=== PATIENT | female | born 1965 | race Caucasian/White ===

== ENCOUNTER 2021-03-08 10:56 | Outpatient (REF) | payer MEDICAID, SELFPAY ==
--- NOTE | 2021-03-08 11:00 | PFT_ITS ---
INDICATIONS: Dyspnea and cough. SPIROMETRY: The FEV1 to FVC of 66% with an FEV1 of 1.81 L, which is 76% predicted and an FVC of 2.73 L, which is 89% predicted. No significant response to bronchodilators noted. Maximum voluntary ventilation 52% predicted. LUNG VOLUMES: Total lung capacity 113% predicted with residual volume of 153% predicted. DIFFUSION CAPACITY: DLCO 60% predicted. COMPARISONS: None. INTERPRETATION: There is an obstructive ventilatory defect consistent moderate COPD. No significant response to bronchodilators noted. There is also moderate decrease in maximum voluntary ventilation secondary to likely deconditioning, although likely a component of worsening dynamic inspiratory capacity. Lung volumes with a trend of hyperinflation and significant air trapping due to the COPD. There is also a [id number] diffusion impairment secondary to emphysema and other parenchymal lung conditions should be considered. Clinical correlation warranted. Lai Weeks MD MR/MODL / [id number]
== END 2021-03-08 10:57 | disposition home or self-care (01) ==
LOC: HO.RESP 10:56
PROVIDERS: PCP General Practice; Visit Provider General Practice
DX: R05 Cough (principal); Z72.0 Tobacco use
CPT/HCPCS: 94060; 94727; 94729

== ENCOUNTER → 2021-04-11 12:58 | Outpatient (BNVA) | payer MEDICAID, SELFPAY | PROVIDERS: PCP General Practice; Visit Provider Internal Medicine | DX: J44.9 Chronic obstructive pulmonary disease, unspecified (principal); F17.200 Nicotine dependence, unspecified, uncomplicated | CPT/HCPCS: 99202 ==

== ENCOUNTER → 2021-05-30 09:49 | Outpatient (BNVA) | payer MEDICAID, SELFPAY | PROVIDERS: PCP General Practice; Visit Provider Internal Medicine | DX: J44.9 Chronic obstructive pulmonary disease, unspecified (principal); F17.200 Nicotine dependence, unspecified, uncomplicated | CPT/HCPCS: 99212 ==

== ENCOUNTER 2021-06-23 14:11 | Outpatient (REF) | payer MEDICAID, SELFPAY ==
--- NOTE | ~2021-06-23 | CT_ITS ---
EXAMINATION: CT CHEST SCREENING CLINICAL INFORMATION: Current smoker. 37 pack year history. COMPARISON: None. TECHNIQUE: Multidetector volumetric CT imaging of the chest is performed without contrast using low dose technique. Additional 2D coronal and sagittal reformatted images and axial 3D maximum intensity projection (MIP) images are generated on the CT workstation. This CT examination was performed using dose optimization techniques as appropriate, variously including the following: *Automated exposure control *Adjustment of mA and/or kV according to patient size (this includes techniques or standardized protocols for targeted exams where dose is matched to indication/reason for exam; i.e. extremities or head) *Use of iterative reconstruction technique DLP: 53 mGy-cm FINDINGS: LUNGS: There is evidence of mild paraseptal emphysema. There is a 2 mm peripheral or subpleural left lower lobe nodule axial image 132 series 5. There is a 2 mm left upper lobe nodule axial image 145 series 5. There is a 2 mm right upper lobe nodule axial image 190 series 5. There is a 3 mm right lower lobe nodule axial image 278 series 5. The lungs are otherwise clear. No endobronchial or endotracheal lesion is seen. MEDIASTINUM: The mediastinum is normal. PLEURA: There is no pleural effusion. No pleural mass or thickening. AXILLA: No lymphadenopathy. UPPER ABDOMEN: The gallbladder has been removed. There may be diverticulosis of the colon. OSSEOUS STRUCTURES: Unremarkable. CT/CT lung screening IMPRESSION: Mild paraseptal emphysema. Small pulmonary nodules or micronodules. ASSESSMENT: Lung-RADS category 2: Benign RECOMMENDATION: Annual low-dose chest CT follow-up recommended.
== END 2021-06-23 14:12 | disposition home or self-care (01) ==
LOC: HO.CT 14:11
PROVIDERS: Visit Provider Physician Assistant Medical
DX: Z12.2 Encounter for screening for malignant neoplasm of respiratory organs (principal); F17.210 Nicotine dependence, cigarettes, uncomplicated
CPT/HCPCS: 71271; G0296

== ENCOUNTER → 2021-09-26 10:22 | Outpatient (BNVA) | payer MEDICAID, SELFPAY | PROVIDERS: PCP General Practice; Visit Provider Internal Medicine | DX: J44.9 Chronic obstructive pulmonary disease, unspecified (principal); R05.3 Chronic cough; U09.9 Post COVID-19 condition, unspecified; F17.210 Nicotine dependence, cigarettes, uncomplicated | CPT/HCPCS: 99212 ==

== ENCOUNTER → 2022-01-10 10:34 | Outpatient (BNVA) | payer MEDICAID, SELFPAY | PROVIDERS: PCP General Practice; Visit Provider Internal Medicine | DX: J44.9 Chronic obstructive pulmonary disease, unspecified (principal); R05.3 Chronic cough; U09.9 Post COVID-19 condition, unspecified; F17.210 Nicotine dependence, cigarettes, uncomplicated | CPT/HCPCS: 99212 ==

== ENCOUNTER → 2022-08-28 08:53 | Outpatient (BNVA) | payer MEDICAID, SELFPAY | PROVIDERS: PCP General Practice; Visit Provider Internal Medicine | DX: J44.9 Chronic obstructive pulmonary disease, unspecified (principal); F17.210 Nicotine dependence, cigarettes, uncomplicated | CPT/HCPCS: 99212 ==

== ENCOUNTER 2022-09-14 09:30 | Outpatient (REF) | payer MEDICAID, SELFPAY ==
--- NOTE | ~2022-09-14 | MM_ITS ---
EXAMINATION: MM SCREENING DIGITAL BREAST TOMOSYNTHESIS, BILATERAL CLINICAL INFORMATION: Screening. Asymptomatic. The lifetime risk of breast cancer based on the Tyrer-Cuzick Model is 14.6%. COMPARISON: Mammography: December 11, 2014 TECHNIQUE: Digital breast tomosynthesis is performed in both the craniocaudal and mediolateral oblique views along with computer-aided detection (CAD). Synthesized 2D images are generated from the tomosynthesis. FINDINGS: The breasts are heterogeneously dense, which may obscure small masses (ACR BI-RADS breast composition Category c). No suspicious left breast findings are identified. Within the lateral aspect of the right breast approximately 7.5 cm from the nipple there is a density containing calcifications for which spot magnification views are recommended. MM/MM tomosynthesis screening BI IMPRESSION: Right breast density with calcifications for further evaluation. ASSESSMENT: BI-RADS 0: Incomplete - Need Additional Imaging Evaluation RECOMMENDATION: 1. Additional views of the right breast 2. Targeted ultrasound if warranted after review of the additional views. 3. Radiology department staff will contact the patient for additional imaging.
== END 2022-09-14 09:31 | disposition home or self-care (01) ==
LOC: HO.MAMMO 09:30
PROVIDERS: PCP General Practice; Visit Provider General Practice
DX: Z12.31 Encounter for screening mammogram for malignant neoplasm of breast (principal)
CPT/HCPCS: 77063; 77067

== ENCOUNTER 2022-10-25 08:48 | Outpatient (REF) | payer MEDICAID, SELFPAY ==
--- NOTE | ~2022-10-25 | MM_ITS ---
EXAMINATION: MM DIAGNOSTIC DIGITAL BREAST TOMOSYNTHESIS, RIGHT CLINICAL INFORMATION: Recall from screening for question of right breast density with calcifications lateral right breast. Personal history lymphoma. TC score 15%. COMPARISON: Mammography: 09/14/2022, outside mammography 12/11/2014 ([employer]) TECHNIQUE: Digital breast tomosynthesis is performed. 2D images are generated from the tomosynthesis. The following views are obtained: Magnification right CC, magnification right ML. FINDINGS: There are scattered areas of fibroglandular density (ACR BI-RADS breast composition Category b). Breast tissue composition borders on heterogeneously dense. The additional views show no interval nodule or asymmetric density from prior outside exam 2014. There are some loosely grouped round calcifications mid 9:00 position corresponding to the recent screening exam. The calcifications are mildly coarse and round. They are likely new since 2014 but otherwise long-term chronicity is uncertain. Results are discussed with the patient at time of visit. MM/MM tomosynthesis added views R IMPRESSION: Probable benign calcifications mid 9:00 right breast. ASSESSMENT: BI-RADS 3: Probably Benign RECOMMENDATION: Diagnostic right mammography in 6 months. This patient's information was entered into a reminder system with a target due date for their next mammogram.
== END 2022-10-25 08:49 | disposition home or self-care (01) ==
LOC: HO.MAMMO 08:48
PROVIDERS: PCP General Practice; Visit Provider General Practice
DX: R92.2 Inconclusive mammogram (principal); R92.1 Mammographic calcification found on diagnostic imaging of breast
CPT/HCPCS: 77061; 77065

== ENCOUNTER 2023-03-18 09:31 | Outpatient (AMB) | payer MEDICAID, SELFPAY ==
[2023-03-18 09:36] VITALS: BP 120/80; PULSE 80; O2SAT 97; BMI 33.3
--- NOTE | 2023-03-18 09:36 | MHC.OFFVIS ---
Intake Vital Signs 03/18/23 09:36 Height 5 ft 1 in Weight 176 lb BMI 33.3 BP 120/80 Blood Pressure Location Lt brachial Position Sitting Pulse 80 Pulse Source Pulse Oximeter Pulse Oximetry (%) 97 Oxygen Delivery Method Room Air Intake Visit Reasons: COPD Intake Note: pt is here for follow up and states she is coughing with some production, she is fatigued, she just doesn't sleep. 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 Allergies No Known Allergies Allergy (Verified 03/18/23 09:49) Medication List - Last Reconciled 03/18/23 by Feliciano Mayorga MD amitriptyline 50 mg PO BEDTIME atorvastatin 10 mg PO BEDTIME baclofen 20 mg PO bupropion HCl 200 mg PO BID duloxetine 60 mg PO DAILY fluticasone propion-salmeterol 230-21 mcg/actuation (Advair HFA) 2 puffs inhalation BID montelukast 10 mg PO QPM ondansetron HCl 4 mg PO Q8H PRN umeclidinium 62.5 mcg/actuation (Incruse Ellipta) 1 inh PO DAILY Ventolin HFA 90 mcg/actuation (albuterol sulfate) 2 puffs PO Q6H PRN NS zanubrutinib (Brukinsa) 160 mg PO .in am and 1 in pm Do you need a note to return to daycare/school/sports/work: No HPI COPD HPI Details DIOR IS 57 YEARS OLD VERY PLEASANT FEMALE, COMES AFTER 6 MONTHS FOR FOLLOW-UP OF HER COPD. SHE CLAIMS THAT LONG SHE USES HER INHALERS HER BREATHING HAS BEEN WELL AND STABLE. HER MAIN ISSUE IS ONLY INCREASED COUGH AND MUCUS PRODUCTION OFF AND ON. IT DOES NOT LAST TOO LONG. SHE DOES NOT SMOKE FOR ABOUT 5-6 DAYS A WEEK AND THEN 1 DAY A WEEK SHE MAY SMOKE A FEW CIGARETTES, TRYING TO CUT IT OUT SLOWLY. LUCKILY SHE HAS HAD NO RESPIRATORY INFECTION. SHE DOES NOT GET FLU VACCINE., BUT HER COVID VACCINATION HAS BEEN COMPLETED. CHRONIC SLEEP PROBLEM IS MAINLY RELATED TO HER ANXIETY AND FIBROMYALGIA. PFSH Medical History Cancer of fallopian tube COPD (chronic obstructive pulmonary disease) Fibromyalgia Obesity (BMI 30.0-34.9) Personal history of nicotine dependence Post-COVID chronic cough Smoker Surgical History History of cholecystectomy History of tonsillectomy History of total hysterectomy Social History Patient Tobacco Use Status: Current someday Tobacco user Cigarette Packs Per Day: 0.5 Cigarettes Per Day: 3 Years Smoked: 31 Review of Systems Const All systems reviewed & are unremarkable except as noted in HPI and below Eyes Reports no additional complaints ENT Reports nasal congestion (Mild intermittent) Card Denies chest pain, Denies irregular heart rhythm and Denies leg edema Resp Reports as per HPI GI Reports no additional complaints Reports no additional complaints Musc Reports myalgias Skin/Breast Reports system reviewed and no additional complaints, except as documented Neuro Reports no additional complaints Psych Reports anxiety Physical Exam Vital Signs: Last Vital Signs Pulse 80 03/18/23 09:36 BP 120/80 03/18/23 09:36 Pulse Ox 97 03/18/23 09:36 Oxygen Delivery Method Room Air 03/18/23 09:36 BMI result Body Mass Index 33.3 Const General: comfortable, no acute distress, alert and awake Orientation/consciousness: patient oriented x3 HEENT Head: Yes normal to inspection General nose exam: No nasal polyps present and No nasal discharge present Face and sinus: Yes sinuses nontender Mouth: oropharynx normal Throat: Yes posterior oropharynx normal Eyes General: appearance normal, both eyes and all related structures Neck Neck: Yes normal visual inspection, Yes no lymphadenopathy, Yes trachea midline and Yes no JVD Thyroid: Thyroid normal Chest Chest palpation & inspection: normal inspection of the chest, normal palpation of entire chest wall and no tenderness Resp Other: Percussion note resonant, breath sounds are distant as usual with prolonged expiratory phase. No wheezes rhonchi or crepitations are heard. Cardio Palpation: normal PMI Rate: regular rate Rhythm: regular rhythm Heart sounds: no gallops and no murmurs GI Palpation (GI): Soft to palpation, nontender, No hepatosplenomegaly present and no masses Auscultation: normal bowel sounds Back/Spine/Pelvis Thoracic/Lumbar Spine: thoracic and lumbar spine normal to inspection Skin General skin exam: no rashes or lesions noted Neuro General: patient oriented x3 and no focal motor deficits Cranial nerves: Yes CN's II-XII intact bilaterally Extrem General: Yes normal to inspection, Yes no clubbing, cyanosis or edema and Yes no calf tenderness Psych Appearance: grossly normal and well kempt Speech and movement: Normal speech and movement present Assessment & Plan Assessment & Plan (1) COPD (chronic obstructive pulmonary disease): Comment: MODERATELY SEVERE OBSTRUCTIVE AIRWAY DISORDER. 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 REMAINS FAIRLY STABLE . [place] : AGAIN EDUCATED ABOUT COPD AND RELATIONSHIP TO SMOKING INCRUSE ELLIPTA 1 INHALATION DAILY ( LAMA) ADVAIR HFA 230-21 , MAY USE 2 PUFFS ONLY ONCE A DAY OR ONE PUFF BID , GOAL WILL BE TO WEAN OFF . ALBUTEROL HFA 2 PUFFS Q 4-6 HRS ONLY PRN FOR WHEEZING . Code(s): J44.9 - Chronic obstructive pulmonary disease, unspecified (2) Smoker: Comment: DISCUSSED WITH HER AND TOLD THAT HER COPD IS MOSTLY DUE TO CHRONIC SMOKING. IT IS ABSOLUTELY NECESSARY FOR HER TO QUIT SMOKING COMPLETELY. DOWN TO A FEW CIGARETTES PER WEEK. AND IS DETERMINED TO QUIT COMPLETELY. LAST LDCT OF CHEST IN 06/2021, BENIGN, ADVISED TO REALLY REGISTER IN ANNUAL LUNG SCREENING PROGRAM . Code(s): F17.200 - Nicotine dependence, unspecified, uncomplicated Coding Level of Care Code Est Pt Level 3 (06488) Diagnoses COPD (chronic obstructive pulmonary disease) J44.9 Smoker F17.200
== END 2023-03-18 09:55 | disposition home or self-care (01) ==
PROVIDERS: PCP General Practice; Visit Provider Internal Medicine
DX: J44.9 Chronic obstructive pulmonary disease, unspecified (principal); F17.200 Nicotine dependence, unspecified, uncomplicated
CPT/HCPCS: 99213

== ENCOUNTER → 2023-03-18 09:31 | Outpatient (BNVA) | payer MEDICAID, SELFPAY | PROVIDERS: PCP General Practice; Visit Provider Internal Medicine | DX: J44.9 Chronic obstructive pulmonary disease, unspecified (principal); F17.210 Nicotine dependence, cigarettes, uncomplicated | CPT/HCPCS: 99212 ==

== ENCOUNTER 2023-05-10 13:21 | Outpatient (REF) | payer MEDICAID, SELFPAY ==
--- NOTE | ~2023-05-10 | MM_ITS ---
EXAMINATION: MM DIAGNOSTIC DIGITAL BREAST TOMOSYNTHESIS, RIGHT CLINICAL INFORMATION: 6 month follow-up calcifications right breast lateral and slightly lower right breast. COMPARISON: Mammography: 10/25/2022, 09/14/2022, and 12/11/2014 ([facility]). TECHNIQUE: Digital breast tomosynthesis is performed in both the craniocaudal and mediolateral oblique views along with computer-aided detection (CAD). Synthesized 2D images are generated from the tomosynthesis. FINDINGS: There are scattered areas of fibroglandular density (ACR BI-RADS breast composition Category b). There are some loosely grouped round calcifications mid 9:00 position corresponding to the recent screening exam. The calcifications are mildly coarse and round. There has been no significant interval change in the appearance of these calcifications which have a probably benign morphology. No branching, linear, or casting forms. There are scattered calcifications globally throughout the parenchyma, somewhat which clearly layer on the mediolateral projection, further favoring benignity. On the full-field right tomographic views, there are no suspicious masses, or areas of architectural distortion. The parenchymal pattern is stable from prior exams. MM/MM tomosynthesis diagnostic RT IMPRESSION: No findings suspicious for malignancy in the right breast. Grouped calcifications in the 9:00 axis right breast remain stable and probably benign. Six-month interval follow-up recommended to include standard magnification views. ASSESSMENT: BI-RADS BI-RADS 3 - Probably benign finding(s) - 6 month follow-up suggested RECOMMENDATION: 6 Month F/U Results were provided to the patient at time of visit by the technologist. This patient's information was entered into a reminder system with a target due date for their next mammogram.
== END 2023-05-10 13:22 | disposition home or self-care (01) ==
LOC: HO.MAMMO 13:21
PROVIDERS: PCP General Practice; Visit Provider General Practice
DX: R92.1 Mammographic calcification found on diagnostic imaging of breast (principal)
CPT/HCPCS: 77061; 77065

== ENCOUNTER → 2023-05-10 14:00 | Outpatient (BNV) | payer MEDICAID, SELFPAY | PROVIDERS: PCP General Practice; Visit Provider Radiology Diagnostic Radiology | DX: R92.1 Mammographic calcification found on diagnostic imaging of breast (principal) | CPT/HCPCS: 77061; 77065 ==

== ENCOUNTER 2023-07-19 15:06 | Outpatient (REF) | payer MEDICAID, SELFPAY ==
--- NOTE | ~2023-07-19 | US_ITS ---
EXAMINATION: US RETROPERITONEAL LIMITED (RENAL ONLY) CLINICAL INFORMATION: Left flank pain. COMPARISON: None available. TECHNIQUE: Real-time imaging of the kidneys. FINDINGS: RIGHT KIDNEY: 7.2 x 4 x 4.6 cm (SAG x AP x TRV). Atrophic. No calculi or focal parenchymal lesions. No hydronephrosis. LEFT KIDNEY: 9.8 x 5.5 x 4.4 cm (SAG x AP x TRV). Atrophic. No calculi or focal parenchymal lesions. No hydronephrosis. US/US renal BI IMPRESSION: Right greater than left renal atrophy, correlate with renal function tests. No nephrolithiasis or hydronephrosis.
== END 2023-07-19 15:07 | disposition home or self-care (01) ==
LOC: HO.US 15:06
PROVIDERS: PCP General Practice; Visit Provider General Practice
DX: R10.9 Unspecified abdominal pain (principal)
CPT/HCPCS: 76775

== ENCOUNTER 2023-07-26 09:39 | Outpatient (REF) | payer MEDICAID, SELFPAY ==
[2023-07-26 11:50] LABS: Anion Gap 17 (12-20); Blood Urea Nitrogen 19 mg/dL (9-16); Calcium 9.2 mg/dL (8.4-10.2); Carbon Dioxide 24 mmol/L (22-29); Chloride 105 mmol/L (96-108); Estimated Glomerular Filt Rate 57; Glucose Random 118 mg/dL (60-115); Potassium 5.1 mmol/L (3.3-5.1); Sodium 141 mmol/L (135-145)
== END 2023-07-26 09:40 | disposition home or self-care (01) ==
LOC: HO.HHCL 09:39
PROVIDERS: Visit Provider General Practice
DX: N26.1 Atrophy of kidney (terminal) (principal)
CPT/HCPCS: 36415; 80048

== ENCOUNTER 2023-09-23 09:09 | Outpatient (AMB) | payer MEDICARE, MEDICAID, SELFPAY ==
[2023-09-23 09:31] VITALS: BP 122/92; PULSE 94; O2SAT 96; BMI 33.8
--- NOTE | 2023-09-23 09:31 | MHC.OFFVIS ---
Intake Vital Signs 09/23/23 09:31 Height 5 ft 1 in Weight 179 lb BMI 33.8 BP 122/92 H Blood Pressure Location Lt brachial Position Sitting Pulse 94 Pulse Source Pulse Oximeter Pulse Oximetry (%) 96 Oxygen Delivery Method Room Air Intake Visit Reasons: COPD Intake Note: pt is here for follow up and states she is still coughing, all day and night. some very little production but she needs help with this. 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 Allergies No Known Allergies Allergy (Verified 09/23/23 09:41) Medication List - Last Reconciled 09/23/23 by Feliciano Mayorga MD amitriptyline 100 mg PO BEDTIME atorvastatin 10 mg PO BEDTIME baclofen 20 mg PO bupropion HCl 200 mg PO BID duloxetine 60 mg PO DAILY fluticasone propion-salmeterol 230-21 mcg/actuation (Advair HFA) 2 puffs inhalation BID 30 days montelukast 10 mg PO QPM olmesartan 5 mg PO DAILY ondansetron HCl 4 mg PO Q8H PRN tamsulosin 0.4 mg PO DAILY umeclidinium 62.5 mcg/actuation (Incruse Ellipta) 1 inh PO DAILY Ventolin HFA 90 mcg/actuation (albuterol sulfate) 2 puffs PO Q6H PRN NS zanubrutinib (Brukinsa) 160 mg PO .in am and 1 in pm HPI COPD HPI Details 57 years old female is here for follow-up. She has history of smoking for about 32 years, On her last visit stated that she had cut it down to only once or twice per week. But since then she has been smoking 3-5 cigarettes every day. She has reduce the Advair HFA 2 only once a day. She denies any runny nose or sneezing. Complains of more frequent cough especially at night, with feeling of mucus in her throat which she can not bring up. During the daytime she does not have much shortness of breath on exertion. 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 Fibromyalgia Obesity (BMI 30.0-34.9) Personal history of nicotine dependence COPD (chronic obstructive pulmonary disease) Smoker Surgical History History of total hysterectomy History of cholecystectomy History of tonsillectomy Social History Patient Tobacco Use Status: Current someday Tobacco user Cigarette Packs Per Day: 0.5 Cigarettes Per Day: 3 Years Smoked: 31 Review of Systems Const All systems reviewed & are unremarkable except as noted in HPI and below Eyes Reports no additional complaints ENT Reports nasal congestion (Mild intermittent) Card Denies chest pain, Denies irregular heart rhythm and Denies leg edema Resp Reports as per HPI GI Reports no additional complaints Reports no additional complaints Musc Reports myalgias Skin/Breast Reports system reviewed and no additional complaints, except as documented Neuro Reports no additional complaints Psych Reports anxiety Physical Exam Vital Signs: Last Vital Signs Pulse 94 09/23/23 09:31 BP 122/92 H 09/23/23 09:31 Pulse Ox 96 09/23/23 09:31 Oxygen Delivery Method Room Air 09/23/23 09:31 BMI result Body Mass Index 33.8 Const General: comfortable, no acute distress, alert and awake Orientation/consciousness: patient oriented x3 HEENT Head: Yes normal to inspection General nose exam: No nasal polyps present, mucous membranes and turbinates abnormal (She does have moderate hypertrophy of the nasal turbinates.) and No nasal discharge present Face and sinus: Yes sinuses nontender Mouth: oropharynx normal Throat: Yes posterior oropharynx normal Eyes General: appearance normal, both eyes and all related structures Neck Neck: Yes normal visual inspection, Yes no lymphadenopathy, Yes trachea midline and Yes no JVD Thyroid: Thyroid normal Chest Chest palpation & inspection: normal inspection of the chest, normal palpation of entire chest wall and no tenderness Resp Other: Percussion note resonant, breath sounds are distant as usual with prolonged expiratory phase. No wheezes rhonchi or crepitations are heard. Cardio Palpation: normal PMI Rate: regular rate Rhythm: regular rhythm Heart sounds: no gallops and no murmurs GI Palpation (GI): Soft to palpation, nontender, No hepatosplenomegaly present and no masses Auscultation: normal bowel sounds Back/Spine/Pelvis Thoracic/Lumbar Spine: thoracic and lumbar spine normal to inspection Skin General skin exam: no rashes or lesions noted Neuro General: patient oriented x3 and no focal motor deficits Cranial nerves: Yes CN's II-XII intact bilaterally Extrem General: Yes normal to inspection, Yes no clubbing, cyanosis or edema and Yes no calf tenderness Psych Appearance: grossly normal and well kempt Speech and movement: Normal speech and movement present Assessment & Plan Assessment & Plan (1) COPD (chronic obstructive pulmonary disease): Comment: MODERATELY SEVERE OBSTRUCTIVE AIRWAY DISORDER. 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 REMAINS FAIRLY STABLE , EXCEPT THAT SHE HAS INCREASED COUGH. Code(s): J44.9 - Chronic obstructive pulmonary disease, unspecified Plan: [place] : AGAIN EDUCATED ABOUT COPD AND RELATIONSHIP TO SMOKING INCRUSE ELLIPTA 1 INHALATION DAILY ( [facility]) ADVAIR HFA 230-21 , MAY USE 2 PUFFS TWICE A DAY ( MAY REDUCED TO ONLY ONCE A DAY IF COUGH IS RESOLVED AND NO WHEEZING) ALBUTEROL HFA 2 PUFFS Q 4-6 HRS ONLY PRN FOR WHEEZING . (2) Smoker: Comment: DISCUSSED AND TOLD HER THAT COPD IS MOSTLY DUE TO CHRONIC SMOKING. IT IS ABSOLUTELY NECESSARY FOR HER TO QUIT SMOKING COMPLETELY. SMOKES A FEW CIGARETTES ( 3-5 ) PER DAY. Code(s): F17.200 - Nicotine dependence, unspecified, uncomplicated Plan: COUNSELED TO QUIT COMPLETELY. I TOLD HER THAT INCREASED COUGH IS DUE TO INCREASED AMOUNT OF CIGARETTES. SHE IS IN ANNUAL LUNG SCREENING PROGRAM, BUT MISSED LUNG SCAN FOR 2 YEARS. SHE DOES HAVE APPOINTMENT FOR LDCT IN OCTOBER OF THIS YEAR . (3) Cough: Comment: SHE HAS INCREASED COUGH ESPECIALLY AT NIGHT. THERE IS NO EVIDENCE OF ANY INFECTION. COUGH IS POSSIBLY DUE TO LOW-GRADE NASAL ALLERGY, AND ALSO DUE TO SMOKING. Code(s): R05.9 - Cough, unspecified Plan: USE FLONASE 2 SPRAY IN EACH NOSTRIL DAILY IN THE EVENING. GO BACK TO ADVAIR 230-212 PUFFS B.I.D.. QUIT SMOKING Coding Level of Care Code Est Pt Level 3 (48735) Diagnoses COPD (chronic obstructive pulmonary disease) J44.9 Smoker F17.200 Cough R05.9
== END 2023-09-23 09:52 | disposition home or self-care (01) ==
PROVIDERS: PCP General Practice; Visit Provider Internal Medicine
DX: J44.9 Chronic obstructive pulmonary disease, unspecified (principal); F17.200 Nicotine dependence, unspecified, uncomplicated; R05.9 Cough, unspecified
CPT/HCPCS: 99213

== ENCOUNTER → 2023-09-23 09:09 | Outpatient (BNVA) | payer MEDICARE, MEDICAID, SELFPAY | PROVIDERS: PCP General Practice; Visit Provider Internal Medicine | DX: J44.9 Chronic obstructive pulmonary disease, unspecified (principal); R05.9 Cough, unspecified; F17.210 Nicotine dependence, cigarettes, uncomplicated | CPT/HCPCS: 99212 ==

== ENCOUNTER 2023-10-21 12:28 | Outpatient (REF) | payer MEDICARE, MEDICAID, SELFPAY ==
--- NOTE | ~2023-10-21 | CT_ITS ---
EXAMINATION: CT CHEST SCREENING CLINICAL INFORMATION: Current smoker with 41 year smoking history, 2 packs per day. COMPARISON: CT lung screening 06/23/2020. TECHNIQUE: Multidetector volumetric CT imaging of the chest is performed without contrast using low dose technique. Additional 2D coronal and sagittal reformatted images and axial 3D maximum intensity projection (MIP) images are generated on the CT workstation. This CT examination was performed using dose optimization techniques as appropriate, variously including the following: *Automated exposure control *Adjustment of mA and/or kV according to patient size (this includes techniques or standardized protocols for targeted exams where dose is matched to indication/reason for exam; i.e. extremities or head) *Use of iterative reconstruction technique DLP: 47 mGy-cm FINDINGS: LUNGS: Mild emphysematous changes are present. Multiple small lung nodules are seen none larger than 3 mm most of which are unchanged when compared to the prior study. There is a single new 3 mm subpleural nodule in the left lower lobe (5:267). Andrew images of all have been saved. The lungs are otherwise clear with no evidence of inflammation or nodules. MEDIASTINUM: The mediastinum is normal. CORONARY ARTERY CALCIFICATION: None visualized on this study. PLEURA: There is no pleural effusion. No pleural mass or thickening. AXILLA: No lymphadenopathy. UPPER ABDOMEN: Status post cholecystectomy. OSSEOUS STRUCTURES: Unremarkable. CT/CT lung screening IMPRESSION: Unremarkable examination. ASSESSMENT: Lung-RADS category 2: Benign RECOMMENDATION: Routine annual low-dose CT screening in 12 months.
== END 2023-10-21 12:29 | disposition home or self-care (01) ==
LOC: HO.CT 12:28
PROVIDERS: PCP General Practice; Visit Provider Physician Assistant Medical
DX: Z12.2 Encounter for screening for malignant neoplasm of respiratory organs (principal); F17.210 Nicotine dependence, cigarettes, uncomplicated
CPT/HCPCS: 71271

== ENCOUNTER 2023-11-12 12:41 | Outpatient (REF) | payer MEDICARE, MEDICAID, SELFPAY ==
--- NOTE | ~2023-11-12 | MM_ITS ---
EXAMINATION: MM DIAGNOSTIC DIGITAL BREAST TOMOSYNTHESIS, BILATERAL CLINICAL INFORMATION: 6 month follow-up for right breast calcifications mid 9:00 position, probably benign. Patient due for bilateral screening. COMPARISON: Mammography: 05/10/2023, 10/25/2022 (BI-RADS 3), 10/12/2022, 12/11/2014. TECHNIQUE: Digital breast tomosynthesis is performed in both the craniocaudal and mediolateral oblique views along with computer-aided detection (CAD). Synthesized 2D images are generated from the tomosynthesis. In addition to standard views, 2-D spot magnification right CC and ML views were obtained. FINDINGS: The breasts are heterogeneously dense, which may obscure small masses (ACR BI-RADS breast composition Category c). There are some loosely grouped round calcifications mid 9:00 position again noted. The calcifications are mildly coarse and round. There has been no significant interval change in the appearance of these calcifications which have a probably benign morphology. No branching, linear, or casting forms. No aggressive change. There are scattered calcifications globally throughout the parenchyma, some of which clearly layer on the mediolateral projection, further favoring benignity. There are a few scattered benign-appearing calcifications in the left breast. There are no suspicious masses or areas of architectural distortion in either breast. The parenchymal pattern is stable from prior exams. MM/MM tomosynthesis diagnostic BI IMPRESSION: There are no findings suspicious for malignancy in either breast. Right breast calcifications at the 9:00 axis remains stable without aggressive changes, and are suitable for follow-up standard magnification views in one year to complete two-year stability/benignity. No suspicious findings in the left breast. ASSESSMENT: BI-RADS BI-RADS 3 - Probably benign finding(s) - 12 month follow-up suggested RECOMMENDATION: 12 month diagnostic follow up Results were provided to the patient at time of visit by the technologist. This patient's information was entered into a reminder system with a target due date for their next mammogram.
== END 2023-11-12 12:42 | disposition home or self-care (01) ==
LOC: HO.MAMMO 12:41
PROVIDERS: PCP General Practice; Visit Provider General Practice
DX: R92.1 Mammographic calcification found on diagnostic imaging of breast (principal)
CPT/HCPCS: 77062; 77066

== ENCOUNTER → 2023-11-12 13:00 | Outpatient (BNV) | payer MEDICARE, MEDICAID, SELFPAY | PROVIDERS: PCP General Practice; Visit Provider Radiology Diagnostic Radiology | DX: R92.1 Mammographic calcification found on diagnostic imaging of breast (principal) | CPT/HCPCS: 77066; G0279 ==

== ENCOUNTER 2023-12-05 12:12 | Outpatient (AMB) | payer MEDICARE, MEDICAID, SELFPAY ==
--- NOTE | 2023-12-05 12:24 | MHC.OFFVIS ---
Vital Signs 12/05/23 12:29 Height 5 ft 1 in Weight 178 lb BMI 33.6 BP 123/58 L Blood Pressure Location Lt brachial Position Sitting Pulse 78 Intake Visit Reasons: COLO SCREEN Intake Note: Patient new consult for 2nd pre colonoscopy screening. Patient cc: nauseas, abdominal bloating, between constipation and diarrhea, swallowing problems with solid and liquid. Hand Ii Blocker Required: No Accompanied by: Self / Same As Patient Allergies No Known Allergies Allergy (Verified 12/05/23 12:24) HPI Comments Details: 58-year-old female dx lymphoma-18 mos ago- tx @ [facility] currently referred for screening colonoscopy- last 2004 In she says that she is doing very well she has very good family support she is optimistic present with dysphagia -nothing specific can be identified seems to be intermittent however has been taking Tums has not had any benefit-she does have regurg Hx constipation-she does not eat fiber- BM every 1-3 days appetite is good-smokes MJ before - boosts her appt- She does follow with Pulmonary for COPD tried to quit smoking for the past 2 days she is hopeful She does not typically get short of breath on exertion. 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 Fibromyalgia Obesity (BMI 30.0-34.9) Personal history of nicotine dependence COPD (chronic obstructive pulmonary disease) Smoker Surgical History History of total hysterectomy History of cholecystectomy History of tonsillectomy Social History (Updated 12/07/23 @ 19:58 by Cailin Rachel PA-C) Household Members Other:: Many family members Patient Tobacco Use Status: Current someday Tobacco user Cigarette Packs Per Day: 0.5 Cigarettes Per Day: 3 Years Smoked: 31 Review of Systems Const All systems reviewed & are unremarkable except as noted in HPI and below ENT Reports dysphagia Card Denies chest pain, Denies dyspnea and Denies dyspnea on exertion Resp Reports cough, Reports excessive phlegm production (noc), Denies dyspnea and Denies dyspnea on exertion GI Denies abdominal pain, Denies hematochezia, Reports constipation, Reports dysphagia, Reports heartburn, Denies nausea and Denies vomiting Physical Exam Vital Signs: Last Vital Signs Pulse 78 12/05/23 12:29 BP 123/58 L 12/05/23 12:29 BMI result Body Mass Index 33.6 Const General: cooperative, comfortable and no acute distress Orientation/consciousness: patient oriented x3 Limitations: no limitations Eyes Sclerae: sclerae normal Resp Effort & Inspection: normal respiratory effort and able to speak in complete sentences Auscultation: no wheezes and diminished lung sounds (distant) Cardio Rate: regular rate Rhythm: regular rhythm Heart sounds: S1 normal heart sound present and S2 normal heart sound present GI Palpation (GI): Soft to palpation and nontender Auscultation: normal bowel sounds Skin General skin exam: no rashes or lesions noted Neuro General: patient oriented x3 Extrem General: Yes full ROM Psych Appearance: grossly normal Mental Status: mental status grossly normal Speech and movement: Normal speech and movement present and Clear speech present Affect: normal affect Attitude: cooperative Thought process: Normal thought process present Thought content: Normal thought content present Insight: Good insight present (Psych) Assessment & Plan Assessment & Plan (1) Non-Hodgkin's lymphoma: Comment: tx@ Code(s): C85.90 - Non-Hodgkin lymphoma, unspecified, unspecified site Category: Medical (2) Chronic kidney disease, stage 3: Code(s): N18.30 - Chronic kidney disease, stage 3 unspecified Category: Medical Plan: EGD colonoscopy Nulytely (3) COPD (chronic obstructive pulmonary disease): Comment: MODERATELY SEVERE OBSTRUCTIVE AIRWAY DISORDER. 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 REMAINS FAIRLY STABLE , EXCEPT THAT SHE HAS INCREASED COUGH. Code(s): J44.9 - Chronic obstructive pulmonary disease, unspecified Category: Medical (4) Smoker: Comment: DISCUSSED AND TOLD HER THAT COPD IS MOSTLY DUE TO CHRONIC SMOKING. IT IS ABSOLUTELY NECESSARY FOR HER TO QUIT SMOKING COMPLETELY. SMOKES A FEW CIGARETTES ( 3-5 ) PER DAY. Patient states she quit smoking 2 days ago Code(s): F17.200 - Nicotine dependence, unspecified, uncomplicated Category: Social Hx Plan: Continue to abstain from tobacco (5) Acid reflux: Code(s): K21.9 - Gastro-esophageal reflux disease without esophagitis Category: Medical Plan: Reflux precautions Trial PPI EGD (6) Encounter for screening colonoscopy: Code(s): Z12.11 - Encounter for screening for malignant neoplasm of colon Category: Medical Plan: Due for screening colonoscopy Plan EGD colonoscopy anesthesia consult-MODERATELY SEVERE OBSTRUCTIVE AIRWAY DISORDER. Nulytely Orders: Orders EGD/Boyd Combo - GI Use Only 12/05/23 C85.90 - Non-Hodgkin lymphoma, unspecified, unspecified site, K21.9 - Gastro-esophageal reflux disease without esophagitis, N18.30 - Chronic kidney disease, stage 3 unspecified, Z12.11 - Encounter for screening for malignant neoplasm of colon Medications: New peg-electrolyte soln 420 gram (Nulytely Lemon[place]) until fecal effluent is clear 240 mL PO Q10M 4,000 mL 0RF omeprazole 20 mg PO DAILY 30 caps 5RF Patient Instructions: Very pleasant, upbeat 58-year-old female non-Hodgkin's lymphoma, followed by [facility] oncology referred for screening colonoscopy, presents dysphagia and acid reflux EGD colonoscopy, discussed procedures, rare risks need for escorted due to anesthesia as well as prep-literature given Encouraged to call questions concerns, health status change or medications No major barriers to understanding were identified Coding Level of Care Code New Pt Level 3 (03217) Diagnoses Non-Hodgkin's lymphoma C85.90 Chronic kidney disease, stage 3 N18.30 COPD (chronic obstructive pulmonary disease) J44.9 Smoker F17.200 Acid reflux K21.9 Encounter for screening colonoscopy Z12.11 Time Spent (min) 30
[2023-12-05 12:29] VITALS: BP 123/58; PULSE 78; BMI 33.6
== END 2023-12-05 13:36 | disposition home or self-care (01) ==
PROVIDERS: PCP General Practice; Visit Provider Physician Assistant
DX: C85.90 Non-Hodgkin lymphoma, unspecified, unspecified site (principal); N18.30 Chronic kidney disease, stage 3 unspecified; J44.9 Chronic obstructive pulmonary disease, unspecified; F17.200 Nicotine dependence, unspecified, uncomplicated; K21.9 Gastro-esophageal reflux disease without esophagitis; Z12.11 Encounter for screening for malignant neoplasm of colon
CPT/HCPCS: 99203

== ENCOUNTER → 2023-12-05 12:12 | Outpatient (BNVA) | payer MEDICARE, MEDICAID, SELFPAY | PROVIDERS: PCP General Practice; Visit Provider Physician Assistant | DX: Z12.11 Encounter for screening for malignant neoplasm of colon (principal); K21.9 Gastro-esophageal reflux disease without esophagitis; N18.30 Chronic kidney disease, stage 3 unspecified; J44.9 Chronic obstructive pulmonary disease, unspecified; C85.90 Non-Hodgkin lymphoma, unspecified, unspecified site; F17.210 Nicotine dependence, cigarettes, uncomplicated | CPT/HCPCS: 99202 ==

== ENCOUNTER 2024-02-11 09:24 | Outpatient (AMB) | payer MEDICARE, MEDICAID, SELFPAY ==
[2024-02-11 09:30] VITALS: BP 120/72; PULSE 88; O2SAT 97; BMI 33.7
--- NOTE | 2024-02-11 09:30 | MHC.OFFVIS ---
Vital Signs 02/11/24 09:30 Height 5 ft 1 in Weight 178 lb 9.191 oz BMI 33.7 BP 120/72 Blood Pressure Location Lt brachial Position Sitting Pulse 88 Pulse Source Pulse Oximeter Pulse Oximetry (%) 97 Oxygen Delivery Method Room Air Intake Visit Reasons: COPD Intake Note: pt is here for follow up and states her breathing is good as long as she is in air conditioner and not outside. pt would like a nebulizer for at home use, she feels this would benefit her when at home. Quit smoking last night. Wide Area Network Engineer Required: No Allergies No Known Allergies Allergy (Verified 02/11/24 09:51) Medication List - Last Reconciled 02/11/24 by Feliciano Mayorga MD amitriptyline 100 mg PO BEDTIME atorvastatin 10 mg PO BEDTIME baclofen 20 mg PO bupropion HCl SR 200 mg PO BID duloxetine 60 mg PO DAILY fluticasone propion-salmeterol 230-21 mcg/actuation (Advair HFA) 2 puffs PO BID montelukast 10 mg PO QPM olmesartan 5 mg PO DAILY omeprazole 20 mg PO DAILY ondansetron HCl 4 mg PO Q8H PRN peg-electrolyte soln 420 gram (Nulytely Lemon-[place]) 240 mL PO Q10M pregabalin 25 mg PO BEDTIME tamsulosin 0.4 mg PO DAILY umeclidinium 62.5 mcg/actuation (Incruse Ellipta) 1 inh PO DAILY Ventolin HFA 90 mcg/actuation (albuterol sulfate) 2 puffs PO Q6H PRN NS zanubrutinib (Brukinsa) 160 mg PO .in am and 1 in pm Do you need a note to return to daycare/school/sports/work: No HPI HPI COPD: Details: THIS 58 YEARS OLD FEMALE A LONG-TIME SMOKER IS HERE FOR FOLLOW-UP FOR HER MODERATELY ADVANCED OBSTRUCTIVE AIRWAY DISORDER. SHE IS HAVING INCREASED SHORTNESS OF BREATH AND BOUTS OF COUGH IN THE HOUSE DUE TO HOT WEATHER AND HUMIDITY. SHE HAS AIR CONDITION UNIT ONLY IN HER BEDROOM. OVERALL STAYING STABLE. SHE WAS SMOKING 3-4 CIGARETTES A DAY BUT HAS STOPPED SINCE LAST NIGHT. WE HOPE THAT THIS WILL LOST. SHE IS REQUESTING TO HAVE A NEBULIZER FOR P.R.N. USE IN THE HOUSE. 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 Fibromyalgia Obesity (BMI 30.0-34.9) Personal history of nicotine dependence COPD (chronic obstructive pulmonary disease) Smoker Surgical History History of total hysterectomy History of cholecystectomy History of tonsillectomy Social History Household Members Other:: Many family members Patient Tobacco Use Status: Current someday Tobacco user Cigarette Packs Per Day: 0.5 Cigarettes Per Day: 3 Years Smoked: 31 Review of Systems Const All systems reviewed & are unremarkable except as noted in HPI and below Eyes Reports no additional complaints ENT Reports nasal congestion (Mild intermittent) Card Denies chest pain, Denies irregular heart rhythm and Denies leg edema Resp Reports as per HPI GI Reports no additional complaints Reports no additional complaints Musc Reports myalgias Skin/Breast Reports system reviewed and no additional complaints, except as documented Neuro Reports no additional complaints Psych Reports anxiety Physical Exam Vital Signs: Last Vital Signs Pulse 88 02/11/24 09:30 BP 120/72 02/11/24 09:30 Pulse Ox 97 02/11/24 09:30 Oxygen Delivery Method Room Air 02/11/24 09:30 BMI result Body Mass Index 33.7 Const General: comfortable, no acute distress, alert and awake Orientation/consciousness: patient oriented x3 HEENT Head: Yes normal to inspection General nose exam: No nasal polyps present, mucous membranes and turbinates abnormal (She does have moderate hypertrophy of the nasal turbinates.) and No nasal discharge present Face and sinus: Yes sinuses nontender Mouth: oropharynx normal Throat: Yes posterior oropharynx normal Eyes General: appearance normal, both eyes and all related structures Neck Neck: Yes normal visual inspection, Yes no lymphadenopathy, Yes trachea midline and Yes no JVD Thyroid: Thyroid normal Chest Chest palpation & inspection: normal inspection of the chest, normal palpation of entire chest wall and no tenderness Resp Other: Percussion note resonant, breath sounds are distant as usual with prolonged expiratory phase. No wheezes rhonchi or crepitations are heard. Cardio Palpation: normal PMI Rate: regular rate Rhythm: regular rhythm Heart sounds: no gallops and no murmurs GI Palpation (GI): Soft to palpation, nontender, No hepatosplenomegaly present and no masses Auscultation: normal bowel sounds Back/Spine/Pelvis Thoracic/Lumbar Spine: thoracic and lumbar spine normal to inspection Skin General skin exam: no rashes or lesions noted Neuro General: patient oriented x3 and no focal motor deficits Cranial nerves: Yes CN's II-XII intact bilaterally Extrem General: Yes normal to inspection, Yes no clubbing, cyanosis or edema and Yes no calf tenderness Psych Appearance: grossly normal and well kempt Speech and movement: Normal speech and movement present Results Reviewed Results Reviewed: LDCT SCAN ON 10/21/23 IMPRESSION: Unremarkable examination. ASSESSMENT: Lung-RADS category 2: Benign RECOMMENDATION: Routine annual low-dose CT screening in 12 months. Assessment & Plan Assessment & Plan (1) Smoker: Comment: DISCUSSED AND TOLD HER THAT COPD IS MOSTLY DUE TO CHRONIC SMOKING. IT IS ABSOLUTELY NECESSARY FOR HER TO QUIT SMOKING COMPLETELY. SHE WAS SMOKING 3-4 CIGARETTES A DAY UP UNTIL LAST NIGHT. SHE HAS DECIDED TO QUIT COMPLETELY. Code(s): F17.200 - Nicotine dependence, unspecified, uncomplicated Category: Social Hx Plan: I COMMENDED HER FOR QUITTING COMPLETELY. HOPE THAT THIS WILL BE LASTING DECISION . SHE DOES NOT WANT TO USE ANY NICOTINE PRODUCTS. (2) COPD (chronic obstructive pulmonary disease): Comment: MODERATELY SEVERE OBSTRUCTIVE AIRWAY DISORDER. 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 REMAINS FAIRLY STABLE , EXCEPT THAT SHE HAS INCREASED COUGH. Code(s): J44.9 - Chronic obstructive pulmonary disease, unspecified Category: Medical Plan: ADVAIR HFA 230-21 2 PUFFS B.I.D. INCRUSE ELLIPTA 1 INHALATION DAILY. VENTOLIN 2 PUFFS Q 4-6 HOURS P.R.N. WHEN OUTDOORS. SENT A PRESCRIPTION FOR NEBULIZER UNIT. USE ALBUTEROL SOLUTION Q 4-6 HOURS P.R.N. WHEN INDOORS. (3) Cough: Comment: SHE HAS MILD. TO MODERATE INTERMITTENT COUGH SECONDARY TO SMOKING HOPEFULLY WITH COMPLETE QUITTING, THE COUGH WOULD DECREASE. Code(s): R05.9 - Cough, unspecified Category: Medical Plan: ENCOURAGED TO STAY AWAY FROM SMOKING. Coding Level of Care Code Est Pt Level 3 (58531) Diagnoses Smoker F17.200 COPD (chronic obstructive pulmonary disease) J44.9 Cough R05.9
== END 2024-02-11 09:55 | disposition home or self-care (01) ==
PROVIDERS: PCP General Practice; Visit Provider Internal Medicine
DX: F17.200 Nicotine dependence, unspecified, uncomplicated (principal); J44.9 Chronic obstructive pulmonary disease, unspecified; R05.9 Cough, unspecified
CPT/HCPCS: 99213

== ENCOUNTER → 2024-02-11 09:24 | Outpatient (BNVA) | payer MEDICARE, MEDICAID, SELFPAY | PROVIDERS: PCP General Practice; Visit Provider Internal Medicine | DX: J44.9 Chronic obstructive pulmonary disease, unspecified (principal); R05.9 Cough, unspecified; F17.210 Nicotine dependence, cigarettes, uncomplicated | CPT/HCPCS: 99212 ==

== ENCOUNTER 2024-07-02 15:27 | Outpatient (AMB) | payer MEDICARE, MEDICAID, SELFPAY ==
--- NOTE | 2024-07-02 15:32 | MHC.OFFVIS ---
Vital Signs 07/02/24 15:33 Height 5 ft 1 in Weight 178 lb BMI 33.6 BP 120/78 Blood Pressure Location Lt brachial Position Sitting Pulse 81 Pulse Source Pulse Oximeter Pulse Oximetry (%) 97 Oxygen Delivery Method Room Air Intake Visit Reasons: COPD Intake Note: pt is here for follow up and states her breathing is okay, needs refill on incruse, and advair hfa needs alternative. Catalyst Unit Operator Required: No Allergies No Known Allergies Allergy (Verified 07/02/24 15:46) Medication List - Last Reconciled 07/02/24 by Feliciano Mayorga MD albuterol sulfate 2.5 mg (3 mL) inhalation Q4H PRN 30 days amitriptyline 100 mg PO BEDTIME atorvastatin 10 mg PO BEDTIME baclofen 20 mg PO bupropion HCl SR 200 mg PO BID duloxetine 60 mg PO DAILY fluticasone propion-salmeterol 230-21 mcg/actuation (Advair HFA) 2 puffs PO BID montelukast 10 mg PO QPM olmesartan 5 mg PO DAILY omeprazole 20 mg PO DAILY ondansetron HCl 4 mg PO Q8H PRN peg 3350-electrolytes 236-22.74-6.74 -5.86 gram 240 mL PO Q10M peg-electrolyte soln 420 gram (Nulytely Lemon-[place]) 240 mL PO Q10M pregabalin 25 mg PO BEDTIME tamsulosin 0.4 mg PO DAILY tramadol 50 mg PO BID PRN umeclidinium 62.5 mcg/actuation (Incruse Ellipta) 1 inh PO DAILY Ventolin HFA 90 mcg/actuation (albuterol sulfate) 2 puffs PO Q6H PRN NS zanubrutinib (Brukinsa) 160 mg PO .in am and 1 in pm Do you need a note to return to daycare/school/sports/work: No HPI HPI COPD: Details: This 58 years old female comes after 4 months for follow-up. She is being treated for allergic rhinitis and chronic obstructive pulmonary disease. She has history of smoking and about 4 months ago she told me that she had quit. Today she tells me that she is smoking but only about 5 or 6 cigarettes in the whole month. Has usual mild intermittent cough. Gets short of breath when she walks fast or climbs stairs. But she has had no acute exacerbation. Of her COPD Has mild intermittent cough related to postnasal drip. Her non-Hodgkin lymphoma is under control, She continues to have symptoms of fibromyalgia. 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 Fibromyalgia Obesity (BMI 30.0-34.9) Personal history of nicotine dependence COPD (chronic obstructive pulmonary disease) Smoker Surgical History Hx of cystoscopy H/O colonoscopy History of total hysterectomy History of cholecystectomy History of tonsillectomy Social History Household Members Other:: Many family members Are you a primary child care aide to a significant other at home: No Do you presently have visiting nurse or other home services: No Patient Tobacco Use Status: Former Tobacco user Tobacco use type: Cigarette Cigarette Packs Per Day: 0.5 Cigarettes Per Day: 10.0 Years Smoked: 31 Review of Systems Const All systems reviewed & are unremarkable except as noted in HPI and below Eyes Reports no additional complaints ENT Reports nasal congestion (Mild intermittent) Card Denies chest pain, Denies irregular heart rhythm and Denies leg edema Resp Reports as per HPI GI Reports no additional complaints Reports no additional complaints Musc Reports myalgias Skin/Breast Reports system reviewed and no additional complaints, except as documented Neuro Reports no additional complaints Psych Reports anxiety Physical Exam Vital Signs: Last Vital Signs Pulse 81 07/02/24 15:33 BP 120/78 07/02/24 15:33 Pulse Ox 97 07/02/24 15:33 Oxygen Delivery Method Room Air 07/02/24 15:33 BMI result Body Mass Index 33.6 Const General: comfortable, no acute distress, alert and awake Orientation/consciousness: patient oriented x3 HEENT Head: Yes normal to inspection General nose exam: No nasal polyps present, mucous membranes and turbinates abnormal (She does have moderate hypertrophy of the nasal turbinates.) and No nasal discharge present Face and sinus: Yes sinuses nontender Mouth: oropharynx normal Throat: Yes posterior oropharynx normal Eyes General: appearance normal, both eyes and all related structures Neck Neck: Yes normal visual inspection, Yes no lymphadenopathy, Yes trachea midline and Yes no JVD Thyroid: Thyroid normal Chest Chest palpation & inspection: normal inspection of the chest, normal palpation of entire chest wall and no tenderness Resp Other: Percussion note resonant, breath sounds are distant as usual with prolonged expiratory phase. No wheezes rhonchi or crepitations are heard. Cardio Palpation: normal PMI Rate: regular rate Rhythm: regular rhythm Heart sounds: no gallops and no murmurs GI Palpation (GI): Soft to palpation, nontender, No hepatosplenomegaly present and no masses Auscultation: normal bowel sounds Back/Spine/Pelvis Thoracic/Lumbar Spine: thoracic and lumbar spine normal to inspection Skin General skin exam: no rashes or lesions noted Neuro General: patient oriented x3 and no focal motor deficits Cranial nerves: Yes CN's II-XII intact bilaterally Extrem General: Yes normal to inspection, Yes no clubbing, cyanosis or edema and Yes no calf tenderness Psych Appearance: grossly normal and well kempt Speech and movement: Normal speech and movement present Assessment & Plan Assessment & Plan (1) COPD (chronic obstructive pulmonary disease): Comment: MODERATELY SEVERE OBSTRUCTIVE AIRWAY DISORDER. 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 REMAINS FAIRLY STABLE , EXCEPT THAT SHE HAS INCREASED COUGH OFF AND ON . ADVAIR HFA NOT COVERED BY HER INSURANCE. Montelukast 10 mg daily Code(s): J44.9 - Chronic obstructive pulmonary disease, unspecified Category: Medical Plan: ADVAIR HFA CHANGED TO WIXELA 500-50 1 INHALATION B.I.D. CONTINUE INCRUSE ELLIPTA. 1 INHALATION DAILY USE ALBUTEROL HFA 2 PUFFS Q 6 HOURS P.R.N. OR MAY USE ALBUTEROL SOLUTION IN THE NEBULIZER Q 6 HOURS P.R.N. (2) Personal history of nicotine dependence: Comment: (current smoker, onset 18, x 36yrs, max 1.5ppd, now now smokes 1 cigarette every few days Code(s): Z87.891 - Personal history of nicotine dependence Category: Medical Plan: Commended for not smoking, and advise that she should try to quit that 1 cigarette every few days also. (3) Post-COVID chronic cough: Comment: SHE HAD COVID INFECTION IN SEP 2021 , SEEN IN THE EMERGENCY ROOM BUT DID NOT NEED ADMISSION. SEEMED TO HAVE RECOVERED COMPLETELY. Since then she continues to have mild intermittent cough, which however may be related to her smoking. Code(s): R05.3 - Chronic cough; U09.9 - Post COVID-19 condition, unspecified Category: Medical Plan: Continue the treatment for COPD and also may use Robitussin DM 2 tsp at night p.r.n. Medications: New fluticasone propion-salmeterol 500-50 mcg/dose (Wixela Inhub) 1 inh inhalation BID 30 days 60 ea 0RF copd Changed From umeclidinium 62.5 mcg/actuation (Incruse Ellipta) 1 inh PO DAILY 30 ea 3RF To umeclidinium 62.5 mcg/actuation (Incruse Ellipta) 1 inh PO DAILY 30 days 30 ea 5RF copd Coding Level of Care Code Est Pt Level 3 (69761) Diagnoses COPD (chronic obstructive pulmonary disease) J44.9 Personal history of nicotine dependence Z87.891 Post-COVID chronic cough R05.3; U09.9
[2024-07-02 15:33] VITALS: BP 120/78; PULSE 81; O2SAT 97; BMI 33.6
== END 2024-07-02 15:46 | disposition home or self-care (01) ==
PROVIDERS: PCP General Practice; Visit Provider Internal Medicine
DX: J44.9 Chronic obstructive pulmonary disease, unspecified (principal); Z87.891 Personal history of nicotine dependence; R05.3 Chronic cough; U09.9 Post COVID-19 condition, unspecified
CPT/HCPCS: 99213

== ENCOUNTER → 2024-07-02 15:27 | Outpatient (BNVA) | payer MEDICARE, MEDICAID, SELFPAY | PROVIDERS: PCP General Practice; Visit Provider Internal Medicine | DX: J44.9 Chronic obstructive pulmonary disease, unspecified (principal); R05.3 Chronic cough; U09.9 Post COVID-19 condition, unspecified; Z87.891 Personal history of nicotine dependence | CPT/HCPCS: 99212 ==

== ENCOUNTER 2024-10-13 10:55 | Outpatient (REF) | payer MEDICARE, SELFPAY ==
[2024-10-13 13:14] LABS: MANUAL DIFF FLAG NO
[2024-10-13 13:15] LABS: Basophils Absolute Auto 0.1 X10*3/uL (0.0-0.2); Basophils Percent Auto 1.4 % (0-2); Eosinophils Absolute Auto 0.2 X10*3/uL (0.0-0.4); Hematocrit 39.7 % (37.0-47.0); Hemoglobin 13.2 g/dl (12.0-16.0); Imm Gran Abs Auto 0.09 X10*3/uL (0.00-0.03); Lymphocytes Absolute Auto 2.6 X10*3/uL (1.2-4.9); Lymphocytes Percent Auto 27.6 % (20-40); Mean Corpuscular HGB Conc 33.2 g/dl (31.0-35.0); Mean Corpuscular Hemoglobin 29.8 pg (27.0-33.0); Mean Corpuscular Volume 89.6 fL (80.0-98.0); Mean Platelet Volume 10.3 fL (9.4-12.3); Monocytes Absolute Auto 0.8 X10*3/uL (0.1-1.2); Monocytes Percent Auto 8.7 % (2-11); Neutrophils Absolute Auto 5.6 x10*3/uL (2.0-8.3); Neutrophils Percent Auto 59.3 % (45-73); Platelet Count 278 X10*3/uL (160-400); Red Blood Count 4.43 X10*6/uL (4.20-5.50); Red Cell Distribution Width 14.5 % (11.0-16.0); White Blood Count 9.4 X10*3/uL (4.8-10.8)
--- OUTSIDE RECORDS SUMMARY | 2024-10-13 13:31 | XMS_ITS | Encounter Summary ---
Author Organization [employer] Address [address] [place] [address] Care Team Providers Care Oracle Application Architect Name Role Phone Milagros Walls MD Primary Care Provider [phone] Encounter Details Date Type Department Care Team (Late st Contact Info) Description 09/02/2024 Telephone [facility] MEDICINE [address] [place], [place] [phone] Milagros Walls MD [address] [place], [place] [phone] Social History Tobacco Use Types Packs/Day Years Used Date Smoking Tobacco: Former Cigarettes Smokeless Tobacco: Never Comments:1 cigarette daily Alcohol Use Standard Drinks/Week Comments Never 0 (1 standard drink = 0.6 oz pur e alcohol) Depression Answer Date Recorded Patient Health Questionnaire-9 Score 0 03/04/2024 Patient Health Questionnaire-9 Score 0 03/04/2024 Last PHQ-9: Questionnaire Data Not on file 0 03/04/2024 Housing Stability Answer Date Recorded What is your housing situation today? I have werner hernandez 03/04/[address] you li ve. Do you have problems with any of the following? None of the above 03/04/2024 Food Insecurity Answer Date Recorded Within the past 12 months, y ou worried that your food would run out before you got money to buy more: Never True 03/04/2024 Within the past 12 months,th e food you bought just didn't last and you didn't have enough money to get more: Never True Transportation Answer Date Recorded In the past 12 months, has l ack of transportation kept you from medical appts, meetings, work or from getting things needed for daily living? No 03/04/2024 Utilities Answer Date Recorded In the past 12 months, has t he electric, gas, oil or water company threatened to shut off services in your home? No 03/04/2024 Depression Answer Date Recorded Patient Health Questionnaire-2 Score 0 03/04/2024 Internet Access Answer Date Recorded Internet Access Q1 Yes 04/13/2024 Internet Access Q2 Not on file 04/13/2024 Comments Unknown Sex and Gender Information Value Date Recorded Sex Assigned at Female 06/11/2022 10:16 AM EDT Legal Sex Female 10:16 AM EDT Gender Identity Female 11/13/2022 5:57 AM EDT Sexual Orientation Don't know 06/11/2022 10 :16 AM EDT documented as of this encounter Plan of Treatment Upcoming Encounters Date Type Department Care Team (Late st Contact Info) Description 10/22/2024 9:30 AM EDT Office Visit [facility] ADULT DENTAL [address] [place] [address] Mike Bruce, DMD [address] [place] [address] documented as of this encounter Visit Diagnoses Not on filedocumented in this encounter Additional Health Concerns Assessment Noted Time PHQ-9 Depression Total Score: 0 03/04/20 24 10:17 AM EDT documented as of this encounter Care Teams Oracle Application Architect Relationship Specialty Start Date End Date Milagros Walls MD [address] [place] [address] PCP - General Family Medicine 02/10/21 documented as of this encounter
--- OUTSIDE RECORDS SUMMARY | 2024-10-13 13:31 | XMS_ITS | Encounter Summary ---
Author Organization [employer] Address [address] [place] [address] Care Team Providers Care Paper Testing Supervisor Name Role Phone Milagros Walls MD Primary Care Provider [phone] Reason for Visit * Reason Onset Date Comments PT-1 05/20/2024 Encounter Details Date Type Department Care Team ([facility] st Contact Info) Description 05/20/2024 Telephone [facility] MEDICINE [address] [place], [place] [phone] Milagros Walls MD [address] [place], [place] [phone] PT-1 Social History Tobacco Use Types Packs/Day Years [...] AM EDT documented as of this encounter Miscellaneous Notes * Telephone Encounter - Hugo Weeks - 05/20/2024 8:44 AM EDT Patient calling requesting PT1 Home Address verified: Y/N: Yes Provider name or facility name: [facility] Facility Address: [address] [place] [id number] Escort needed: Y/N: No Do you have a wheelchair: Y/N: No If yes- Manual or electric: N/A Visits: 2 every 6 months - Patient calling requesting PT1 Home Address verified: Y/N: Yes Provider name or facility name: [facility] Facility Address: [address] [place] [id number] Escort needed: Y/N: No Do you have a wheelchair: Y/N: No If yes- Manual or electric: N/A Visits: Once a month documented in this encounter Plan of Treatment Upcoming Encounters Date Type Department Care Team (Late st Contact Info) Description 10/22/2024 9:30 AM EDT Office Visit [facility] ADULT DENTAL [address] [place] [address] Mike Bruce, DMD [address] [place] [phone] documented as of this encounter Visit Diagnoses Not on filedocumented in this encounter Additional Health Concerns Assessment Noted Time PHQ-9 Depression Total Score: 0 03/04/20 24 10:17 AM EDT documented as of this encounter Care Teams Paper Testing Supervisor Relationship Specialty Start Date End Date Milagros Walls MD [address] [place] [address] PCP - General Family Medicine 02/10/21 documented as of this encounter
--- OUTSIDE RECORDS SUMMARY | 2024-10-13 13:31 | XMS_ITS | Clinical Summary ---
Author Organization [employer] Address [address] [facility] [address] [place] [address] Care Team Providers Care Police Service Technician Name Role Phone Milagros Walls MD Primary Care Provider [phone] Allergies No known active allergies Medications Blood Pressure Monitoring (Blood Pressure Cuff) miscIndications:E levated blood pressure reading in office without diagnosis of hypertension 1 kit in the morning. 1 each 023 Active Incruse Ellipta 62.5 MCG/ACT aerosol powder INHALE 1 PUFF BY MOUTH DAILY 022 Active Brukinsa 80 MG chemo capsule 022 Active acetaminophen (Tylenol) 325 MG tablet Take 650 mg by mouth. 023 Active melatonin 3 MG tablet Take 3 mg by mouth. 023 Active Misc. Devices (Pulse Oximeter For Finger) misc 1 each if needed each day (shortness of breath, infection, wheezing). 1 each 024 Active Misc. Devices (Fingertip Pulse Oximeter) misc 1 each if needed (SOB). 1 each 024 Active fluticasone-salme terol (Advair) 230-21 MCG/ACT inhaler INHALE 2 PUFFS BY MOUTH TWICE DAILY FOR COPD 024 Active buPROPion SR (Wellbutrin SR) 200 MG 12 hr tablet Take 1 tablet (200 mg) by mouth 2 times daily. 180 tablet 3 024 Active atorvastatin (Lipitor) 10 MG tablet TAKE 1 TABLET(10 MG) BY MOUTH IN THE MORNING 90 tablet 3 024 Active COVID-19 Antigen Test kit 1 each by In Vitro route if needed (covid symptoms). 10 kit 1 024 Active Colace 100 MG capsule Take 1 capsule (100 mg) by mouth 2 times daily. 180 capsule 3 024 Active tamsulosin (Flomax) 0.4 MG 24 hr capsuleIndication s:Left flank pain TAKE 1 CAPSULE(0.4 MG) BY MOUTH IN THE MORNING 90 capsule 1 Active omeprazole (PriLOSEC) [address] capsule Take 1 capsule (20 mg) by mouth Once per day. 90 capsule 3 024 Active butalbital-acetam inophen-caffeine- codeine (Fioricet W/Codeine) 53-065-03-30 MG capsule Take 1 capsule by mouth every 4 (four) hours if needed. Active polyethylene glycol-electrolyt es (Nulytely) 420 g solution DRINK 240ML ORALLY EVERY 10 MINUTES.REFER TO PREP INSTRUCTIONS Active baclofen (Lioresal) 10 MG tablet TAKE 2 TABLETS(20 MG) BY MOUTH FOUR TIMES DAILY 360 tablet 9 Active montelukast (Singulair) 10 MG tabletIndications :Chronic obstructive pulmonary disease, unspecified COPD type (CMS/HCC) TAKE 1 TABLET(10 MG) BY MOUTH WITH THE EVENING MEAL 90 tablet 3 024 Active amitriptyline (Elavil) 50 MG tabletIndications :Fibromyalgia TAKE 2 TABLETS(100 MG) BY MOUTH AT BEDTIME 180 tablet 3 024 Active naltrexone (Depade) 50 MG tablet Take 0.5 tablets (25 mg) by mouth Once per day. 15 tablet 11 024 2024 Active Magnesium 400 MG capsule Take 400 mg by mouth at bedtime. 90 capsule 3 024 Active olmesartan (BENIcar) 5 MG tablet TAKE 2 TABLETS BY MOUTH DAILY EVERY MORNING 180 tablet 3 024 Active Magnesium Oxide -Mg Supplement 400 MG capsule Take 1 capsule by mouth at bedtime. Active ondansetron ODT (Zofran-ODT) 4 MG disintegrating tabletIndications :Nausea DISSOLVE 1 TABLET ON THE TONGUE THREE TIMES DAILY NEEDED FOR NAUSEA 30 tablet 3 025 Active albuterol 108 (90 Base) MCG/ACT inhaler INHALE 2 PUFFS BY MOUTH EVERY 6 HOURS NEEDED FOR WHEEZING 18 g 3 025 Active DULoxetine (Cymbalta) [address] capsuleIndication s:Fibromyalgia TAKE 2 CAPSULES BY MOUTH EVERY MORNING 180 capsule 3 Active prochlorperazine (Compazine) 5 MG tablet Active Fluticasone-Salme terol 500-50 MCG/ACT aerosol powder Inhale 1 puff 2 times daily. Active acetic acid (Vosol) 2 % otic solution Administer 5 drops into the right ear 3 times daily for 7 days. 15 mL 025 2024 Active DULoxetine (Cymbalta) [address] capsuleIndication s:Fibromyalgia Take 2 capsules (60 mg) by mouth in the morning. 180 capsule 3 024 2024 Discontinued albuterol 108 (90 Base) MCG/ACT inhaler INHALE 2 PUFFS BY MOUTH EVERY 6 HOURS NEEDED FOR WHEEZING 18 g 3 024 2024 Discontinued traMADol (Ultram) 50 MG tabletIndications :Fibromyalgia Take 1 tablet (50 mg) by mouth every 12 (twelve) hours if needed for severe pain for up to 28 days. 56 tablet 025 2024 Active Problems Problem Noted Date Diagnosed Date senior care (current) use of opiate analgesic 08/13 Muscle spasm 10/23/2023 Assessment & Plan (10/23/2023 10:45 AM EDT): Trialed trigger point injections in office, 3 on each size of trapezius muscles, not helpful in immediate pain relief Screen for colon cancer 10/23/2023 Assessment & Plan (10/23/2023 10:45 AM EDT): Refer to [facility] Left flank pain 07/21/2023 Assessment & Plan (07/21/2023 5:23 PM EST): With renal atrophy bilaterally noted on US, no stones Oxycodone very sparingly for pain Will obtain BMP to assess renal function and triage with nephro as needed Kidney atrophy 07/21/2023 Primary hypertension 04/22/2023 Assessment & Plan (01/27/2024 12:13 PM EDT): At goal <140/90 at home Cr stable at 1.1, eGFR hovering around 60 Continue Olmesartan 20mg daily Assessment & Plan (10/23/2023 10:44 AM EDT): Diagnosed on the basis of greater than 3 measurements > 140/90 in multiple office setting Cr stable at 1.1, eGFR hovering around 60 Continue Olmesartan 10mg daily Assessment & Plan (04/22/2023 8:14 AM EDT): Diagnosed on the basis of greater than 3 measurements > 140/90 in multiple office setting Cr stable at 1.1, eGFR hovering around 60 Will start Olmesartan 5mg daily Nausea 04/22/2023 Stage 3a chronic kidney disease 12/04/2022 Assessment & Plan (04/22/2023 8:15 AM EDT): Will see nephro 11/2023 Continue avoidance of NSAIDs BP control Bilateral hip pain 11/12/2022 Class 1 obesity 11/12/2022 Colon polyps 11/12/2022 Diverticular disease 11/12/2022 Kidney mass 11/12/2022 Mantle cell lymphoma 11/12/2022 Overweight 11/12/2022 Poor dentition 11/12/2022 Smoker 11/12/2022 Assessment & Plan (11/13/2022 6:10 AM EDT): Cut back to 1 cig daily Swallowing problem 11/12/2022 Syncope 11/12/2022 Uterine pain 11/12/2022 Non-Hodgkin lymphoma of lymph nodes of multiple sites 08/21/2022 Assessment & Plan (01/27/2024 12:13 PM EDT): On Zanubrutnib for active disease, 3 tabs daily Monitored every 3 months by [facility] oncology No swelling currently or enlarged lymph nodes currently Assessment & Plan (04/22/2023 8:17 AM EDT): On Zanubrutnib for active disease, 3 tabs daily Monitored every 3 months by [facility] oncology No swelling currently or enlarged lymph nodes currently Assessment & Plan (11/13/2022 6:07 AM EDT): On Zanubrutnib for active disease, 3 tabs daily Monitored every 3 months by [facility] oncology No swelling currently Assessment & Plan (08/21/2022 12:05 PM EST): Recently initiated on Zanubrutnib for active disease Feels ongoing swelling and pain Will check PT/INR, CBC, ESR, CRP, CMP Encouraged her to advise her oncologist office of her symptoms Inguinal lymphadenopathy 07/10/2022 Disease due to severe acute respiratory syndrome coronavirus 2 (SARS-CoV-2) 09/15/2021 Overview (11/12/2022): Problem added by Discern Expert Chronic pelvic pain in female 04/29/2021 Assessment & Plan (08/21/2022 12:07 PM EST): Dx with fibromyalgia by rheumatology - cont Cymbalta 60mg daily - cont Amitriptyline 50mg at night - cont Wellbutrin 200mg SR BID - cont Baclofen 20 mg TID - stop smoking, she is still working on this on her own - they recommended that she follow with me, rheum does not follow fibromyalgia - trial of Jim Chi - CONSIDER adding pregabalin at next visit - exercise lightly as much as tolerated, if she feels tired, or has long recovery period, to decrease amt of exercise - attend to mental health as best she can, encourage therapy - COVID vaccination series complete, needs booster - f/u in 2-3 months or sooner prn Fibromyalgia 04/29/2021 Assessment & Plan (07/13/2024 10:23 AM EST): Dx with fibromyalgia by rheumatology in 2021 after extended stay in hospital for urosepsis. Recent flare of pain in Aug 2023 - Tramadol 50mg BID prn severe pain trial x 30 days (started 01/2024, with one refill since then, on 05/2024) - Do NOT prescribe Lyrica-- feels groggy and zombie like on it Trial low-dose Naltrexone Trial low dose Magnesium at night time - cont Cymbalta 60mg daily - cont Amitriptyline to 100mg at night - cont Wellbutrin 200mg SR BID (consider stopping this) - cont Baclofen 20 mg TID - stop smoking, she is still working on this on her own - they recommended that she follow with me, rheum does not follow fibromyalgia - trial of Jim Chi - consider acupuncture in the office - exercise lightly as much as tolerated, if she feels tired, or has long recovery period, to decrease amt of exercise - attend to mental health as best she can, encourage therapy Assessment & Plan (03/11/2024 12:11 PM EDT): Dx with fibromyalgia by rheumatology in 2021 after extended stay in hospital for urosepsis. Recent flare of pain in Aug 2023 - Tramadol 50mg BID prn severe pain trial x 30 days, will re-evaluate via tele. Today, this seems like a success in that it helps her to move when movement is painful. Discussed risks and benefits of continuous opioid therapy. Will re- evaluate again in three months, for now continue prn Tramadol dosing 0-2 times per day. - Do NOT prescribe Lyrica-- feels groggy and zombie like on it ? Consider low-dose Naltrexone - cont Cymbalta 60mg daily - cont Amitriptyline to 100mg at night - cont Wellbutrin 200mg SR BID - cont Baclofen 20 mg TID - stop smoking, she is still working on this on her own - they recommended that she follow with me, rheum does not follow fibromyalgia - trial of Jim Chi - consider acupuncture in the office - exercise lightly as much as tolerated, if she feels tired, or has long recovery period, to decrease amt of exercise - attend to mental health as best she can, encourage therapy Assessment & Plan (01/27/2024 12:15 PM EDT): Dx with fibromyalgia by rheumatology in 2021 after extended stay in hospital for urosepsis. Recent flare of pain in Aug 2023 - Stop Lyrica 25mg, feels groggy and zombie like on it ? Consider low-dose Naltrexone - Tramadol 50mg BID prn severe pain trial x 30 days, will re-evaluate via tele. Discussed risks and benefits of continuous opioid therapy - cont Cymbalta 60mg daily - cont Amitriptyline to 100mg at night - cont Wellbutrin 200mg SR BID - cont Baclofen 20 mg TID - stop smoking, she is still working on this on her own - they recommended that she follow with me, rheum does not follow fibromyalgia - trial of Jim Chi - consider acupuncture in the office - exercise lightly as much as tolerated, if she feels tired, or has long recovery period, to decrease amt of exercise - attend to mental health as best she can, encourage therapy Assessment & Plan (10/23/2023 10:43 AM EDT): Dx with fibromyalgia by rheumatology in 2021 after extended stay in hospital for urosepsis. Recent flare of pain in Aug 2023 - START Lyrica 25mg nightly as well ? Consider low-dose Naltrexone - cont Cymbalta 60mg daily - cont Amitriptyline to 100mg at night - cont Wellbutrin 200mg SR BID - cont Baclofen 20 mg TID - stop smoking, she is still working on this on her own - they recommended that she follow with me, rheum does not follow fibromyalgia - trial of Jim Chi - consider acupuncture in the office - exercise lightly as much as tolerated, if she feels tired, or has long recovery period, to decrease amt of exercise - attend to mental health as best she can, encourage therapy Assessment & Plan (04/22/2023 8:16 AM EDT): Dx with fibromyalgia by rheumatology in 2021 after extended stay in hospital for urosepsis - cont Cymbalta 60mg daily - INC Amitriptyline to 100mg at night - cont Wellbutrin 200mg SR BID - cont Baclofen 20 mg TID - stop smoking, she is still working on this on her own - they recommended that she follow with me, rheum does not follow fibromyalgia - trial of Jim Chi - consider acupuncture in the office - exercise lightly as much as tolerated, if she feels tired, or has long recovery period, to decrease amt of exercise - attend to mental health as best she can, encourage therapy - COVID vaccination series complete, needs booster Assessment & Plan (11/13/2022 6:08 AM EDT): Increase Baclofen to 20mg QID Cymbalta 60mg daily Amitrytiline 50mg nightly Chronic obstructive pulmonary disease 03/09/2021 Assessment & Plan (10/23/2023 10:44 AM EDT): Sees Pulm at [facility], now q6 months due to improvements Cont Advair Cont CATHRYN prn Smoking cessation encouraged Assessment & Plan (11/13/2022 6:09 AM EDT): [facility] Pulm at [facility], now q6 months due to improvements Cont Advair Cont CATHRYN prn Smoking cessation encouraged Assessment & Plan (08/21/2022 12:07 PM EST): Cont Advair Cont CATHRYN prn Smoking cessation Nephrolithiasis 02/15/2021 Assessment & Plan (11/13/2022 6:08 AM EDT): [place]s [place] [facility] Resolved, all passed on last 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 Asthma 05/10/2010 GERD (gastroesophageal reflux disease) 0 Migraine 05/10/2010 Resolved Problems Problem Noted Date Diagnosed Date Resolved Date CLL (chronic lymphocytic leukemia) 08/21/2022 08/21/2022 Encounters Date Type Department Care Team Description 10/13/2024 10:15 AM EST Office Visit [facility] [address] [place] [address] Milagros Walls MD Acute intractable headache, unspecified headache type (Primary Dx); Dietary counseling; Exercise counseling; Class 1 obesity with serious comorbidity and body mass index (BMI) of 33.0 to 33.9 in adult, unspecified obesity type; Encounter for immunization 10/13/2024 Travel 10/12/2024 Refill [facility] [address] [place] [address] Milagros Walls MD Fibromyalgia 10/06/2024 Refill [facility] [address] [place] [address] Milagros Walls MD 10/02/2024 8:00 AM EST Office Visit [facility] ADULT DENT[facility] [address] [place] [address] Mike Bruce, REN 10/02/[address] [address] Milagros Walls MD PT1 10/01/2024 Patient Outreach [address] [address] Milagros Walls MD Pre-visit Planning ((Unable to reach for PVP screening, LVM)) 09/02/2024 Telephone [facility] [address] [place] [phone] Milagros Walls MD 09/02/[address] [address] Milagros Walls MD Fibromyalgia (Primary Dx); senior care (current) use of opiate analgesic 08/26/[address] [address] Shruti Gonzalez [place] recall 08/18/2024 Refill [facility] [address] [place] [phone] Milagros Walls MD Nausea 08/17/2024 8:00 AM EST Office Visit [facility] [address] [place] [address] Mike Bruce, REN 07/29/2024 Refill [facility] [address] [place] [phone] Milagros Walls MD 07/24/2024 Patient Outreach [facility] [address] [place] [phone] Milagros Walls MD Care Coordination (CHW outreach for SDOH PT-1 - LVM ) 07/24/[address] [phone] Milagros Walls MD PT-1 07/24/2024 Telephone [facility] [address] [place] [address] Mike Bruce, REN rs comp exam from Last 3 Months Immunizations Name Administration Dates Next Due Influenza Injectable Quadriv alant Preservative Free IIV4 MDCK 04/29/2020 Influenza injectable quadrivalent preservative f ree 07/19/2023 Influenza, seasonal, injectable, preservative fr ee 06/09/2024 Pfizer Covid-19 Vaccine 12+ 10/13/2024, Pneumococcal Conjugate PCV 20 10/21/2023 Tdap 10/21/2023 Zoster, Recombinant 12/26/2023,10/14/2023 Social History Tobacco Use Types Packs/Day Years Used Date Smoking Tobacco: Former Cigarettes Smokeless Tobacco: Never Tobacco Cessation:Counseling Given: Not Answered Comments:1 cigarette daily Alcohol Use Standard Drinks/Week [...] Don't know 06/11/2022 10 :16 AM EDT Last Filed Vital Signs Vital Sign Reading Time Taken Comments Blood Pressure 148/94 10/13/2024 10:15 AM EST Pulse 84 10/13/2024 10:15 AM EST Temperature 36.4 ??C (97.6 ??F) 10/13/2024 10:[address] Respiratory Rate 17 10/13/2024 10:15 AM EST Oxygen Saturation 95% 10/13/2024 10:15 AM EST Inhaled Oxygen Concentration - - Weight 79.8 kg (176 lb) 10/13/2024 10:15 AM EST Height 154.9 cm (5' 1 ) 10/13/2024 10:15 AM EST Body Mass Index 33.25 10/13/2024 10:15 AM EST Plan of Treatment Upcoming Encounters Date Type Department Care Team (Late st Contact Info) Description 10/22/2024 9:30 AM EDT Office Visit [facility] [address] [place] [address] Mike Bruce, DMD [address] [place] [address] Health Maintenance Due Date Last Done Comments CT Colonography 1965 Colonoscopy 1965 Colorectal Cancer Screening 1965 Dental Prophylaxis 1965 Dental X-Ray: Bitewings 1964 FIT DNA/Cologuard 1965 FIT 1965 FOBT 1965 HIV Screening 1965 Sigmoidoscopy 1965 Alcohol/Substance Use Screening 1976 Pap Smear 1985 Cervical Cancer Screening 1994 HPV/Cotest 1994 RSV Patients and Patients Aged 60 years or older (1 - Risk 60-74 years 1-dose series) 2024 Diagnostic Breast Imaging 11/11/20242023, 05/10/2023, 10/25/2022 Mammogram 11/11/2024 11/12/2023, 04/13, 10/25/2022, Additional history exists COVID-19 Vaccine ( season) 2024 10/13/2024, 06/09/2024, 07/19/2023, Additional history exists Dental Oral Exam 02/15/2025 08/17/2024 Depression Screening 03/04/2025 03/04/2024, 03/04/20 SDOH Screening 03/04/2025 03/04/2024 Tobacco Screening 10/13/2025 10/13/2024 Lipid Panel 02/10/2026 02/10/2021 Dental X-Ray: Full Mouth 08/18/2027 08/17/2024 DTaP/Tdap/Td Vaccines (2 - Td or Tdap) 10/20/2033 10/21/2023 Hepatitis C Screening Completed 02/10/2021 Pneumococcal Vaccine: 50+ Years Completed 10/21/2023 Zoster Vaccines Completed 12/26/2023, 10/14/2023 Influenza Vaccine Completed 06/09/2024, , 04/29/2020 HIB Vaccines Aged Out No longer eligi ble based on patient's age to complete this topic HPV Vaccines Aged Out No longer eligi ble based on patient's age to complete this topic Hepatitis A Vaccines Aged Out No long er eligible based on patient's age to complete this topic Hepatitis B Vaccines Aged Out No long er eligible based on patient's age to complete this topic IPV Vaccines Aged Out No longer eligi ble based on patient's age to complete this topic Meningococcal Vaccine Aged Out No trent jamar eligible based on patient's age to complete this topic RSV under 20 months Aged Out No longe r eligible based on patient's age to complete this topic Rotavirus Vaccines Aged Out No longer eligible based on patient's age to complete this topic Procedures Procedure Name Priority Date/Time Associated Diagnosis Comments CBC WITH AUTO DIFFERENTIAL Routine 10/13/2024 10:58 AM EST Acute intractable headache, unspecified headache type DENTURE IMPRESSION Routine 10/02/2024 8: 00 AM EST CASE PRESENTATION, DETAILED AND EXTENSIVE TREATMENT PLANNING Routine 08/17/2024 8:00 AM EST PANORAMIC RADIOGRAPHIC IMAGE Routine 08/17/2024 8:00 AM EST COMPREHENSIVE ORAL EVALUATION - NEW OR ESTABLISHED PATIENT Routine 08/17/2024 8:00 AM EST 30,29,19,20,28,21,22,2 7 PARTIAL DENTURE - RESIN Routine 08/17/2024 12:00 AM EST Max COMPLETE DENTURE Routine 08/17/2024 12:00 AM EST BI MAMMOGRAM DIAGNOSTIC TOMOSYNTHESIS BILATERAL Routine 11/12/2023 1:05 PM EDT ZZZ HISTORICAL HEPATITIS C AB W/REFL TO HCV RNA, QN, PCR Routine 02/10/2021 9:36 AM EDT LIPID PANEL, STANDARD Routine 02/10/2021 9:36 AM EDT from Last 3 Months or Most Recently Relevant to Health Maintenance Results * (ABNORMAL) CBC auto differential (10/13/2024 10:58 AM EST) White Blood Count 9.4 4.8 - 10.8 X10*3/uL [facility] Red Blood Count 4.43 4.20 - 5.50 X10*6/uL [facility] Hemoglobin 13.2 12.0 - 16.0 g/dl [facility] Hematocrit 39.7 37.0 - 47.0 % [facility] Mean Corpuscular Volume 89.6 80.0 - 98.0 fL [facility] Mean Corpuscular Hemoglobin 29.8 27.0 - 33.0 pg [facility] Mean Corpuscular HGB Conc 33.2 31.0 - 35.0 g/dl [facility] Red Cell Distribution Width 14.5 11.0 - 16.0 % [facility] Platelet Count 278 160 - 400 X10*3/uL [facility] Mean Platelet Volume 10.3 9.4 - 12.3 fL [facility] Neutrophils Percent Auto 59.3 45 - 73 % [facility] Imm Gran Pct Auto 1.0(H) 0.0 - 0.4 % [facility] Lymphocytes Percent Auto 27.6 20 - 40 % [facility] Monocytes Percent Auto 8.7 2 - 11 % [facility] Eosinophils Percent Auto 2.0 0 - 4 % [facility] Basophils Percent Auto 1.4 0 - 2 % [facility] NRBC Pct Auto 0.0 0.0 - 0.2 /100WBC [facility] Neutrophils Absolute Auto 5.6 2.0 - 8.3 x10*3/uL [facility] Imm Gran Abs Auto 0.09(H) 0.00 - 0.03 X10*3/uL [facility] Lymphocytes Absolute Auto 2.6 1.2 - 4.9 X10*3/uL [facility] Monocytes Absolute Auto 0.8 0.1 - 1.2 X10*3/uL [facility] Eosinophils Absolute Auto 0.2 0.0 - 0.4 X10*3/uL [facility] Basophils Absolute Auto 0.1 0.0 - 0.2 X10*3/uL [facility] NRBC Abs Auto 0.000 0.0 - 0.012 X10*3/uL [facility] Blood Venous blood specimen / Unknown 10/13/2024 10:58 AM EST 10/13/2024 1:11 PM EST us Milagros Walls MD LAB BLOOD ORDERABLES Final Res ult Performing Organization Address City/State/[facility] Co de Phone Number [facility] [address] [place] [phone] * BI Mammogram Diagnostic Tomosynthesis Bilateral (11/12/2023 1:05 PM EDT) Anatomical Region Laterality Modality Breast Bilateral Mammography 11/12/2023 1:05 PM EDT Narrative 11/12/2023 2:02 PM EDT ? [facility] [place] ? [address] ?[place] [address] ? Mammography Report ? Signed ? Patient: Raucci,Marjorie L ?MR#: [id number] ?? 54 ? : 1965 ?Acct:[id number] ? Age/Sex: 58 / F ?ADM Date: /02/24 ? Loc: HO.MAMMO ? Attending Dr: Milagros Walls MD ? Ordering Physician: Milagros Walls ?Results: 3.12MProb ?? ably Benign Finding - 12 month F/U Suggested ? Date of Service: 11/12/23 ?Follow Up: 12 month diagnos ?? tic follow up ? Procedure(s): MM tomosynthesis diagnostic BI ?? Accession Number(s): [id number] ? cc: Milagros Walls ? EXAMINATION: ?? MM DIAGNOSTIC DIGITAL BREAST TOMOSYNTHESIS, BILATERAL ? CLINICAL INFORMATION: ? 6 month follow-up for right breast calcifications mid 9:00 position, ?? probably benign. Patient due for bilateral screening. ? COMPARISON: ?? Mammography: 05/10/2023, 10/25/2022 (BI-RADS 3), 10/12/2022, ?? 12/11/2014. ? TECHNIQUE: ?? Digital breast tomosynthesis is performed in both the craniocaudal and ?? mediolateral oblique views along with computer-aided detection (CAD). ?? Synthesized 2D images are generated from the tomosynthesis. In addition ?? to standard views, 2-D spot magnification right CC and ML views were ?? obtained. ? FINDINGS: ?? The breasts are heterogeneously dense, which may obscure small masses ?? (ACR BI-RADS breast composition Category c). ? There are some loosely grouped round calcifications mid 9:00 position ?? again noted. The calcifications are mildly coarse and round. There has ?? been no significant interval change in the appearance of these ?? calcifications which have a probably benign morphology. No branching, ?? linear, or casting forms. No aggressive change. There are scattered ?? calcifications globally throughout the parenchyma, some of which ?? clearly layer on the mediolateral projection, further favoring ?? benignity. ? There are a few scattered benign-appearing calcifications in the left ?? breast. There are no suspicious masses or areas of architectural ?? distortion in either breast. The parenchymal pattern is stable from ?? prior exams. ? MM/MM tomosynthesis diagnostic BI ?? IMPRESSION: ?? There are no findings suspicious for malignancy in either breast. ? Right breast calcifications at the 9:00 axis remains stable without ?? aggressive changes, and are suitable for follow-up standard ?? magnification views in one year to complete two-year ?? stability/benignity. ? No suspicious findings in the left breast. ? ASSESSMENT: ? BI-RADS BI-RADS 3 - Probably benign finding(s) - 12 month follow-up ?? suggested ? RECOMMENDATION: ?? 12 month diagnostic follow up ? Results were provided to the patient at time of visit by the ?? technologist. ? This patient's information was entered into a reminder system with a ?? target due date for their next mammogram. ? Dictated By: ?Travis Steele MD ? Signed By: ?<Electronically signed by Travis Steele MD in OV> ?11/12/23 1359 ? DD/ 1305 ? TD/TT: ? Lace Inspector: ? Procedure Note Zaid, Image - 11/12/2023 [facility] [address] [place] [address] Dr. [place], [place] [address] Mammography Report Signed Patient: Marjorie Henson LMR#: [id number] 54 : 1965Acct:[id number] Age/Sex: 58 / FADM Date: 11/12/23 Loc: HO.MAMMO Attending Dr: Milagros Walls MD Ordering Physician: Cory Wallsults: 3.12MProb ably Benign Finding - 12 month F/U Suggested Date of Service: 11/12/23Follow Up: 12 month diagnos tic follow up Procedure(s): MM tomosynthesis diagnostic BI Accession Number(s): [id number] cc: Milagros Walls EXAMINATION: MM DIAGNOSTIC DIGITAL BREAST TOMOSYNTHESIS, BILATERAL CLINICAL INFORMATION: 6 month follow-up for right breast calcifications mid 9:00 position, probably benign. Patient due for bilateral screening. COMPARISON: Mammography: 05/10/2023, 10/25/2022 (BI-RADS 3), 10/12/2022, 12/11/2014. TECHNIQUE: Digital breast tomosynthesis is performed in both the craniocaudal and mediolateral oblique views along with computer-aided detection (CAD). Synthesized 2D images are generated from the tomosynthesis. In addition to standard views, 2-D spot magnification right CC and ML views were obtained. FINDINGS: The breasts are heterogeneously dense, which may obscure small masses (ACR BI-RADS breast composition Category c). There are some loosely grouped round calcifications mid 9:00 position again noted. The calcifications are mildly coarse and round. There has been no significant interval change in the appearance of these calcifications which have a probably benign morphology. No branching, linear, or casting forms. No aggressive change. There are scattered calcifications globally throughout the parenchyma, some of which clearly layer on the mediolateral projection, further favoring benignity. There are a few scattered benign-appearing calcifications in the left breast. There are no suspicious masses or areas of architectural distortion in either breast. The parenchymal pattern is stable from prior exams. MM/MM tomosynthesis diagnostic BI IMPRESSION: There are no findings suspicious for malignancy in either breast. Right breast calcifications at the 9:00 axis remains stable without aggressive changes, and are suitable for follow-up standard magnification views in one year to complete two-year stability/benignity. No suspicious findings in the left breast. ASSESSMENT: BI-RADS BI-RADS 3 - Probably benign finding(s) - 12 month follow-up suggested RECOMMENDATION: 12 month diagnostic follow up Results were provided to the patient at time of visit by the technologist. This patient's information was entered into a reminder system with a target due date for their next mammogram. Dictated By: Travis Steele MD Signed By: <Electronically signed by Travis Steele MD in OV> 11/12/23 1359 DD/ 1305 TD/TT: Lace Inspector: Milagros Walls MD IMG BI PROCEDURES Final Result * HEPATITIS C AB W/REFL TO HCV RNA, QN, PCR (02/10/2021 9:36 AM EDT) HEPATITIS C ANTIBODY NON-REACT MOMO NON-REACT MOMO [facility] INDEX 0.02 <1.00 [facility] Comment: ?? HCV antibody was non-reactive. There is no laboratory ?? evidence of HCV infection. ?? In most cases, no further action is required. However, if recent HCV exposure is suspected, a test for HCV RNA (test code 10344) is suggested. ?? For additional information please refer to http://education.Grivy/faq/YIE55d5 (This link is being provided for informational/ educational purposes only.) ?? 02/10/2021 9:36 AM EDT Milagros Walls MD HISTORICAL/NON ORDERABLE LABS Final Result [facility] [address] * (ABNORMAL) LIPID PANEL, STANDARD (02/10/2021 9:36 AM EDT) Chol/HDLC Ratio 7.0(H) <5.0 (calc) [facility] Cholesterol, Total 273(H) <200 mg/dL [facility] HDL Cholesterol 39(L) > OR = 50 mg/dL [facility] LDL Cholesterol SEE COMMENT mg/dL (calc) [facility] Comment: ?? LDL cholesterol not calculated. Triglyceride levels greater than 400 mg/dL invalidate calculated LDL results. ?? Reference range: <100 ?? Desirable range <100 mg/dL for primary prevention; ?? <70 mg/dL for patients with CHD or diabetic patients ?? with > or = 2 CHD risk factors. ?? LDL-C is now calculated using the Abhishek-Herrera ?? calculation, which is a validated novel method providing ?? better accuracy than the Friedewald equation in the ?? estimation of LDL-C. ?? Abhishek SS et al. JOSE. 2013;310(19): 0895-8012 ?? (http://Shopintoit.Careers360/faq/STP301) Non-HDL Cholesterol 234(H) <130 mg/dL (calc) [facility] Comment: Non-HDL level > or = 220 is very high and may indicate ?? genetic familial hypercholesterolemia (FH). Clinical ?? assessment and measurement of blood lipid levels ?? should be considered for all first-degree relatives ?? of patients with an FH diagnosis. ?? For patients with diabetes plus 1 major ASCVD risk ?? factor, treating to a non-HDL-C goal of <100 mg/dL ?? (LDL-C of <70 mg/dL) is considered a therapeutic ?? option. Triglycerides 448(H) <150 mg/dL [facility] Comment: ?? If a non-fasting specimen was collected, consider repeat triglyceride testing on a fasting specimen if clinically indicated. ?? Cinthya et al. J. of Clin. Lipidol. 2015;9:129-169. ?? 02/10/2021 9:36 AM EDT Milagros Walls MD LAB BLOOD ORDERABLES Final Res ult [facility] [address] from Last 3 Months or Most Recently Relevant to Health Maintenance Insurance [facility] STANDARD AETNA PPO DENTAL-[facility] MEDICAID STAND ADULT Care Teams Police Service Technician Relationship Specialty Start Date End Date Milagros Walls MD [address] [place] [address] PCP - General Family Medicine 02/10/21
--- OUTSIDE RECORDS SUMMARY | 2024-10-13 13:31 | XMS_ITS | Encounter Summary ---
Author Organization [employer] Address [address] 7[address] [place] [address] Care Team Providers Care Statistical Methods Teacher Name Role Phone Milagros Walls MD Primary Care Provider Reason for Visit * Reason Onset Date Comments PT-1 10/31/2023 Encounter Details Date Type Department Care Team ([facility] st Contact Info) Description 10/31/2023 Telephone [facility] [address] [place], [place] [phone] Milagros Walls MD [address] [place], [place] [phone] PT-1 Social History Tobacco Use Types Packs/Day Years Used Date Smoking Tobacco: Every Day Cigarettes Smokeless Tobacco: Never Comments:1 cigarette daily Alcohol Use Standard Drinks/Week Comments Never 0 (1 standard drink = 0.6 oz pur e alcohol) Housing Stability Answer Date Recorded What is your housing situation today? I have wernermary hernandez 06/03/[address] you li ve. Do you have problems with any of the following? None of the above 06/03/2023 Food Insecurity Answer Date Recorded Within the past 12 months, y ou worried that your food would run out before you got money to buy more: Never True 06/03/2023 Within the past 12 months,th e food you bought just didn't last and you didn't have enough money to get more: Never True Transportation Answer Date Recorded In the past 12 months, has l ack of transportation kept you from medical appts, meetings, work or from getting things needed for daily living? Yes, it has kept me from medical appointments or getting medications. 05/21/2023 Utilities Answer Date Recorded In the past 12 months, has t he electric, gas, oil or water company threatened to shut off services in your home? No 06/03/2023 Depression Answer Date Recorded Patient Health Questionnaire-2 Score 0 11/12/2022 Comments Unknown Sex and Gender Information Value Date Recorded Sex Assigned at Female 06/11/2022 10:16 AM EDT Legal Sex Female 10:16 AM EDT Gender Identity Female 11/13/2022 5:57 AM EDT Sexual Orientation Don't know 06/11/2022 10 :16 AM EDT documented as of this encounter Miscellaneous Notes * Telephone Encounter - Colin Lock - 10/31/2023 11:24 AM EDT Patient calling requesting PT1 Home Address verified: Y/N: Yes Provider name or facility name: [facility] Facility Address: [address] [place] [address] Escort needed: Y/N: No Do you have a wheelchair: Y/N: No If yes- Manual or electric: no Visits: (amount of visits) ( x monthly, weekly, daily) documented in this encounter Plan of Treatment Upcoming Encounters Date Type Department Care Team (Late st Contact Info) Description 10/22/2024 9:30 AM EDT Office Visit [facility] ADULT DENTAL [address] [place] [address] Mike Bruce, DMD [address] [place] [address] documented as of this encounter Visit Diagnoses Not on filedocumented in this encounter Care Teams Statistical Methods Teacher Relationship Specialty Start Date End Date Milagros Walls MD [address] [place] [address] PCP - General Family Medicine 02/10/21 documented as of this encounter
--- OUTSIDE RECORDS SUMMARY | 2024-10-13 13:31 | XMS_ITS | Encounter Summary ---
Author Organization [employer] Address [address] [facility] 7t [place] [address] Care Team Providers Care Cementer Hand Name Role Phone Milagros Walls MD Primary Care Provider Reason for Visit * Reason Onset Date Comments Pt1 03/06/2024 Encounter Details Date Type Department Care Team ([facility] st Contact Info) Description 03/06/2024 Telephone [facility] [address] [place] [address] Milagros Walls MD [address] [place], [place] [phone] Pt1 Social History Tobacco Use Types Packs/Day Years [...] Recorded Patient Health Questionnaire-2 Score 0 03/04/2024 Comments Unknown Sex and Gender Information Value Date Recorded Sex Assigned at Female 06/11/2022 10:16 AM EDT Legal Sex Female 10:16 AM EDT Gender Identity Female 11/13/2022 5:57 AM EDT Sexual Orientation Don't know 06/11/2022 10 :16 AM EDT documented as of this encounter Miscellaneous Notes * Telephone Encounter - Gloria Lewis - 03/06/2024 10:06 AM EDT Patient needs renewal for all PT1's Home Address verified: Y/N: Yes Provider name or facility name: [facility] Facility Address: [address] [place] [address] Escort needed: No Do you have a wheelchair: Y/N: No Visits: All future appts. Patient calling requesting PT1 Home Address verified: Y/N: Yes Provider name or facility name: [facility] Facility Address: [address] [place] [address] Escort needed: No Do you have a wheelchair: Y/N: No Visits: All future appts. Patient calling requesting PT1 Home Address verified: Y/N: Yes Provider name or facility name: [facility] Facility Address: [address] [place] [address] Escort needed: No Do you have a wheelchair: Y/N: No Visits: All future appts. Patient calling requesting PT1 Home Address verified: Y/N: Yes Provider name or facility name: [facility] Facility Address: [address] [place], [place] Escort needed: No Do you have a wheelchair: Y/N: No Visits: All future appts. Patient calling requesting PT1 Home Address verified: Y/N: Yes Provider name or facility name: [facility] Facility Address: [address] [place], [place] Escort needed: No Do you have a wheelchair: Y/N: No Visits: All future appts. Patient calling requesting PT1 Home Address verified: Y/N: Yes Provider name or facility name: [facility] Facility Address: [address] [place], [place] Escort needed: No Do you have a wheelchair: Y/N: No Visits: All future appts. Patient calling requesting PT1 Home Address verified: Y/N: Yes Provider name or facility name: [facility] Facility Address[address] [place] Escort needed: No Do you have a wheelchair: Y/N: No Visits: All future appts. documented in this encounter Plan of Treatment Upcoming Encounters Date Type Department Care Team ([facility] st Contact Info) Description 10/22/2024 9:30 AM EDT Office Visit [facility] ADULT DENTAL [address] [place] [address] Mike Bruce, DMD [address] [place] [address] documented as of this encounter Visit Diagnoses Not on filedocumented in this encounter Additional Health Concerns Assessment Noted Time PHQ-9 Depression Total Score: 0 03/04/20 10:17 AM EDT documented as of this encounter Care Teams Cementer Hand Relationship Specialty Start Date End Date Milagros Walls MD [address] [place] [address] PCP - General Family Medicine 02/10/21 documented as of this encounter
--- OUTSIDE RECORDS SUMMARY | 2024-10-13 13:31 | XMS_ITS | Encounter Summary ---
Author Organization [employer] Address [address] [facility] 7t [place] [address] Care Team Providers Care Sugar Trucker Name Role Phone Milagros Walls MD Primary Care Provider [phone] Reason for Visit * Reason Onset Date Comments Med Refill 03/24/2024 Encounter Details Date Type Department Care Team ([facility] st Contact Info) Description 03/24/2024 Telephone [facility] [address] [place] [address] Milagros Walls MD [address] [place], [place] [phone] Med Refill Social History Tobacco Use Types Packs/Day Years [...] encounter Miscellaneous Notes * Telephone Encounter - Blanca Dobbins LPN - 03/24/2024 1:05 PM EDT Medication was discontinued on 01/27/24 due to side effects. * Telephone Encounter - Gloria Lewis - 03/24/2024 12:13 PM EDT TC from pt requesting medication refill. Medications needing refill : PREGABALIN 25 mg tablets To be sent to: [facility] documented in this encounter Plan of Treatment Upcoming Encounters Date Type Department Care Team (Late st Contact Info) Description 10/22/2024 9:30 AM EDT Office Visit [facility] ADULT DENTAL [address] [place] [address] Mike Bruce, DMD [address] [place] [address] documented as of this encounter Visit Diagnoses Not on filedocumented in this encounter Additional Health Concerns Assessment Noted Time PHQ-9 Depression Total Score: 0 03/04/20 10:17 AM EDT documented as of this encounter Care Teams Sugar Trucker Relationship Specialty Start Date End Date Milagros Walls MD [address] [place] [address] PCP - General Family Medicine 02/10/21 documented as of this encounter
--- OUTSIDE RECORDS SUMMARY | 2024-10-13 13:31 | XMS_ITS | Encounter Summary ---
Author Organization [employer] Address [address] [facility] 7t [place] [address] Care Team Providers Care Director Of Player Personnel Name Role Phone Milagros Walls MD Primary Care Provider [phone] Reason for Visit * Reason Onset Date Comments PT1 10/02/2024 Encounter Details Date Type Department Care Team ([facility] st Contact Info) Description 10/02/2024 Telephone [facility] [address] [place] [address] Milagros Walls MD [address] [place], [place] [phone] PT1 Social History Tobacco Use Types Packs/Day Years [...] encounter Miscellaneous Notes * Telephone Encounter - Katiuska Linda - 10/02/2024 8:32 AM EST Pt walked in requesting PT1 Home Address verified: Y/N: Yes Location: Dental at [facility] Address: [facility] Escort needed: Y/N: No Do you have a wheelchair: Y/N: No Pt is requesting for 5 days/all future appts. documented in this encounter Plan of Treatment Upcoming Encounters Date Type Department Care Team (Late st Contact Info) Description 10/22/2024 9:30 AM EDT Office Visit [facility] ADULT DENTAL [address] [place] [address] Mike Bruce, REN [address] [place] [address] documented as of this encounter Visit Diagnoses Not on filedocumented in this encounter Additional Health Concerns Assessment Noted Time PHQ-9 Depression Total Score: 0 03/04/20 24 10:17 AM EDT documented as of this encounter Care Teams Director Of Player Personnel Relationship Specialty Start Date End Date Milagros Walls MD [address] [place] [address] PCP - General Family Medicine 02/10/21 documented as of this encounter
--- OUTSIDE RECORDS SUMMARY | 2024-10-13 13:31 | XMS_ITS | Encounter Summary ---
Author Organization [employer] Address [address] [facility] 7t [place] [address] Care Team Providers Care Hydroelectric Plant Electrical Engineer Name Role Phone Milagros Walls MD Primary Care Provider [phone] Reason for Visit * Reason Comments Pre-visit Planning (Unable to reach for PVP screening, LVM) Encounter Details Date Type Department Care Team ([facility] st Contact Info) Description 10/01/2024 Patient Outreach [facility] [address] [place] [phone] Milagros Walls MD [address] [place], [place] [phone] Pre-visit Planning ((Unable to reach for PVP screening, LVM)) Social History Tobacco Use Types Packs/Day Years [...] AM EDT documented as of this encounter Progress Notes * Agnieszka Dunne - 10/01/2024 9:45 AM EST HUMBERTO Aaron. Placed outbound call to patient to complete pre-visit planning. No answer at this time. Patient name and were not confirmed. CC left voicemail requesting return call. Direct contact information provided. documented in this encounter Plan of Treatment Upcoming Encounters Date Type Department Care Team (Late st Contact Info) Description 10/22/2024 9:30 AM EDT Office Visit [facility] ADULT DENTAL [address] [place] [address] Mike Bruce, REN [address] [place] [address] documented as of this encounter Visit Diagnoses Not on filedocumented in this encounter Additional Health Concerns Assessment Noted Time PHQ-9 Depression Total Score: 0 03/04/20 24 10:17 AM EDT documented as of this encounter Care Teams Hydroelectric Plant Electrical Engineer Relationship Specialty Start Date End Date Milagros Walls MD [address] [place] [address] PCP - General Family Medicine 02/10/21 documented as of this encounter
--- OUTSIDE RECORDS SUMMARY | 2024-10-13 13:31 | XMS_ITS | Encounter Summary ---
Author Organization [id number] Address [address] 7[address] [place] [address] Care Team Providers Care Book Sewer Name Role Phone Milagros Walls MD Primary Care Provider [phone] Reason for Visit * Reason Comments Med Refill Encounter Details Date Type Department Care Team ([facility] st Contact Info) Description 11/07/2023 Refill [facility] [address] [place], [place] [phone] Milagros Walls MD [address] [place], [place] [phone] Social History Tobacco Use Types Packs/Day Years Used Date Smoking Tobacco: Every Day Cigarettes Smokeless Tobacco: Never Comments:1 cigarette daily Alcohol Use Standard Drinks/Week Comments Never 0 (1 standard drink = 0.6 oz pur e alcohol) Housing Stability Answer Date Recorded What is your housing situation today? I have werner hernandez 06/03/[address] you [...] Description 10/22/2024 9:30 AM EDT Office Visit [facility] ADULT DENTAL [address] [place] [address] Mike Bruce DMD [address] [place] [address] documented as of this encounter Visit Diagnoses Not on filedocumented in this encounter Care Teams Book Sewer Relationship Specialty Start Date End Date Milagros Walls MD [address] [place] [address] PCP - General Family Medicine 02/10/21 documented as of this encounter
--- OUTSIDE RECORDS SUMMARY | 2024-10-13 13:31 | XMS_ITS | Encounter Summary ---
Author Organization [employer] Address [address] 7[address] [place] [address] Care Team Providers Care Hammer Mill Operator Name Role Phone Milagros Walls MD Primary Care Provider [phone] Reason for Visit * Reason Comments Med Refill Encounter Details Date Type Department Care Team ([facility] st Contact Info) Description 02/06/2024 Refill [facility] [address] [place], [place] [phone] Milagros Walls MD [address] [place], [place] [phone] Left flank pain Social History Tobacco Use Types Packs/Day Years [...] Description 10/22/2024 9:30 AM EDT Office Visit [facility] ADULT DENTAL [address] [place], [place] [phone] Mike Bruce, REN [address] [place] [address] documented as of this encounter Visit Diagnoses Diagnosis Left flank pain Abdominal pain, unspecified site documented in this encounter Care Teams Hammer Mill Operator Relationship Specialty Start Date End Date Milagros Walls MD [address] [place] [address] PCP - General Family Medicine 02/10/21 documented as of this encounter
--- OUTSIDE RECORDS SUMMARY | 2024-10-13 13:31 | XMS_ITS | Encounter Summary ---
Author Organization [employer] Address [address] [facility] 7t [place] [address] Care Team Providers Care Assistant Paralegal Name Role Phone Milagros Walls MD Primary Care Provider [phone] Reason for Visit * Reason Onset Date Comments PT1 03/24/2024 Encounter Details Date Type Department Care Team ([facility] st Contact Info) Description 03/24/2024 Telephone [facility] MED[facility]INE [address] [place] [address] Milagros Walls MD [address] [place], [place] [phone] PT1 Social History Tobacco Use Types Packs/Day [...] Telephone Encounter - Gloria Lewis - 03/24/2024 12:21 PM EDT Patient calling requesting PT1 Home Address verified: Y/N: Yes Provider name or facility name: [facility] Facility Address: [address] [place] [address] Escort needed: Y/N: Yes Do you have a wheelchair: Y/N: No If yes- Manual or electric: NOP Visits: All future appt;'s documented in this encounter Plan of Treatment Upcoming Encounters Date Type Department Care Team ([facility] st Contact Info) Description 10/22/2024 9:30 AM EDT Office Visit [facility] ADULT DENTAL [address] [place] [address] Mike Bruce, DMD [address] [place] [address] documented as of this encounter Visit Diagnoses Not on filedocumented in this encounter Additional Health Concerns Assessment Noted Time PHQ-9 Depression Total Score: 0 03/04/20 24 10:17 AM EDT documented as of this encounter Care Teams Assistant Paralegal Relationship Specialty Start Date End Date Milagros Walls MD [address] [place] [address] PCP - General Family Medicine 02/10/21 documented as of this encounter
--- OUTSIDE RECORDS SUMMARY | 2024-10-13 13:31 | XMS_ITS | Encounter Summary ---
Author Organization [employer] Address [address] [facility] 7t [place] [address] Care Team Providers Care Top Carrier Name Role Phone Milagros Walls MD Primary Care Provider [phone] Reason for Referral * Consultation (Routine) - Closed Specialty Diagnoses / Procedures Referred By Diony santana Referred To Contact Podiatry Diagnoses Milagros Diaz MD [address] [place] [address] Phone: tel: fax: Marino Estrella DPM Phone: tel: fax: Referral ID Status Reason Start Date Expiration Date V isits Requested Visits Authorized [id number] Closed Specialty Services Required 03/25/2024 03/25/2025 1 1 Encounter Details Date Type Department Care Team (Late st Contact Info) Description 03/25/2024 Orders Only [facility] MEDICINE [address] [place] [address] Milagros Walls MD [address] [place], [place] [phone] Josefina (Primary Dx) Social History Tobacco Use Types Packs/Day Years [...] Description 10/22/2024 9:30 AM EDT Office Visit [facility] ADULT DENTAL [address] [place] [address] Mike Bruce, DMD [address] [place] [address] Scheduled Referrals Name Type Priority Associated Diagnoses Orde r Schedule Referral to Podiatry Outpatient Referral Routine Bunion Expected: 03/25/2024 (Approximate), Expires: 03/25/2025 documented as of this encounter Visit Diagnoses Diagnosis Bunion- Primary documented in this encounter Additional Health Concerns Assessment Noted Time PHQ-9 Depression Total Score: 0 03/04/20 24 10:17 AM EDT documented as of this encounter Care Teams Top Carrier Relationship Specialty Start Date End Date Milagros Walls MD [address] [place] [address] PCP - General Family Medicine 02/10/21 documented as of this encounter
--- OUTSIDE RECORDS SUMMARY | 2024-10-13 13:31 | XMS_ITS | Encounter Summary ---
Author Organization [employer] Address [address] [facility] 7t [place] [address] Care Team Providers Care Sewer Separation Designer Name Role Phone Milagros Walls MD Primary Care Provider [phone] Reason for Visit * Reason Comments Dentures New upper and lower complete denture Encounter Details Date Type Department Care Team ([facility] Contact Info) Description 10/02/2024 8:00 AM EST Office Visit [facility] ADULT DENTAL [address] [place], [place] [phone] Mike Bruce, REN [address] [place], [place] [phone] Social History Tobacco Use Types Packs/Day Years [...] as of this encounter Progress Notes * Mike Bruce DMD - 10/02/2024 8:00 AM EST C/C: would like to have a new set of F/F Impression is being taken for F/F NV: Final imp and bite registration of F/F Brice documented in this encounter Plan of Treatment Upcoming Encounters Date Type Department Care Team (Late st Contact Info) Description 10/22/2024 9:30 AM EDT Office Visit [facility] ADULT DENTAL [address] [place] [address] Mike Bruce DMD [address] [place] [address] documented as of this encounter Procedures Procedure Name Priority Date/Time Associated Diagnosis Comments DENTURE IMPRESSION Routine 10/02/2024 8:00 AM EST documented in this encounter Visit Diagnoses Not on filedocumented in this encounter Additional Health Concerns Assessment Noted Time PHQ-9 Depression Total Score: 0 03/04/20 24 10:17 AM EDT documented as of this encounter Care Teams Sewer Separation Designer Relationship Specialty Start Date End Date Milagros Walls MD [address] [place] [address] PCP - General Family Medicine 02/10/21 documented as of this encounter
--- OUTSIDE RECORDS SUMMARY | 2024-10-13 13:32 | XMS_ITS | Encounter Summary ---
Author Organization [employer] Address [address] [place] [address] 7t [place] [address] Care Team Providers Care Sql Programmer Analyst Name Role Phone Milagros Walls MD Primary Care Provider [phone] Encounter Details Date Type Department Care Team ([facility] Contact Info) Description 10/31/2022 Orders Only [facility] MEDICINE [address] [place] [address] Milagros Walls MD [address] [place] [address] Kidney stone (Primary Dx) Social History Tobacco Use Types Packs/Day Years Used Date Smoking Tobacco: Every Day Cigarettes Smokeless Tobacco: Never Alcohol Use Standard Drinks/Week Comments Never 0 (1 standard drink = 0.6 oz pur e alcohol) Comments Unknown Sex and Gender Information Value Date Recorded Sex Assigned at Female 06/11/2022 10:16 AM EDT Legal Sex Female 10:16 AM EDT Gender Identity Female 11/13/2022 5:57 AM EDT Sexual Orientation Don't know 06/11/2022 10 :16 AM EDT documented as of this encounter Plan of Treatment Upcoming Encounters Date Type Department Care Team (Late Contact Info) Description 10/22/2024 9:30 AM EDT Office Visit [facility] ADULT DENTAL [address] [place] [address] Mike Bruce DMD [address] [place] [address] documented as of this encounter Visit Diagnoses Diagnosis Kidney stone- Primary Calculus of kidney documented in this encounter Care Teams Sql Programmer Analyst Relationship Specialty Start Date End Date Milagros Walls MD [address] [place] [address], [place] [address] PCP - General Family Medicine 02/10/21 documented as of this encounter
--- OUTSIDE RECORDS SUMMARY | 2024-10-13 13:32 | XMS_ITS | Encounter Summary ---
Author Organization [employer] Address [address] [facility] 7t [place] [address] Care Team Providers Care Special Education Administrator Name Role Phone Milagros Walls MD Primary Care Provider [phone] Reason for Visit * Reason Comments Med Refill Encounter Details Date Type Department Care Team ([facility] st Contact Info) Description 10/06/2024 Refill [facility] MEDICINE [address] [place], [place] [phone] Milagros Walls MD [address] [place], [place] [phone] Social History Tobacco Use Types Packs/Day Years [...] Description 10/22/2024 9:30 AM EDT Office Visit [facility] ADULT DENTAL [address] [place] [address] Mike Bruce DMD [address] [place] [address] documented as of this encounter Visit Diagnoses Not on filedocumented in this encounter Additional Health Concerns Assessment Noted Time PHQ-9 Depression Total Score: 0 03/04/20 24 10:17 AM EDT documented as of this encounter Care Teams Special Education Administrator Relationship Specialty Start Date End Date Milagros Walls MD [address] [place] [address] PCP - General Family Medicine 02/10/21 documented as of this encounter
--- OUTSIDE RECORDS SUMMARY | 2024-10-13 13:32 | XMS_ITS | Encounter Summary ---
Author Organization [employer] Address [address] [facility] 7t [place] [address] Care Team Providers Care Chain Repairer Name Role Phone Milagros Walls MD Primary Care Provider [phone] Reason for Visit * Reason Onset Date Comments rs comp exam 07/24/2024 Encounter Details Date Type Department Care Team ([facility] st Contact Info) Description 07/24/2024 Telephone [facility] ADULT DENTAL [address] [place], [place] [phone] Mike Bruce, DMD [address] [place] [address] rs comp exam Social History Tobacco Use Types Packs/Day Years [...] encounter Miscellaneous Notes * Telephone Encounter - Leilani Valero - 07/24/2024 10:16 AM EST Patient would like to reschedule her comp exam with Dr. Bruce. DR documented in this encounter Plan of Treatment Upcoming Encounters Date Type Department Care Team (Late st Contact Info) Description 10/22/2024 9:30 AM EDT Office Visit [facility] ADULT DENTAL [address] [place] [address] Mike Bruce, REN [address] [place] [address] documented as of this encounter Visit Diagnoses Not on filedocumented in this encounter Additional Health Concerns Assessment Noted Time PHQ-9 Depression Total Score: 0 03/04/20 24 10:17 AM EDT documented as of this encounter Care Teams Chain Repairer Relationship Specialty Start Date End Date Milagros Walls MD [address] [place] [address] PCP - General Family Medicine 02/10/21 documented as of this encounter
--- OUTSIDE RECORDS SUMMARY | 2024-10-13 13:32 | XMS_ITS | Encounter Summary ---
Author Organization [employer] Address [address] [facility] 7t [place] [address] Care Team Providers Care Grocery Specialist Name Role Phone Milagros Walls MD Primary Care Provider [phone] Encounter Details Date Type Department Care Team (Late Contact Info) Description 03/29/[address] [facility] MEDICINE [address] [place] [address] Milagros Walls MD [address] [place] [address] [phone] Social History Tobacco Use Types Packs/Day Years Used Date Smoking Tobacco: Every Day Cigarettes Smokeless Tobacco: Never Comments:1 cigarette daily Alcohol Use Standard Drinks/Week Comments Never 0 (1 standard drink = 0.6 oz pur e alcohol) Depression Answer Date Recorded Patient Health Questionnaire-2 Score 0 11/12/2022 Comments Unknown Sex and Gender Information Value Date Recorded Sex Assigned at Female 06/11/2022 10:16 AM EDT Legal Sex Female 10:16 AM EDT Gender Identity Female 11/13/2022 5:57 AM EDT Sexual Orientation Don't know 06/11/2022 10 :16 AM EDT documented as of this encounter Miscellaneous Notes * Telephone Encounter - Collette Panchito - 03/29/2023 11:49 AM EDT Tc from pt requesting all her PT1 on file to be renewed. Please contact pt at [phone] documented in this encounter Plan of Treatment Upcoming Encounters Date Type Department Care Team (Late Contact Info) Description 10/22/2024 9:30 AM EDT Office Visit [facility] ADULT DENTAL [address] [place] [address] Mike Bruce, DMD [address] [place] [address] documented as of this encounter Visit Diagnoses Not on filedocumented in this encounter Care Teams Grocery Specialist Relationship Specialty Start Date End Date Milagros Walls MD [address] [place] [address] PCP - General Family Medicine 02/10/21 documented as of this encounter
--- OUTSIDE RECORDS SUMMARY | 2024-10-13 13:32 | XMS_ITS | Encounter Summary ---
Author Organization [employer] Address [address] [facility] 7t [place] [address] Care Team Providers Care Occupational Health Physiotherapist Name Role Phone Milagros Walls MD Primary Care Provider Reason for Visit * Reason Comments Med Refill Encounter Details Date Type Department Care Team ([facility] st Contact Info) Description 06/15/2024 Refill [facility] MEDICINE [address] [place], [place] [phone] Milagros Walls MD [address] [place], [place] [phone] Social History Tobacco Use Types Packs/Day Years [...] Description 10/22/2024 9:30 AM EDT Office Visit [facility] ADULT DENTAL [address] [place] [address] Mike Bruce DMD [address] [place] [address] documented as of this encounter Visit Diagnoses Not on filedocumented in this encounter Additional Health Concerns Assessment Noted Time PHQ-9 Depression Total Score: 0 03/04/20 24 10:17 AM EDT documented as of this encounter Care Teams Occupational Health Physiotherapist Relationship Specialty Start Date End Date Milagros Walls MD [address] [place] [address] PCP - General Family Medicine 02/10/21 documented as of this encounter
--- OUTSIDE RECORDS SUMMARY | 2024-10-13 13:32 | XMS_ITS | Encounter Summary ---
Author Organization [employer] Address [address] [facility] [address] 7t [place] [address] Care Team Providers Care Residential Program Worker Name Role Phone Milagros Walls MD Primary Care Provider [phone] Encounter Details Date Type Department Care Team (Late st Contact Info) Description 10/10/2023 Orders Only [facility] MEDICINE [address] [place], [place] [phone] Milagros Walls MD [address] [place], [place] [phone] Social History Tobacco Use Types Packs/Day Years [...] Description 10/22/2024 9:30 AM EDT Office Visit [facility]AL [facility] [place] [address] Mike Bruce, DMD 230 [place] [address] documented as of this encounter Procedures Procedure Name Priority Date/Time Associated Diagnosis Comments LDCT LUNG SCREENING Routine 10/21/2023 1 :01 PM EDT documented in this encounter Results * CT Lung Screening Low dose (10/21/2023 1:01 PM EDT) Anatomical Region Laterality Modality Lung Computed Tomogra phy 10/21/2023 1:01 PM EDT Narrative 10/23/2023 9:09 AM EDT ? [facility] ?[address] ?[place] [address] ? CT Scan Report ? Signed ? Patient: Raucci,Marjorie L ?MR#: [id number] ?? 54 ? : 1965 ?Acct:[id number] ? Age/Sex: 58 / F ?ADM Date: 10/20/24 ? Loc: HO.CT ? Attending Dr: Cinthia Ugarte PA-C ? Ordering Physician: Cinthia Ugarte PA-C ?? Date of Service: 10/21/23 ?? Procedure(s): CT lung screening ?? Accession Number(s): [id number] ? cc: Milagros Walls; Cinthia Ugarte PA-C ? EXAMINATION: ?? CT CHEST SCREENING ? CLINICAL INFORMATION: ?? Current smoker with 41 year smoking history, 2 packs per day. ? COMPARISON: ?? CT lung screening 06/23/2020. ? TECHNIQUE: ?? Multidetector volumetric CT imaging of the chest is performed without ?? contrast using low dose technique. Additional 2D coronal and sagittal ?? reformatted images and axial 3D maximum intensity projection (MIP) ?? images are generated on the CT workstation. ? This CT examination was performed using dose optimization techniques as ?? appropriate, variously including the following: ?? *Automated exposure control ?? *Adjustment of mA and/or kV according to patient size (this includes ?? techniques or standardized protocols for targeted exams where dose is ?? matched to indication/reason for exam; i.e. extremities or head) ?? *Use of iterative reconstruction technique ? DLP: ? 47 mGy-cm ? FINDINGS: ? LUNGS: Mild emphysematous changes are present. Multiple small lung ?? nodules are seen none larger than 3 mm most of which are unchanged when ?? compared to the prior study. There is a single new 3 mm subpleural ?? nodule in the left lower lobe (5:267). Andrew images of all have been ?? saved. The lungs are otherwise clear with no evidence of inflammation ?? or nodules. ? MEDIASTINUM: The mediastinum is normal. ? CORONARY ARTERY CALCIFICATION: None visualized on this study. ? PLEURA: There is no pleural effusion. No pleural mass or thickening. ? AXILLA: No lymphadenopathy. ? UPPER ABDOMEN: Status post cholecystectomy. ? OSSEOUS STRUCTURES: Unremarkable. ? CT/CT lung screening ?? IMPRESSION: ?? Unremarkable examination. ? ASSESSMENT: ? Lung-RADS category 2: ??Benign ? RECOMMENDATION: ?? Routine annual low-dose CT screening in 12 months. ? Dictated By: ?Edilberto Mckeon MD ? Signed By: ?<Electronically signed by Edilberto Mckeon MD in OV> ? 10/23/23904 ? DD/ 1301 ? TD/TT: ? Quarter Lining Smoother: SS ? Procedure Note Zaid, Image - 10/23/[address] [address] [address] Scan Report Signed Patient: Marjorie Henson LMR#: [id number] 54 : 1965Acct:[id number] Age/Sex: 58 / FADM Date: 10/21/23 Loc: .CT Attending Dr: Cinthia Ugarte PA-C Ordering Physician: Cinthia Ugarte PA-C Date of Service: 10/21/23 Procedure(s): CT lung screening Accession Number(s): [id number] cc: Milagros Walls; Cinthia Ugarte PA-C EXAMINATION: CT CHEST SCREENING CLINICAL INFORMATION: Current smoker with 41 year smoking history, 2 packs per day. COMPARISON: CT lung screening 06/23/2020. TECHNIQUE: Multidetector volumetric CT imaging of the chest is performed without contrast using low dose technique. Additional 2D coronal and sagittal reformatted images and axial 3D maximum intensity projection (MIP) images are generated on the CT workstation. This CT examination was performed using dose optimization techniques as appropriate, variously including the following: *Automated exposure control *Adjustment of mA and/or kV according to patient size (this includes techniques or standardized protocols for targeted exams where dose is matched to indication/reason for exam; i.e. extremities or head) *Use of iterative reconstruction technique DLP: 47 mGy-cm FINDINGS: LUNGS: Mild emphysematous changes are present. Multiple small lung nodules are seen none larger than 3 mm most of which are unchanged when compared to the prior study. There is a single new 3 mm subpleural nodule in the left lower lobe (5:267). Andrew images of all have been saved. The lungs are otherwise clear with no evidence of inflammation or nodules. MEDIASTINUM: The mediastinum is normal. CORONARY ARTERY CALCIFICATION: None visualized on this study. PLEURA: There is no pleural effusion. No pleural mass or thickening. AXILLA: No lymphadenopathy. UPPER ABDOMEN: Status post cholecystectomy. OSSEOUS STRUCTURES: Unremarkable. CT/CT lung screening IMPRESSION: Unremarkable examination. ASSESSMENT: Lung-RADS category 2: Benign RECOMMENDATION: Routine annual low-dose CT screening in 12 months. Dictated By: Edilberto Mckeon MD Signed By: <Electronically signed by Edilberto Mckeon MD in OV> 10/23/23 0905 DD/ 1301 TD/TT: Quarter Lining Smoother: MAINE [facility] External Provider IMG CT PROCEDURES Final Result documented in this encounter Visit Diagnoses Not on filedocumented in this encounter Care Teams Residential Program Worker Relationship Specialty Start Date End Date Milagros Walls MD [address] [place] [address] PCP - General Family Medicine 02/10/21 documented as of this encounter
--- OUTSIDE RECORDS SUMMARY | 2024-10-13 13:32 | XMS_ITS | Encounter Summary ---
Author Organization [employer] Address [address] [facility] [address] 7t [place] [address] Care Team Providers Care Java Technical Architect Name Role Phone Milagros Walls MD Primary Care Provider [phone] Reason for Visit * Reason Onset Date Comments PT1 06/03/2023 Encounter Details Date Type Department Care Team ([facility] st Contact Info) Description 06/03/2023 Telephone [facility] MEDICINE 230 [place] [address] Milagros Walls MD [address] [place], [place] [phone] PT1 Social History Tobacco Use Types Packs/Day [...] the past 12 months, has t he [employer], gas, oil or water company threatened to [...] encounter Miscellaneous Notes * Telephone Encounter - Radha Elizabeth - 06/03/2023 4:15 PM EDT PT-1 submitted for patient. They will receive a letter of approval or denial in the mail. * Telephone Encounter - Gloria Lewis - 06/03/2023 3:14 PM EDT PT1 Name of facility: [facility] Specialty: Mammograms Location: [address] [place] [address] Date: n/a Time: n/a fax: [phone] wheelchair: NO Inventory Control/Shipping Receiving: NO All Future appt's PT1 Name of facility: [facility] Specialty: C.O.P Appt Location: [address] [place] [address] Date: 09/23/2022 Time: 9:30 am fax: n/a wheelchair: NO Inventory Control/Shipping Receiving: NO All Future Appt's Pt is requesting a call in regards to other PT1 statuses. Please contact pt at [phone] documented in this encounter Plan of Treatment Upcoming Encounters Date Type Department Care Team (Late st Contact Info) Description 10/22/2024 9:30 AM EDT Office Visit [facility] ADULT DENTAL [address] [place], [place] [phone] Mike Bruce, REN [address] [place] [address] documented as of this encounter Visit Diagnoses Not on filedocumented in this encounter Care Teams Java Technical Architect Relationship Specialty Start Date End Date Milagros Walls MD [address] [place] [address] PCP - General Family Medicine 02/10/21 documented as of this encounter
--- OUTSIDE RECORDS SUMMARY | 2024-10-13 13:32 | XMS_ITS | Encounter Summary ---
Author Organization [employer] Address [address] [place] [address] 7[place] [address] Care Team Providers Care Storage Facility Housekeeper Name Role Phone Milagros Walls MD Primary Care Provider [phone] Reason for Visit * Reason Comments Med Refill Encounter Details Date Type Department Care Team (Late Contact Info) Description 02/11/2023 Refill [facility] MEDICINE [address] [place], [place] [phone] Sade Townsend MD [address] [place], [place] [phone] Social History Tobacco Use Types Packs/Day Years [...] Description 10/22/2024 9:30 AM EDT Office Visit [facility] ADULT DENTAL [address] [place], [place] [phone] Mike Bruce DMD [address] [place], [place] [phone] documented as of this encounter Visit Diagnoses Not on filedocumented in this encounter Care Teams Storage Facility Housekeeper Relationship Specialty Start Date End Date Milagros Walls MD [address] [place] [address] PCP - General Family Medicine 02/10/21 documented as of this encounter
--- OUTSIDE RECORDS SUMMARY | 2024-10-13 13:32 | XMS_ITS | Encounter Summary ---
Author Organization [employer] Address [address] [facility] [address] 7t [place] [address] Care Team Providers Care Roundhouse Firer/Fireman Name Role Phone Milagros Walls MD Primary Care Provider [phone] Reason for Visit * Reason Onset Date Comments Referral 08/14/2023 Encounter Details Date Type Department Care Team ([facility] st Contact Info) Description 08/14/2023 Telephone [facility] MEDICINE [address] [place] [address] Milagros Walls MD [address] [place], [place] [phone] Referral Social History Tobacco Use Types Packs/Day Years [...] the past 12 months, has t he goviral, Medicine in Practice, oil or water [employer] threatened to shut off services in your [...] Miscellaneous Notes * Telephone Encounter - Collette Flanagan - 08/14/2023 2:03 PM EST Referral/Renewals Location: [address] [place] [address] Date: 10/29 Time: 9:30 AM Specialty: [facility] radiation oncology DX: cancer Location: [address] [place] [address] Date: n/a Time: n/a Specialty: [facility] surgical oncology DX: cancer Location: [address] [place] [address] Date: n/a Time: n/a Specialty: [facility] DX: Cancer Location: [address] [facility] [place] Date: 10/21 Time: 2:30 PM Fax: n/a Specialty: [facility] women's center DX: breast symptoms Location: [address] [facility] [place] Date: 09/05 Time: 9:15 AM Fax: n/a Specialty:[facility] pulmonology center DX: COPD Location: [address] [facility], [address] [facility] Date: n/a Time: n/a Specialty: [facility] DX: n/a Location: [address] [facility] Date: n/a Time: n/a Fax: n/a Specialty: [facility] urology DX: n/a documented in this encounter Plan of Treatment Upcoming Encounters Date Type Department Care Team (Late st Contact Info) Description 10/22/2024 9:30 AM EDT Office Visit [facility] ADULT DENTAL [address] [place] [address] Mike Bruce, DMD [address] [place] [address] documented as of this encounter Visit Diagnoses Not on filedocumented in this encounter Care Teams Roundhouse Firer/Fireman Relationship Specialty Start Date End Date Milagros Walls MD [address] [place] [address] PCP - General Family Medicine 02/10/21 documented as of this encounter
--- OUTSIDE RECORDS SUMMARY | 2024-10-13 13:32 | XMS_ITS | Encounter Summary ---
Author Organization [employer] Address [address] [facility] 7t [place] [address] Care Team Providers Care Cane Burner Name Role Phone Milagros Walls MD Primary Care Provider [phone] Reason for Visit * Reason Comments Med Refill Encounter Details Date Type Department Care Team ([facility] st Contact Info) Description 10/12/2024 Refill [facility] [address] [place], [place] [phone] Milagros Walls MD 230 [place], [place] [phone] Fibromyalgia Social History Tobacco Use Types Packs/Day Years [...] 10/22/2024 9:30 AM EDT Office Visit [facility] [address] [place] [address] Mike Bruce, REN [address] [place] [address] documented as of this encounter Visit Diagnoses Diagnosis Fibromyalgia Unspecified myalgia and myositis documented in this encounter Additional Health Concerns Assessment Noted Time PHQ-9 Depression Total Score: 0 03/04/20 24 10:17 AM EDT documented as of this encounter Care Teams Cane Burner Relationship Specialty Start Date End Date Milagros Walls MD 230 [place] [address] PCP - General Family Medicine 02/10/21 documented as of this encounter
--- OUTSIDE RECORDS SUMMARY | 2024-10-13 13:32 | XMS_ITS | Encounter Summary ---
Author Organization [employer] Address [address] [place] [address] 7t [place] [address] Care Team Providers Care Bookkeeping Service Sales Agent Name Role Phone Milagros Walls MD Primary Care Provider [phone] Encounter Details Date Type Department Care Team (Late Contact Info) Description 08/29/2022 Orders Only [facility] [address] [place], [place] [phone] Milagros Walls MD 230 [place], [place] [phone] Kidney stone (Primary Dx) Social History Tobacco [...] Don't know 06/11/2022 10 :16 AM EDT COVID-19 Exposure Response Date Recorded In the last 10 days, have yo u been in contact with someone who was confirmed or suspected to have Coronavirus/COVID-19? No / Unsure 08/20/2022 9:08 AM EST documented as of this encounter Plan of Treatment Upcoming Encounters Date Type Department Care Team (Late st Contact Info) Description 10/22/2024 9:30 AM EDT Office Visit [facility] ADULT DENTAL [address] [place] [address] Mike Bruce DMD [address] [place], [place] [phone] documented as of this encounter Procedures Procedure Name Priority Date/Time Associated Diagnosis Comments BI MAMMOGRAM SCREENING TOMOSYNTHESIS BILATERAL Routine 09/14/2022 9:51 AM EST documented in this encounter Results * BI Mammogram Screening Tomosynthesis Bilateral (09/14/2022 9:51 AM EST) Anatomical Region Laterality Modality Breast Bilateral Mammography 09/14/2022 9:51 AM EST Narrative 09/18/2022 5:22 PM EST ? [facility] [place] ? [address] ?[place], [place] [address] ? Mammography Report ? Signed ? Patient: Marjorie Henson Hussein ?MR#: [id number] ?? 54 ? : 1965 ?Acct:[id number] ? Age/Sex: 56 / F ?ADM Date: 09/14/22 ? Loc: HO.MAMMO ? Attending Dr: Milagros Walls MD ? Ordering Physician: Milagros Walls ?Results: 0Incomple ?? te: Needs Additional Imaging Evaluation ? Date of Service: 09/14/22 ?Follow Up: Additional Imagi ?? ng ? Procedure(s): MM tomosynthesis screening BI ?? Accession Number(s): [id number] ? cc: Kaity Wallsia ? EXAMINATION: ?? MM SCREENING DIGITAL BREAST TOMOSYNTHESIS, BILATERAL ? CLINICAL INFORMATION: ? Screening. Asymptomatic. ? The lifetime risk of breast cancer based on the Tyrer-Cuzick Model is ?? 14.6%. ? COMPARISON: ?? Mammography: December 11, 2014 ? TECHNIQUE: ?? Digital breast tomosynthesis is performed in both the craniocaudal and ?? mediolateral oblique views along with computer-aided detection (CAD). ?? Synthesized 2D images are generated from the tomosynthesis. ? FINDINGS: ?? The breasts are heterogeneously dense, which may obscure small masses ?? (ACR BI-RADS breast composition Category c). ? No suspicious left breast findings are identified. ? Within the lateral aspect of the right breast approximately 7.5 cm from ?? the nipple there is a density containing calcifications for which spot ?? magnification views are recommended. ? MM/MM tomosynthesis screening BI ?? IMPRESSION: ?? Right breast density with calcifications for further evaluation. ? ASSESSMENT: ? BI-RADS 0: Incomplete - Need Additional Imaging Evaluation ? RECOMMENDATION: ?? 1. Additional views of the right breast ?? 2. Targeted ultrasound if warranted after review of the additional ?? views. ?? 3. Radiology department staff will contact the patient for additional ?? imaging. ? Dictated By: ?Eugenio Sandy MD ? Signed By: ?<Electronically signed by Eugenio Sandy MD in OV> ?09/18/22 1720 ? DD/ ? TD/TT: ? Guide Delegate: SK ? Procedure Note Rakesh Mar - 09/18/2022 [facility] [address] [place], [place] [address] Mammography Report Signed Patient: Marjorie Henson LMR#: [id number] 54 : 1965Acct:[id number] Age/Sex: 56 / FADM Date: 09/14/22 Loc: PRAFUL Attending Dr: Milagros Walls MD Ordering Physician: Cory Wallsults: 0Incomple te: Needs Additional Imaging Evaluation Date of Service: 09/14/22Follow Up: Additional Imagi ng Procedure(s): MM tomosynthesis screening BI Accession Number(s): [id number] cc: Milagros Walls EXAMINATION: MM SCREENING DIGITAL BREAST TOMOSYNTHESIS, BILATERAL CLINICAL INFORMATION: Screening. Asymptomatic. The lifetime risk of breast cancer based on the Tyrer-Cuzick Model is 14.6%. COMPARISON: Mammography: December 11, 2014 TECHNIQUE: Digital breast tomosynthesis is performed in both the craniocaudal and mediolateral oblique views along with computer-aided detection (CAD). Synthesized 2D images are generated from the tomosynthesis. FINDINGS: The breasts are heterogeneously dense, which may obscure small masses (ACR BI-RADS breast composition Category c). No suspicious left breast findings are identified. Within the lateral aspect of the right breast approximately 7.5 cm from the nipple there is a density containing calcifications for which spot magnification views are recommended. MM/MM tomosynthesis screening BI IMPRESSION: Right breast density with calcifications for further evaluation. ASSESSMENT: BI-RADS 0: Incomplete - Need Additional Imaging Evaluation RECOMMENDATION: 1. Additional views of the right breast 2. Targeted ultrasound if warranted after review of the additional views. 3. Radiology department staff will contact the patient for additional imaging. Dictated By: Eugenio Sandy MD Signed By: <Electronically signed by Eugenio Sandy MD in OV> 09/18/22 1720 DD/ 0951 TD/TT: Guide Delegate: NATALIIA [facility] External Provider IMG BI PROCEDURES Edited Result - Final documented in this encounter Visit Diagnoses Diagnosis Kidney stone- Primary Calculus of kidney documented in this encounter Care Teams Bookkeeping Service Sales Agent Relationship Specialty Start Date End Date Milagros Walls MD [address] [place] [address] PCP - General Family Medicine 02/10/21 documented as of this encounter
--- OUTSIDE RECORDS SUMMARY | 2024-10-13 13:32 | XMS_ITS | Encounter Summary ---
Author Organization [employer] Address [address] [facility] [address] 7t [place] [address] Care Team Providers Care Centrifugal Station Operator Name Role Phone Milagros Walls MD Primary Care Provider [phone] Reason for Visit * Reason Comments Med Refill Encounter Details Date Type Department Care Team ([facility] st Contact Info) Description 09/09/2023 Refill [facility] 230 [place], [place] [phone] Milagros Walls MD 230 [place], [place] [phone] Fibromyalgia Social History Tobacco Use Types Packs/Day [...] Description 10/22/2024 9:30 AM EDT Office Visit [facility] ADULT DENTAL 230 [place] [address] Mike Bruce, DMD 230 [place] [address] documented as of this encounter Visit Diagnoses Diagnosis Fibromyalgia Unspecified myalgia and myositis documented in this encounter Care Teams Centrifugal Station Operator Relationship Specialty Start Date End Date Milagros Walls MD 230 [place] [address] PCP - General Family Medicine 02/10/21 documented as of this encounter
--- OUTSIDE RECORDS SUMMARY | 2024-10-13 13:32 | XMS_ITS | Encounter Summary ---
Author Organization [employer] Address [address] [facility] [address] [facility] [address] [facility] [address] 7t [place] [address] Care Team Providers Care Headrig Sawyer Name Role Phone Milagros Walls MD Primary Care Provider [phone] Reason for Visit * Reason Onset Date Comments Pt1 08/13/2023 Encounter Details Date Type Department Care Team ([facility] st Contact Info) Description 08/13/2023 Telephone [facility] 230 [place] [address] Milagros Walls MD 230 [place], [place] [phone] Pt1 Social History Tobacco Use Types Packs/Day [...] the past 12 months, has t he [employer] gas, oil or water company threatened to [...] * Telephone Encounter - Gloria Lewis - 08/13/2023 12:28 PM EST TC from pt requesting for PT1 renewal's: PT1 needed Date: n/a Time: n/a Visits: [facility] [employer] Address: [address] [place], [place] Facility: [facility] Wheel Chair: no Hedis Review Nurse Needed: no PT1 needed Date: n/a Time: n/a Visits: [employer] Address: [address] [place] [address] Facility: [facility] Wheel Chair: No Hedis Review Nurse Needed: No PT1 needed Date: n/a Time: n/a Visits: [employer] Address: [address] [place] [address] Facility: [facility] Wheel Chair: No Hedis Review Nurse Needed: No documented in this encounter Plan of Treatment Upcoming Encounters Date Type Department Care Team (Late st Contact Info) Description 10/22/2024 9:30 AM EDT Office Visit [facility] ADULT DENTAL [address] [place] [address] Mike Bruce, REN [address] [place] [address] documented as of this encounter Visit Diagnoses Not on filedocumented in this encounter Care Teams Headrig Sawyer Relationship Specialty Start Date End Date Milagros Walls MD [address] [place], [place] PCP - General Family Medicine 02/10/21 documented as of this encounter
--- OUTSIDE RECORDS SUMMARY | 2024-10-13 13:32 | XMS_ITS | Encounter Summary ---
Author Organization [employer] Address [address] [facility] [address] 7t [place] [address] Care Team Providers Care Product Mgmt Dev Manager Name Role Phone Milagros Walls MD Primary Care Provider Reason for Visit * Reason Comments Med Refill Encounter Details Date Type Department Care Team ([facility] st Contact Info) Description 07/31/2023 Refill [facility] [address] [place], [place] [phone] Milagros Walls MD 230 [place], [place] [phone] Left flank pain Social History Tobacco Use [...] Description 10/22/2024 9:30 AM EDT Office Visit [facility] ADULT DENTAL [address] [place], [place] [phone] Mike Bruce, REN [address] [place] [address] documented as of this encounter Visit Diagnoses Diagnosis Left flank pain Abdominal pain, unspecified site documented in this encounter Care Teams Product Mgmt Dev Manager Relationship Specialty Start Date End Date Milagros Walls MD 230 [place] [address] PCP - General Family Medicine 02/10/21 documented as of this encounter
--- OUTSIDE RECORDS SUMMARY | 2024-10-13 13:32 | XMS_ITS | Encounter Summary ---
Author Organization [employer] Address [address] [facility] 7t [place] [address] Care Team Providers Care Underground Mining Section Foreman Name Role Phone Milagros Walls MD Primary Care Provider Reason for Visit * Reason Comments Follow-up Encounter Details Date Type Department Care Team ([facility] st Contact Info) Description 10/13/2024 10:15 AM EST Office Visit [facility]INE 230 [place] [address] Milagros Walls MD [address] [place], [place] [phone] Acute intractable headache, unspecified headache type (Primary Dx); Dietary counseling; Exercise counseling; Class 1 obesity with serious comorbidity and body mass index (BMI) of 33.0 to 33.9 in adult, unspecified obesity type; Encounter for immunization Social History Tobacco Use Types Packs/Day Years [...] AM EDT documented as of this encounter Last Filed Vital Signs Vital Sign Reading [...] Mass Index 33.25 10/13/2024 10:15 AM EST documented in this encounter Plan of Treatment Upcoming Encounters Date Type Department Care Team (Late st Contact Info) Description 10/22/2024 9:30 AM EDT Office Visit [facility] ADULT DENTAL [address] [place] [address] Mike Bruce, REN [address] [place] [address] Scheduled Orders Name Type Priority Associated Diagnoses Orde r Schedule Comprehensive Metabolic Panel Lab Routine Acute intractable headache, unspecified headache type Expected: 10/13/2024 (Approximate), Expires: 10/13/2025 Sed Rate by Modified W[place]gren Lab Routine Acute intractable headache, unspecified headache type Expected: 10/13/2024, Expires: 10/13/2025 C-reactive Protein Lab Routine Acute intractable headache, unspecified headache type Expected: 10/13/2024 (Approximate), Expires: 10/13/2025 Creatine Kinase Isoenzymes (CK Isoenzymes) w/ Total CK Lab Routine Acute intractable headache, unspecified headache type Expected: 10/13/2024 (Approximate), Expires: 10/13/2025 Magnesium Lab Routine Acute intractable headache, unspecified headache type Expected: 10/13/2024, Expires: 10/13/2025 documented as of this encounter Procedures Procedure Name Priority Date/Time Associated Diagnosis Comments CBC WITH AUTO DIFFERENTIAL Routine 10/13/2024 10:58 AM EST Acute intractable headache, unspecified headache type documented in this encounter Results * (ABNORMAL) CBC auto differential (10/13/2024 10:58 AM EST) White Blood Count 9.4 4.8 - 10.8 X10*3/uL [facility] Red Blood Count 4.43 4.20 - 5.50 X10*6/uL [facility] Hemoglobin 13.2 12.0 - 16.0 g/dl [facility] Hematocrit 39.7 37.0 - 47.0 % [facility] Mean Corpuscular Volume 89.6 80.0 - 98.0 fL [facility] Mean Corpuscular Hemoglobin 29.8 27.0 - 33.0 pg [facility] Mean Corpuscular HGB Conc 33.2 31.0 - 35.0 g/dl [facility] Red Cell Distribution Width 14.5 11.0 - 16.0 % [facility] Platelet Count 278 160 - 400 X10*3/uL [facility] Mean Platelet Volume 10.3 9.4 - 12.3 fL [facility] Neutrophils Percent Auto 59.3 45 - 73 % [facility] Imm Gran Pct Auto 1.0(H) 0.0 - 0.4 % [facility] Lymphocytes Percent Auto 27.6 20 - 40 % [facility] Monocytes Percent Auto 8.7 2 - 11 % [facility] Eosinophils Percent Auto 2.0 0 - 4 % [facility] Basophils Percent Auto 1.4 0 - 2 % [facility] NRBC Pct Auto 0.0 0.0 - 0.2 /100WBC [facility] Neutrophils Absolute Auto 5.6 2.0 - 8.3 x10*3/uL [facility] Imm Gran Abs Auto 0.09(H) 0.00 - 0.03 X10*3/uL [facility] Lymphocytes Absolute Auto 2.6 1.2 - 4.9 X10*3/uL [facility] Monocytes Absolute Auto 0.8 0.1 - 1.2 X10*3/uL [facility] Eosinophils Absolute Auto 0.2 0.0 - 0.4 X10*3/uL [facility] Basophils Absolute Auto 0.1 0.0 - 0.2 X10*3/uL [facility] NRBC Abs Auto 0.000 0.0 - 0.012 X10*3/uL [facility] Blood Venous blood specimen / Unknown 10/13/2024 10:58 AM EST 10/13/2024 1:11 PM EST us Milagros Walls MD LAB BLOOD ORDERABLES Final Res ult Performing Organization Address City/State/[facility] Co de Phone Number [facility] [address] [place] [phone] documented in this encounter Visit Diagnoses Diagnosis Acute intractable headache, unspecified headache type- Primary Dietary counseling Dietary surveillance and counseling Exercise counseling Class 1 obesity with serious comorbidity and body mass index (BMI) of 33.0 to 33.9 in adult, unspecified obesity type Encounter for immunization documented in this encounter Additional Health Concerns Assessment Noted Time PHQ-9 Depression Total Score: 0 03/04/20 24 10:17 AM EDT documented as of this encounter Care Teams Underground Mining Section Foreman Relationship Specialty Start Date End Date Milagros Walls MD [address] [place] [address] PCP - General Family Medicine 02/10/21 documented as of this encounter
--- OUTSIDE RECORDS SUMMARY | 2024-10-13 13:32 | XMS_ITS | Encounter Summary ---
Author Organization [employer] Address [address] [facility] 7t [place] [address] Care Team Providers Care Detail Sergeant Name Role Phone Milagros Walls MD Primary Care Provider [phone] Reason for Visit * Reason Onset Date Comments Referral 10/30/2022 Encounter Details Date Type Department Care Team ([facility] st Contact Info) Description 10/30/2022 Telephone [facility] MED[facility]INE [address] [place], [place] [phone] Milagros Walls MD [address] [place], [place] [phone] Referral Social History Tobacco Use Types Packs/Day [...] encounter Miscellaneous Notes * Telephone Encounter - Wanda Dunne - 10/30/2022 1:16 PM EDT Tc from pt requesting a referral for Specialty:[facility] Location:[address] [place] [address] [address], [place], [place] Date&Time: N/A Pipe Stress Engineer:n/a Pt is also requesting a call back . documented in this encounter Plan of Treatment Upcoming Encounters Date Type Department Care Team (Late st Contact Info) Description 10/22/2024 9:30 AM EDT Office Visit [facility] ADULT DENTAL [address] [place], [place] [phone] Mike Bruce, REN [address] [place] [address] documented as of this encounter Visit Diagnoses Not on filedocumented in this encounter Care Teams Detail Sergeant Relationship Specialty Start Date End Date Milagros Walls MD [address] [place] [address] PCP - General Family Medicine 02/10/21 documented as of this encounter
--- OUTSIDE RECORDS SUMMARY | 2024-10-13 13:32 | XMS_ITS | Clinical Summary ---
Author Organization [facility] Address [address] [facility] [address] [place] [address] Phone Care Team Providers Care Auto Design Detailer Name Role Phone Milagros Walls MD Primary Care Provider Allergies No known active allergies Medications baclofen (LIORESAL) 10 MG tablet Take 2 tablets by mouth in the morning and 2 tablets at noon and 2 tablets in the evening and 2 tablets before bedtime. 3 Active MONTELUKAST SODIUM PO Take 10 mg by mouth 1 (one) time each day in the evening 2 Active amitriptyline (ELAVIL) 50 MG tablet Take 50 mg by mouth 1 (one) time each day 3 Active buPROPion SR (WELLBUTRIN SR) 200 MG 12 hr tablet Take 200 mg by mouth in the morning and 200 mg in the evening. 3 Active DULoxetine (CYMBALTA) [address] capsule Take 60 mg by mouth 1 (one) time each day 3 Active atorvastatin (LIPITOR) 10 MG tablet Take 10 mg by mouth 1 (one) time each day 2 Active Zanubrutinib (Brukinsa) 80 MG capsule Take 80 mg by mouth 2 (two) times a day 2 tabs in the morning and 1 at night 2 Active Incruse Ellipta 62.5 MCG/ACT aerosol powder Inhale 1 puff 1 (one) time each day 3 Active ondansetron ODT (ZOFRAN-ODT) 4 MG dispersible tablet Take 1 tablet by mouth 3 (three) times a day if needed 3 Active tamsulosin (FLOMAX) 0.4 MG 24 hr capsule Take 0.4 mg by mouth 1 (one) time each day Active olmesartan (BENICAR) 5 MG tablet Take 5 mg by mouth 1 (one) time each day Active pregabalin (LYRICA) 25 MG capsule Take 25 mg by mouth in the morning and 25 mg in the evening. Active docusate sodium (COLACE) 100 MG capsule Take 100 mg by mouth in the morning and 100 mg in the evening. Active albuterol HFA (PROVENTIL HFA;VENTOLIN HFA) 108 (90 Base) MCG/ACT inhaler Inhale 2 puffs every 6 (six) hours if needed for wheezing Active omeprazole OTC (PriLOSEC OTC) 20 MG EC tablet Take 20 mg by mouth 1 (one) time each day Do not crush, chew, or split. Active Active Problems Problem Noted Date Diagnosed Date Stage 3b chronic kidney disease 12/04/2022 Hypertension 12/04/2022 Diverticular disease 12/03/2022 Mantle cell lymphoma 12/03/2022 Smoker 12/03/2022 Elevated blood-pressure read ing without diagnosis of hypertension 08/21/2022 Overview (12/03/2022): Last Assessment & Plan: Monitor at home Call if > 140/90 regularly Non-Hodgkin lymphoma of lymph nodes of multiple sites 08/21/2022 Overview (12/03/2022): Last Assessment & Plan: Recently initiated on Zanubrutnib for active disease Feels ongoing swelling and pain Will check PT/INR, CBC, ESR, CRP, CMP Encouraged her to advise her oncologist office of her symptoms Fibromyalgia 04/29/2021 Overview (12/03/2022): Last Assessment & Plan: Dx with fibromyalgia by rheumatology - cont [...] f/u in 2-3 months or sooner prn Moderate chronic obstructive pulmonary disease 0 03/09/2021 Overview (12/03/2022): Last Assessment & Plan: Cont Advair Cont CATHRYN prn Smoking cessation 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 Nephrolithiasis 02/15/2021 Social History Tobacco Use Types Packs/Day Years Used Date Smoking Tobacco: Never Assessed Comments Unknown Sex and Gender Information Value Date Recorded Sex Assigned at Not on file Legal Sex Female 9:07 AM EST Gender Identity Not on file Sexual Orientation Not on file Last Filed Vital Signs Vital Sign Reading Time Taken Comments Blood Pressure 97/72 01/02/2024 8:07 AM EDT Pulse 90 01/02/2024 8:07 AM EDT Temperature - - Respiratory Rate - - Oxygen Saturation 95% 01/02/2024 8:07 AM EDT Inhaled Oxygen Concentration - - Weight 80.1 kg (176 lb 9.6 oz) 01/02/2024 8:07 A M EDT Height 154.9 cm (5' 1 ) 01/02/2024 8:07 AM EDT Body Mass Index 33.37 01/02/2024 8:07 AM EDT Plan of Treatment Upcoming Encounters Date Type Department Care Team (Late st Contact Info) Description 12/31/2024 8:00 AM EDT Office Visit [facility] [address] [phone] Mark Hanna MD [address] [phone] Health Maintenance Due Date Last Done Comments Breast Cancer Screening 1965 Hepatitis B Vaccine (1 of 3 - 19+ 3-dose series) 10/12/1983 Colorectal Cancer Screening: Annual FOBT 2013 Colorectal Cancer Screening: Colonoscopy 2013 Colorectal Cancer Screening: Sigmoidoscopy 2013 Influenza Vaccine (#1) 2024 07/19/2023, 2019 Pneumococcal Vaccine: Pediat rics (0 to 5 Years) and At-Risk Patients (6 to 64 Years) Completed 10/21/2023 Insurance [employer] [facility] AD[facility] PPO ([id number]) [employer] [facility] AD[facility] PPO ([id number]) MEDICAID [place] Care Teams Auto Design Detailer Relationship Specialty Start Date End Date Milagros Walls MD [address] [place] [address] PCP - General Oxygen Furnace Operator 09/03/22
--- OUTSIDE RECORDS SUMMARY | 2024-10-13 13:32 | XMS_ITS | Encounter Summary ---
Author Organization [employer] Address [address] [place] [address] 7t [place] [address] Care Team Providers Care Strategies Analyst Name Role Phone Milagros Walls MD Primary Care Provider [phone] Encounter Details Date Type Department Care Team (Late Contact Info) Description 01/09/2023 Abstract [facility] MEDICINE [address] [place] [address] Nereida Duncan RN 230 [place] [address] Social History Tobacco Use Types Packs/Day Years [...] Description 10/22/2024 9:30 AM EDT Office Visit [facility] ADULT DENTAL [address] [place], [place] [phone] Mike Bruce DMD [address] [place] [address] documented as of this encounter Procedures Procedure Name Priority Date/Time Associated Diagnosis Comments MAMMOGRAPHY Routine 10/25/2022 documented in this encounter Results * Mammography (10/25/2022) Mammogram BI-RADS 3: Probably Benign Anatomical Region Laterality Modality Other us Historical Provider HEALTH MAINTENANCE Final Result documented in this encounter Visit Diagnoses Not on filedocumented in this encounter Care Teams Strategies Analyst Relationship Specialty Start Date End Date Milagros Walls MD [address] [place] [address] PCP - General Family Medicine 02/10/21 documented as of this encounter
--- OUTSIDE RECORDS SUMMARY | 2024-10-13 13:32 | XMS_ITS | Encounter Summary ---
Author Organization [employer] Address [address] [facility] 7t [place] [address] Care Team Providers Care Flight Kitchen Manager Name Role Phone Milagros Walls MD Primary Care Provider [phone] Reason for Visit * Reason Onset Date Comments Med Refill 06/29/2024 Encounter Details Date Type Department Care Team ([facility] st Contact Info) Description 06/29/2024 Telephone [facility] MEDICINE [address] [place], [place] [phone] Milagros Walls MD [address] [place], [place] [phone] Med Refill Social History Tobacco Use Types [...] Telephone Encounter - Blanca Dobbins LPN - 06/29/2024 10:44 AM EST Medication pended to PCP. * Telephone Encounter - Maya Valdez - 06/29/2024 10:39 AM EST TC from pt requesting medication refill. Medications needing refill : baclofen (Lioresal) 10 MG tablet [facility] to: [id number] - [place], [place] - [address] [place] [address] AT [facility] [address] documented in this encounter Plan of Treatment Upcoming Encounters Date Type Department Care Team (Late st Contact Info) Description 10/22/2024 9:30 AM EDT Office Visit [facility] ADULT DENTAL [address] [place] [address] Mike Bruce, REN [address] [place] [address] documented as of this encounter Visit Diagnoses Not on filedocumented in this encounter Additional Health Concerns Assessment Noted Time PHQ-9 Depression Total Score: 0 03/04/20 10:17 AM EDT documented as of this encounter Care Teams Flight Kitchen Manager Relationship Specialty Start Date End Date Milagros Walls MD [address] [place] [address] PCP - General Family Medicine 02/10/21 documented as of this encounter
--- OUTSIDE RECORDS SUMMARY | 2024-10-13 13:32 | XMS_ITS | Encounter Summary ---
Author Organization [employer] Address [address] [facility] 7t [place] [address] Care Team Providers Care Sous Chef Kitchen Manager Name Role Phone Milagros Walls MD Primary Care Provider [phone] Encounter Details Date Type Department Care Team (Latest Contact Info) Description 10/13/2024 Travel Social History Tobacco Use Types Packs/Day Years [...] 9:30 AM EDT Office Visit [facility] ADULT DENTAL [address] [place] [address] Mike Bruce DMD [address] [place] [address] documented as of this encounter Visit Diagnoses Not on filedocumented in this encounter Additional Health Concerns Assessment Noted Time PHQ-9 Depression Total Score: 0 03/04/20 24 10:17 AM EDT documented as of this encounter Care Teams Sous Chef Kitchen Manager Relationship Specialty Start Date End Date Milagros Walls MD [address] [place] [address] PCP - General Family Medicine 02/10/21 documented as of this encounter
--- OUTSIDE RECORDS SUMMARY | 2024-10-13 13:32 | XMS_ITS | Encounter Summary ---
Author Organization [employer] Address [address] [facility] [address] 7[address] [place] [address] Care Team Providers Care Manager Business Information Name Role Phone Milagros Walls MD Primary Care Provider [phone] Encounter Details Date Type Department Care Team (Late st Contact Info) Description 06/08/2024 Telephone [facility] MEDICINE [address] [place], [place] [phone] Milagros Walls MD [address] [place], [place] [phone] Social History Tobacco Use Types Packs/Day Years [...] Description 10/22/2024 9:30 AM EDT Office Visit [facility] ADULT DENTAL [address] [place] [address] Mike Bruce, DMD [address] [place] [address] documented as of this encounter Visit Diagnoses Not on filedocumented in this encounter Additional Health Concerns Assessment Noted Time PHQ-9 Depression Total Score: 0 03/04/20 24 10:17 AM EDT documented as of this encounter Care Teams Manager Business Information Relationship Specialty Start Date End Date Milagros Walls MD [address] [place] [address] PCP - General Family Medicine 02/10/21 documented as of this encounter
--- OUTSIDE RECORDS SUMMARY | 2024-10-13 13:32 | XMS_ITS | Encounter Summary ---
Author Organization [employer] Address [address] [facility] 7t [place] [address] Care Team Providers Care It Web Development Consultant Name Role Phone Milagros Walls MD Primary Care Provider [phone] Reason for Visit * Reason Onset Date Comments PT-1 06/10/2024 Encounter Details Date Type Department Care Team ([facility] st Contact Info) Description 06/10/[address] [facility] MEDICINE [address] [place], [place] [phone] Milagros Walls MD 230 [place], [place] [phone] PT-1 Social History Tobacco Use Types Packs/Day [...] * Telephone Encounter - Hugo Weeks - 06/10/2024 9:26 AM EDT Patient calling requesting PT1 Home Address verified: Y/N: Yes Provider name or facility name: [facility] Address: [address] [place] [address] Escort needed: Y/N: No Do you have a wheelchair: Y/N: No If yes- Manual or electric: N/A Visits: Twice a month. documented in this encounter Plan of Treatment Upcoming Encounters Date Type Department Care Team (Late st Contact Info) Description 10/22/2024 9:30 AM EDT Office Visit [facility] ADULT DENTAL [address] [place] [address] Mike Bruce, DMD [address] [place] [address] documented as of this encounter Visit Diagnoses Not on filedocumented in this encounter Additional Health Concerns Assessment Noted Time PHQ-9 Depression Total Score: 0 03/04/20 10:17 AM EDT documented as of this encounter Care Teams It Web Development Consultant Relationship Specialty Start Date End Date Milagros Walls MD [address] [place] [address] PCP - General Family Medicine 02/10/21 documented as of this encounter
--- OUTSIDE RECORDS SUMMARY | 2024-10-13 13:32 | XMS_ITS | Clinical Summary ---
Author Organization Patient Business Ser [facility] Address [address] [place] [address] Care Team Providers Care Customer Engineer Name Role Phone Milagros Walls MD Primary Care Provider [phone] Allergies No known active allergies Medications butalbital-acet aminophen-caffe ine-codeine (FIORICET WITH CODEINE) [id number] mg per capsule Take 1 capsule by mouth every 4 (four) hours if needed. Max Daily Amount: 6 capsules Active ciclopirox (LOPROX) 0.77 % gel Apply topically 2 (two) times a day. 45 g 5 12/08/19 25 Active ammonium lactate (AmLactin) 12 % lotion Apply topically if needed for dry skin. 400 g 5 09/08/19 26 Active Active Problems Problem Noted Date Diagnosed Date Asthma 05/10/2010 GERD (gastroesophageal reflux disease) 0 Kidney stone 05/10/2010 Overview (05/14/2024): 2004 Migraine 05/10/2010 Encounters Date Type Department Care Team Description 09/08/2024 8:15 AM EST Office Visit Orthopedic Surgery [facility] [address] [facility] 250 [place] [address] Marino Estrella, DPM Dermatophytosis of nail (Primary Dx); Acquired hallux valgus of right foot; Acquired hallux valgus of left foot; Pain in toe of left foot; Pain in toe of right foot; Chemotherapy-induced neuropathy (CMS/HCC) from Last 3 Months Surgical History Surgery Date Site/Laterality Comments TUBAL LIGATION PROCEDURE: HISTORICAL TUBAL LIGATION TONSILLECTOMY PROCEDURE: HISTORICAL TONSILLECTOMY CHOLECYSTECTOMY PROCEDURE: HISTORICAL CHOLECYSTECTOMY Medical History Medical History Date Comments GERD (gastroesophageal reflux disease) 05/10/2010 DX:GERD (gastroesophageal reflux disease) Migraine 05/10/2010 DX:Migraine Kidney stone 05/10/2010 DX:Kidney stone Asthma 05/10/2010 DX:Asthma Family History Medical History Relation Name Comments Heart attack Father hypertension Breast cancer Maternal Grandmother COPD Mother Colon cancer Other 1 paternal uncles Relation Name Status Comments Father Maternal Grandmother Mother Other 1 Other 2 Social History Tobacco Use Types Packs/Day Years Used Date Smoking Tobacco: Every Day Cigarettes Alcohol Use Standard Drinks/Week Comments Yes 0 (1 standard drink = 0.6 oz pur e alcohol) Comments Unknown Sex and Gender Information Value Date Recorded Sex Assigned at Not on file Legal Sex Female 10:51 AM EST Gender Identity Not on file Sexual Orientation Not on file Obstetrics History Last Filed Vital Signs Vital Sign Reading Time Taken Comments Blood Pressure - - Pulse - - Temperature - - Respiratory Rate - - Oxygen Saturation - - Inhaled Oxygen Concentration - - Weight 79.8 kg (176 lb) 09/08/2024 8:06 AM EST Height 154.9 cm (5' 1 ) 09/08/2024 8:06 AM EST Body Mass Index 33.25 09/08/2024 8:06 AM EST Plan of Treatment Upcoming Encounters Date Type Department Care Team (Late st Contact Info) Description 12/07/2024 8:15 AM EDT Office Visit Orthopedic Surgery - [place] [address] [address] Marino Estrella, DPM [address] [address] Health Maintenance Due Date Last Done Comments Breast Cancer Screening 1964 Cervical Cancer Screening: P ap Smear 1985 Colorectal Cancer Screening: Colonoscopy 10/18/2023 HIV Screening 10/18/2023 Hepatitis C Screening 10/18/2023 Social Influencers of Health Screening 10/18/2023 RSV Immunization Patients 60 + Years Old (1 - Risk 60-74 years 1-dose series) 2024 Depression Screening 03/04/2025 03/04/2024 Hypertension/CHF/CAD Annual BMP Blood Test 03/23/2025 03/23/2024, 03/23/2024, 03/16/2004 Cholesterol Screening (Lipid Panel) 02/10/2026 02/10/2021 DTaP,Tdap,and Td Vaccines (2 - Td or Tdap) 10/20/2033 10/21/2023 Pneumococcal Vaccine: 50+ Years Completed 10/21/2023 Pneumococcal Vaccine: Pediatrics (0 to 5 Years) and At-Risk Patients (6 to 64 Years) Completed 10/21/2023 Zoster Vaccines Completed 12/26/2023, 10/14/2023 COVID-19 Vaccine Completed 06/09/2024, 07/19/2023, 03/24/2021 Influenza Vaccine Completed 06/09/2024, 07/19/2023, 04/29/2020 HIB Vaccines Aged Out No longer [...] on patient's age to complete this topic MMR Vaccines Aged Out No longer eligi ble based on patient's age to complete this topic Meningococcal ACWY Vaccine Aged Out N o longer eligible based on patient's age to complete this topic Meningococcal B Vacine Aged Out No lo nger eligible based on patient's age to complete this topic RSV Immunization Patients Under 20 months Aged Out No longer eligible b ased on patient's age to complete this topic Varicella Vaccines Aged Out No longer eligible based on patient's age to complete this topic Procedures Procedure Name Priority Date/Time Associated Diagnosis Comments ANNUAL BMP BLOOD TEST Routine 03/16/2004 from Last 3 Months or Most Recently Relevant to Health Maintenance Results * Annual BMP Blood Test (03/16/2004) Annual BMP Blood Test Abstracted us Historical Provider MD HEALTH MAINTENANCE Final Result from Last 3 Months or Most Recently Relevant to Health Maintenance Insurance MEDICAID - [place] [employer] Care Teams Customer Engineer Relationship Specialty Start Date End Date Milagros Walls MD [address] [place] [phone] PCP - General 04/01/24
--- OUTSIDE RECORDS SUMMARY | 2024-10-13 13:32 | XMS_ITS | Encounter Summary ---
Author Organization [employer] Address [address] [facility] [address] 7t [place] [address] Care Team Providers Care Geriatric Physical Therapist Name Role Phone Milagros Walls MD Primary Care Provider [phone] Reason for Visit * Reason Comments Med Refill Encounter Details Date Type Department Care Team ([facility] st Contact Info) Description 07/26/2023 Refill [facility] MEDICINE 230 [place], [place] [phone] Milagros Walls MD [address] [place], [place] [phone] Social History Tobacco Use Types Packs/Day Years [...] Description 10/22/2024 9:30 AM EDT Office Visit [facility] ADULT DENTAL [address] [place] [address] Mike Bruce DMD [address] [place] [address] documented as of this encounter Visit Diagnoses Not on filedocumented in this encounter Care Teams Geriatric Physical Therapist Relationship Specialty Start Date End Date Milagros Walls MD [address] [place] [address] PCP - General Family Medicine 02/10/21 documented as of this encounter
--- OUTSIDE RECORDS SUMMARY | 2024-10-13 13:32 | XMS_ITS | Encounter Summary ---
Author Organization [employer] Address [address] [facility] 7t [place] [address] Care Team Providers Care Photographer Finish Name Role Phone Milagros Walls MD Primary Care Provider [phone] Reason for Visit * Reason Onset Date Comments PT-1 07/24/2024 Encounter Details Date Type Department Care Team ([facility] st Contact Info) Description 07/24/2024 Telephone [facility] MEDICINE 230 [place], [place] [phone] Milagros Walls MD [address] [place], [place] [phone] PT-1 Social History Tobacco Use Types Packs/Day [...] * Telephone Encounter - Hugo Weeks - 07/24/2024 10:29 AM EST Patient calling requesting PT1 Home Address verified: Y/N: Yes Provider name or facility name: [facility] Facility Address: [address] [place] [address] Escort needed: Y/N: No Do you have a wheelchair: Y/N: No If yes- Manual or electric: N/A Visits: Once a month documented in this encounter Plan of Treatment Upcoming Encounters Date Type Department Care Team (Late st Contact Info) Description 10/22/2024 9:30 AM EDT Office Visit [facility] ADULT DENTAL [address] [place] [address] Mike Bruce, REN [address] [place] [address] documented as of this encounter Visit Diagnoses Not on filedocumented in this encounter Additional Health Concerns Assessment Noted Time PHQ-9 Depression Total Score: 0 03/04/20 24 10:17 AM EDT documented as of this encounter Care Teams Photographer Finish Relationship Specialty Start Date End Date Milagros Walls MD [address] [place] [address] PCP - General Family Medicine 02/10/21 documented as of this encounter
[2024-10-13 13:40] LABS: Estimated Average Glucose 126 mg/dL; Hemoglobin A1C 144.0353 umol/L; Total Hemoglobin (HGBA1C) 3430.9157 umol/L
[2024-10-13 13:42] LABS: Alanine Aminotransferase 10 U/L (0-31); Albumin Level 3.9 g/dL (3.5-5.0); Alkaline Phosphatase 131 U/L (39-117); Anion Gap 12 (12-20); Aspartate Amino Transferase 14 U/L (5-31); Bilirubin Total 0.2 mg/dL (0.0-1.0); Blood Urea Nitrogen 25 mg/dL (9-16); C Reactive Protein 1.52 mg/dL (< or = 0.50); Calcium 8.9 mg/dL (8.4-10.2); Carbon Dioxide 27 mmol/L (22-29); Chloride 107 mmol/L (96-108); Cholesterol 178 mg/dL (<200); Estimated Glomerular Filt Rate 48; Glucose Random 118 mg/dL (60-115); HDL Cholesterol 52 mg/dL (>40); LDL Cholesterol Calculated 90 mg/dL (<100); Magnesium 2.3 mg/dL (1.6-2.6); Potassium 4.6 mmol/L (3.3-5.1); Sodium 141 mmol/L (135-145); Total Protein 6.6 g/dL (6.5-8.0); Triglycerides 180 mg/dL (<150)
[2024-10-13 14:00] LABS: Erythrocyte Sedimentation Rate 10 MM/HR (0-20)
[2024-10-18 01:18] LABS: CK-BB None Detected (None Detected); CK-MB 0 % (<5); CK-MM 100 % (95-100); Creatine Kinase,Total,Serum 50 U/L (20-243)
== END 2024-10-13 10:56 | disposition home or self-care (01) ==
LOC: HO.HHCL 10:55
PROVIDERS: Visit Provider General Practice
DX: I10 Essential (primary) hypertension (principal); R51.9 Headache, unspecified; Z13.1 Encounter for screening for diabetes mellitus
CPT/HCPCS: 36415; 80053; 80061; 82552; 83036; 83735; 85025; 85652; 86140

== ENCOUNTER 2024-10-21 10:05 | Outpatient (REF) | payer MEDICARE, SELFPAY ==
--- NOTE | ~2024-10-21 | CT_ITS ---
CLINICAL HISTORY: Z87.891 - Personal history of nicotine dependence CT lung cancer screening (LDCT) Comparison: CT/NC/SR - CT LUNG SCREENING - 10/21/23 12:42 EDT Technique: Axial CT images of the chest using low-dose technique. Referring provider counseled the patient on shared decision-making for LDCT screening. Additional counseling was provided on smoking cessation. Effective radiation dose total: DLP 36.7 mGycm, CTDIvol 1.2 mGy. Findings: Previously described pleural-based nodule is unchanged. No new nodules are noted. Coronary artery calcifications: None Limited upper abdomen: Unremarkable Other: None Impression: LungRADS 2 - Benign Appearance: Continue annual screening with low dose Chest CT in 12 months. ##L2# Category 1: Normal; continue annual screening Category 2: Benign appearance or behavior, continue annual screening Category 3: Probably benign, [address] recommended Category 4A: Suspicious, [address] recommended; may consider PET/CT Category 4B: Suspicious, Additional diagnostics and/or tissue sampling recommended Category 4X: Suspicious, Additional diagnostics and/or tissue sampling recommended Category 0: Recalls (incomplete screen due to Incomplete coverage, Noise, Respiratory motion, Expiration, Obscured by acute abnormality) This document has been electronically signed by: Siddhartha Thompson MD on 10/21/2024 13:26:50
--- OUTSIDE RECORDS SUMMARY | 2024-10-21 11:31 | XMS_ITS | Encounter Summary ---
Author Organization [employer] Address [address] [facility] [address] [place] [address] Care Team Providers Care Forestry Pilot Name Role Phone Milagros Walls MD Primary Care Provider [phone] Reason for Visit * Reason Comments Follow-up Encounter Details Date Type Department Care Team ([facility] st Contact Info) Description 10/13/2024 10:15 AM EST Office Visit [facility] MEDICINE [address] [place] [address] Milagros Walls MD [address], [place] [phone] Acute intractable headache, unspecified headache type (Primary Dx); Dietary counseling; Exercise counseling; Class 1 obesity with serious comorbidity and body mass index (BMI) of 33.0 to 33.9 in adult, unspecified obesity type; Encounter for immunization; Non-Hodgkin lymphoma of lymph nodes of multiple sites (CMS/HCC); Pulmonary emphysema, unspecified emphysema type ([facility]/HCC); Stage 3a chronic kidney disease ([facility]/HCC) Social History Tobacco Use Types Packs/Day Years [...] 10:15 AM EST documented in this encounter Progress Notes * Milagros Walls MD - 10/13/2024 10:15 AM EST Images from the original note were not included. SUBJECTIVE: Marjorie Henson is a 59 y.o. year old female who presents for chronic disease management. Denies recent illness, ER visit, or hospitalization. Acute Concerns: Does not feel well or herself recently. Has R sided SU, R groin/leg cramping. Can't bear weight, feels like her head is in a fog. Also with persistent daily nausea- taking scheduled and using chemo inhalant 21 October 2024 scan for lung, PET scan November 11 10/13/24 1401 Sed Rate by Modified Westergren Collected: 10/13/24 105 Final result Specimen: Blood, Venous Erythrocyte Sedimentation Rate 10 MM/HR 10/13/24 1343 Comprehensive Metabolic Panel Collected: 10/13/24 105 Final result Specimen: Blood, Venous Sodium 141 mmol/L Glucose 118 High mg/dL Potassium 4.6 mmol/L Calcium 8.9 mg/dL Chloride 107 mmol/L Bilirubin, Total 0.2 mg/dL Carbon Dioxide 27 mmol/L Aspartate Amino Transferase 14 U/L Anion Gap 12 Alanine Aminotransferase 10 U/L Urea Nitrogen (BUN) 25 High mg/dL Total Protein 6.6 g/dL Creatinine, Serum 1.15 mg/dL Albumin Level 3.9 g/dL Estimated Glomerular Filt Rate 48 Alkaline Phosphatase 131 High U/L 10/13/24 1343 Lipid Panel, Standard Collected: 10/13/24 105 Final result Specimen: Blood, Venous Triglycerides 180 High mg/dL LDL Cholesterol Calculated 90 mg/dL Cholesterol 178 mg/dL HDL Cholesterol 52 mg/dL 10/13/24 1343 Magnesium Collected: 10/13/24 1058 Final result Specimen: Blood, Venous Magnesium 2.3 mg/dL 10/13/24 1343 C-reactive Protein Collected: 10/13/24 105 Final result Specimen: Blood, Venous C Reactive Protein 1.52 High mg/dL 10/13/24 1342 Hemoglobin A1c Collected: 10/13/24 105 Final result Specimen: Blood, Venous Hemoglobin A1c 6.0 % Estimated Average Glucose 126 mg/dL 10/13/24 1316 CBC auto differential Collected: 10/13/24 105 Final result Specimen: Blood, Venous White Blood Count 9.4 X10*3/uL Lymphocytes Percent Auto 27.6 % Red Blood Count 4.43 X10*6/uL Monocytes Percent Auto 8.7 % Hemoglobin 13.2 g/dl Eosinophils Percent Auto 2.0 % Hematocrit 39.7 % Basophils Percent Auto 1.4 % Mean Corpuscular Volume 89.6 fL NRBC Pct Auto 0.0 /100WBC Mean Corpuscular Hemoglobin 29.8 pg Neutrophils Absolute Auto 5.6 x10*3/uL Mean Corpuscular HGB Conc 33.2 g/dl Imm Gran Abs Auto 0.09 High X10*3/uL Red Cell Distribution Width 14.5 % Lymphocytes Absolute Auto 2.6 X10*3/uL Platelet Count 278 X10*3/uL Monocytes Absolute Auto 0.8 X10*3/uL Mean Platelet Volume 10.3 fL Eosinophils Absolute Auto 0.2 X10*3/uL Neutrophils Percent Auto 59.3 % Basophils Absolute Auto 0.1 X10*3/uL Imm Gran Pct Auto 1.0 High % NRBC Abs Auto 0.000 X10*3/uL Interim Updates: Lymphoma: followed at [facility] by Dr Flowers She has been diagnosed with CLL versus SLL after CT scan of abdomen/pelvis showed lymphadenopathy. On Zanubrutnib (Brukinsa) for active disease, 3 tablets daily, most recent CT without signs of worsening disease CKD 2 eGFR > [address] Montanez 11/2023 Fibromyalgia: On 60mg on Cymbalta, Amitriptyline 50mg at night, Baclofen 20mg TID, prn Tylenol. 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 complementary treatments: using massage pad, warm water soaks, cream Foot pain/ bunions Had appt with podiatry 08/31/24 Kidney stones: follows with [facility] All passed on most recent imaging COPD: 07/02/24 Mukesh for pulm ADVAIR HFA CHANGED TO WIXELA 500-50 1 INHALATION B.I.D. CONTINUE INCRUSE ELLIPTA. 1 INHALATION DAILY USE ALBUTEROL HFA 2 PUFFS Q 6 HOURS P.R.N. OR MAY USE ALBUTEROL SOLUTION IN THE NEBULIZER Q 6 HOURS P.R.N. Smoking cessation Down to one cig a day, breathing much improved. Wakes up with coughing at night, but mostly to use the bathroom. Wants to quit on her own. had CT 06/23/21 and Birads 2, followup annual lung exam PFTs (2021) SPIROMETRY: The FEV1 to FVC of 66% with an FEV1 of 1.81 L, which is 76% predicted and an FVC of 2.73 L, which is 89% predicted. No significant response to bronchodilators noted. Maximum voluntary ventilation 52%predicted. LUNG VOLUMES: Total lung capacity 113% predicted with residual volume of 153% predicted. DIFFUSION CAPACITY: DLCO 60% predicted. INTERPRETATION: There is an obstructive ventilatory defect consistent moderate COPD. No significant response to bronchodilators noted. There is also moderate decrease in maximum voluntary ventilation secondary to likely deconditioning, although likely a component of worsening dynamic inspiratory capacity. Lung volumes with a trend of hyperinflation and significant air trapping due to the COPD. There is also a ehyy-ra-mxqxzorn diffusion impairment secondary to emphysema and other parenchymal lung conditions should be considered. Health maintenance: Pap- not due after hysterectomy in 2021 Mammo- 2021, Birads 1 Colonoscopy- overdue, cannot book at [facility] Imms- RSV due Patient Active Problem List Diagnosis Chronic pelvic pain in female Inguinal lymphadenopathy Nephrolithiasis Chronic obstructive pulmonary disease (CMS/HCC) Cancer of fallopian tube (CMS/HCC) Non-Hodgkin lymphoma of lymph nodes of multiple sites (CMS/HCC) Bilateral hip pain Class 1 obesity Colon polyps Diverticular disease Kidney mass Mantle cell lymphoma (CMS/HCC) Overweight Poor dentition Smoker Swallowing problem Syncope Uterine pain Fibromyalgia Stage 3a chronic kidney disease (CMS/HCC) Primary hypertension Nausea Left flank pain Kidney atrophy Muscle spasm Screen for colon cancer Asthma GERD (gastroesophageal reflux disease) 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 Negative for appetite change, chills and diaphoresis. Respiratory: Negative. Cardiovascular: Negative. Gastrointestinal: Positive for abdominal pain. Musculoskeletal: Positive for myalgias. Neurological: Positive for headaches. OBJECTIVE: Vitals: 10/13/24 1015 BP: (!) 148/94 BP Location: Left arm Patient Position: Sitting BP Cuff Size: Adult Pulse: 84 Resp: 17 Temp: 97.6 ??F (36.4 ??C) TempSrc: Temporal SpO2: 95% Weight: 176 lb (79.8 kg) Height: 5' 1 (1.549 m) Physical Exam ASSESSMENT/PLAN Problem List Items Addressed This Visit Chronic obstructive pulmonary disease ([facility]/HCC) Non-Hodgkin lymphoma of lymph nodes of multiple sites ([facility]) Stage 3a chronic kidney disease ([facility]) Other Visit Diagnoses Acute intractable headache, unspecified headache type - Primary Labs today, unclear etiology CRP 1.5, alk phos pending. Trial prednisone Relevant Orders Comprehensive Metabolic Panel (Completed) Sed Rate by Modified Westergren (Completed) C-reactive Protein (Completed) Creatine Kinase Isoenzymes (CK Isoenzymes) w/ Total CK CBC auto differential (Completed) Magnesium (Completed) Dietary counseling Exercise counseling Class 1 obesity with serious comorbidity and body mass index (BMI) of 33.0 to 33.9 in adult, unspecified obesity type Encounter for immunization Relevant Orders COVID-19 VACCINE ([place]) [id number] 12 yrs + (Completed) Follow Up: 4 months or sooner prn No Known Allergies Current Outpatient Medications: Fluticasone-Salmeterol 500-50 MCG/ACT aerosol powder , Inhale 1 puff 2 times daily., Disp: , Rfl: prochlorperazine (Compazine) 5 MG tablet, , Disp: , Rfl: acetaminophen (Tylenol) 325 MG tablet, Take 650 mg by mouth., Disp: , Rfl: acetic acid (Vosol) 2 % otic solution, Administer 5 drops into the right ear 3 times daily for 7 days., Disp: 15 mL, Rfl: 0 albuterol 108 (90 Base) MCG/ACT inhaler, INHALE 2 PUFFS BY MOUTH EVERY 6 HOURS NEEDED FOR WHEEZING, Disp: 18 g, Rfl: 3 amitriptyline (Elavil) 50 MG tablet, TAKE 2 TABLETS(100 MG) BY MOUTH AT BEDTIME, Disp: 180 tablet, Rfl: 3 atorvastatin (Lipitor) 10 MG tablet, TAKE 1 TABLET(10 MG) BY MOUTH IN THE MORNING, Disp: 90 tablet,Rfl: 3 baclofen (Lioresal) 10 MG tablet, TAKE 2 TABLETS(20 MG) BY MOUTH FOUR TIMES DAILY, Disp: 360 tablet, Rfl: 9 Blood Pressure Monitoring (Blood Pressure Cuff) misc, 1 kit in the morning., Disp: 1 each, Rfl: 0 Brukinsa 80 MG chemo capsule, , Disp: , Rfl: buPROPion SR (Wellbutrin SR) 200 MG 12 hr tablet, Take 1 tablet (200 mg) by mouth 2 times daily., Disp: 180 tablet, Rfl: 3 udowkjkxyc-wbhdtpuwajpiq-kvqohryk-codeine (Fioricet W/Codeine) 38-601-57-30 MG capsule, Take 1 capsule by mouth every 4 (four) hours if needed., Disp: , Rfl: Colace 100 MG capsule, Take 1 capsule (100 mg) by mouth 2 times daily., Disp: 180 capsule, Rfl: 3 COVID-19 Antigen Test kit, 1 each by In Vitro route if needed (covid symptoms)., Disp: 10 kit, Rfl:1 DULoxetine (Cymbalta) [address] capsule, TAKE 2 CAPSULES BY MOUTH EVERY MORNING, Disp: 180 capsule, Rfl: 3 fluticasone-salmeterol (Advair) 230-21 MCG/ACT inhaler, INHALE 2 PUFFS BY MOUTH TWICE DAILY FOR COPD, Disp: , Rfl: Incruse Ellipta 62.5 MCG/ACT aerosol powder , INHALE 1 PUFF BY MOUTH DAILY, Disp: , Rfl: Magnesium 400 MG capsule, Take 400 mg by mouth at bedtime., Disp: 90 capsule, Rfl: 3 Magnesium Oxide -Mg Supplement 400 MG capsule, Take 1 capsule by mouth at bedtime., Disp: , Rfl: melatonin 3 MG tablet, Take 3 mg by mouth., Disp: , Rfl: Misc. Devices (Fingertip Pulse Oximeter) misc, 1 each if needed (SOB)., Disp: 1 each, Rfl: 0 Misc. Devices (Pulse Oximeter For Finger) misc, 1 each if needed each day (shortness of breath, infection, wheezing)., Disp: 1 each, Rfl: 0 montelukast (Singulair) 10 MG tablet, TAKE 1 TABLET(10 MG) BY MOUTH WITH THE EVENING MEAL, Disp: 90tablet, Rfl: 3 naltrexone (Depade) 50 MG tablet, Take 0.5 tablets (25 mg) by mouth Once per day., Disp: 15 tablet,Rfl: 11 olmesartan (BENIcar) 5 MG tablet, TAKE 2 TABLETS BY MOUTH DAILY EVERY MORNING, Disp: 180 tablet, Rfl: 3 omeprazole (PriLOSEC) [address] capsule, Take 1 capsule (20 mg) by mouth Once per day., Disp: 90 capsule, Rfl: 3 ondansetron ODT (Zofran-ODT) 4 MG disintegrating tablet, DISSOLVE 1 TABLET ON THE TONGUE THREE TIMES DAILY NEEDED FOR NAUSEA, Disp: 30 tablet, Rfl: 3 polyethylene glycol-electrolytes (Nulytely) 420 g solution, DRINK 240ML ORALLY EVERY 10 MINUTES.REFER TO PREP INSTRUCTIONS, Disp: , Rfl: predniSONE (Deltasone) 20 MG tablet, Take 2 tablets (40 mg) by mouth Once per day for 5 days., Disp: 10 tablet, Rfl: 0 tamsulosin (Flomax) 0.4 MG 24 hr capsule, TAKE 1 CAPSULE(0.4 MG) BY MOUTH IN THE MORNING, Disp: 90 capsule, Rfl: 1 documented in this encounter Plan of Treatment Upcoming Encounters Date Type Department Care Team (Late st Contact Info) Description 10/22/2024 9:30 AM EDT Office Visit [facility] ADULT DENTAL [address], [place] [phone] Mike Bruce, DMD [address] [place] [address] documented as of this encounter Procedures Procedure Name Priority Date/Time Associated Diagnosis Comments CBC WITH AUTO DIFFERENTIAL Routine 10/13/2024 10:58 AM EST Acute intractable headache, unspecified headache type SED RATE BY MODIFIED WESTERGREN Routine 10/13/2024 10:58 AM EST Acute intractable headache, unspecified headache type C-REACTIVE PROTEIN Routine 10/13/2024 10 :58 AM EST Acute intractable headache, unspecified headache type MAGNESIUM Routine 10/13/2024 10:58 AM EST Acute intractable headache, unspecified headache type CREATINE KINASE ISOENZYMES (CK ISOENZYMES) WITH TOTAL CK Routine 10/13/2024 10:58 AM EST Acute intractable headache, unspecified headache type COMPREHENSIVE METABOLIC PANEL Routine 10/13/2024 10:58 AM EST Acute intractable headache, unspecified headache type documented in this encounter Results * Magnesium (10/13/2024 10:58 AM EST) Pathologist [facility] Magnesium 2.3 1.6 - 2.6 mg/dL [facility] Blood Venous blood specimen / Unknown 10/13/2024 10:58 AM EST 10/13/2024 1:12 PM EST us Mialgros Walls MD LAB BLOOD ORDERABLES Final Res ult [facility] [address] [place] [phone] * (ABNORMAL) CBC auto differential (10/13/2024 10:58 AM EST) Pathologist [facility] White Blood Count 9.4 4.8 - 10.8 X10*3/uL [facility] Red Blood Count 4.43 4.20 - 5.50 X10*6/uL [facility] Hemoglobin 13.2 12.0 - 16.0 g/dl [facility] Hematocrit 39.7 37.0 - 47.0 % [facility] Mean Corpuscular Volume 89.6 80.0 - 98.0 fL [facility] Mean Corpuscular Hemoglobin 29.8 27.0 - 33.0 pg [facility] Mean Corpuscular HGB Conc 33.2 31.0 - 35.0 g/dl [facility] Red Cell Distribution Width 14.5 11.0 - 16.0 % [facility] Platelet Count 278 160 - 400 X10*3/uL [facility] Mean Platelet Volume 10.3 9.4 - 12.3 fL [facility] Neutrophils Percent Auto 59.3 45 - 73 % [facility] Imm Gran Pct Auto 1.0(H) 0.0 - 0.4 % [facility] Lymphocytes Percent Auto 27.6 20 - 40 % [facility] Monocytes Percent Auto 8.7 2 - 11 % [facility] Eosinophils Percent Auto 2.0 0 - 4 % [facility] Basophils Percent Auto 1.4 0 - 2 % [facility] NRBC Pct Auto 0.0 0.0 - 0.2 /100WBC [facility] Neutrophils Absolute Auto 5.6 2.0 - 8.3 x10*3/uL [facility] Imm Gran Abs Auto 0.09(H) 0.00 - 0.03 X10*3/uL [facility] Lymphocytes Absolute Auto 2.6 1.2 - 4.9 X10*3/uL [facility] Monocytes Absolute Auto 0.8 0.1 - 1.2 X10*3/uL [facility] Eosinophils Absolute Auto 0.2 0.0 - 0.4 X10*3/uL [facility] Basophils Absolute Auto 0.1 0.0 - 0.2 X10*3/uL [facility] NRBC Abs Auto 0.000 0.0 - 0.012 X10*3/uL [facility] Blood Venous blood specimen / Unknown 10/13/2024 10:58 AM EST 10/13/2024 1:11 PM EST us Milagros Walls MD LAB BLOOD ORDERABLES Final Res ult [facility] [address] [place] [phone] * Creatine Kinase Isoenzymes (CK Isoenzymes) w/ Total CK (10/13/2024 10:58 AM EST) Creatine Kinase, Total 50 20 - 243 U/L [facility] CK-MM 100 95 - 100 % [facility] Ck-Mb 0 <5 % [facility] CK-BB None Detected None Detected % [facility] Creatine Kinase Isoenzyme Interpretation see note [facility] Comment:Normal isoenzyme pat tern with anormal total activity.THIS TEST WAS PERFORMED AT:[id number] [place] [address]SSPYDRQALISSON SAUCEDA MD,PHD Blood Venous blood specimen / Unknown 10/13/2024 10:58 AM EST 10/13/2024 1:14 PM EST Result [facility] Milagros Walls MD LAB BLOOD ORDERABLES Final Res ult Performing Organization Address [facility]/ZIP Co de Phone Number [facility] [address] [place] [phone] * (ABNORMAL) C-reactive Protein (10/13/2024 10:58 AM EST) C Reactive Protein 1.52(H) < or = 0.50 mg/dL [facility] Blood Venous blood specimen / Unknown 10/13/2024 10:58 AM EST 10/13/2024 1:12 PM EST Milagros Walls MD LAB BLOOD ORDERABLES Final Res ult Performing Organization Address [facility] Co de Phone Number [facility] [address] [place] [phone] * Sed Rate by Modified Neil (10/13/2024 10:58 AM EST) Erythrocyte Sedimentation Rate 10 0 - 20 MM/HR [facility] Comment:Patients with polycy themia and many hemoglobin abnormalitiesmay have depressed sed rates whereas patients with anemiamay have elevated sed rates. Blood Venous blood specimen / Unknown 10/13/2024 10:58 AM EST 10/13/2024 1:11 PM EST Milagros Walls MD LAB BLOOD ORDERABLES Final Res ult Performing Organization Address [facility] Co de Phone Number [facility] [address] [place] [phone] * (ABNORMAL) Comprehensive Metabolic Panel (10/13/2024 10:58 AM EST) Sodium 141 135 - 145 mmol/L [facility] Potassium 4.6 3.3 - 5.1 mmol/L [facility] Chloride 107 96 - 108 mmol/L [facility] Carbon Dioxide 27 22 - 29 mmol/L [facility] Anion Gap 12 12 - 20 [facility] Urea Nitrogen (BUN) 25(H) 9 - 16 mg/dL [facility] Creatinine, Serum 1.15 0.5 - 1.4 mg/dL [facility] Estimated Glomerular Filt Rate 48 [facility] Comment:Chronic Kidney Disea se: Estimated GFR < 60 mL/min/[id number] Kidney Disease: Estimated GFR < 15 mL/min/1.73m2 Glucose 118(H) 60 - 115 mg/dL [facility] Calcium 8.9 8.4 - 10.2 mg/dL [facility] Bilirubin, Total 0.2 0.0 - 1.0 mg/dL [facility] Aspartate Amino Transferase 14 5 - 31 U/L [facility] Alanine Aminotransferase 10 0 - 31 U/L [facility] Total Protein 6.6 6.5 - 8.0 g/dL [facility] Albumin Level 3.9 3.5 - 5.0 g/dL [facility] Alkaline Phosphatase 131(H) 39 - 117 U/L [facility] Blood Venous blood specimen / Unknown 10/13/2024 10:58 AM EST 10/13/2024 1:12 PM EST us Milagros Walls MD LAB BLOOD ORDERABLES Final Res ult [facility] [address] [place] [phone] documented in this encounter Visit Diagnoses Diagnosis Acute intractable headache, unspecified headache type- Primary Dietary counseling Dietary surveillance and counseling Exercise counseling Class 1 obesity with serious comorbidity and body mass index (BMI) of 33.0 to 33.9 in adult, unspecified obesity type Encounter for immunization Non-Hodgkin lymphoma of lymph nodes of multiple sites ([facility]/HCC) Pulmonary emphysema, unspecified emphysema type (CMS/HCC) Stage 3a chronic kidney disease (CMS/HCC) documented in this encounter Additional Health Concerns Assessment Noted Time PHQ-9 Depression Total Score: 0 03/04/20 24 10:17 AM EDT documented as of this encounter Care Teams Forestry Pilot Relationship Specialty Start Date End Date Milagros Walls MD [address] [place] [address] PCP - General Family Medicine 02/10/21 documented as of this encounter
--- OUTSIDE RECORDS SUMMARY | 2024-10-21 11:31 | XMS_ITS | Encounter Summary ---
Author Organization [employer] Address [address] [facility] [address] [place] [address] Care Team Providers Care Compliance Coordinator Name Role Phone Milagros Walls MD Primary Care Provider [phone] Reason for Visit * Reason Onset Date Comments Referral 10/30/2022 Encounter Details Date Type Department Care Team ([facility] st Contact Info) Description 10/30/2022 Telephone [facility] MEDICINE [address] [place], [place] [phone] Milagros Walls MD [address] [place], [place] [phone] Referral Social History Tobacco Use Types Packs/Day [...] Tc from pt requesting a referral for Specialty:[facility] Location:[address] [place] [address] [address], [place], [place] Date&Time: N/A Eligibility Consultant:n/a Pt is also requesting a call back . documented in this encounter Plan of Treatment Upcoming Encounters Date Type Department Care Team (Late st Contact Info) Description 10/22/2024 9:30 AM EDT Office Visit [facility] ADULT DENTAL [address] [place], [place] [phone] Mike Bruce, REN [address] [place] [phone] documented as of this encounter Visit Diagnoses Not on filedocumented in this encounter Care Teams Compliance Coordinator Relationship Specialty Start Date End Date Milagros Walls MD [address] [place] [address] PCP - General Family Medicine 02/10/21 documented as of this encounter
--- OUTSIDE RECORDS SUMMARY | 2024-10-21 11:31 | XMS_ITS | Encounter Summary ---
Author Organization [employer] Address [address] [facility] [address] [place] [address] Care Team Providers Care Property Loss Insurance Claim Adjuster Name Role Phone Milagros Walls MD Primary Care Provider [phone] Reason for Visit * Reason Comments Pre-visit Planning (Unable to reach for PVP screening, LVM) Encounter Details Date Type Department Care Team ([facility] st Contact Info) Description 10/01/2024 Patient Outreach [facility] MEDICINE [address] [place] [address] [phone] Milagros Walls MD [address] [place], [place] [phone] Pre-visit Planning ((Unable to reach for PVP [...] Description 10/22/2024 9:30 AM EDT Office Visit [facility] ADULT DENTAL [address] [place] [address] Mike Bruce, REN [address] [place] [phone] documented as of this encounter Visit Diagnoses Not on filedocumented in this encounter Additional Health Concerns Assessment Noted Time PHQ-9 Depression Total Score: 0 03/04/20 24 10:17 AM EDT documented as of this encounter Care Teams Property Loss Insurance Claim Adjuster Relationship Specialty Start Date End Date Milagros Walls MD [address] [place] [address] PCP - General Family Medicine 02/10/21 documented as of this encounter
--- OUTSIDE RECORDS SUMMARY | 2024-10-21 11:31 | XMS_ITS | Encounter Summary ---
Author Organization [employer] Address 75 [facility] 7t [place] [address] Care Team Providers Care Rn Clinical Review Name Role Phone Milagros Walls MD Primary Care Provider [phone] Reason for Visit * Reason Onset Date Comments Med Refill 03/24/2024 Encounter Details Date Type Department Care Team ([facility] st Contact Info) Description 03/24/2024 Telephone [facility] MEDICINE [address] [place] [address] Milagros Walls MD 230 [place], [place] [phone] Med Refill Social History Tobacco Use Types [...] 25 mg tablets To be sent to: [facility] documented in this encounter Plan of Treatment Upcoming Encounters Date Type Department Care Team (Late st Contact Info) Description 10/22/2024 9:30 AM EDT Office Visit [facility] ADULT DENTAL [address] [place] [address] Mike Bruce, DMD [address] [place] [address] documented as of this encounter Visit Diagnoses Not on filedocumented in this encounter Additional Health Concerns Assessment Noted Time PHQ-9 Depression Total Score: 0 03/04/20 10:17 AM EDT documented as of this encounter Care Teams Rn Clinical Review Relationship Specialty Start Date End Date Milagros Walls MD 230 [place] [address] PCP - General Family Medicine 02/10/21 documented as of this encounter
--- OUTSIDE RECORDS SUMMARY | 2024-10-21 11:31 | XMS_ITS | Encounter Summary ---
Author Organization [employer] Address [address] [facility] [address] 7t [place] [address] Care Team Providers Care Patient Services Representative Name Role Phone Milagors Walls MD Primary Care Provider [phone] Reason for Visit * Reason Comments Med Refill Encounter Details Date Type Department Care Team ([facility] st Contact Info) Description 07/26/2023 Refill [facility] MED[facility]INE 230 [place], [place] [phone] Milagros Walls MD 230 [place], [place] [phone] Social History Tobacco Use Types Packs/Day Years [...] Description 10/22/2024 9:30 AM EDT Office Visit [facility] ADULT DENTAL 230 [place] [address] Mike Bruce DMD 230 [place] [address] documented as of this encounter Visit Diagnoses Not on filedocumented in this encounter Care Teams Patient Services Representative Relationship Specialty Start Date End Date Milagros Walls MD 230 [place] [address] PCP - General Family Medicine 02/10/21 documented as of this encounter
--- OUTSIDE RECORDS SUMMARY | 2024-10-21 11:31 | XMS_ITS | Encounter Summary ---
Author Organization [employer] Address [address] [facility] [address] 7t [place] [address] Care Team Providers Care Or Manager Name Role Phone Milagros Walls MD Primary Care Provider [phone] Reason for Visit * Reason Comments Med Refill Encounter Details Date Type Department Care Team ([facility] st Contact Info) Description 02/06/2024 Refill [facility] MED[facility]INE 230 [place], [place] [phone] Milagros Walls MD 230 [place], [place] [phone] Left flank pain Social History Tobacco Use [...] Description 10/22/2024 9:30 AM EDT Office Visit [facility] ADULT DENTAL 230 [place], [place] [phone] Mike Bruce, REN 230 [place] [address] documented as of this encounter Visit Diagnoses Diagnosis Left flank pain Abdominal pain, unspecified site documented in this encounter Care Teams Or Manager Relationship Specialty Start Date End Date Milagros Walls MD 230 [place] [address] PCP - General Family Medicine 02/10/21 documented as of this encounter
--- OUTSIDE RECORDS SUMMARY | 2024-10-21 11:31 | XMS_ITS | Encounter Summary ---
Author Organization [employer] Address 75 [facility] 7t [place] [address] Care Team Providers Care Volunteer Assistant Name Role Phone Milagros Walls MD Primary Care Provider [phone] Reason for Visit * Reason Onset Date Comments PT1 03/24/2024 Encounter Details Date Type Department Care Team ([facility] st Contact Info) Description 03/24/2024 Telephone [facility] MEDICINE 230 [place] [address] Milagros Walls MD 230 [place], [place] [phone] PT1 Social History Tobacco Use Types Packs/Day [...] name or facility name: Podiatry Facility Address: [address] [place] [address] Escort needed: Y/N: Yes Do you have a wheelchair: Y/N: No If yes- Manual or electric: NOP Visits: All future appt;'s documented in this encounter Plan of Treatment Upcoming Encounters Date Type Department Care Team ([facility] st Contact Info) Description 10/22/2024 9:30 AM EDT Office Visit [facility] ADULT DENTAL 230 [place] [address] Mike Bruce, DMD 230 [place] [address] documented as of this encounter Visit Diagnoses Not on filedocumented in this encounter Additional Health Concerns Assessment Noted Time PHQ-9 Depression Total Score: 0 03/04/20 24 10:17 AM EDT documented as of this encounter Care Teams Volunteer Assistant Relationship Specialty Start Date End Date Milagros Walls MD 230 [place] [address] PCP - General Family Medicine 02/10/21 documented as of this encounter
--- OUTSIDE RECORDS SUMMARY | 2024-10-21 11:31 | XMS_ITS | Encounter Summary ---
Author Organization [employer] Address 75 [facility] 7t [place] [address] Care Team Providers Care Telephonic Nurse Name Role Phone Milagros Walls MD Primary Care Provider [phone] Reason for Visit * Reason Onset Date Comments PT-1 05/20/2024 Encounter Details Date Type Department Care Team ([facility] st Contact Info) Description 05/20/2024 Telephone [facility] MEDICINE 230 [place], [place] [phone] Milagros Walls MD 230 [place], [place] [phone] PT-1 Social History Tobacco Use Types Packs/Day [...] Y/N: Yes Provider name or facility name: [facility] Facility Address: [address] [place] [address] Escort needed: Y/N: No Do you have a wheelchair: Y/N: No If yes- Manual or electric: N/A Visits: 2 every 6 months - Patient calling requesting PT1 Home Address verified: Y/N: Yes Provider name or facility name: [facility] Facility Address: [address] [place] [address] Escort needed: Y/N: No Do you have a wheelchair: Y/N: No If yes- Manual or electric: N/A Visits: Once a month documented in this encounter Plan of Treatment Upcoming Encounters Date Type Department Care Team (Late st Contact Info) Description 10/22/2024 9:30 AM EDT Office Visit [facility] ADULT DENTAL 230 [place] [address] Mike Bruce, DMD 230 [place] [address] documented as of this encounter Visit Diagnoses Not on filedocumented in this encounter Additional Health Concerns Assessment Noted Time PHQ-9 Depression Total Score: 0 03/04/20 24 10:17 AM EDT documented as of this encounter Care Teams Telephonic Nurse Relationship Specialty Start Date End Date Milagros Walls MD 230 [place] [address] PCP - General Family Medicine 02/10/21 documented as of this encounter
--- OUTSIDE RECORDS SUMMARY | 2024-10-21 11:31 | XMS_ITS | Encounter Summary ---
Author Organization [employer] Address 75 [facility] 7t [place] [address] Care Team Providers Care Personal Chef Name Role Phone Milagros Walls MD Primary Care Provider [phone] Reason for Visit * Reason Comments Dentures New upper and lower complete denture Encounter Details Date Type Department Care Team ([facility] Contact Info) Description 10/02/2024 8:00 AM EST Office Visit [facility] ADULT DENTAL 230 [place], [place] [phone] Mike Bruce, REN 230 [place], [place] [phone] Social History Tobacco Use Types Packs/Day Years [...] Description 10/22/2024 9:30 AM EDT Office Visit [facility] ADULT DENTAL 230 [place] [address] Mike Bruce DMD 230 [place] [address] documented as of this encounter Procedures Procedure Name Priority Date/Time Associated Diagnosis Comments DENTURE IMPRESSION Routine 10/02/2024 8:00 AM EST documented in this encounter Visit Diagnoses Not on filedocumented in this encounter Additional Health Concerns Assessment Noted Time PHQ-9 Depression Total Score: 0 03/04/20 24 10:17 AM EDT documented as of this encounter Care Teams Personal Chef Relationship Specialty Start Date End Date Milagros Walls MD 230 [place] [address] PCP - General Family Medicine 02/10/21 documented as of this encounter
--- OUTSIDE RECORDS SUMMARY | 2024-10-21 11:31 | XMS_ITS | Encounter Summary ---
Author Organization [employer] Address [address] [facility] [address] 7t [place] [address] Care Team Providers Care Avp Name Role Phone Milagros Walls MD Primary Care Provider [phone] Encounter Details Date Type Department Care Team (Late st Contact Info) Description 10/10/2023 Orders Only [facility] MEDICINE 230 [place], [place] [phone] Milagros Walls MD 230 [place], [place] [phone] Social History Tobacco Use Types Packs/Day Years [...] 9:30 AM EDT Office Visit [facility] ADULT DENTAL 230 [facility] [place] [address] Mike Bruce, DMD 230 [place] [address] documented as of this encounter Procedures Procedure Name Priority Date/Time Associated Diagnosis Comments LDCT LUNG SCREENING Routine 10/21/2023 1 :01 PM EDT documented in this encounter Results * CT Lung Screening Low dose (10/21/2023 1:01 PM EDT) Anatomical Region Laterality Modality Lung Computed Tomogra phy 10/21/2023 1:01 PM EDT Narrative 10/23/2023 9:09 AM EDT ? [facility] ?[address] ?[place] [address] ? CT Scan Report ? Signed ? Patient: Raucci,Marjorie L ?MR#: [id number] ?? 54 ? : 1965 ?Acct:[id number] ? Age/Sex: 58 / F ?ADM Date: 10/20/24 ? Loc: HO.CT ? Attending Dr: Cinthia Ugarte PA-C ? Ordering Physician: Cinthia Ugarte PA-C ?? Date of Service: 10/21/23 ?? Procedure(s): CT lung screening ?? Accession Number(s): [id number] ? cc: Milagros Walls; Cinthia Ugarte PA-C [...] 10/23/239[address] ? DD/ 1301 ? TD/TT: ? Circuit Board Assembler: SS ? Procedure Note Zaid, Image - 10/23/[address] [address] [address] Scan Report Signed Patient: Marjorie Henson LMR#: [id number] 54 : 1965Acct:[id number] Age/Sex: 58 / FADM Date: 10/21/23 Loc: .CT Attending Dr: Cinthia Ugarte PA-C Ordering Physician: Cinthia Ugarte PA-C Date of Service: 10/21/23 Procedure(s): CT lung screening Accession Number(s): [id number] cc: Milagros Walls; Cinthia Ugarte PA-C EXAMINATION: [...] in OV> 10/23/23 0905 DD/ 1301 TD/TT: Circuit Board Assembler: MAINE [facility] External Provider IMG CT PROCEDURES Final Result documented in this encounter Visit Diagnoses Not on filedocumented in this encounter Care Teams Avp Relationship Specialty Start Date End Date Milagros Walls MD [address] [place] [address] PCP - General Family Medicine 02/10/21 documented as of this encounter
--- OUTSIDE RECORDS SUMMARY | 2024-10-21 11:31 | XMS_ITS | Clinical Summary ---
Author Organization [facility] Address [address] [facility] [address] [place] [address] Phone Care Team Providers Care Yard Conductor Name Role Phone Milagros Walls MD Primary Care Provider [phone] Allergies No known active allergies Medications baclofen [...] Visit [facility] [address] [address] Mark Hanna MD [address] [address] Health Maintenance Due Date Last Done Comments Breast Cancer Screening 1965 Colorectal Cancer Screening: Annual FOBT 2013 Colorectal Cancer Screening: Colonoscopy 2013 Colorectal Cancer Screening: Sigmoidoscopy 2013 Influenza Vaccine (#1) 2024 3, 04/29/2020 Pneumococcal Vaccine: Pediatrics (0 to 5 Years) and At-Risk Patients (6 to 64 Years) Completed 10/21/2023 Hepatitis B Vaccine Aged Out No longe r eligible based on patient's age to complete this topic Insurance MEDICAID [place] [employer]NA [facility] ADV PPO ([id number]) A[employer] [facility] ADV PPO ([id number]) MEDICAID [place] Care Teams Yard Conductor Relationship Specialty Start Date End Date Milagros Walls MD [address] [place] [address] PCP - [employer] Clock Mechanic 09/03/22
--- OUTSIDE RECORDS SUMMARY | 2024-10-21 11:31 | XMS_ITS | Encounter Summary ---
Author Organization [employer] Address [address] [place] [address] 7t [place] [address] Care Team Providers Care Geothermal Heat Pump Machinist Name Role Phone Milagros Walls MD Primary Care Provider [phone] Encounter Details Date Type Department Care Team ([facility] Contact Info) Description 10/31/2022 Orders Only [facility] MEDICINE 230 [place] [address] Milagros Walls MD 230 [place] [address] Kidney stone (Primary Dx) Social History Tobacco [...] Description 10/22/2024 9:30 AM EDT Office Visit [facility] ADULT DENTAL 230 [place] [address] Mike Bruce DMD 230 [place] [address] documented as of this encounter Visit Diagnoses Diagnosis Kidney stone- Primary Calculus of kidney documented in this encounter Care Teams Geothermal Heat Pump Machinist Relationship Specialty Start Date End Date Milagros Walls MD [address] [place] [address], [place] [address] PCP - General Family Medicine 02/10/21 documented as of this encounter
--- OUTSIDE RECORDS SUMMARY | 2024-10-21 11:31 | XMS_ITS | Encounter Summary ---
Author Organization [employer] Address 75 [facility] 7t [place] [address] Care Team Providers Care Medical Device Sales Representative Name Role Phone Milagros Walls MD Primary Care Provider [phone] Reason for Visit * Reason Onset Date Comments PT1 10/02/2024 Encounter Details Date Type Department Care Team ([facility] st Contact Info) Description 10/02/2024 Telephone [facility] MEDICINE 230 [place] [address] Milagros Walls MD 230 [place], [place] [phone] PT1 Social History Tobacco Use Types Packs/Day [...] Address verified: Y/N: Yes Location: Dental at [facility] Address: [facility] Escort needed: Y/N: No Do you have a wheelchair: Y/N: No Pt is requesting for 5 days/all future appts. documented in this encounter Plan of Treatment Upcoming Encounters Date Type Department Care Team (Late st Contact Info) Description 10/22/2024 9:30 AM EDT Office Visit [facility] ADULT DENTAL [address] [place] [address] Mike Bruce, REN [address] [place] [address] documented as of this encounter Visit Diagnoses Not on filedocumented in this encounter Additional Health Concerns Assessment Noted Time PHQ-9 Depression Total Score: 0 03/04/20 24 10:17 AM EDT documented as of this encounter Care Teams Medical Device Sales Representative Relationship Specialty Start Date End Date Milagros Walls MD 230 [place] [address] PCP - General Family Medicine 02/10/21 documented as of this encounter
--- OUTSIDE RECORDS SUMMARY | 2024-10-21 11:31 | XMS_ITS | Encounter Summary ---
Author Organization [employer] Address [address] [facility] [address] 7t [place] [address] Care Team Providers Care Set Up And Charger Name Role Phone Milagros Walls MD Primary Care Provider [phone] Reason for Visit * Reason Comments Med Refill Encounter Details Date Type Department Care Team ([facility] st Contact Info) Description 11/07/2023 Refill [facility] MEDICINE 230 [place], [place] [phone] Mliagros Walls MD 230 [place], [place] [phone] Social History Tobacco Use Types Packs/Day Years [...] Description 10/22/2024 9:30 AM EDT Office Visit [facility] ADULT DENTAL 230 [place] [address] Mike Bruce DMD 230 [place] [address] documented as of this encounter Visit Diagnoses Not on filedocumented in this encounter Care Teams Set Up And Charger Relationship Specialty Start Date End Date Milagros Walls MD 230 [place] [address] PCP - General Family Medicine 02/10/21 documented as of this encounter
--- OUTSIDE RECORDS SUMMARY | 2024-10-21 11:31 | XMS_ITS | Encounter Summary ---
Author Organization [employer] Address [address] [facility] [address] 7t [place] [address] Care Team Providers Care Casting Sorter Name Role Phone Milagros Walls MD Primary Care Provider [phone] Reason for Visit * Reason Comments Med Refill Encounter Details Date Type Department Care Team ([facility] st Contact Info) Description 07/31/2023 Refill [facility] MEDICINE 230 [place], [place] [phone] Milagros Walls MD 230 [place], [place] [phone] Left flank pain Social History Tobacco Use [...] Description 10/22/2024 9:30 AM EDT Office Visit [facility] ADULT DENTAL 230 [place], [place] [phone] Mike Bruce, REN [address] [place] [address] documented as of this encounter Visit Diagnoses Diagnosis Left flank pain Abdominal pain, unspecified site documented in this encounter Care Teams Casting Sorter Relationship Specialty Start Date End Date Milagros Walls MD 230 [place] [address] PCP - General Family Medicine 02/10/21 documented as of this encounter
--- OUTSIDE RECORDS SUMMARY | 2024-10-21 11:31 | XMS_ITS | Encounter Summary ---
Author Organization [employer] Address [address] [facility] [address] 7t [place] [address] Care Team Providers Care Key Account Executive Name Role Phone Milagros Walls MD Primary Care Provider [phone] Reason for Visit * Reason Onset Date Comments Pt1 08/13/2023 Encounter Details Date Type Department Care Team ([facility] st Contact Info) Description 08/13/2023 Telephone [facility] MEDICINE 230 [place] [address] Milagros Walls MD 230 [place], [place] [phone] Pt1 Social History Tobacco Use Types Packs/Day [...] the past 12 months, has t he [employer], gas, oil or water company threatened to [...] n/a Visits: All future Appt's Address: [address] [place], [place] Facility: [facility] Wheel Chair: no Reception Specialist Needed: no PT1 needed Date: n/a Time: n/a Visits: All future Appt's Address: [address] [place] [address] Facility: [facility] Wheel Chair: No Reception Specialist Needed: No PT1 needed Date: n/a Time: n/a Visits: All future Appt's Address: [address] [place] [address] Facility: [facility] Wheel Chair: No Reception Specialist Needed: No documented in this encounter Plan of Treatment Upcoming Encounters Date Type Department Care Team (Late st Contact Info) Description 10/22/2024 9:30 AM EDT Office Visit [facility] ADULT DENTAL 230 [place] [address] Mike Bruce, REN 230 [place] [address] documented as of this encounter Visit Diagnoses Not on filedocumented in this encounter Care Teams Key Account Executive Relationship Specialty Start Date End Date Milagros Walls MD [address] [place], [place] PCP - General Family Medicine 02/10/21 documented as of this encounter
--- OUTSIDE RECORDS SUMMARY | 2024-10-21 11:31 | XMS_ITS | Encounter Summary ---
Author Organization [employer] Address [address] [facility] [address] 7t [place] [address] Care Team Providers Care Matcher Operator Name Role Phone Milagros Walls MD Primary Care Provider [phone] Encounter Details Date Type Department Care Team (Late st Contact Info) Description 09/02/2024 Telephone [facility] MEDICINE 230 [place], [place] [phone] Milagros Walls MD 230 [place], [place] [phone] Social History Tobacco Use Types Packs/Day Years [...] Description 10/22/2024 9:30 AM EDT Office Visit [facility] ADULT DENTAL [address] [place] [address] Mike Bruce, DMD [address] [place] [address] documented as of this encounter Visit Diagnoses Not on filedocumented in this encounter Additional Health Concerns Assessment Noted Time PHQ-9 Depression Total Score: 0 03/04/20 24 10:17 AM EDT documented as of this encounter Care Teams Matcher Operator Relationship Specialty Start Date End Date Milagros Walls MD [address] [place] [address] PCP - General Family Medicine 02/10/21 documented as of this encounter
--- OUTSIDE RECORDS SUMMARY | 2024-10-21 11:31 | XMS_ITS | Encounter Summary ---
Author Organization [employer] Address 75 [facility] 7t [place] [address] Care Team Providers Care Ed Physicians Name Role Phone Milagros Walls MD Primary Care Provider [phone] Reason for Visit * Reason Comments Med Refill Encounter Details Date Type Department Care Team ([facility] st Contact Info) Description 10/12/2024 Refill [facility] MEDICINE 230 [place], [place] [phone] Milagros Walls MD 230 [place], [place] [phone] Fibromyalgia Social History Tobacco Use Types Packs/Day [...] Description 10/22/2024 9:30 AM EDT Office Visit [facility] ADULT DENTAL 230 [place] [address] Mike Bruce, REN 230 [place] [address] documented as of this encounter Visit Diagnoses Diagnosis Fibromyalgia Unspecified myalgia and myositis documented in this encounter Additional Health Concerns Assessment Noted Time PHQ-9 Depression Total Score: 0 03/04/20 24 10:17 AM EDT documented as of this encounter Care Teams Ed Physicians Relationship Specialty Start Date End Date Milagros Walls MD 230 [place] [address] PCP - General Family Medicine 02/10/21 documented as of this encounter
--- OUTSIDE RECORDS SUMMARY | 2024-10-21 11:31 | XMS_ITS | Encounter Summary ---
Author Organization [employer] Address 75 [facility] 7t [place] [address] Care Team Providers Care Digital Measurement Advisor Name Role Phone Milagros Walls MD Primary Care Provider [phone] Reason for Referral * Consultation (Routine) - Closed Specialty Diagnoses / Procedures Referred By Diony santana Referred To Contact Podiatry Diagnoses Milagros Diaz MD [address] [place] [address] Phone: tel: fax: Marino Estrella DPM Phone: tel: fax: Referral ID Status Reason Start Date Expiration Date V isits Requested Visits Authorized [id number] Closed Specialty Services Required 03/25/2024 03/25/2025 1 1 Encounter Details Date Type Department Care Team (Late st Contact Info) Description 03/25/2024 Orders Only [facility] MEDICINE [address] [place] [address] Milagros Walls MD [address] [place], [place] [phone] Josefina (Primary Dx) Social History Tobacco Use [...] 9:30 AM EDT Office Visit [facility] ADULT DENTAL [address] [place] [address] Mike Bruce, DMD [address] [place] [address] Scheduled Referrals Name Type Priority Associated Diagnoses Orde r Schedule Referral to Podiatry Outpatient Referral Routine Bunion Expected: 03/25/2024 (Approximate), Expires: 03/25/2025 documented as of this encounter Visit Diagnoses Diagnosis Bunion- Primary documented in this encounter Additional Health Concerns Assessment Noted Time PHQ-9 Depression Total Score: 0 03/04/20 24 10:17 AM EDT documented as of this encounter Care Teams Digital Measurement Advisor Relationship Specialty Start Date End Date Milagros Walls MD [address] [place] [address] PCP - General Family Medicine 02/10/21 documented as of this encounter
--- OUTSIDE RECORDS SUMMARY | 2024-10-21 11:31 | XMS_ITS | Encounter Summary ---
Author Organization [employer] Address [address] [facility] [address] [place] [address] Care Team Providers Care Auger Supervisor Name Role Phone Milagros Walls MD Primary Care Provider [phone] Reason for Visit * Reason Onset Date Comments Pt1 03/06/2024 Encounter Details Date Type Department Care Team ([facility] st Contact Info) Description 03/06/2024 Telephone [facility] [address] [place] [address] Milagros Walls MD [address], [place] [phone] Pt1 Social History Tobacco Use Types Packs/Day [...] Y/N: Yes Provider name or facility name: [facility] Facility Address: [address] [place] [address] Escort needed: No Do you have a wheelchair: Y/N: No Visits: All future appts. Patient calling requesting PT1 Home Address verified: Y/N: Yes Provider name or facility name: [facility] Facility Address: [address] [place] [address] Escort needed: No Do you have a wheelchair: Y/N: No Visits: All future appts. Patient calling requesting PT1 Home Address verified: Y/N: Yes Provider name or facility name: [facility] Facility Address: [address] [place] [address] Escort needed: No Do you have a wheelchair: Y/N: No Visits: All future appts. Patient calling requesting PT1 Home Address verified: Y/N: Yes Provider name or facility name: [facility] Facility Address: [address] [place], [place] Escort needed: No Do you have a wheelchair: Y/N: No Visits: All future appts. Patient calling requesting PT1 Home Address verified: Y/N: Yes Provider name or facility name: [facility] Facility Address: [address], [place] Escort needed: No Do you have a wheelchair: Y/N: No Visits: All future appts. Patient calling requesting PT1 Home Address verified: Y/N: Yes Provider name or facility name: [facility] Facility Address: [address], [place] Escort needed: No Do you have a wheelchair: Y/N: No Visits: All future appts. Patient calling requesting PT1 Home Address verified: Y/N: Yes Provider name or facility name: [facility] [address] [facility] [place] Escort needed: No Do you have a wheelchair: Y/N: No Visits: All future appts. documented in this encounter Plan of Treatment Upcoming Encounters Date Type Department Care Team ([facility] st Contact Info) Description 10/22/2024 9:30 AM EDT Office Visit [facility] [address] [place] [address] Mike Bruce, DMD [address] [place] [address] documented as of this encounter Visit Diagnoses Not on filedocumented in this encounter Additional Health Concerns Assessment Noted Time PHQ-9 Depression Total Score: 0 03/04/20 10:17 AM EDT documented as of this encounter Care Teams Auger Supervisor Relationship Specialty Start Date End Date Milagros Walls MD [address] [place] [address] PCP - General Family Medicine 02/10/21 documented as of this encounter
--- OUTSIDE RECORDS SUMMARY | 2024-10-21 11:31 | XMS_ITS | Encounter Summary ---
Author Organization [employer] Address [address] [facility] [address] [place] [address] Care Team Providers Care Assistant Softball Coach Name Role Phone Milagros Walls MD Primary Care Provider [phone] Reason for Visit * Reason Comments Med Refill Encounter Details Date Type Department Care Team ([facility] st Contact Info) Description 10/06/2024 Refill [facility] [address] [place], [place] [phone] Milagros Walls MD [address] [place], [place] [phone] Social History Tobacco Use Types Packs/Day Years [...] Description 10/22/2024 9:30 AM EDT Office Visit [facility] [address] [place] [address] Mike Bruce DMD [address] [place] [address] documented as of this encounter Visit Diagnoses Not on filedocumented in this encounter Additional Health Concerns Assessment Noted Time PHQ-9 Depression Total Score: 0 03/04/20 24 10:17 AM EDT documented as of this encounter Care Teams Assistant Softball Coach Relationship Specialty Start Date End Date Milagros Walls MD [address] [place] [address] PCP - General Family Medicine 02/10/21 documented as of this encounter
--- OUTSIDE RECORDS SUMMARY | 2024-10-21 11:31 | XMS_ITS | Encounter Summary ---
Author Organization [employer] Address [address] [facility] [address] [place] [address] Care Team Providers Care Billing Assistant Name Role Phone Milagros Walls MD Primary Care Provider [phone] Encounter Details Date Type Department Care Team [...] Description 10/22/2024 9:30 AM EDT Office Visit [facility] [address] [place] [address] Mike Bruce DMD [address] [place] [address] documented as of this encounter Visit Diagnoses Not on filedocumented in this encounter Additional Health Concerns Assessment Noted Time PHQ-9 Depression Total Score: 0 03/04/20 24 10:17 AM EDT documented as of this encounter Care Teams Billing Assistant Relationship Specialty Start Date End Date Milagros Walls MD [address] [place] [address] PCP - General Family Medicine 02/10/21 documented as of this encounter
--- OUTSIDE RECORDS SUMMARY | 2024-10-21 11:31 | XMS_ITS | Encounter Summary ---
Author Organization [employer] Address [address] [facility] [address] [place] [address] Care Team Providers Care Offset Second Press Operator Name Role Phone Milagros Walls MD Primary Care Provider [phone] Reason for Visit * Reason Onset Date Comments PT-1 10/31/2023 Encounter Details Date Type Department Care Team ([facility] st Contact Info) Description 10/31/2023 Telephone [facility] [address] [place], [place] [phone] Milagros Walls MD [address] [place], [place] [phone] PT-1 Social History Tobacco Use Types Packs/Day [...] Y/N: Yes Provider name or facility name: [facility] Facility Address: [address] [place] [address] Escort needed: Y/N: No Do you have a wheelchair: Y/N: No If yes- Manual or electric: no Visits: (amount of visits) ( x monthly, weekly, daily) documented in this encounter Plan of Treatment Upcoming Encounters Date Type Department Care Team (Late st Contact Info) Description 10/22/2024 9:30 AM EDT Office Visit [facility] [address] [place] [address] Mike Bruce, DMD [address] [place] [address] documented as of this encounter Visit Diagnoses Not on filedocumented in this encounter Care Teams Offset Second Press Operator Relationship Specialty Start Date End Date Milagros Walls MD [address] [place] [address] PCP - General Family Medicine 02/10/21 documented as of this encounter
--- OUTSIDE RECORDS SUMMARY | 2024-10-21 11:31 | XMS_ITS | Encounter Summary ---
Author Organization [employer] Address [address] [facility] [address] [place] [address] Care Team Providers Care Appeals Board Referee Name Role Phone Milagros Walls MD Primary Care Provider [phone] Reason for Visit * Reason Onset Date Comments Results 10/16/2024 Encounter Details Date Type Department Care Team ([facility] st Contact Info) Description 10/16/2024 Telephone [facility] [address] [place] [address] Milagros Walls MD [address] [place], [place] [phone] Results Social History Tobacco Use Types Packs/Day Years [...] encounter Miscellaneous Notes * Telephone Encounter - Nereida Duncan RN - 10/16/2024 11:37 AM EST TC placed to patient [phone] to inform of below message regarding lab results. Patient verbalized understanding and is aware of prednisone RX being sent to the pharmacy. Patient educated on directions for RX. Patient is aware [place] will call [facility] to schedule colonoscopy and contact patient withappointment date and time. Patient to f/u PRN. ----- Message from Milagros Walls MD sent at 10/16/2024 8:21 AM EST ----- Shruti- please call [facility] gastroenterology to book colonscopy consult for patient, she has tried many times and not able to talk to anyone Rns- please let patient know that her labs were mostly normal, stable kidney disease, except for elevated CRP which means acute inflammation somewhere. Lets try five days of prednisone and see if shefeels better documented in this encounter Plan of Treatment Upcoming Encounters Date Type Department Care Team (Late st Contact Info) Description 10/22/2024 9:30 AM EDT Office Visit [facility] [address] [place] [address] Mike Bruce, DMD [address] [place] [address] documented as of this encounter Visit Diagnoses Not on filedocumented in this encounter Additional Health Concerns Assessment Noted Time PHQ-9 Depression Total Score: 0 03/04/20 24 10:17 AM EDT documented as of this encounter Care Teams Appeals Board Referee Relationship Specialty Start Date End Date Milagrso Walls MD [address] [place] [address] PCP - General Family Medicine 02/10/21 documented as of this encounter
--- OUTSIDE RECORDS SUMMARY | 2024-10-21 11:31 | XMS_ITS | Clinical Summary ---
Author Organization [employer] Address [address] [facility] 7[address] [place] [address] Care Team Providers Care Floor Tiling Professional Name Role Phone Milagros Walls MD Primary Care Provider [phone] Allergies No known active allergies Medications Blood [...] 024 Active butalbital-acetam inophen-caffeine- codeine (Fioricet W/Codeine) [id number] MG capsule Take 1 capsule by mouth [...] Inhale 1 puff 2 times daily. Active predniSONE (Deltasone) 20 MG tablet Take 2 tablets (40 mg) by mouth Once per day for 5 days. 10 tablet 025 2024 Active DULoxetine (Cymbalta) 30 MG [...] to 28 days. 56 tablet 025 2024 acetic acid (Vosol) 2 % otic solution Administer 5 drops into the right ear 3 times daily for 7 days. 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 08/13 Muscle spasm 10/23/2023 Assessment & Plan (10/23/2023 10:45 AM EDT): Trialed trigger point injections in office, 3 on each size of trapezius muscles, not helpful in immediate pain relief Screen for colon cancer 10/23/2023 Assessment & Plan (10/23/2023 10:45 AM EDT): [place]er to [facility] Left flank pain 07/21/2023 Assessment & Plan [...] tabs daily Monitored every 3 months by [facility] oncology No swelling currently or enlarged lymph nodes currently Assessment & Plan (04/22/2023 8:17 AM EDT): On Zanubrutnib for active disease, 3 tabs daily Monitored every 3 months by [facility] oncology No swelling currently or enlarged lymph nodes currently Assessment & Plan (11/13/2022 6:07 AM EDT): On Zanubrutnib for active disease, 3 tabs daily Monitored every 3 months by [facility] oncology No swelling currently Assessment & Plan (08/21/2022 12:05 PM EST): Recently initiated on Zanubrutnib for active disease Feels ongoing swelling and pain Will check PT/INR, CBC, ESR, CRP, CMP Encouraged her to advise her oncologist office of her symptoms Inguinal lymphadenopathy 07/10/2022 Chronic pelvic pain in female 04/29/2021 Assessment [...] (10/23/2023 10:44 AM EDT): Sees Pulm at [facility], now q6 months due to improvements Cont Advair Cont CATHRYN prn Smoking cessation encouraged Assessment & Plan (11/13/2022 6:09 AM EDT): Sees Pulm at [facility], now q6 months due to improvements Cont [...] Date CLL (chronic lymphocytic leukemia) 08/21/2022 08/21/2022 Disease due to severe acute respiratory syndrome coronavirus 2 (SARS-CoV-2) 09/15/2021 03/0 02/2025 Overview (11/12/2022): Problem added by Discern Expert Encounters Date Type Department Care Team Description 10/16/2024 Telephone [facility] [address] [place] [address] Milagros Walls MD Results 10/13/2024 10:15 AM EST Office Visit [facility] [address] [place] [address] Milagros Walls MD Acute intractable headache, unspecified headache type (Primary Dx); Dietary counseling; Exercise counseling; Class 1 obesity with serious comorbidity and body mass index (BMI) of 33.0 to 33.9 in adult, unspecified obesity type; Encounter for immunization; Non-Hodgkin lymphoma of lymph nodes of multiple sites (CMS/HCC); Pulmonary emphysema, unspecified emphysema type (CMS/HCC); Stage 3a chronic kidney disease (CMS/HCC) 10/13/2024 Travel 10/12/2024 Refill [facility] [address] [place] [address] Milagros Walls MD Fibromyalgia 10/06/2024 Refill [facility] [address] [place] [address] Milagros Walls MD 10/02/2024 8:00 AM EST Office Visit [facility] [address] [place] [phone] Mike Bruce, REN 10/02/2024 Telephone [facility] [address] [place] [phone] Milagros Walls MD PT1 10/01/2024 Patient Outreach [facility] [address] [place] [phone] Milagros Walls MD Pre-visit Planning ((Unable to reach for PVP screening, LVM)) 09/02/2024 Telephone [facility] [address] [place] [phone] Milagros Walls MD 09/02/2024 Refill [facility] [address] [place] [phone] Milagros Walls MD Fibromyalgia (Primary Dx); correction (current) use of opiate analgesic 08/26/2024 Telephone [facility] [address] [place] [phone] Shruti Gonzalez MA recall 08/18/2024 Refill [facility] [address] [place] [address] Milagros Walls MD Nausea 08/17/2024 8:00 AM EST Office Visit [facility] [address] [place] [phone] Mike Bruce, DMD 07/29/2024 Refill [facility] [address] [place] [phone] Milagros Walls MD 07/24/2024 Patient Outreach [facility] [address] [place] [address] Milagros Walls MD Care Coordination (CHW outreach for SDCT PT-1 - LVM ) 07/24/2024 Telephone [facility] [address] [place] [address] Milagros Walls MD PT-1 07/24/2024 Telephone [facility] [address] [place] [address] Mike Bruce, DMD rs comp exam from Last 3 Months [...] Description 10/22/2024 9:30 AM EDT Office Visit [facility] [address] [place] [address] Mike Bruce, REN [address] [place] [address] Health Maintenance Due Date Last Done Comments CT Colonography 1965 Colonoscopy 1965 Colorectal Cancer Screening 1965 Dental Prophylaxis 1964 Dental X-Ray: Bitewings 1964 FIT DNA/Cologuard 1964 FIT 1965 FOBT 1965 HIV Screening 1965 Sigmoidoscopy 1965 Alcohol/Substance Use Screening 1976 Pap Smear 1985 HPV/Cotest 1994 RSV Patients and Patients Aged 60 years or older (1 - Risk 60-74 years 1-dose series) 2024 Diagnostic Breast Imaging 11/11/20242023, 05/10/2023, 10/25/2022 Mammogram 11/11/2024 11/12/2023, 04/13, 10/25/2022, Additional history exists COVID-19 Vaccine ( season) 2024 10/13/2024, 06/09/2024, 07/19/2023, Additional history exists Dental Oral Exam 02/15/2025 08/17/2024 Depression Screening 03/04/2025 03/04/2024, 03/04/20 SDOH Screening 03/04/2025 03/04/2024 Diabetes: Hemoglobin A1C 10/13/2025 10/13/2024, 07/0 09/2020 Tobacco Screening 10/13/2025 10/13/2024 Dental X-Ray: Full Mouth 08/18/2027 08/17/2024 Lipid Panel 10/13/2029 10/13/2024, 02/10/2021 DTaP/Tdap/Td Vaccines (2 - Td or Tdap) 10/20/2033 10/21/2023 Hepatitis C Screening Completed 02/10/2021 Pneumococcal Vaccine: 50+ Years Completed 10/21/2023 Zoster Vaccines Completed 12/26/2023, 10/14/2023 Influenza Vaccine Completed 06/09/2024, , 04/29/2020 Cervical Cancer Screening Discontinued HIB Vaccines Aged Out No longer eligi [...] Procedure Name Priority Date/Time Associated Diagnosis Comments MAGNESIUM Routine 10/13/2024 10:58 AM EST Acute intractable headache, unspecified headache type CBC WITH AUTO DIFFERENTIAL Routine 10/13/2024 10:58 [...] EST Acute intractable headache, unspecified headache type LIPID PANEL, STANDARD Routine 10/13/2024 10:58 AM EST Primary hypertension HEMOGLOBIN A1C Routine 10/13/2024 10:58 AM EST Primary hypertension DENTURE IMPRESSION Routine 10/02/2024 8: 00 AM EST CASE PRESENTATION, DETAILED AND EXTENSIVE TREATMENT PLANNING Routine 08/17/2024 8:00 AM EST PANORAMIC RADIOGRAPHIC IMAGE Routine 08/17/2024 8:00 AM EST COMPREHENSIVE ORAL EVALUATION - NEW OR ESTABLISHED PATIENT Routine 08/17/2024 8:00 AM EST 30,29,19,20,28,21,22, 27 PARTIAL DENTURE - RESIN Routine 08/17/2024 12:00 AM EST Max COMPLETE DENTURE Routine 08/17/2024 12:00 AM EST BI MAMMOGRAM DIAGNOSTIC TOMOSYNTHESIS BILATERAL Routine 11/12/2023 1:05 PM EDT ZZZ HISTORICAL HEPATITIS C AB W/REFL TO HCV RNA, QN, PCR Routine 02/10/2021 9:36 AM EDT from Last 3 Months or Most Recently Relevant to Health Maintenance Results * (ABNORMAL) CBC auto differential (10/13/2024 10:58 AM EST) White Blood Count 9.4 4.8 - 10.8 X10*3/uL [facility] Red Blood Count 4.43 4.20 - 5.50 X10*6/uL [facility] Hemoglobin 13.2 12.0 - 16.0 g/dl [facility] Hematocrit 39.7 37.0 - 47.0 % [facility] Mean Corpuscular Volume 89.6 80.0 - 98.0 fL [facility] Mean Corpuscular Hemoglobin 29.8 27.0 - 33.0 pg [facility] Mean Corpuscular HGB Conc 33.2 31.0 - 35.0 g/dl [facility] Red Cell Distribution Width 14.5 11.0 - 16.0 % [facility] Platelet Count 278 160 - 400 X10*3/uL [facility] Mean Platelet Volume 10.3 9.4 - 12.3 fL [facility] Neutrophils Percent Auto 59.3 45 - 73 % [facility] Imm Gran Pct Auto 1.0(H) 0.0 - 0.4 % [facility] Lymphocytes Percent Auto 27.6 20 - 40 % [facility] Monocytes Percent Auto 8.7 2 - 11 % [facility] Eosinophils Percent Auto 2.0 0 - 4 % [facility] Basophils Percent Auto 1.4 0 - 2 % [facility] NRBC Pct Auto 0.0 0.0 - 0.2 /100WBC [facility] Neutrophils Absolute Auto 5.6 2.0 - 8.3 x10*3/uL [facility] Imm Gran Abs Auto 0.09(H) 0.00 - 0.03 X10*3/uL [facility] Lymphocytes Absolute Auto 2.6 1.2 - 4.9 X10*3/uL [facility] Monocytes Absolute Auto 0.8 0.1 - 1.2 X10*3/uL [facility] Eosinophils Absolute Auto 0.2 0.0 - 0.4 X10*3/uL [facility] Basophils Absolute Auto 0.1 0.0 - 0.2 X10*3/uL [facility] NRBC Abs Auto 0.000 0.0 - 0.012 X10*3/uL [facility] Blood Venous blood specimen / Unknown 10/13/2024 10:58 AM EST 10/13/2024 1:11 PM EST Milagros Walls MD LAB BLOOD ORDERABLES Final Res ult Performing Organization Address City/[facility]/ZIP Co de Phone Number [facility] [address] [place] [phone] * Sed Rate by Modified Neil (10/13/2024 10:58 AM EST) Erythrocyte Sedimentation Rate 10 0 - 20 MM/HR [facility] Comment:Patients with polycy themia and many hemoglobin abnormalitiesmay have depressed sed rates whereas patients with anemiamay have elevated sed rates. Blood Venous blood specimen / Unknown 10/13/2024 10:58 AM EST 10/13/2024 1:11 PM EST Milagros Walls MD LAB BLOOD ORDERABLES Final Res ult [facility] [address] [place] [phone] * (ABNORMAL) C-reactive Protein (10/13/2024 10:58 AM EST) C Reactive Protein 1.52(H) < or = 0.50 mg/dL [facility] Blood Venous blood specimen / Unknown 10/13/2024 10:58 AM EST 10/13/2024 1:12 PM EST Milagros Walls MD LAB BLOOD ORDERABLES Final Res ult Performing Organization Address City/[facility] Co de Phone Number [facility] [address] [place] [phone] * Magnesium (10/13/2024 10:58 AM EST) Magnesium 2.3 1.6 - 2.6 mg/dL [facility] Blood Venous blood specimen / Unknown 10/13/2024 10:58 AM EST 10/13/2024 1:12 PM EST Milagros Walls MD LAB BLOOD ORDERABLES Final Res ult Performing Organization Address [facility] Phone Number [facility] [address] [place] [phone] * Hemoglobin A1c (10/13/2024 10:58 AM EST) Hemoglobin A1c 6.0 <6.0 % [facility] Comment:Hemoglobin A1C Refer ence Range Adults: 4.8 - 6.0 % Non diabetic: < 6.0 % Goal: < 7.0 %Additional Action Suggested: > 8.0 %Note: Hemoglobin A1c results are invalid for patients with abnormal amounts of HbF. Blood transfusions may impact the HbA1c concentration in the patient sample. Estimated Average Glucose 126 mg/dL [facility] Comment:eAG = Estimated ave rage glucose which is %A1C expressed asaverage glucose, using the formula of the O4W-PckbvfsUzogixy Glucose study (ADAG), Diabetes Care, Vol.31,#8,Mar. 2007 Blood Venous blood specimen / Unknown 10/13/2024 10:58 AM EST 10/13/2024 1:11 PM EST Milagros Walls MD LAB BLOOD ORDERABLES Final Res ult Performing Organization Address [facility] Co de Phone Number [facility] [address] [place] [phone] * Creatine Kinase Isoenzymes (CK Isoenzymes) w/ Total CK (10/13/2024 10:58 AM EST) Creatine Kinase, Total 50 20 - 243 U/L [facility] CK-MM 100 95 - 100 % [facility] Ck-Mb 0 <5 % [facility] CK-BB None Detected None Detected % [facility] Creatine Kinase Isoenzyme Interpretation see note [facility] Comment:Normal isoenzyme pat tern with anormal total activity.THIS TEST WAS PERFORMED AT:[employer] [id number] [place] [address]PESLUBQALISSON SAUCEDA MD,PHD Blood Venous blood specimen / Unknown 10/13/2024 10:58 AM EST 10/13/2024 1:14 PM EST us Milagros Walls MD LAB BLOOD ORDERABLES Final Res ult [facility] [address] [place] [phone] * (ABNORMAL) Lipid Panel, Standard (10/13/2024 10:58 AM EST) Triglycerides 180(H) <150 mg/dL [facility] Comment:Desirable Triglyceri de: less than 150 mg/dLBorderline High Triglyceride 150-199 mg/dLHigh Triglyceride: 200-499 mg/dLVery High Triglyceride: greater than or equal to 5OO mg/dL Cholesterol 178 <200 mg/dL [facility] Comment:Desirable Cholestero l: less than 200 mg/dLBorderline High Cholesterol: 200-239 mg/dLHigh Cholesterol: greater than 239 mg/dL LDL Cholesterol Calculated 90 <100 mg/dL [facility] Comment:Desirable LDL: less than 100 mg/dLNear Optimal/Above Optimal LDL: 110- 129 mg/dLBorderline High LDL: 130-159 mg/dLHigh LDL: 160-189 mg/dLVery High LDL: greater than or equal to 190 mg/dL HDL Cholesterol 52 >40 mg/dL [facility] Comment:Desirable HDL: great er than 40 mg/dL Note: This HDL assay may give artificially low results in patients with liver disease. Blood Venous blood specimen / Unknown 10/13/2024 10:58 AM EST 10/13/2024 1:12 PM EST us Milagros Walls MD LAB BLOOD ORDERABLES Final Res ult [facility] [address] [place] [phone] * (ABNORMAL) Comprehensive Metabolic Panel (10/13/2024 10:58 AM EST) Sodium 141 135 - 145 mmol/L [facility] Potassium 4.6 3.3 - 5.1 mmol/L [facility] Chloride 107 96 - 108 mmol/L [facility] Carbon Dioxide 27 22 - 29 mmol/L [facility] Anion Gap 12 12 - 20 [facility] Urea Nitrogen (BUN) 25(H) 9 - 16 mg/dL [facility] Creatinine, Serum 1.15 0.5 - 1.4 mg/dL [facility] Estimated Glomerular Filt Rate 48 [facility] Comment:Chronic Kidney Disea se: Estimated GFR < 60 mL/min/1.19a5Vbrsnd Kidney Disease: Estimated GFR < 15 mL/min/1.73m2 Glucose 118(H) 60 - 115 mg/dL [facility] Calcium 8.9 8.4 - 10.2 mg/dL [facility] Bilirubin, Total 0.2 0.0 - 1.0 mg/dL [facility] Aspartate Amino Transferase 14 5 - 31 U/L [facility] Alanine Aminotransferase 10 0 - 31 U/L [facility] Total Protein 6.6 6.5 - 8.0 g/dL [facility] Albumin Level 3.9 3.5 - 5.0 g/dL [facility] Alkaline Phosphatase 131(H) 39 - 117 U/L [facility] Blood Venous blood specimen / Unknown 10/13/2024 10:58 AM EST 10/13/2024 1:12 PM EST us Milagros Walls MD LAB BLOOD ORDERABLES Final Res ult [facility] [address] [place] [phone] * BI Mammogram Diagnostic Tomosynthesis Bilateral (11/12/2023 1:05 PM EDT) Anatomical Region Laterality Modality Breast Bilateral Mammography 11/12/2023 1:05 PM EDT Narrative 11/12/2023 2:02 PM EDT ? [facility] ? [address] ?[place] [address] ? Mammography Report ? Signed ? Patient: Charly Hensonda L ?MR#: [id number] ?? 54 ? : 1965 ?Acct:[id number] ? Age/Sex: 58 / F ?ADM Date: 11/12/23 ? Loc: HO.MAMMO ? Attending Dr: Milagros Walls MD ? Ordering Physician: Milagros Walls ?Results: 3.12MProb ?? ably Benign Finding - 12 month F/U Suggested ? Date of Service: 11/12/23 ?Follow Up: 12 month diagnos ?? tic follow up ? Procedure(s): MM tomosynthesis diagnostic BI ?? Accession Number(s): [id number] ? cc: Titi,Milagros ? EXAMINATION: ?? MM DIAGNOSTIC DIGITAL BREAST [...] 1359 ? DD/ 1305 ? TD/TT: ? Garnett Fixer: ? Procedure Note Donbernyter, Image - 11/12/2023 [facility] [address] [place] [address] Mammography Report Signed Patient: Marjorie Henson LMR#: [id number] 54 : 1965Acct:[id number] Age/Sex: 58 / FADM Date: 11/12/23 Loc: HO.MAMMO Attending Dr: Milagros Walls MD Ordering Physician: Cory Wallsults: 3.12MProb ably Benign Finding - 12 month F/U Suggested Date of Service: 11/12/23Follow Up: 12 month diagnos tic follow up Procedure(s): MM tomosynthesis diagnostic BI Accession Number(s): [id number] cc: Milagros Walls EXAMINATION: MM DIAGNOSTIC DIGITAL [...] in OV> 11/12/23 1359 DD/ 1305 TD/TT: Garnett Fixer: Milagros Walls MD IMG BI PROCEDURES Final Result * HEPATITIS C AB W/REFL TO HCV RNA, QN, PCR (02/10/2021 9:36 AM EDT) HEPATITIS C ANTIBODY NON-REACT MOMO NON-REACT MOMO [facility] INDEX 0.02 <1.00 [facility] Comment: ?? HCV antibody was non-reactive. There is no laboratory ?? evidence of HCV infection. ?? In most cases, no further action is required. However, if recent HCV exposure is suspected, a test for HCV RNA (test code 75916) is suggested. ?? For additional information please refer to http://education.[employer]/faq/OED69r7 (This link is being provided for informational/ educational purposes only.) ?? 02/10/2021 9:36 AM EDT Milagros Walls MD HISTORICAL/NON ORDERABLE LABS Final Result [facility] [address] from Last 3 Months or Most Recently Relevant to Health Maintenance Insurance [facility] STANDARD AETNA PPO DENTAL-[facility] MEDICAID STAND ADULT Care Teams Floor Tiling Professional Relationship Specialty Start Date End Date Milagros Walls MD [address] [place] [phone] PCP - General Family Medicine 02/10/21
--- OUTSIDE RECORDS SUMMARY | 2024-10-21 11:32 | XMS_ITS | Encounter Summary ---
Author Organization [employer] Address [address] [facility] 7t [place] [address] Care Team Providers Care Territory Sales Consultant Name Role Phone Milagros Walls MD Primary Care Provider [phone] Encounter Details Date Type Department Care Team (Late Contact Info) Description 03/29/2023 Telephone [facility] [address] [place] [phone] Milagros Walls MD [address] [place] [address] [phone] Social History Tobacco Use Types Packs/Day Years [...] to be renewed. Please contact pt at [phone] documented in this encounter Plan of Treatment Upcoming Encounters Date Type Department Care Team (Late Contact Info) Description 10/22/2024 9:30 AM EDT Office Visit [facility] [address] [place] [address] Mike Bruce, DMD [address] [place] [address] documented as of this encounter Visit Diagnoses Not on filedocumented in this encounter Care Teams Territory Sales Consultant Relationship Specialty Start Date End Date Milagros Walls MD [address] [place] [address] PCP - General Family Medicine 02/10/21 documented as of this encounter
--- OUTSIDE RECORDS SUMMARY | 2024-10-21 11:32 | XMS_ITS | Encounter Summary ---
Author Organization [employer] Address [address] [facility] [address]t [place] [address] Care Team Providers Care Fireworks Maker Name Role Phone Milagros Walls MD Primary Care Provider [phone] Reason for Visit * Reason Onset Date Comments Med Refill 06/29/2024 Encounter Details Date Type Department Care Team ([facility] st Contact Info) Description 06/29/2024 Telephone [facility] [address] [place], [place] [phone] Milagros Walls MD [address] [place], [place] [phone] Med Refill Social History Tobacco Use Types [...] 10 MG tablet [facility] be [id number] - [place], [place] - [address] [place] [address] AT [facility] [address] documented in this encounter Plan of Treatment Upcoming Encounters Date Type Department Care Team (Late st Contact Info) Description 10/22/2024 9:30 AM EDT Office Visit [facility] [address] [place] [address] Mike Bruce, REN [address] [place] [address] documented as of this encounter Visit Diagnoses Not on filedocumented in this encounter Additional Health Concerns Assessment Noted Time PHQ-9 Depression Total Score: 0 03/04/20 10:17 AM EDT documented as of this encounter Care Teams Fireworks Maker Relationship Specialty Start Date End Date Milagros Walls MD [address] [place] [address] PCP - General Family Medicine 02/10/21 documented as of this encounter
--- OUTSIDE RECORDS SUMMARY | 2024-10-21 11:32 | XMS_ITS | Encounter Summary ---
Author Organization [employer] Address [address] [facility] [address]t [place] [address] Care Team Providers Care Dielectric Press Operator Name Role Phone Milagros Walls MD Primary Care Provider [phone] Reason for Visit * Reason Comments Med Refill Encounter Details Date Type Department Care Team ([facility] st Contact Info) Description 06/15/2024 Refill [facility] [address] [place], [place] [phone] Milagros Walls MD [address] [place], [place] [phone] Social History Tobacco Use Types Packs/Day Years [...] 10/22/2024 9:30 AM EDT Office Visit [facility]ULT [facility] [address] [place] [address] Mike Bruce DMD [address] [place] [address] documented as of this encounter Visit Diagnoses Not on filedocumented in this encounter Additional Health Concerns Assessment Noted Time PHQ-9 Depression Total Score: 0 03/04/20 24 10:17 AM EDT documented as of this encounter Care Teams Dielectric Press Operator Relationship Specialty Start Date End Date Milagros Walls MD [address] [place] [address] PCP - General Family Medicine 02/10/21 documented as of this encounter
--- OUTSIDE RECORDS SUMMARY | 2024-10-21 11:32 | XMS_ITS | Encounter Summary ---
Author Organization [email or web address] Address [address] [facility] [address] [place] [address] Care Team Providers Care Plate Glass Installer Helper Name Role Phone Milagros Walls MD Primary Care Provider [phone] Encounter Details Date Type Department Care Team (Late st Contact Info) Description 06/08/2024 Telephone [facility] [address] [place], [place] [phone] Milagros Walls MD [address] [place], [place] [phone] Social History Tobacco Use Types Packs/Day Years [...] 9:30 AM EDT Office Visit [facility] [address] [place] [address] Mike Bruce, DMD [address] [place] [address] documented as of this encounter Visit Diagnoses Not on filedocumented in this encounter Additional Health Concerns Assessment Noted Time PHQ-9 Depression Total Score: 0 03/04/20 24 10:17 AM EDT documented as of this encounter Care Teams Plate Glass Installer Helper Relationship Specialty Start Date End Date Milagros Walls MD [address] [place] [address] PCP - General Family Medicine 02/10/21 documented as of this encounter
--- OUTSIDE RECORDS SUMMARY | 2024-10-21 11:32 | XMS_ITS | Encounter Summary ---
Author Organization [employer] Address [address] [place] [address] Care Team Providers Care Refrigeration Repair Supervisor Name Role Phone Milagros Walls MD Primary Care Provider [phone] Reason for Visit * Reason Onset Date Comments Referral 08/14/2023 Encounter Details Date Type Department Care Team ([facility] st Contact Info) Description 08/14/2023 Telephone [facility] MEDICINE [address] [place] [address] Milagros Walls MD [address] [place], [place] [phone] Referral Social History Tobacco Use Types Packs/Day [...] the past 12 months, has t he [employer], [employer], oil or water [employer] threatened to shut off services in your [...] - 08/14/2023 2:03 PM EST Referral/Renewals Location: [address] [place] [address] Date: 10/29 Time: 9:30 AM Specialty: [facility] radiation oncology DX: cancer Location: [address] [place] [address] Date: n/a Time: n/a Specialty: [facility] surgical oncology DX: cancer Location: [address] [place] [address] Date: n/a Time: n/a Specialty: [facility] for cancer care DX: Cancer Location: [address] [facility] [place] Date: 10/21 Time: 2:30 PM Fax: n/a Specialty: [facility] DX: breast symptoms Location: [address] [facility] [place] Date: 09/05 Time: 9:15 AM Fax: n/a Specialty:[facility] DX: COPD Location: [address], [address] [facility] Date: n/a Time: n/a Specialty: [facility] DX: n/a Location: [address] [facility] Date: n/a Time: n/a Fax: n/a Specialty: [facility] DX: n/a documented in this encounter Plan of Treatment Upcoming Encounters Date Type Department Care Team (Late st Contact Info) Description 10/22/2024 9:30 AM EDT Office Visit [facility] ADULT DENTAL [address] [place] [address] Mike Bruce, DMD [address] [place] [address] documented as of this encounter Visit Diagnoses Not on filedocumented in this encounter Care Teams Refrigeration Repair Supervisor Relationship Specialty Start Date End Date Milagros Walls MD [address] [place] [address] PCP - General Family Medicine 02/10/21 documented as of this encounter
--- OUTSIDE RECORDS SUMMARY | 2024-10-21 11:32 | XMS_ITS | Encounter Summary ---
Author Organization [facility] Address [address] [place] [address] Care Team Providers Care First Aid Officer Name Role Phone Osbaldo Benavides MD Primary Care Provider Reason for Visit * Reason Comments Mouth Lesions Pt states cracked to ngue with some bleeding x 2 days Encounter Details Date Type Department Care Team ([facility] st Contact Info) Description 10/20/2024 4:16 PM EDT - 10/20/2024 7:14 PM EDT Emergency [facility] Emergency [address] [place] [address] Oral candidiasis (Primary Dx) Discharge Disposition: Home or Self Care Social History Tobacco Use Types Packs/Day Years Used Date Smoking Tobacco: Every Day Cigarettes Alcohol Use Standard Drinks/Week Comments Yes 0 (1 standard drink = 0.6 oz pur e alcohol) Comments No Sex and Gender Information Value Date Recorded Sex Assigned at Female 10/20/2024 5:21 PM EDT Legal Sex Female 10:51 AM EST Gender Identity Female 10/20/2024 5:21 PM EDT Sexual Orientation Straight 10/20/2024 5: 21 PM EDT documented as of this encounter Last Filed Vital Signs Vital Sign Reading Time Taken Comments Blood Pressure 159/95 10/20/2024 3:45 PM EDT Pulse 92 10/20/2024 3:45 PM EDT Temperature 36.7 ??C (98.1 ??F) 10/20/2024 3:45 PM ED T Respiratory Rate 18 10/20/2024 3:45 PM EDT Oxygen Saturation 94% 10/20/2024 3:45 PM EDT Inhaled Oxygen Concentration - - Weight 78.9 kg (174 lb) 10/20/2024 3:45 PM EDT Height 154.9 cm (5' 1 ) 10/20/2024 3:45 PM EDT Body Mass Index 32.88 10/20/2024 3:45 PM EDT documented in this encounter Functional Status * Are you deaf or do you have serious difficulty hearing? Answer Date of Assessment Author No 10/20/2024 6:45 PM EDT Oreilly RN * Are you blind or do you have serious difficulty seeing, even when wearing glasses? Answer Date of Assessment Author No 10/20/2024 6:45 PM EDT Oreilly RN * Do you have serious difficulty walking or climbing stairs? Answer Date of Assessment Author No 10/20/2024 6:45 PM EDT Oreilly RN * Do you have serious difficulty dressing or bathing? Answer Date of Assessment Author No 10/20/2024 6:45 PM EDT Oreilly RN * Because of a physical, mental, or emotional condition, do you have serious difficulty doing errandsalone such as visiting the doctor? Answer Date of Assessment Author No 10/20/2024 6:45 PM EDT Oreilly RN documented as of this encounter Mental Status * Because of a physical, mental, or emotional condition, do you have serious difficulty concentrating, remembering, or making decisions? (5 years old or older) Answer Entry Date Author No 10/20/2024 6:45 PM EDT Oreilly RN documented in this encounter Discharge Instructions * Discharge Instructions* ISAMAR Ospina - 10/20/2024 6:53 PM EDT Low clinical concern that you have strep pharyngitis, however if this is positive we will give you a phone call and treat accordingly. Your clinical exam is most concerning for thrush or oral fungal infection. Please take the nystatin mouthwash swish and swallow 5 mL 4 times per day for the next 2 weeks. Given your underlying cancer history, you are at a high risk for this condition, your addition of the Wixela could have also increased risk for developing thrush. Please follow-up with your primary care provider. * Attachments The following attachments cannot be sent through Care Everywhere. * Candidiasis (Colombian) documented in this encounter Medications at Time of Discharge ammonium lactate (AmLactin) 12 % lotion Apply topically if needed for dry skin. 400 g 09/08/2024 6 butalbital-aceta minophen-caffein e-codeine (FIORICET WITH CODEINE) 54-474-05-30 mg per capsule Take 1 capsule by mouth every 4 (four) hours if needed. Max Daily Amount: 6 capsules ciclopirox (LOPROX) 0.77 % gel Apply topically 2 (two) times a day. 45 g 09/08/2024 5 nystatin (MYCOSTATIN) 100,000 unit/mL suspension Swish and swallow 5 mL 4 (four) times a day for 14 days. 280 mL 10/20/2024 5 documented as of this encounter Ordered Prescriptions Prescription Sig Dispense Quantity Refills Last Filled Start Date End Date nystatin (MYCOSTATIN) 100,000 unit/mL suspension Swish and swallow 5 mL 4 (four) times a day for 14 days. 280 mL 10/20/2024 5 documented in this encounter Discharge Disposition Disposition Code Departure Means Destination Comment s Home or Self Care documented in this encounter Progress Notes * Leeroy Williamson RN - 10/20/2024 3:47 PM EDT Pt arrives steady even gait stating she uses inhalers at home for chronic asthma. Pt states yesterday she noticed soreness in her mouth. Pt states she normally gets cottonmouth from her inhalers. States today she drank water she had a burning sensation on her tongue. Pt also states she noticed bleeding from her tongue. No obvious bleeding or redness visualized to tongue in triage. Patients tongue appears to be fissured. Pt drinking water in triage, speaking in full sentences. * ISAMAR Ospina - 10/20/2024 3:41 PM EDT Emergency Medicine Note Patient Name: Marjorie Henson Initial Evaluation: 10/20/2024 : 1965 Patient's PCP: OSBALDO BENAVIDES MD Emergency Physician: ISAMAR Ospina History of Present Illness Chief Complaint: Chief Complaint Patient presents with Mouth Lesions Pt states cracked tongue with some bleeding x 2 days HPI: This is a 59-year-old female with history of leukemia, chronic asthma presenting for cracked tongue, bleeding when brushing her teeth, burning sensation to her mouth and throat. She does have a cough but this is chronic and nonproductive. No fevers, rhinorrhea. She did recently start prednisone, Wixela and antifungal eardrops 2 days prior to her symptom onset which has been over the last 2 days. Endorses mikenejhon as well. No additional complaints or concerns. ROS: I have performed a ROS with the pertinent positives and negatives documented in the history ofpresent illness. Previous History Past Medical History: Diagnosis Date Asthma 05/10/2010 DX:Asthma GERD (gastroesophageal reflux disease) 05/10/2010 DX:GERD (gastroesophageal reflux disease) Kidney stone 05/10/2010 DX:Kidney stone Migraine 05/10/2010 DX:Migraine Past Surgical History: Procedure Laterality Date CHOLECYSTECTOMY PROCEDURE: HISTORICAL CHOLECYSTECTOMY TONSILLECTOMY PROCEDURE: HISTORICAL TONSILLECTOMY TUBAL LIGATION PROCEDURE: HISTORICAL TUBAL LIGATION Social History Tobacco Use Smoking status: Every Day Current packs/day: 1.00 Types: Cigarettes Substance Use Topics Alcohol use: Yes Drug use: No Family History Problem Relation Name Age of Onset Heart attack Father hypertension COPD Mother Breast cancer Maternal Grandmother Colon cancer Other paternal uncles has No Known Allergies. No current facility-administered medications on file prior to encounter. Current Outpatient Medications on File Prior to Encounter Medication Sig Dispense Refill ammonium lactate (AmLactin) 12 % lotion Apply topically if needed for dry skin. 400 g 0 wleeycfhkl-wuvilsmdmqwkn-zwqxumuh-codeine (FIORICET WITH CODEINE) 55-804-31-30 mg per capsule Take 1 capsule by mouth every 4 (four) hours if needed. Max Daily Amount: 6 capsules ciclopirox (LOPROX) 0.77 % gel Apply topically 2 (two) times a day. 45 g 0 Physical Exam ED Triage Vitals [10/20/24 1545] Temp Heart Rate Resp BP 36.7 ??C (98.1 ??F) 92 18 (!) 159/95 SpO2 Temp Source Heart Rate Source Patient Position 94 % Oral Other (Comment) Sitting BP Location FiO2 (%) Right arm;Upper -- Physical Exam Constitutional: General: She is awake. She is not in acute distress. Appearance: Normal appearance. She is not ill-appearing or toxic-appearing. HENT: Head: Normocephalic and atraumatic. Mouth/Throat: Lips: No lesions. Mouth: Mucous membranes are dry. Pharynx: Oropharyngeal exudate (Easily scraped off notable largely on the tongue, speckled areas atthe posterior oropharynx/roof of the mouth) present. Comments: Tongue fissures Eyes: Conjunctiva/sclera: Conjunctivae normal. Pulmonary: Effort: Pulmonary effort is normal. No respiratory distress or retractions. Musculoskeletal: General: Normal range of motion. Cervical back: Normal range of motion and neck supple. Skin: General: Skin is warm and dry. Neurological: Mental Status: She is alert, oriented to person, place, and time and easily aroused. Mental status is at baseline. Gait: Gait normal. Psychiatric: Mood and Affect: Mood normal. Behavior: Behavior normal. Thought Content: Thought content normal. Judgment: Judgment normal. Results Labs Reviewed RAPID STREP A SCREEN Abnormal Labs Reviewed - No abnormal labs to display No orders to display I have discussed the incidental/abnormal imaging and/or lab abnormalities with the patient and haveinstructed them the need for further evaluation and workup with their primary care doctor. I have provided the patient with a paper copy of the abnormality. The laboratory results, imaging results and other diagnostic exam results were reviewed in the EMR. EKG Interpretation Critical Care Time None ? Medical Decision Making DDX: thrush, leukoplakia, strep pharyngitis 59-year-old female with evidence of thrush, increased risk given her underlying leukemia as well asrecent initiation of Wixela which has shown that this could be an adverse drug reaction and up to 10% of cases review of up-to-date. Will await rapid strep screen to ensure that she does not need antibiotic treatment although I do have low clinical concern for this etiology. Should her rapid strep be negative, she will be appropriate for discharge with nystatin swish and swallow. Medications - No data to display Clinical Impressions as of 10/20/241900 Oral candidiasis Procedures Procedures Diagnosis 1. Oral candidiasis Disposition Discharge ED Prescriptions Medication Sig Dispense Start Date End Date Auth. Provider nystatin (MYCOSTATIN) 100,000 unit/mL suspension Swish and swallow 5 mL 4 (four) times a day for 14days. 280 mL 10/20/2024 11/03/2024 ISAMAR Ospina Physician Attestation ISAMAR Ospina 10/20/24 190 Cosigned by Bennett De La Rosa MD at 10/20/2024 7:07 PM EDT Associated attestation - Bennett De La Rosa MD - 10/20/2024 7:07 PM EDT I have reviewed and I agree with the Nurse practitioner's/Physician ict sales assistant's note and plan by ISAMAR Ospina dated 10/20/2024, except as noted: None Bennett De La Rosa MD 10/20/24 7:07 PM EDT documented in this encounter Plan of Treatment Upcoming Encounters Date Type Department Care Team (Late st Contact Info) Description 12/07/2024 8:15 AM EDT Office Visit Orthopedic Surgery - [facility] [place] [address] [phone] Marino Estrella, DPM [address] [address] Pending Results Name Type Priority Associated Diagnoses Date /Time Culture throat Microbiology STAT 10/21/19 6:44 PM EDT documented as of this encounter Procedures Procedure Name Priority Date/Time Associated Diagnosis Comments RAPID STREP A SCREEN STAT 10/20/2024 6:44 PM EDT CULTURE THROAT STAT 10/20/2024 6:44 PM EDT documented in this encounter Results * Rapid strep A screen (10/20/2024 6:44 PM EDT) [facility] Strep A Ag Negative Negative, Invalid 10/20/2024 7:02 PM EDT [facility] Comment:Refer to Throat Cult ure. Swab Structure of anterior portion of neck / Unknown Non-blood Collection / Unknown 10/20/2024 6:44 PM EDT 10/20/2024 6:48 PM EDT us [facility] MICROBIOLOGY - GENERAL ORDER ALVIN Final Result [facility] [address] [place] [address], documented in this encounter Visit Diagnoses Diagnosis Oral candidiasis- Primary Candidiasis of mouth documented in this encounter Care Teams First Aid Officer Relationship Specialty Start Date End Date Osbaldo Benavides MD [address] [place] [id number] PCP - General 04/01/24 documented as of this encounter
--- OUTSIDE RECORDS SUMMARY | 2024-10-21 11:32 | XMS_ITS | Encounter Summary ---
Author Organization [employer] Address [address] [facility] 7t [place] [address] Care Team Providers Care Corporate Security Manager Name Role Phone Milagros Walls MD Primary Care Provider Reason for Visit * Reason Onset Date Comments PT-1 06/10/2024 Encounter Details Date Type Department Care Team ([facility] st Contact Info) Description 06/10/2024 Telephone [facility] MED[facility] [address] [place], [place] [phone] Milagros Walls MD [address] [place], [place] [phone] PT-1 Social History Tobacco Use Types Packs/Day [...] Y/N: Yes Provider name or facility name: [facility] Address: [address] [place] [address] Escort needed: Y/N: No Do you have a wheelchair: Y/N: No If yes- Manual or electric: N/A Visits: Twice a month. documented in this encounter Plan of Treatment Upcoming Encounters Date Type Department Care Team (Late st Contact Info) Description 10/22/2024 9:30 AM EDT Office Visit [facility] ADULT DENTAL [address] [place] [address] Mike Bruce, DMD [address] [place] [address] documented as of this encounter Visit Diagnoses Not on filedocumented in this encounter Additional Health Concerns Assessment Noted Time PHQ-9 Depression Total Score: 0 03/04/20 10:17 AM EDT documented as of this encounter Care Teams Corporate Security Manager Relationship Specialty Start Date End Date Milagros Walls MD [address] [place] [address] PCP - General Family Medicine 02/10/21 documented as of this encounter
--- OUTSIDE RECORDS SUMMARY | 2024-10-21 11:32 | XMS_ITS | Clinical Summary ---
Author Organization [facility] [employer] [facility] Address [address] [place] [address] Care Team Providers Care Electrical Wiring Lineman Name Role Phone Milagros Walls MD Primary Care Provider [phone] Allergies No known active allergies Medications butalbital-acet aminophen-caffe ine-codeine (FIORICET WITH CODEINE) 69-632-85-30 mg per capsule Take 1 capsule by mouth every 4 (four) hours if needed. Max Daily Amount: 6 capsules Active ciclopirox (LOPROX) 0.77 % gel Apply topically 2 (two) times a day. 45 g 5 12/08/19 25 Active ammonium lactate (AmLactin) 12 % lotion Apply topically if needed for dry skin. 400 g 5 09/08/19 26 Active nystatin (MYCOSTATIN) 100,000 unit/mL suspension Swish and swallow 5 mL 4 (four) times a day for 14 days. 280 mL 5 11/04/19 25 Active Active Problems Problem Noted Date Diagnosed Date Asthma 05/10/2010 GERD (gastroesophageal reflux disease) 0 Kidney stone 05/10/2010 Overview (05/14/2024): 2004 Migraine 05/10/2010 Encounters Date Type Department Care Team Description 10/20/2024 4:16 PM EDT - 10/20/2024 7:14 PM EDT Emergency [facility] Emergency [address] [place] [address] Oral candidiasis (Primary Dx) Discharge Disposition: Home or Self Care 09/08/2024 8:15 AM EST Office Visit Orthopedic Surgery - [address] [address] Marino Estrella, DPM Dermatophytosis of nail [...] Orientation Straight 10/20/2024 5: 21 PM EDT Obstetrics History Last Filed Vital Signs Vital [...] Mass Index 32.88 10/20/2024 3:45 PM EDT Plan of Treatment Upcoming Encounters Date Type Department Care Team (Late st Contact Info) Description 12/07/2024 8:15 AM EDT Office Visit Orthopedic Surgery - [place] [address] [phone] Marino Estrella, DPM [address] [address] Health Maintenance Due Date Last Done Comments Breast Cancer Screening 1965 Cervical Cancer Screening: Pap Smear 1985 Colorectal Cancer Screening: Colonoscopy 10/18/2023 HIV Screening 10/18/2023 Hepatitis C Screening 10/18/2023 Medicare Annual Wellness Visit 10/18/2023 Social Influencers of Health Screening 10/18/2023 RSV Immunization Patients 60+ Years Old (1 - Risk 60-74 years 1-dose series) 2024 Depression Screening 03/04/2025 03/04/2024 Hypertension/CHF/CAD Annual BMP Blood Test 10/13/2025 10/13/2024, 03/23/2024, 03/23/2024, Additional history exists Cholesterol Screening (Lipid Panel) 10/13/2029 10/13/2024, 02/10/2021 DTaP,Tdap,and Td Vaccines (2 - Td or Tdap) 10/20/2033 10/21/2023 Pneumococcal Vaccine: 50+ Years Completed 10/21/2023 Pneumococcal Vaccine: Pediatrics (0 to 5 Years) and At-Risk Patients (6 to 64 Years) Completed 10/21/2023 Zoster Vaccines Completed 12/26/2023, 10/14/2023 Influenza Vaccine Completed 06/09/2024, , 04/29/2020 COVID-19 Vaccine Completed 10/13/2024, , 07/19/2023, Additional history exists HIB Vaccines Aged Out No longer eligi [...] 20 months Aged Out No longer eligible based on patient's age to complete this topic Varicella Vaccines Aged Out No longer eligible based on patient's age to complete this topic Procedures Procedure Name Priority Date/Time Associated Diagnosis Comments CULTURE THROAT STAT 10/20/2024 6:44 PM EDT RAPID STREP A SCREEN STAT 10/20/2024 6:44 PM EDT ANNUAL BMP BLOOD TEST Routine 03/16/2004 from Last 3 Months or Most Recently Relevant to Health Maintenance Results * Rapid strep A screen (10/20/2024 6:44 PM EDT) Strep A Ag Negative Negative, Invalid 10/20/2024 7:02 PM EDT [facility] Comment:Refer to Throat Cult ure. Swab Structure of anterior portion of neck / Unknown Non-blood Collection / Unknown 10/20/2024 6:44 PM EDT 10/20/2024 6:48 PM EDT [facility] MICROBIOLOGY - GENERAL ORDER ALVIN Final Result [facility] [address] [place] [address], [place] [phone] * Annual BMP Blood Test (03/16/2004) Pathologist [facility] Annual BMP Blood Test Abstracted us Historical Provider HEALTH MAINTENANCE Final Result from Last 3 Months or Most Recently Relevant to Health Maintenance Insurance [place]ICA[place] [employer] [employer] Care Teams Electrical Wiring Lineman Relationship Specialty Start Date End Date Milagros Walls MD [address] [place] [address] PCP - General 04/01/24
--- OUTSIDE RECORDS SUMMARY | 2024-10-21 11:32 | XMS_ITS | Encounter Summary ---
Author Organization [employer] Address [address] [facility] 7t [place] [address] Care Team Providers Care Senior It Assistant Name Role Phone Milagros Walls MD Primary Care Provider [phone] Reason for Visit * Reason Onset Date Comments rs comp exam 07/24/2024 Encounter Details Date Type Department Care Team ([facility] st Contact Info) Description 07/24/2024 Telephone [facility] ADULT DENTAL [address] [place], [place] [phone] Mike Bruce, DMD [address] [place] [address] rs comp exam Social History Tobacco Use [...] Office Visit [facility]ULT D[facility]AL [address] [place] [address] Mike Bruce, REN [address] [place] [address] documented as of this encounter Visit Diagnoses Not on filedocumented in this encounter Additional Health Concerns Assessment Noted Time PHQ-9 Depression Total Score: 0 03/04/20 24 10:17 AM EDT documented as of this encounter Care Teams Senior It Assistant Relationship Specialty Start Date End Date Milagros Walls MD [address] [place] [address] PCP - General Family Medicine 02/10/21 documented as of this encounter
--- OUTSIDE RECORDS SUMMARY | 2024-10-21 11:32 | XMS_ITS | Encounter Summary ---
Author Organization [employer] Address [address] [facility] [address] [place] [address] Care Team Providers Care Electric Meter Installer Helper Name Role Phone Milagros Walls MD Primary Care Provider Reason for Visit * Reason Comments Med Refill Encounter Details Date Type Department Care Team ([facility] st Contact Info) Description 09/09/2023 Refill [facility] MEDICINE [address] [place], [place] [phone] Milagros Walls MD [address] [place], [place] [phone] Fibromyalgia Social History Tobacco Use Types Packs/Day [...] Description 10/22/2024 9:30 AM EDT Office Visit [facility] ADULT DENTAL [address] [place] [address] Mike Bruce, DMD [address] [place] [address] documented as of this encounter Visit Diagnoses Diagnosis Fibromyalgia Unspecified myalgia and myositis documented in this encounter Care Teams Electric Meter Installer Helper Relationship Specialty Start Date End Date Milagros Walls MD [address] [place] [address] PCP - General Family Medicine 02/10/21 documented as of this encounter
--- OUTSIDE RECORDS SUMMARY | 2024-10-21 11:32 | XMS_ITS | Encounter Summary ---
Author Organization [employer] Address [address] [facility] 7t [place] [address] Care Team Providers Care Soapstoner Name Role Phone Milagros Walls MD Primary Care Provider [phone] Reason for Visit * Reason Onset Date Comments PT-1 07/24/2024 Encounter Details Date Type Department Care Team ([facility] st Contact Info) Description 07/24/2024 Telephone [facility] MEDICINE [address] [place], [place] [phone] Milagros Walls MD 230 [place], [place] [phone] PT-1 Social History Tobacco Use Types Packs/Day [...] or facility name: [facility] Facility Address: [address] [place] [address] Escort needed: Y/N: No Do you have a wheelchair: Y/N: No If yes- Manual or electric: N/A Visits: Once a month documented in this encounter Plan of Treatment Upcoming Encounters Date Type Department Care Team (Late st Contact Info) Description 10/22/2024 9:30 AM EDT Office Visit [facility] ADULT DENTAL [address] [place] [address] Mike Bruce, REN 230 [place] [address] documented as of this encounter Visit Diagnoses Not on filedocumented in this encounter Additional Health Concerns Assessment Noted Time PHQ-9 Depression Total Score: 0 03/04/20 24 10:17 AM EDT documented as of this encounter Care Teams Soapstoner Relationship Specialty Start Date End Date Milagros Walls MD 230 [place] [address] PCP - General Family Medicine 02/10/21 documented as of this encounter
--- OUTSIDE RECORDS SUMMARY | 2024-10-21 11:32 | XMS_ITS | Encounter Summary ---
Author Organization [employer] Address [address] [place] [address] 7t [place] [address] Care Team Providers Care Development And Planning Engineer Name Role Phone Milagros Walls MD Primary Care Provider [phone] Encounter Details Date Type Department Care Team (Late Contact Info) Description 01/09/2023 Abstract [facility] MEDICINE 230 [place] [address] Nereida Duncan RN 230 [place] [address] Social History Tobacco Use Types Packs/Day Years [...] Office Visit [facility] ADULT DENTAL [address] [place], [place] [phone] Mike Bruce DMD 230 [place] [address] documented as of this encounter Procedures Procedure Name Priority Date/Time Associated Diagnosis Comments MAMMOGRAPHY Routine 10/25/2022 documented in this encounter Results * Mammography (10/25/2022) Mammogram BI-RADS 3: Probably Benign Anatomical Region Laterality Modality Other us Historical Provider HEALTH MAINTENANCE Final Result documented in this encounter Visit Diagnoses Not on filedocumented in this encounter Care Teams Development And Planning Engineer Relationship Specialty Start Date End Date Milagros Walls MD [address] [place] [address] PCP - General Family Medicine 02/10/21 documented as of this encounter
--- OUTSIDE RECORDS SUMMARY | 2024-10-21 11:32 | XMS_ITS | Encounter Summary ---
Author Organization [employer] Address [address] [place] [address] 7[address] [place] [address] Care Team Providers Care Lab Specialist Name Role Phone Milagros Walls MD Primary Care Provider [phone] Reason for Visit * Reason Comments Med Refill Encounter Details Date Type Department Care Team (Late Contact Info) Description 02/11/2023 Refill [facility] MEDICINE [address] [place], [place] [phone] Sade Townsend MD 230 [place], [place] [phone] Social History Tobacco Use Types Packs/Day Years [...] Description 10/22/2024 9:30 AM EDT Office Visit [facility] ADULT DENTAL [address] [place], [place] [phone] Mike Bruce DMD [address] [place], [place] [phone] documented as of this encounter Visit Diagnoses Not on filedocumented in this encounter Care Teams Lab Specialist Relationship Specialty Start Date End Date Milagros Walls MD [address] [place] [address] PCP - General Family Medicine 02/10/21 documented as of this encounter
--- OUTSIDE RECORDS SUMMARY | 2024-10-21 11:32 | XMS_ITS | Encounter Summary ---
Author Organization [employer] Address [address] [place] [address] 7t [place] [address] Care Team Providers Care Ware Cleaner Name Role Phone Milagros Walls MD Primary Care Provider [phone] Encounter Details Date Type Department Care Team (Late Contact Info) Description 08/29/2022 Orders Only [facility] MEDICINE [address] [place], [place] [phone] Milagros Walls MD 230 [place], [place] [phone] Kidney stone (Primary Dx) Social History Tobacco [...] Description 10/22/2024 9:30 AM EDT Office Visit [facility] ADULT DENTAL 230 [place] [address] Mike Bruce DMD 230 [place], [place] [phone] documented as of this encounter Procedures Procedure Name Priority Date/Time Associated Diagnosis Comments BI MAMMOGRAM SCREENING TOMOSYNTHESIS BILATERAL Routine 09/14/2022 9:51 AM EST documented in this encounter Results * BI Mammogram Screening Tomosynthesis Bilateral (09/14/2022 9:51 AM EST) Anatomical Region Laterality Modality Breast Bilateral Mammography 09/14/2022 9:51 AM EST Narrative 09/18/2022 5:22 PM EST ? [facility] [place] ? [address] ?[place], [place] [address] ? Mammography Report ? Signed ? Patient: Marjorie Henson Hussein ?MR#: [id number] ?? 54 ? : 1965 ?Acct:[id number] ? Age/Sex: 56 / F ?ADM Date: 09/14/22 ? Loc: HO.MAMMO ? Attending Dr: Milagros Walls MD ? Ordering Physician: Milagros Walls ?Results: 0Incomple ?? te: Needs Additional Imaging Evaluation ? Date of Service: 09/14/22 ?Follow Up: Additional Imagi ?? ng ? Procedure(s): MM tomosynthesis screening BI ?? Accession Number(s): [id number] ? cc: Kaity Wallsia ? EXAMINATION: ?? [...] ?09/18/22 1720 ? DD/ ? TD/TT: ? Radiator Core Tester: SK ? Procedure Note Rakesh Mar - 09/18/2022 [facility] [address] [place], [place] [address] Mammography Report Signed Patient: Marjorie Henson LMR#: [id number] 54 : 1965Acct:[id number] Age/Sex: 56 / FADM Date: 09/14/22 Loc: [facility] Attending Dr: Milagros Walls MD Ordering Physician: Cory Wallsults: 0Incomple te: Needs Additional Imaging Evaluation Date of Service: 09/14/22Follow Up: Additional Imagi ng Procedure(s): MM tomosynthesis screening BI Accession Number(s): [id number] cc: Milagros Walls EXAMINATION: MM SCREENING DIGITAL [...] in OV> 09/18/22 1720 DD/ 0951 TD/TT: Radiator Core Tester: NATALIIA [facility] External Provider IMG BI PROCEDURES Edited Result - Final documented in this encounter Visit Diagnoses Diagnosis Kidney stone- Primary Calculus of kidney documented in this encounter Care Teams Ware Cleaner Relationship Specialty Start Date End Date Milagros Walls MD [address] [place] [address] PCP - General Family Medicine 02/10/21 documented as of this encounter
--- OUTSIDE RECORDS SUMMARY | 2024-10-21 11:32 | XMS_ITS | Encounter Summary ---
Author Organization [employer] Address [address] 7[address] [place] [address] Care Team Providers Care Machine Feeder Raw Stock Name Role Phone Milagros Walls MD Primary Care Provider [phone] Reason for Visit * Reason Onset Date Comments PT1 06/03/2023 Encounter Details Date Type Department Care Team ([facility] st Contact Info) Description 06/03/2023 Telephone [facility] MEDICINE 230 [place] [address] Milagros Walls MD 230 [place], [place] [phone] PT1 Social History Tobacco Use Types Packs/Day [...] the past 12 months, has t he [employer], gas, oil or water company threatened to [...] 3:14 PM EDT PT1 Name of facility: [facility] Specialty: Mammograms Location: [address] [place] [address] Date: n/a Time: n/a fax: [phone] wheelchair: NO It Telecom Technician: NO All Future appt's PT1 Name of facility: [facility] Specialty: C.O.P Appt Location: [address] [place] [address] Date: 09/23/2022 Time: 9:30 am fax: n/a wheelchair: NO It Telecom Technician: NO All Future Appt's Pt is requesting a call in regards to other PT1 statuses. Please contact pt at [phone] documented in this encounter Plan of Treatment Upcoming Encounters Date Type Department Care Team (Late st Contact Info) Description 10/22/2024 9:30 AM EDT Office Visit [facility] ADULT DENTAL [address] [place], [place] [phone] Mike Bruce, REN 230 [place] [address] documented as of this encounter Visit Diagnoses Not on filedocumented in this encounter Care Teams Machine Feeder Raw Stock Relationship Specialty Start Date End Date Milagros Walls MD [address] [place] [address] PCP - General Family Medicine 02/10/21 documented as of this encounter
== END 2024-10-21 10:06 | disposition home or self-care (01) ==
LOC: HO.CT 10:05
PROVIDERS: PCP General Practice; Visit Provider Physician Assistant Medical
DX: Z12.2 Encounter for screening for malignant neoplasm of respiratory organs (principal); Z87.891 Personal history of nicotine dependence
CPT/HCPCS: 71271

== ENCOUNTER → 2024-10-21 10:07 | Outpatient (BNV) | payer MEDICARE, SELFPAY | PROVIDERS: PCP General Practice; Visit Provider Radiology Diagnostic Radiology | DX: Z87.891 Personal history of nicotine dependence (principal) | CPT/HCPCS: 71271 ==

== ENCOUNTER 2024-10-29 10:30 | Outpatient (AMB) | payer MEDICARE, MEDICAID, SELFPAY ==
[2024-10-29 10:50] VITALS: BP 130/78; PULSE 90; O2SAT 97; BMI 32.5
--- NOTE | 2024-10-29 10:50 | A.OFFVIS_ITS ---
Vital Signs 10/29/24 10:50 Height 5 ft 1 in Weight 172 lb BMI 32.5 BP 130/78 Blood Pressure Location Lt brachial Position Sitting Pulse 90 Pulse Source Pulse Oximeter Pulse Oximetry (%) 97 Oxygen Delivery Method Room Air Intake Visit Reasons: COPD Allergies No Known Allergies Allergy (Verified 10/29/24 11:24) Medication List - Last Reconciled 10/29/24 by Feliciano Mayorga MD albuterol sulfate 2.5 mg (3 mL) inhalation Q4H PRN 30 days amitriptyline 100 mg PO BEDTIME atorvastatin 10 mg PO BEDTIME baclofen 20 mg PO QID bupropion HCl SR 200 mg PO BID docusate sodium 100 mg PO BID PRN duloxetine 60 mg PO DAILY fluticasone propion-salmeterol 500-50 mcg/dose 1 ea PO BID montelukast 10 mg PO QPM olmesartan 5 mg PO DAILY omeprazole 20 mg PO DAILY ondansetron HCl 4 mg PO Q8H PRN peg 3350-electrolytes 236-22.74-6.74 -5.86 gram 240 mL PO Q10M pregabalin 25 mg PO BEDTIME tamsulosin 0.4 mg PO BEDTIME tramadol 50 mg PO BID PRN umeclidinium 62.5 mcg/actuation (Incruse Ellipta) 1 inh inhalation DAILY Ventolin HFA 90 mcg/actuation (albuterol sulfate) 2 puffs PO Q6H PRN NS zanubrutinib (Brukinsa) 160 mg PO .in am and 1 in pm [facility] Medical History Arthritis Constipation History of headache Habitual snoring Wheezing Asthma History of chemotherapy Chronic renal insufficiency Lymphoma Renal calculi Elevated cholesterol HTN (hypertension) Fallopian tube cancer, carcinoma Cough Post-COVID chronic cough Fibromyalgia Obesity (BMI 30.0-34.9) Personal history of nicotine dependence COPD (chronic obstructive pulmonary disease) Surgical History History of tonsillectomy and adenoidectomy Hx of tubal ligation History of esophagogastroduodenoscopy (EGD) Hx of cystoscopy H/O colonoscopy History of total hysterectomy History of cholecystectomy Social History Household Members Other:: Many family members Are you a primary care management specialist to a significant other at home: No Do you presently have visiting nurse or other home services: No Patient Tobacco Use Status: Current everyday Tobacco user Tobacco use type: Cigarette Cigarette Packs Per Day: 0.5 Cigarettes Per Day: 10.0 Years Smoked: 31 Review of Systems Const All systems reviewed & are unremarkable except as noted in HPI and below Eyes Reports no additional complaints ENT Reports nasal congestion (Mild intermittent) Card Denies chest pain, Denies irregular heart rhythm and Denies leg edema Resp Reports as per HPI GI Reports no additional complaints Reports no additional complaints Musc Reports myalgias Skin/Breast Reports system reviewed and no additional complaints, except as documented Neuro Reports no additional complaints Psych Reports anxiety Physical Exam Vital Signs: Last Vital Signs Pulse 90 10/29/24 10:50 BP 130/78 10/29/24 10:50 Pulse Ox 97 10/29/24 10:50 Oxygen Delivery Method Room Air 10/29/24 10:50 BMI result Body Mass Index 32.5 Const General: comfortable, no acute distress, alert and awake Orientation/consciousness: patient oriented x3 HEENT Head: Yes normal to inspection General nose exam: No nasal polyps present, mucous membranes and turbinates abnormal (She does have moderate hypertrophy of the nasal turbinates.) and No nasal discharge present Face and sinus: Yes sinuses nontender Mouth: oropharynx normal and Abnormal oral and palatal mucosa present (NO ACTIVE THRUSH NOTED, BUT SHE DOES HAVE MILD REDNESS OF ANTERIOR TONGUE) Throat: Yes posterior oropharynx normal Eyes General: appearance normal, both eyes and all related structures Neck Neck: Yes normal visual inspection, Yes no lymphadenopathy, Yes trachea midline and Yes no JVD Thyroid: Thyroid normal Chest Chest palpation & inspection: normal inspection of the chest, normal palpation of entire chest wall and no tenderness Resp Other: Percussion note resonant, breath sounds are distant as usual with prolonged expiratory phase. No wheezes rhonchi or crepitations are heard. Cardio Palpation: normal PMI Rate: regular rate Rhythm: regular rhythm Heart sounds: no gallops and no murmurs GI Palpation (GI): Soft to palpation, nontender, No hepatosplenomegaly present and no masses Auscultation: normal bowel sounds Back/Spine/Pelvis Thoracic/Lumbar Spine: thoracic and lumbar spine normal to inspection Skin General skin exam: no rashes or lesions noted Neuro General: patient oriented x3 and no focal motor deficits Cranial nerves: Yes CN's II-XII intact bilaterally Extrem General: Yes normal to inspection, Yes no clubbing, cyanosis or edema and Yes no calf tenderness Psych Appearance: grossly normal and well kempt Speech and movement: Normal speech and movement present Assessment & Plan Assessment & Plan (1) COPD (chronic obstructive pulmonary disease): Comment: MODERATELY SEVERE OBSTRUCTIVE AIRWAY DISORDER. 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 REMAINS FAIRLY STABLE , EXCEPT THAT SHE HAS INCREASED COUGH OFF AND ON . CURRENTLY SHE IS USING ADVAIR 500-50 1 INHALATION B.I.D.. AND ALSO INCRUSE ELLIPTA 1 INHALATION DAILY Code(s): J44.9 - Chronic obstructive pulmonary disease, unspecified Category: Medical Plan: CONTINUE ADVAIR DISKUS 500-51 INHALATION B.I.D.. DO RINSE THE MOUTH THOROUGHLY AFTER USING ADVAIR CONTINUE INCRUSE ELLIPTA. 1 INHALATION DAILY ALBUTEROL SOLUTION IN THE NEBULIZER Q 4-6 HOURS P.R.N. ALSO MONTELUKAST 10 MG DAILY (2) Personal history of nicotine dependence: Comment: (onset 18, x 40yrs, max 1.5ppd, 50pyh - quit 03/25/24, uses vape) but again went back to smoking currently smoking about 10 cigarettes a day. Code(s): Z87.891 - Personal history of nicotine dependence Category: Medical Plan: I counseled her to stop smoking completely. Continue to get annual lung screening with LD CT (3) Cough: Comment: SHE HAS MILD. TO MODERATE INTERMITTENT COUGH SECONDARY TO SMOKING HOPEFULLY WITH COMPLETE QUITTING, THE COUGH WOULD DECREASE. Code(s): R05.9 - Cough, unspecified Category: Medical Plan: Again advised to cut down smoking.. May use OTC cough medicine p.r.n. Coding Level of Care Code Est Pt Level 3 (43692) Diagnoses COPD (chronic obstructive pulmonary disease) J44.9 Personal history of nicotine dependence Z87.891 Cough R05.9
--- OUTSIDE RECORDS SUMMARY | 2024-10-29 12:06 | XMS_ITS | Encounter Summary ---
Author Organization [employer] Address [address] [facility] 7t [place] [address] Care Team Providers Care Cook Larder Name Role Phone Milagros Walls MD Primary Care Provider [phone] Reason for Visit * Reason Onset Date Comments PT1 10/02/2024 Encounter Details Date Type Department Care Team ([facility] st Contact Info) Description 10/02/2024 Telephone [facility] MEDICINE 230 [place] [address] Milagros Walls MD 230 [place], [place] [phone] PT1 Social History Tobacco Use Types Packs/Day [...] Address verified: Y/N: Yes Location: [facility] Address: [facility] Escort needed: Y/N: No Do you have a wheelchair: Y/N: No Pt is requesting for 5 days/all future appts. documented in this encounter Plan of Treatment Upcoming Encounters Date Type Department Care Team (Late st Contact Info) Description 11/05/2024 8:00 AM EDT Office Visit [facility] ADULT DENTAL 230 [place] [address] Mike Bruce, REN 230 [place] [address] documented as of this encounter Visit Diagnoses Not on filedocumented in this encounter Additional Health Concerns Assessment Noted Time PHQ-9 Depression Total Score: 0 03/04/20 24 10:17 AM EDT documented as of this encounter Care Teams Cook Larder Relationship Specialty Start Date End Date Milagros Walls MD 230 [place] [address] PCP - General Family Medicine 02/10/21 documented as of this encounter
--- OUTSIDE RECORDS SUMMARY | 2024-10-29 12:06 | XMS_ITS | Encounter Summary ---
Author Organization [employer] Address [address] [facility] 7t [place] [address] Care Team Providers Care Traffic Manager Name Role Phone Milagros Walls MD Primary Care Provider [phone] Reason for Visit * Reason Comments Med Refill Encounter Details Date Type Department Care Team ([facility] st Contact Info) Description 10/06/2024 Refill [facility] MEDICINE 230 [place], [place] [phone] Milagros Walls MD 230 [place], [place] [phone] Social History Tobacco Use Types Packs/Day Years [...] Description 11/05/2024 8:00 AM EDT Office Visit [facility] ADULT DENTAL [address] [place] [address] Mike Bruce DMD 230 [place] [address] documented as of this encounter Visit Diagnoses Not on filedocumented in this encounter Additional Health Concerns Assessment Noted Time PHQ-9 Depression Total Score: 0 03/04/20 24 10:17 AM EDT documented as of this encounter Care Teams Traffic Manager Relationship Specialty Start Date End Date Milagros Walls MD 230 [place] [address] PCP - General Family Medicine 02/10/21 documented as of this encounter
--- OUTSIDE RECORDS SUMMARY | 2024-10-29 12:06 | XMS_ITS | Encounter Summary ---
Author Organization [employer] Address [address] 7t [place] [address] Care Team Providers Care Metal Precision Machine Assembler Name Role Phone Milagros Walls MD Primary Care Provider [phone] Encounter Details Date Type Department Care Team (Late st Contact Info) Description 10/21/2024 Orders Only [facility] External Provider, [facility] Social History Tobacco Use Types Packs/Day Years [...] Description 11/05/2024 8:00 AM EDT Office Visit [facility] ADULT DENTAL [address] [place] [address] Mike Bruce, DMD [address] [place] [address] documented as of this encounter Procedures Procedure Name Priority Date/Time Associated Diagnosis Comments LDCT LUNG SCREENING Routine 10/21/2024 1 :26 PM EDT documented in this encounter Results * CT Lung Screening Low dose (10/21/2024 1:26 PM EDT) Anatomical Region Laterality Modality Lung Computed Tomogra phy 10/21/2024 1:26 PM EDT Narrative 10/21/2024 1:28 PM EDT ? [facility] ?[address] ?[place] [address] ? CT Scan Report ? Signed ? Patient: Raucci,Marjorie L ?MR#: [id number] ?? 54 ? : 1965 ?Acct:[id number] ? Age/Sex: 59 / F ?ADM Date: 03/12/25 ? Loc: HO.CT ? Attending Dr: Cinthia Ugarte PA-C ? Ordering Physician: Cinthia Ugarte PA-C ?? Date of Service: 10/21/24 ?? Procedure(s): CT lung screening ?? Accession Number(s): [id number] ? cc: Milagros Walls; Cinthia Ugarte PA-C ? Report Number: ?? [id number]: Total DLP = ?? 49.00 mGy-cm ? CLINICAL HISTORY: Z87.891 - Personal history of nicotine dependence ? CT lung cancer screening (LDCT) ? Comparison: CT/MN/SR - CT LUNG SCREENING - 10/21/23 12:42 EDT ? Technique: ?? Axial CT images of the chest using low-dose technique. Referring provider ?? counseled the patient on shared decision-making for LDCT screening. ?? Additional counseling was provided on smoking cessation. ?? Effective radiation dose total: DLP 36.7 mGycm, CTDIvol 1.2 mGy. ? Findings: ?? Previously described pleural-based nodule is unchanged. No new nodules are ?? noted. ? Coronary artery calcifications: None ?? Limited upper abdomen: Unremarkable ? Other: None ? Impression: ?? LungRADS 2 - Benign Appearance: Continue annual screening with low dose ?? Chest CT in 12 months. ? ##L2# ? Category 1: Normal; continue annual screening ?? Category 2: Benign appearance or behavior, continue annual screening ?? Category 3: Probably benign, [address] recommended ?? Category 4A: Suspicious, [address] recommended; may consider PET/CT ?? Category 4B: Suspicious, Additional diagnostics and/or tissue sampling ?? recommended ?? Category 4X: Suspicious, Additional diagnostics and/or tissue sampling ?? recommended ?? Category 0: Recalls (incomplete screen due to Incomplete coverage, Noise, ?? Respiratory motion, Expiration, Obscured by acute abnormality) ? This document has been electronically signed by: Siddhartha Thompson MD on ?? 10/21/2024 13:26:50 ? Dictated By: ?Siddhartha Thompson MD ? Signed By: ?<Electronically signed by Siddhartha Thompson MD in OV> ? 10/21/24 1328 ? DD/ 1326 ? TD/TT: 10/21/24 1326 ? Home Administrator: ? Procedure Note Zaid, Rakesh - 10/21/2024 [facility] [address] [address] [address] Scan Report Signed Patient: Marjorie Henson LMR#: [id number] 54 : 1965Acct:[id number] Age/Sex: 59 / FADM Date: 10/21/24 Loc: HO.CT Attending Dr: Cinthia Ugarte PA-C Ordering Physician: Cinthia Ugarte PA-C Date of Service: 10/21/24 Procedure(s): CT lung screening Accession Number(s): [id number] cc: Milagros Walls; Cinthia Ugarte PA-C Report Number: [id number]: Total DLP = 49.00 mGy-cm CLINICAL HISTORY: Z87.891 - Personal history of nicotine dependence CT lung cancer screening (LDCT) Comparison: CT/MN/SR - CT LUNG SCREENING - 10/21/23 12:42 EDT Technique: Axial CT images of the chest using low-dose technique. Referring provider counseled the patient on shared decision-making for LDCT screening. Additional counseling was provided on smoking cessation. Effective radiation dose total: DLP 36.7 mGycm, CTDIvol 1.2 mGy. Findings: Previously described pleural-based nodule is unchanged. No new nodules are noted. Coronary artery calcifications: None Limited upper abdomen: Unremarkable Other: None Impression: LungRADS 2 - Benign Appearance: Continue annual screening with low dose Chest CT in 12 months. ##L2# Category 1: Normal; continue annual screening Category 2: Benign appearance or behavior, continue annual screening Category 3: Probably benign, [address] recommended Category 4A: Suspicious, [address] recommended; may consider PET/CT Category 4B: Suspicious, Additional diagnostics and/or tissue sampling recommended Category 4X: Suspicious, Additional diagnostics and/or tissue sampling recommended Category 0: Recalls (incomplete screen due to Incomplete coverage, Noise, Respiratory motion, Expiration, Obscured by acute abnormality) This document has been electronically signed by: Siddhartha Thompson MD on 10/21/2024 13:26:50 Dictated By: Siddhartha Thompson MD Signed By: <Electronically signed by Siddhartha Thompson MD in OV> 10/21/24 1328 DD/ 1326 TD/TT: 10/21/24 1326 Home Administrator: [facility] External Provider IMG CT PROCEDURES Final Result documented in this encounter Visit Diagnoses Not on filedocumented in this encounter Additional Health Concerns Assessment Noted Time PHQ-9 Depression Total Score: 0 03/04/20 24 10:17 AM EDT documented as of this encounter Care Teams Metal Precision Machine Assembler Relationship Specialty Start Date End Date Milagros Walls MD [address] [place] [address] PCP - General Family Medicine 02/10/21 documented as of this encounter
--- OUTSIDE RECORDS SUMMARY | 2024-10-29 12:06 | XMS_ITS | Encounter Summary ---
Author Organization [employer] Address [address] [place] [address] Care Team Providers Care Microbiology Supervisor Name Role Phone Milagros Walls MD Primary Care Provider Encounter Details Date Type Department Care Team (Late st Contact Info) Description 10/10/2023 Orders Only [facility] MEDICINE [address] [place], [place] [phone] Milagros Walls MD [address] [place], [place] [phone] Social History Tobacco Use Types Packs/Day Years [...] Description 11/05/2024 8:00 AM EDT Office Visit [facility]ULT [facility] [address] [facility] [place] [address] Mike Bruce, DMD [address] [place] [address] documented as of this encounter Procedures Procedure Name Priority Date/Time Associated Diagnosis Comments LDCT LUNG SCREENING Routine 10/21/2023 1 :01 PM EDT documented in this encounter Results * CT Lung Screening Low dose (10/21/2023 1:01 PM EDT) Anatomical Region Laterality Modality Lung Computed Tomogra phy 10/21/2023 1:01 PM EDT Narrative 10/23/2023 9:09 AM EDT ? [facility] ?[address] ?[place] [address] ? CT Scan Report ? Signed ? Patient: Raucci,Marjorie L ?MR#: [id number] ?? 54 ? : 1965 ?Acct:[id number] ? Age/Sex: 58 / F ?ADM Date: 10/20/24 ? Loc: HO.CT ? Attending Dr: Cinthia Ugarte PA-C ? Ordering Physician: Cinthia Ugarte PA-C ?? Date of Service: 10/21/23 ?? Procedure(s): CT lung screening ?? Accession Number(s): [id number] ? cc: Milagros Walls; Cinthia Ugaret PA-C ? EXAMINATION: ?? CT CHEST SCREENING [...] 10/23/[address] ? DD/ 1301 ? TD/TT: ? Ceramics Technician: SS ? Procedure Note Zaid, Image - 10/23/[address] [address] [address] Scan Report Signed Patient: Marjorie Henson LMR#: [id number] 54 : 1965Acct:[id number] Age/Sex: 58 / FADM Date: 10/21/23 Loc: .CT Attending Dr: Cinthia Ugarte PA-C Ordering Physician: Cinthia Ugarte PA-C Date of Service: 10/21/23 Procedure(s): CT lung screening Accession Number(s): [id number] cc: Milagros Walls; Cinthia Ugarte PA-C EXAMINATION: [...] in OV> 10/23/23 0905 DD/ 1301 TD/TT: Ceramics Technician: [facility] External Provider IMG CT PROCEDURES Final Result documented in this encounter Visit Diagnoses Not on filedocumented in this encounter Care Teams Microbiology Supervisor Relationship Specialty Start Date End Date Milagros Walls MD [address] [place] [address] PCP - General Family Medicine 02/10/21 documented as of this encounter
--- OUTSIDE RECORDS SUMMARY | 2024-10-29 12:06 | XMS_ITS | Encounter Summary ---
Author Organization [employer] Address [address] [facility] 7t [place] [address] Care Team Providers Care Tax Record Clerk Name Role Phone Milagros Walls MD Primary Care Provider Reason for Visit * Reason Comments Dentures New upper and lower complete denture Encounter Details Date Type Department Care Team ([facility] Contact Info) Description 10/02/2024 8:00 AM EST Office Visit [facility] ADULT DENTAL [address] [place], [place] [phone] Mike Bruce, REN [address] [place], [place] [phone] Social History Tobacco Use Types Packs/Day Years [...] Description 11/05/2024 8:00 AM EDT Office Visit [facility] ADULT DENTAL [address] [place] [address] Mike Bruce DMD [address] [place] [address] documented as of this encounter Procedures Procedure Name Priority Date/Time Associated Diagnosis Comments DENTURE IMPRESSION Routine 10/02/2024 8:00 AM EST documented in this encounter Visit Diagnoses Not on filedocumented in this encounter Additional Health Concerns Assessment Noted Time PHQ-9 Depression Total Score: 0 03/04/20 24 10:17 AM EDT documented as of this encounter Care Teams Tax Record Clerk Relationship Specialty Start Date End Date Milagros Walls MD [address] [place] [address] PCP - General Family Medicine 02/10/21 documented as of this encounter
--- OUTSIDE RECORDS SUMMARY | 2024-10-29 12:06 | XMS_ITS | Encounter Summary ---
Author Organization [employer] Address [address] [place] [address] Care Team Providers Care Principal Software Engineer Name Role Phone Milagros Walls MD Primary Care Provider [phone] Reason for Visit * Reason Comments Med Refill Encounter Details Date Type Department Care Team ([facility] st Contact Info) Description 11/07/2023 Refill [facility] MEDICINE [address] [place], [place] [phone] Milagros Walls MD [address] [place], [place] [phone] Social History Tobacco Use Types Packs/Day Years [...] Description 11/05/2024 8:00 AM EDT Office Visit [facility] ADULT DENTAL [address] [place] [address] Mike Bruce DMD [address] [place] [address] documented as of this encounter Visit Diagnoses Not on filedocumented in this encounter Care Teams Principal Software Engineer Relationship Specialty Start Date End Date Milagros Walls MD [address] [place] [address] PCP - General Family Medicine 02/10/21 documented as of this encounter
--- OUTSIDE RECORDS SUMMARY | 2024-10-29 12:06 | XMS_ITS | Encounter Summary ---
Author Organization [facility] [employer] Address [address] [facility] 7t [place] [address] Care Team Providers Care Screen And Cyclone Repairer Name Role Phone Milagros Walls MD Primary Care Provider [phone] Reason for Visit * Reason Onset Date Comments Med Refill 03/24/2024 Encounter Details Date Type Department Care Team ([facility] st Contact Info) Description 03/24/2024 Telephone [facility] MEDICINE [address] [place] [address] Milagros Walls MD [address] [place], [place] [phone] Med Refill Social History Tobacco Use Types [...] 25 mg tablets To be sent to: [facility] documented in this encounter Plan of Treatment Upcoming Encounters Date Type Department Care Team (Late st Contact Info) Description 11/05/2024 8:00 AM EDT Office Visit [facility] ADULT DENTAL [address] [place] [address] Mike Bruce, DMD [address] [place] [address] documented as of this encounter Visit Diagnoses Not on filedocumented in this encounter Additional Health Concerns Assessment Noted Time PHQ-9 Depression Total Score: 0 03/04/20 10:17 AM EDT documented as of this encounter Care Teams Screen And Cyclone Repairer Relationship Specialty Start Date End Date Milagros Walls MD [address] [place] [address] PCP - General Family Medicine 02/10/21 documented as of this encounter
--- OUTSIDE RECORDS SUMMARY | 2024-10-29 12:06 | XMS_ITS | Encounter Summary ---
Author Organization [employer] Address [address] [facility] 7t [place] [address] Care Team Providers Care Vibrator Equipment Tester Name Role Phone Milagros Walls MD Primary Care Provider [phone] Reason for Visit * Reason Onset Date Comments Results 10/16/2024 Encounter Details Date Type Department Care Team ([facility] st Contact Info) Description 10/16/2024 Telephone [facility] MEDICINE [address] [place] [address] Milagros Walls MD [address] [place], [place] [phone] Results Social History Tobacco Use Types Packs/Day [...] 11:37 AM EST TC placed to patient [phone] to inform of below message regarding lab results. Patient verbalized understanding and is aware of prednisone RX being sent to the pharmacy. Patient educated on directions for RX. Patient is aware [place] will call [facility] GI to schedule colonoscopy and contact patient withappointment date and time. Patient to f/u PRN. ----- Message from Milagros Walls MD sent at 10/16/2024 8:21 AM EST ----- Shruti- please call [facility] gastroenterology to book [...] Description 11/05/2024 8:00 AM EDT Office Visit [facility] ADULT DENTAL [address] [place] [address] Mike Bruce, DMD [address] [place] [address] documented as of this encounter Visit Diagnoses Not on filedocumented in this encounter Additional Health Concerns Assessment Noted Time PHQ-9 Depression Total Score: 0 03/04/20 24 10:17 AM EDT documented as of this encounter Care Teams Vibrator Equipment Tester Relationship Specialty Start Date End Date Milagros Walls MD [address] [place] [address] PCP - General Family Medicine 02/10/21 documented as of this encounter
--- OUTSIDE RECORDS SUMMARY | 2024-10-29 12:06 | XMS_ITS | Encounter Summary ---
Author Organization [employer] Address [address] [place] [address] Care Team Providers Care Darkroom Technician Name Role Phone Milagros Walls MD Primary Care Provider [phone] Reason for Visit * Reason Onset Date Comments PT-1 10/31/2023 Encounter Details Date Type Department Care Team ([facility] st Contact Info) Description 10/31/2023 Telephone [facility] MEDICINE [address] [place], [place] [phone] Milagros Walls MD [address] [place], [place] [phone] PT-1 Social History Tobacco Use Types Packs/Day [...] Y/N: Yes Provider name or facility name: [facility] Facility Address: [address] [place] [address] Escort needed: Y/N: No Do you have a wheelchair: Y/N: No If yes- Manual or electric: no Visits: (amount of visits) ( x monthly, weekly, daily) documented in this encounter Plan of Treatment Upcoming Encounters Date Type Department Care Team (Late st Contact Info) Description 11/05/2024 8:00 AM EDT Office Visit [facility] ADULT DENTAL [address] [place] [address] Mike Bruce, DMD [address] [place] [address] documented as of this encounter Visit Diagnoses Not on filedocumented in this encounter Care Teams Darkroom Technician Relationship Specialty Start Date End Date Milagros Walls MD [address] [place] [address] PCP - General Family Medicine 02/10/21 documented as of this encounter
--- OUTSIDE RECORDS SUMMARY | 2024-10-29 12:06 | XMS_ITS | Encounter Summary ---
Author Organization [employer] Address [address] [facility] 7t [place] [address] Care Team Providers Care Cleaning And Washing Equipment Operator Name Role Phone Milagros Walls MD Primary Care Provider [phone] Reason for Referral * Consultation (Routine) - Closed Specialty Diagnoses / Procedures Referred By Diony santana Referred To Contact Podiatry Diagnoses Milagros Diaz MD [address] [place] [address] Phone: tel: fax: Marino Estrella DPM Phone: tel: fax: Referral ID Status Reason Start Date Expiration Date V isits Requested Visits Authorized [id number] Closed Specialty Services Required 03/25/2024 03/25/2025 1 1 Encounter Details Date Type Department Care Team (Late st Contact Info) Description 03/25/2024 Orders Only [facility] MEDICINE [address] [place] [address] Milagros Walls MD [address] [place], [place] [phone] Josefina (Primary Dx) Social History Tobacco Use [...] Description 11/05/2024 8:00 AM EDT Office Visit [facility] ADULT DENTAL [address] [place] [address] Mike Bruce, REN [address] [place] [address] Scheduled Referrals Name Type Priority Associated Diagnoses Orde r Schedule Referral to Podiatry Outpatient Referral Routine Bunion Expected: 03/25/2024 (Approximate), Expires: 03/25/2025 documented as of this encounter Visit Diagnoses Diagnosis Bunion- Primary documented in this encounter Additional Health Concerns Assessment Noted Time PHQ-9 Depression Total Score: 0 03/04/20 24 10:17 AM EDT documented as of this encounter Care Teams Cleaning And Washing Equipment Operator Relationship Specialty Start Date End Date Milagros Walls MD [address] [place] [address] PCP - General Family Medicine 02/10/21 documented as of this encounter
--- OUTSIDE RECORDS SUMMARY | 2024-10-29 12:06 | XMS_ITS | Encounter Summary ---
Author Organization [employer] Address [address] [facility] 7t [place] [address] Care Team Providers Care Airways Control Specialist Name Role Phone Milagros Walls MD Primary Care Provider [phone] Reason for Visit * Reason Comments Pre-visit Planning (Unable to reach for PVP screening, LVM) Encounter Details Date Type Department Care Team ([facility] st Contact Info) Description 10/01/2024 Patient Outreach [facility] [address] [place] [phone] Milagros Walls MD [address] [place], [place] [phone] Pre-visit Planning ((Unable to reach for PVP [...] Agnieszka Dunne - 10/01/2024 9:45 AM EST CC Agnieszka. Placed outbound call to patient to complete pre-visit planning. No answer at this time. Patient name and were not confirmed. CC left voicemail requesting return call. Direct contact information provided. documented in this encounter Plan of Treatment Upcoming Encounters Date Type Department Care Team (Late st Contact Info) Description 11/05/2024 8:00 AM EDT Office Visit [facility] ADULT DENTAL [address] [place] [address] Mike Bruce, REN [address] [place] [address] documented as of this encounter Visit Diagnoses Not on filedocumented in this encounter Additional Health Concerns Assessment Noted Time PHQ-9 Depression Total Score: 0 03/04/20 24 10:17 AM EDT documented as of this encounter Care Teams Airways Control Specialist Relationship Specialty Start Date End Date Milagros Walls MD [address] [place] [address] PCP - General Family Medicine 02/10/21 documented as of this encounter
--- OUTSIDE RECORDS SUMMARY | 2024-10-29 12:06 | XMS_ITS | Encounter Summary ---
Author Organization [employer] Address 75 [facility] 7t [place] [address] Care Team Providers Care Engineering Inspection Assistant Name Role Phone Osbaldo Walls MD Primary Care Provider [phone] Reason for Referral * Consultation (Routine) - Closed Specialty Diagnoses / Procedures Referred By Diony santana Referred To Contact Gastroenterology Diagnoses Screen for colon cancer Osbaldo Walls MD [address] [place] [address] Phone: tel: fax: [address] Phone: tel: fax: Referral ID Status Reason Start Date Expiration Date V isits Requested Visits Authorized [id number] Closed Specialty Services Required 10/23/2024 10/23/2025 1 1 Reason for Visit * Reason Comments Follow-up Encounter Details Date Type Department Care Team (Late st Contact Info) Description 10/13/2024 10:15 AM EST Office Visit [facility] [address] [place] [address] [phone] Osbaldo Walls MD [address] [place] [phone] Acute intractable headache, unspecified headache type (Primary Dx); Dietary counseling; Exercise counseling; Class 1 obesity with serious comorbidity and body mass index (BMI) of 33.0 to 33.9 in adult, unspecified obesity type; Encounter for immunization; Non-Hodgkin lymphoma of lymph nodes of multiple sites (CMS/HCC); Pulmonary emphysema, unspecified emphysema type (CMS/HCC); Stage 3a chronic kidney disease (CMS/HCC); Screen for colon cancer Social History Tobacco Use Types Packs/Day Years [...] documented in this encounter Progress Notes * Osbaldo Walls MD - 10/13/2024 10:15 AM EST [...] Sed Rate by Modified Westergren Collected: 10/13/24 1058 Final result Specimen: Blood, Venous Erythrocyte Sedimentation Rate 10 MM/HR 10/13/24 1343 Comprehensive Metabolic Panel Collected: 10/13/24 1058 Final result Specimen: Blood, Venous Sodium 141 [...] 10/13/24 1343 Lipid Panel, Standard Collected: 10/13/24 1058 Final result Specimen: Blood, Venous Triglycerides 180 [...] 0.000 X10*3/uL Interim Updates: Lymphoma: followed at [facility] by Dr Flowers She has been [...] On SSA, 5 year determination cycle Saw parts order and stock clerk, who diagnosed her with fibromyalgia as a [...] to the COPD. There is also a rwbf-kn-loylaivw diffusion impairment secondary to emphysema and other parenchymal lung conditions should be considered. Health maintenance: Pap- not due after hysterectomy in 2021 Mammo- 202, Birads 1 Colonoscopy- overdue, cannot book at [facility] Imms- RSV due Patient Active Problem List [...] cancer Asthma GERD (gastroesophageal reflux disease) Migraine terminal carman (current) use of opiate analgesic Past Surgical History: Procedure Laterality Date GALLBLADDER SURGERY Right over 10 years HYSTERECTOMY N/A No family history on file. Social History Social History Narrative Lives in [place] with extended family Used to work in [...] Addressed This Visit Chronic obstructive pulmonary disease (CMS/HCC) Non-Hodgkin lymphoma of lymph nodes of multiple sites (CMS/HCC) Stage 3a chronic kidney disease (CMS/HCC) Screen for colon cancer Relevant Orders Referral to Gastroenterology Other Visit Diagnoses Acute intractable headache, unspecified headache type - Primary Labs today, unclear etiology CRP 1.5, alk phos pending. Trial prednisone Relevant Orders Comprehensive Metabolic Panel (Completed) Sed Rate by Modified Westergren (Completed) C-reactive Protein (Completed) Creatine Kinase Isoenzymes (CK Isoenzymes) w/ Total CK (Completed) CBC auto differential (Completed) Magnesium (Completed) Dietary counseling Exercise counseling Class 1 obesity with serious comorbidity and body mass index (BMI) of 33.0 to 33.9 in adult, unspecified obesity type Encounter for immunization Relevant Orders COVID-19 VACCINE (LearnUp) [id number] 12 yrs + (Completed) Follow Up: 4 months or sooner prn No Known Allergies Current Outpatient Medications: Fluticasone-Salmeterol 500-50 MCG/ACT aerosol powder , Inhale 1 puff 2 times daily., Disp: , Rfl: prochlorperazine (Compazine) 5 MG tablet, , Disp: , Rfl: acetaminophen (Tylenol) 325 MG tablet, Take 650 mg by mouth., Disp: , Rfl: albuterol 108 (90 Base) MCG/ACT inhaler, INHALE [...] times daily., Disp: 180 tablet, Rfl: 3 vwwtsozhpv-mmxchzxeoxrzt-lbhpessm-codeine (Fioricet W/Codeine) 34-232-99-30 MG capsule, Take 1 capsule by mouth [...] MINUTES.REFER TO PREP INSTRUCTIONS, Disp: , Rfl: tamsulosin (Flomax) 0.4 MG 24 hr capsule, TAKE 1 CAPSULE(0.4 MG) BY MOUTH IN THE MORNING, Disp: 90 capsule, Rfl: 1 documented in this encounter Miscellaneous Notes * Addendum Note - Osbaldo Walls MD - 10/13/2024 10:15 AM ESTAddended by: OSBALDO WALLS on: 10/23/2024 01:58 PM Modules accepted: Orders documented in this encounter Plan of Treatment Upcoming Encounters Date Type Department Care Team (Late st Contact Info) Description 11/05/2024 8:00 AM EDT Office Visit [facility] [address] [place] [address] Mike Bruce DMD [address] [place] [address] Scheduled Referrals Name Type Priority Associated Diagnoses Order Schedule Referral to Gastroenterology Outpatient Referral Routine Screen for colon cancer Expected: 10/23/2024 (Approximate), Expires: 10/23/2025 documented as of this encounter Procedures Procedure [...] * Magnesium (10/13/2024 10:58 AM EST) Pathologist [facility] Magnesium 2.3 1.6 - 2.6 mg/dL [facility] Blood Venous blood specimen / Unknown 10/13/2024 10:58 AM EST 10/13/2024 1:12 PM EST us Osbaldo Walls MD LAB BLOOD ORDERABLES Final Res ult [facility] [address] [place] [address] [phone] * (ABNORMAL) CBC auto differential (10/13/2024 10:58 AM EST) Pathologist [facility] White Blood Count 9.4 4.8 - 10.8 X10*3/uL [facility] Red Blood Count 4.43 4.20 - 5.50 X10*6/uL [facility] Hemoglobin 13.2 12.0 - 16.0 g/dl [facility] Hematocrit 39.7 37.0 - 47.0 % [facility] Mean Corpuscular Volume 89.6 80.0 - 98.0 fL [facility] Mean Corpuscular Hemoglobin 29.8 27.0 - 33.0 pg [facility] Mean Corpuscular HGB Conc 33.2 31.0 - 35.0 g/dl [facility] Red Cell Distribution Width 14.5 11.0 - 16.0 % [facility] Platelet Count 278 160 - 400 X10*3/uL [facility] Mean Platelet Volume 10.3 9.4 - 12.3 fL [facility] Neutrophils Percent Auto 59.3 45 - 73 % [facility] Imm Gran Pct Auto 1.0(H) 0.0 - 0.4 % [facility] Lymphocytes Percent Auto 27.6 20 - 40 % [facility] Monocytes Percent Auto 8.7 2 - 11 % [facility] Eosinophils Percent Auto 2.0 0 - 4 % [facility] Basophils Percent Auto 1.4 0 - 2 % [facility] NRBC Pct Auto 0.0 0.0 - 0.2 /100WBC [facility] Neutrophils Absolute Auto 5.6 2.0 - 8.3 x10*3/uL [facility] Imm Gran Abs Auto 0.09(H) 0.00 - 0.03 X10*3/uL [facility] Lymphocytes Absolute Auto 2.6 1.2 - 4.9 X10*3/uL [facility] Monocytes Absolute Auto 0.8 0.1 - 1.2 X10*3/uL [facility] Eosinophils Absolute Auto 0.2 0.0 - 0.4 X10*3/uL [facility] Basophils Absolute Auto 0.1 0.0 - 0.2 X10*3/uL [facility] NRBC Abs Auto 0.000 0.0 - 0.012 X10*3/uL [facility] Blood Venous blood specimen / Unknown 10/13/2024 10:58 AM EST 10/13/2024 1:11 PM EST Result [facility] Osbaldo Walls MD LAB BLOOD ORDERABLES Final Res ult Performing Organization Address City/[facility]/ZIP Co de Phone Number [facility] [address] [place] [phone] * Creatine Kinase Isoenzymes (CK Isoenzymes) w/ Total CK (10/13/2024 10:58 AM EST) Creatine Kinase, Total 50 20 - 243 U/L [facility] CK-MM 100 95 - 100 % [facility] Ck-Mb 0 <5 % [facility] CK-BB None Detected None Detected % [facility] Creatine Kinase Isoenzyme Interpretation see note [facility] Comment:Normal isoenzyme pat tern with anormal total activity.THIS TEST WAS PERFORMED AT:[id number] [place] [address]KNOJDHCALISSON SAUCEDA MD,PHD Blood Venous blood specimen / Unknown 10/13/2024 10:58 AM EST 10/13/2024 1:14 PM EST Result [facility] Osbaldo Walls MD LAB BLOOD ORDERABLES Final Res ult Performing Organization Address City/[facility]/ZIP Co de Phone Number [facility] [address] [place] [phone] * (ABNORMAL) C-reactive Protein (10/13/2024 10:58 AM EST) C Reactive Protein 1.52(H) < or = 0.50 mg/dL [facility] Blood Venous blood specimen / Unknown 10/13/2024 10:58 AM EST 10/13/2024 1:12 PM EST Osbaldo Walls MD LAB BLOOD ORDERABLES Final Res ult Performing Organization Address City/[facility]/ZIP Co de Phone Number [facility] [address] [place] [phone] * Sed Rate by Modified Jose Gren (10/13/2024 10:58 AM EST) Erythrocyte Sedimentation Rate 10 0 - 20 MM/HR [facility] Comment:Patients with polycy themia and many hemoglobin abnormalitiesmay have depressed sed rates whereas patients with anemiamay have elevated sed rates. Blood Venous blood specimen / Unknown 10/13/2024 10:58 AM EST 10/13/2024 1:11 PM EST Osbaldo Walls MD LAB BLOOD ORDERABLES Final Res ult Performing Organization Address [facility] Co de Phone Number [facility] [address] [place] [address] [phone] * (ABNORMAL) Comprehensive Metabolic Panel (10/13/2024 10:58 AM EST) Sodium 141 135 - 145 mmol/L [facility] Potassium 4.6 3.3 - 5.1 mmol/L [facility] Chloride 107 96 - 108 mmol/L [facility] Carbon Dioxide 27 22 - 29 mmol/L [facility] Anion Gap 12 12 - 20 [facility] Urea Nitrogen (BUN) 25(H) 9 - 16 mg/dL [facility] Creatinine, Serum 1.15 0.5 - 1.4 mg/dL [facility] Estimated Glomerular Filt Rate 48 [facility] Comment:Chronic Kidney Disea se: Estimated GFR < 60 mL/min/1.69o8Wjoria Kidney Disease: Estimated GFR < 15 mL/min/1.73m2 Glucose 118(H) 60 - 115 mg/dL [facility] Calcium 8.9 8.4 - 10.2 mg/dL [facility] Bilirubin, Total 0.2 0.0 - 1.0 mg/dL [facility] Aspartate Amino Transferase 14 5 - 31 U/L [facility] Alanine Aminotransferase 10 0 - 31 U/L [facility] Total Protein 6.6 6.5 - 8.0 g/dL [facility] Albumin Level 3.9 3.5 - 5.0 g/dL [facility] Alkaline Phosphatase 131(H) 39 - 117 U/L [facility] Blood Venous blood specimen / Unknown 10/13/2024 10:58 AM EST 10/13/2024 1:12 PM EST us Osbaldo Walls MD LAB BLOOD ORDERABLES Final Res ult [facility] [address] [place] [phone] documented in this encounter Visit Diagnoses Diagnosis Acute intractable headache, unspecified headache type- Primary Dietary counseling Dietary surveillance and counseling Exercise counseling Class 1 obesity with serious comorbidity and body mass index (BMI) of 33.0 to 33.9 in adult, unspecified obesity type Encounter for immunization Non-Hodgkin lymphoma of lymph nodes of multiple sites (CMS/HCC) Pulmonary emphysema, unspecified emphysema type (CMS/HCC) Stage 3a chronic kidney disease (CMS/HCC) Screen for colon cancer Special screening for malignant neoplasms, colon documented in this encounter Additional Health Concerns Assessment Noted Time PHQ-9 Depression Total Score: 0 03/04/20 24 10:17 AM EDT documented as of this encounter Care Teams Engineering Inspection Assistant Relationship Specialty Start Date End Date Osbaldo Walls MD [address] [place] [phone] PCP - General Family Medicine 02/10/21 documented as of this encounter
--- OUTSIDE RECORDS SUMMARY | 2024-10-29 12:06 | XMS_ITS | Encounter Summary ---
Author Organization [employer] Address [address] [facility] 7t [place] [address] Care Team Providers Care Welt Rougher Name Role Phone Milagros Walls MD Primary Care Provider [phone] Reason for Visit * Reason Onset Date Comments PT1 03/24/2024 Encounter Details Date Type Department Care Team ([facility] st Contact Info) Description 03/24/2024 Telephone [facility] [address] [place] [address] Milagros Walls MD [address] [place], [place] [phone] PT1 Social History Tobacco Use Types Packs/Day [...] name or facility name: Podiatry Facility Address: [address] [place] [address] Escort needed: Y/N: Yes Do you have a wheelchair: Y/N: No If yes- Manual or electric: NOP Visits: All future appt;'s documented in this encounter Plan of Treatment Upcoming Encounters Date Type Department Care Team ([facility] st Contact Info) Description 11/05/2024 8:00 AM EDT Office Visit [facility] [address] [place] [address] Mike Bruce, DMD [address] [place] [address] documented as of this encounter Visit Diagnoses Not on filedocumented in this encounter Additional Health Concerns Assessment Noted Time PHQ-9 Depression Total Score: 0 03/04/20 24 10:17 AM EDT documented as of this encounter Care Teams Welt Rougher Relationship Specialty Start Date End Date Milagros Walls MD [address] [place] [address] PCP - General Family Medicine 02/10/21 documented as of this encounter
--- OUTSIDE RECORDS SUMMARY | 2024-10-29 12:06 | XMS_ITS | Encounter Summary ---
Author Organization [employer] Address [address] [facility] [address]t [place] [address] Care Team Providers Care National Account Manager Name Role Phone Milagros Walls MD Primary Care Provider [phone] Reason for Visit * Reason Comments Dentures Encounter Details Date Type Department Care Team ([facility] st Contact Info) Description 10/22/2024 9:30 AM EDT Office Visit [facility] [address] [place], [place] [phone] Mike Bruce, DMD [address] [place], [place] [phone] Social History Tobacco Use Types Packs/Day Years [...] Sign Reading Time Taken Comments Blood Pressure 140/90 10/22/2024 9:28 AM EDT Pulse - - Temperature - - Respiratory Rate - - Oxygen Saturation - - Inhaled Oxygen Concentration - - Weight - - Height - - Body Mass Index - - documented in this encounter Progress Notes * Mike Bruce DMD - 10/22/2024 9:30 AM EDT Final impression and bite registration of F/F NV: Teeth try in of F/F Brice documented in this encounter Plan of Treatment Upcoming Encounters Date Type Department Care Team (Late st Contact Info) Description 11/05/2024 8:00 AM EDT Office Visit [facility] [address] [place] [address] Mike Bruce DMD [address] [place] [address] documented as of this encounter Procedures Procedure Name Priority Date/Time Associated Diagnosis Comments BITE REGISTRATION Routine 10/22/2024 9:30 AM EDT DENTURE IMPRESSION Routine 10/22/2024 9:30 AM EDT documented in this encounter Visit Diagnoses Not on filedocumented in this encounter Additional Health Concerns Assessment Noted Time PHQ-9 Depression Total Score: 0 03/04/20 10:17 AM EDT documented as of this encounter Care Teams National Account Manager Relationship Specialty Start Date End Date Knott, Milagros, MD [address] [place] [address] PCP - General Family Medicine 02/10/21 documented as of this encounter
--- OUTSIDE RECORDS SUMMARY | 2024-10-29 12:06 | XMS_ITS | Encounter Summary ---
Author Organization [employer] Address [address] [facility] 7t [place] [address] Care Team Providers Care Home Care Consultant Name Role Phone Milagros Walls MD Primary Care Provider [phone] Reason for Visit * Reason Onset Date Comments Pt1 03/06/2024 Encounter Details Date Type Department Care Team ([facility] st Contact Info) Description 03/06/2024 Telephone [facility] [address] [place] [address] Milagros Walls MD [address] [place], [place] [phone] Pt1 Social History Tobacco Use Types Packs/Day [...] encounter Miscellaneous Notes * Telephone Encounter - Golria Lewis - 03/06/2024 10:06 AM EDT Patient needs renewal for all PT1's Home Address verified: Y/N: Yes Provider name or facility name: [facility] Facility Address: [address] [place] [address] Escort needed: No Do you have a wheelchair: Y/N: No Visits: All future appts. Patient calling requesting PT1 Home Address verified: Y/N: Yes Provider name or facility name: [facility] Facility Address: [address] [place] [address] Escort needed: No Do you have a wheelchair: Y/N: No Visits: All future appts. Patient calling requesting PT1 Home Address verified: Y/N: Yes Provider name or facility name: [facility] Facility Address: [address] [place] [address] Escort needed: No Do you have a wheelchair: Y/N: No Visits: All future appts. Patient calling requesting PT1 Home Address verified: Y/N: Yes Provider name or facility name: [facility] Facility Address: [address] [place], [place] Escort needed: No Do you have a wheelchair: Y/N: No Visits: All future appts. Patient calling requesting PT1 Home Address verified: Y/N: Yes Provider name or facility name: [facility] Facility Address: [address], [place] Escort needed: No Do you have a wheelchair: Y/N: No Visits: All future appts. Patient calling requesting PT1 Home Address verified: Y/N: Yes Provider name or facility name: [facility] Facility Address: [address], [place] Escort needed: No Do you have a wheelchair: Y/N: No Visits: All future appts. Patient calling requesting PT1 Home Address verified: Y/N: Yes Provider name or facility name: [facility] Facility Address[address] [place] Escort needed: No Do you have a wheelchair: Y/N: No Visits: All future appts. documented in this encounter Plan of Treatment Upcoming Encounters Date Type Department Care Team ([facility] st Contact Info) Description 11/05/2024 8:00 AM EDT Office Visit [facility] [address] [place] [address] Mike Bruce, DMD [address] [place] [address] documented as of this encounter Visit Diagnoses Not on filedocumented in this encounter Additional Health Concerns Assessment Noted Time PHQ-9 Depression Total Score: 0 03/04/20 24 10:17 AM EDT documented as of this encounter Care Teams Home Care Consultant Relationship Specialty Start Date End Date Milagros Walls MD [address] [place] [address] PCP - General Family Medicine 02/10/21 documented as of this encounter
--- OUTSIDE RECORDS SUMMARY | 2024-10-29 12:06 | XMS_ITS | Encounter Summary ---
Author Organization [employer] Address [address] [facility] [address] 7[address] [place] [address] Care Team Providers Care Powder Room Attendant Name Role Phone Milagros Walls MD Primary Care Provider [phone] Encounter Details Date Type Department Care Team (Late st Contact Info) Description 09/02/2024 Telephone [facility] [address] [place], [place] [phone] Milagros Walls MD [address] [place], [place] [phone] Social History Tobacco Use Types Packs/Day Years [...] Description 11/05/2024 8:00 AM EDT Office Visit [facility] [address] [place] [address] Mike Bruce, DMD [address] [place] [address] documented as of this encounter Visit Diagnoses Not on filedocumented in this encounter Additional Health Concerns Assessment Noted Time PHQ-9 Depression Total Score: 0 03/04/20 24 10:17 AM EDT documented as of this encounter Care Teams Powder Room Attendant Relationship Specialty Start Date End Date Milagros Walls MD [address] [place] [address] PCP - General Family Medicine 02/10/21 documented as of this encounter
--- OUTSIDE RECORDS SUMMARY | 2024-10-29 12:06 | XMS_ITS | Encounter Summary ---
Author Organization [employer] Address 75 [facility] 7t [place] [address] Care Team Providers Care Research Kennel Supervisor Name Role Phone Milagros Walls MD Primary Care Provider Reason for Visit * Reason Onset Date Comments PT-1 05/20/2024 Encounter Details Date Type Department Care Team ([facility] st Contact Info) Description 05/20/2024 Telephone [facility] [address] [place], [place] [phone] Milagros Walls MD [address] [place], [place] [phone] PT-1 Social History Tobacco Use Types Packs/Day [...] Y/N: Yes Provider name or facility name: [facility] Facility Address: [address] [place] [address] Escort needed: Y/N: No Do you have a wheelchair: Y/N: No If yes- Manual or electric: N/A Visits: 2 every 6 months - Patient calling requesting PT1 Home Address verified: Y/N: Yes Provider name or facility name: [facility] Facility Address: [address] [place] [address] Escort needed: Y/N: No Do you have a wheelchair: Y/N: No If yes- Manual or electric: N/A Visits: Once a month documented in this encounter Plan of Treatment Upcoming Encounters Date Type Department Care Team (Late st Contact Info) Description 11/05/2024 8:00 AM EDT Office Visit [facility] [address] [place] [address] Mike Bruce, DMD [address] [place] [address] documented as of this encounter Visit Diagnoses Not on filedocumented in this encounter Additional Health Concerns Assessment Noted Time PHQ-9 Depression Total Score: 0 03/04/20 24 10:17 AM EDT documented as of this encounter Care Teams Research Kennel Supervisor Relationship Specialty Start Date End Date Milagros Walls MD [address] [place] [address] PCP - General Family Medicine 02/10/21 documented as of this encounter
--- OUTSIDE RECORDS SUMMARY | 2024-10-29 12:06 | XMS_ITS | Encounter Summary ---
Author Organization [employer] Address 75 [facility] [address]t [place] [address] Care Team Providers Care Data Collector Name Role Phone Milagros Walls MD Primary Care Provider [phone] Reason for Visit * Reason Comments Med Refill Encounter Details Date Type Department Care Team ([facility] st Contact Info) Description 10/12/2024 Refill [facility] MED[facility]INE [address] [place], [place] [phone] Milagros Walls MD [address] [place], [place] [phone] Fibromyalgia Social History Tobacco Use Types Packs/Day [...] Description 11/05/2024 8:00 AM EDT Office Visit [facility] ADULT DENTAL [address] [place] [address] Mike Bruce, REN [address] [place] [address] documented as of this encounter Visit Diagnoses Diagnosis Fibromyalgia Unspecified myalgia and myositis documented in this encounter Additional Health Concerns Assessment Noted Time PHQ-9 Depression Total Score: 0 03/04/20 24 10:17 AM EDT documented as of this encounter Care Teams Data Collector Relationship Specialty Start Date End Date Milagros Walls MD [address] [place] [address] PCP - General Family Medicine 02/10/21 documented as of this encounter
--- OUTSIDE RECORDS SUMMARY | 2024-10-29 12:06 | XMS_ITS | Clinical Summary ---
Author Organization [employer] Address [address] [facility] 7t [place] [address] Care Team Providers Care Linoleum Tile Layer Name Role Phone Milagros Walls MD Primary Care Provider Allergies No known active allergies Medications Blood [...] 024 Active butalbital-acetam inophen-caffeine- codeine (Fioricet W/Codeine) 68-360-41-30 MG capsule Take 1 capsule by mouth [...] BY MOUTH EVERY MORNING 180 capsule 3 025 Active prochlorperazine (Compazine) 5 MG tablet Active Fluticasone-Salme terol 500-50 MCG/ACT aerosol powder Inhale 1 puff 2 times daily. 025 Active DULoxetine (Cymbalta) [address] [...] for 7 days. 15 mL 025 2024 predniSONE (Deltasone) 20 MG tablet Take 2 tablets (40 mg) by mouth Once per day for 5 days. 10 tablet 025 2024 Active Problems Problem Noted Date Diagnosed Date [facility]FP (current) use of opiate analgesic 08/13 Muscle spasm 10/23/2023 Assessment & Plan (10/23/2023 10:45 AM EDT): Trialed trigger point injections in office, 3 on each size of trapezius muscles, not helpful in immediate pain relief Screen for colon cancer 10/23/2023 Assessment & Plan (10/23/2023 10:45 AM EDT): Refer to [facility] Left flank pain 07/21/2023 Assessment & Plan [...] (10/23/2023 10:44 AM EDT): Sees Pulm at [facility], now q6 months due to improvements Cont Advair Cont CATHRYN prn Smoking cessation encouraged Assessment & Plan (11/13/2022 6:09 AM EDT): Sees Pulm at [facility], now q6 months due to improvements Cont [...] Encounters Date Type Department Care Team Description 10/22/2024 9:30 AM EDT Office Visit [facility] ADULT DENTAL [address] [place] [address] Mike Bruce DMD 10/21/[address] [facility] MEDICINE [address] [place] [address] Milagros Walls MD GI Appt 10/21/2024 Orders Only [facility] External Provider, [facility] 10/16/[address] [facility] [address] [place] [phone] Milagros Walls MD Results 10/13/2024 10:15 AM EST Office Visit [facility] [address] [place] [phone] Milagros Walls MD Acute intractable headache, unspecified headache type (Primary Dx); Dietary counseling; Exercise counseling; Class 1 obesity with serious comorbidity and body mass index (BMI) of 33.0 to 33.9 in adult, unspecified obesity type; Encounter for immunization; Non-Hodgkin lymphoma of lymph nodes of multiple sites ([facility]/HCC); Pulmonary emphysema, unspecified emphysema type (CMS/HCC); Stage 3a chronic kidney disease (CMS/HCC); Screen for colon cancer 10/13/2024 Travel 10/12/[address] [facility] [address] [place] [address] Milagros Walls MD Fibromyalgia 10/06/[address] [facility] [address] [place] [address] Milagros Walls MD 10/02/2024 8:00 AM EST Office Visit [facility] [address] [place] [address] Mike Bruce, DMD 10/02/[address] [facility] [address] [place] [address] Milagros Walls MD PT1 10/01/2024 Patient Outreach [address] [address] Milagros Walls MD Pre-visit Planning ((Unable to reach for PVP screening, LVM)) 09/02/[address] [facility] [address] [place] [address] Milagros Walls MD 09/02/[address] [facility] [address] [place] [address] Milagros Walls MD Fibromyalgia (Primary Dx); [facility]FP (current) use of opiate analgesic 08/26/[address] [facility] [address] [place] [phone] Shruti Gonzalez MA recall 08/18/[address] [facility] [address] [place] [address] Milagros Walls MD Nausea 08/17/2024 8:00 AM EST Office Visit [facility] ADULT DENTAL [address] [place] [address] Mike Bruce DMD from Last 3 Months Immunizations Name Administration [...] Pressure 140/90 10/22/2024 9:28 AM EDT Pulse 84 10/13/2024 10:15 AM EST Temperature [...] 8:00 AM EDT Office Visit [facility] ADULT D[facility] [address] [place] [address] Mike Bruce, REN [address] [place] [address] Health Maintenance Due Date Last Done Comments [...] 03/04/2025 03/04/2024 Diabetes: Hemoglobin A1C 10/13/2025 10/13/2024, 0709/2020 Tobacco Screening 10/22/2025 10/22/2024 Dental X-Ray: Full Mouth 08/18/2027 08/17/2024 Lipid [...] Date/Time Associated Diagnosis Comments DENTURE IMPRESSION Routine 10/22/2024 9: 30 AM EDT BITE REGISTRATION Routine 10/22/2024 9:3 0 AM EDT LDCT LUNG SCREENING Routine 10/21/2024 1 :26 PM EDT MAGNESIUM Routine 10/13/2024 10:58 AM EST Acute [...] Recently Relevant to Health Maintenance Results * CT Lung Screening Low dose (10/21/2024 1:26 PM EDT) Anatomical Region Laterality Modality Lung Computed Tomogra phy 10/21/2024 1:26 PM EDT Narrative 10/21/2024 1:28 PM EDT ? [facility] ?[address] ?[place] [address] ? [address] Scan Report ? Signed ? Patient: Charly Hensoncitlalli Savage ?MR#: [id number] ?? 54 ? : 1965 ?Acct:[id number] ? Age/Sex: 59 / F ?ADM Date: 10/21/24 ? Loc: HO.CT ? Attending Dr: Cinthia Ugarte PA-C ? Ordering Physician: Cinthia Ugarte PA-C ?? Date of Service: 10/21/24 ?? Procedure(s): CT lung screening ?? Accession Number(s): [id number] ? cc: Milagros Walls; Cinthia Ugarte PA-C ? Report Number: ?? [id number]: Total DLP = ?? 49.00 mGy-cm ? CLINICAL HISTORY: Z87.891 - Personal history of nicotine dependence ? CT lung cancer screening (LDCT) ? Comparison: CT/[place]/SR - CT LUNG SCREENING - 10/21/23 12:42 [...] DD/ 1326 ? TD/TT: 10/21/24 1326 ? Receipt And Report Clerk: ? Procedure Note Zaid, Image - 10/21/[address] [place] [address] [address] Scan Report Signed Patient: Marjorie Henson LMR#: [id number] 54 : 1965Acct:[id number] Age/Sex: 59 / FADM Date: 10/21/24 Loc: HO.CT Attending Dr: Cinthia Ugarte PA-C Ordering Physician: Cinthia Ugarte PA-C Date of Service: 10/21/24 Procedure(s): CT lung screening Accession Number(s): [id number] cc: Milagros Walls; Cinthia Ugarte PA-C Report Number: [id number]: Total DLP = 49.00 mGy-cm CLINICAL HISTORY: Z87.891 - Personal history of nicotine dependence CT lung cancer screening (LDCT) Comparison: CT/[place]/SR - CT LUNG SCREENING - 10/21/23 12:42 [...] 10/21/24 1328 DD/ 1326 TD/TT: 10/21/24 1326 Receipt And Report Clerk: [facility] External Provider IMG CT PROCEDURES Final Result * (ABNORMAL) CBC auto differential (10/13/2024 10:58 AM EST) White Blood Count 9.4 4.8 - 10.8 X10*3/uL [facility] Red Blood Count 4.43 4.20 - 5.50 X10*6/uL [facility] Hemoglobin 13.2 12.0 - 16.0 g/dl [facility] Hematocrit 39.7 37.0 - 47.0 % [facility] Mean Corpuscular Volume 89.6 80.0 - 98.0 fL [facility] Mean Corpuscular Hemoglobin 29.8 27.0 - 33.0 pg [facility] Mean Corpuscular HGB Conc 33.2 31.0 - 35.0 g/dl [facility] Red Cell Distribution Width 14.5 11.0 - 16.0 % [facility] Platelet Count 278 160 - 400 X10*3/uL [facility] Mean Platelet Volume 10.3 9.4 - 12.3 fL [facility] Neutrophils Percent Auto 59.3 45 - 73 % [facility] Imm Gran Pct Auto 1.0(H) 0.0 - 0.4 % [facility] Lymphocytes Percent Auto 27.6 20 - 40 % [facility] Monocytes Percent Auto 8.7 2 - 11 % [facility] Eosinophils Percent Auto 2.0 0 - 4 % [facility] Basophils Percent Auto 1.4 0 - 2 % [facility] NRBC Pct Auto 0.0 0.0 - 0.2 /100WBC [facility] Neutrophils Absolute Auto 5.6 2.0 - 8.3 x10*3/uL [facility] Imm Gran Abs Auto 0.09(H) 0.00 - 0.03 X10*3/uL [facility] Lymphocytes Absolute Auto 2.6 1.2 - 4.9 X10*3/uL [facility] Monocytes Absolute Auto 0.8 0.1 - 1.2 X10*3/uL [facility] Eosinophils Absolute Auto 0.2 0.0 - 0.4 X10*3/uL [facility] Basophils Absolute Auto 0.1 0.0 - 0.2 X10*3/uL [facility] NRBC Abs Auto 0.000 0.0 - 0.012 X10*3/uL [facility] Blood Venous blood specimen / Unknown 10/13/2024 10:58 AM EST 10/13/2024 1:11 PM EST us Milagros Walls MD LAB BLOOD ORDERABLES Final Res ult [facility] [address] [place] [phone] * Sed Rate by Modified Jose Gren (10/13/2024 10:58 AM EST) Erythrocyte Sedimentation Rate 10 0 - 20 MM/HR [facility] Comment:Patients with polycy themia and many hemoglobin abnormalitiesmay have depressed sed rates whereas patients with anemiamay have elevated sed rates. Blood Venous blood specimen / Unknown 10/13/2024 10:58 AM EST 10/13/2024 1:11 PM EST Milagros Walls MD LAB BLOOD ORDERABLES Final Res ult Performing Organization Address [facility] Number [facility] [address] [place] [phone] * (ABNORMAL) C-reactive Protein (10/13/2024 10:58 AM EST) C Reactive Protein 1.52(H) < or = 0.50 mg/dL [facility] Blood Venous blood specimen / Unknown 10/13/2024 10:58 AM EST 10/13/2024 1:12 PM EST Milagros Walls MD LAB BLOOD ORDERABLES Final Res ult Performing Organization Address [facility] Phone Number [facility] [address] [place] [phone] * Magnesium (10/13/2024 10:58 AM EST) Magnesium 2.3 1.6 - 2.6 mg/dL [facility] Blood Venous blood specimen / Unknown 10/13/2024 10:58 AM EST 10/13/2024 1:12 PM EST Milagros Walls MD LAB BLOOD ORDERABLES Final Res ult Performing Organization Address [facility]/State/ZIP Co de Phone Number [facility] [address] [place] [phone] [phone] * Hemoglobin A1c (10/13/2024 10:58 AM EST) Hemoglobin A1c 6.0 <6.0 % [facility] Comment:Hemoglobin A1C Refer ence Range Adults: 4.8 - 6.0 % Non diabetic: < 6.0 % Goal: < 7.0 %Additional Action Suggested: > 8.0 %Note: Hemoglobin A1c results are invalid for patients with abnormal amounts of HbF. Blood transfusions may impact the HbA1c concentration in the patient sample. Estimated Average Glucose 126 mg/dL [facility] Comment:eAG = Estimated ave rage glucose which is %A1C expressed asaverage glucose, using the formula of the P2W-BaqezayIqrhpxp Glucose study (ADAG), Diabetes Care, Vol.31,#8,2007 Blood Venous blood specimen / Unknown 10/13/2024 10:58 AM EST 10/13/2024 1:11 PM EST us Milagros Walls MD LAB BLOOD ORDERABLES Final Res ult [facility] [address] [place] [phone] * Creatine Kinase Isoenzymes (CK Isoenzymes) w/ Total CK (10/13/2024 10:58 AM EST) Creatine Kinase, Total 50 20 - 243 U/L [facility] CK-MM 100 95 - 100 % [facility] Ck-Mb 0 <5 % [facility] CK-BB None Detected None Detected % [facility] Creatine Kinase Isoenzyme Interpretation see note [facility] Comment:Normal isoenzyme pat tern with anormal total activity.THIS TEST WAS PERFORMED AT:[id number] [place] [address]WQUVZLLALISSON SAUCEDA MD,PHD Blood Venous blood specimen / Unknown 10/13/2024 10:58 AM EST 10/13/2024 1:14 PM EST us Milagros Walls MD LAB BLOOD ORDERABLES Final Res ult Performing Organization Address [facility] Co de Phone Number [facility] [address] [place] [phone] * (ABNORMAL) Lipid Panel, Standard (10/13/2024 10:58 AM EST) Triglycerides 180(H) <150 mg/dL [facility] Comment:Desirable Triglyceri de: less than 150 mg/dLBorderline High Triglyceride 150-199 mg/dLHigh Triglyceride: 200-499 mg/dLVery High Triglyceride: greater than or equal to 5OO mg/dL Cholesterol 178 <200 mg/dL [facility] Comment:Desirable Cholestero l: less than 200 mg/dLBorderline High Cholesterol: 200-239 mg/dLHigh Cholesterol: greater than 239 mg/dL LDL Cholesterol Calculated 90 <100 mg/dL [facility] Comment:Desirable LDL: less than 100 mg/dLNear Optimal/Above Optimal LDL: 110- 129 mg/dLBorderline High LDL: 130-159 mg/dLHigh LDL: 160-189 mg/dLVery High LDL: greater than or equal to 190 mg/dL HDL Cholesterol 52 >40 mg/dL [facility] Comment:Desirable HDL: great er than 40 mg/dL Note: This HDL assay may give artificially low results in patients with liver disease. Blood Venous blood specimen / Unknown 10/13/2024 10:58 AM EST 10/13/2024 1:12 PM EST us Milagros Walls MD LAB BLOOD ORDERABLES Final Res ult Performing Organization Address City/[facility]/ZIP Co de Phone Number [facility] [address] [place] [phone] * (ABNORMAL) Comprehensive Metabolic Panel (10/13/2024 10:58 AM EST) Sodium 141 135 - 145 mmol/L [facility] Potassium 4.6 3.3 - 5.1 mmol/L [facility] Chloride 107 96 - 108 mmol/L [facility] Carbon Dioxide 27 22 - 29 mmol/L [facility] Anion Gap 12 12 - 20 [facility] Urea Nitrogen (BUN) 25(H) 9 - 16 mg/dL [facility] Creatinine, Serum 1.15 0.5 - 1.4 mg/dL [facility] Estimated Glomerular Filt Rate 48 [facility] Comment:Chronic Kidney Disea se: Estimated GFR < 60 mL/min/1.66o1Vuuioj Kidney Disease: Estimated GFR < 15 mL/min/1.73m2 Glucose 118(H) 60 - 115 mg/dL [facility] Calcium 8.9 8.4 - 10.2 mg/dL [facility] Bilirubin, Total 0.2 0.0 - 1.0 mg/dL [facility] Aspartate Amino Transferase 14 5 - 31 U/L [facility] Alanine Aminotransferase 10 0 - 31 U/L [facility] Total Protein 6.6 6.5 - 8.0 g/dL [facility] Albumin Level 3.9 3.5 - 5.0 g/dL [facility] Alkaline Phosphatase 131(H) 39 - 117 U/L [facility] Blood Venous blood specimen / Unknown 10/13/2024 10:58 AM EST 10/13/2024 1:12 PM EST us Milagros Walls MD LAB BLOOD ORDERABLES Final Res ult [facility] [address] [place] [phone] * BI Mammogram Diagnostic Tomosynthesis Bilateral (11/12/2023 1:05 PM EDT) Anatomical Region Laterality Modality Breast Bilateral Mammography 11/12/2023 1:05 PM EDT Narrative 11/12/2023 2:02 PM EDT ? [facility] ? [address] ?[place] [address] ? Mammography Report ? Signed ? Patient: Raucci,Marjorie L ?MR#: [id number] ?? 54 ? : 1965 ?Acct:[id number] ? Age/Sex: 58 / F ?ADM Date: 11/12/23 ? Loc: HO.MAMMO ? Attending Dr: Milagros Walls MD ? Ordering Physician: Milagros Walls ?Results: 3.12MProb ?? ably Benign Finding - 12 month F/U Suggested ? Date of Service: 11/12/23 ?Follow Up: 12 month diagnos ?? tic follow up ? Procedure(s): MM tomosynthesis diagnostic BI ?? Accession Number(s): [id number] ? cc: Milagros Walls ? EXAMINATION: ?? [...] 1359 ? DD/ 1305 ? TD/TT: ? Receipt And Report Clerk: ? Procedure Note Rakesh Mar - 11/12/2023 Man [facility] [address] [place] [address] Mammography Report Signed Patient: Marjorie Henson LMR#: [id number] 54 : 1965Acct:[id number] Age/Sex: 58 / FADM Date: 11/12/23 Loc: HO.MAMMO Attending Dr: Milagros Walls MD Ordering Physician: Cory Wallsults: 3.12MProb ably Benign Finding - 12 month F/U Suggested Date of Service: 11/12/23Follow Up: 12 month diagnos tic follow up Procedure(s): MM tomosynthesis diagnostic BI Accession Number(s): [id number] cc: Milagros Walls EXAMINATION: MM DIAGNOSTIC DIGITAL [...] in OV> 11/12/23 1359 DD/ 1305 TD/TT: Receipt And Report Clerk: Milagros Walls MD IMG BI PROCEDURES Final Result * HEPATITIS C AB W/REFL TO HCV RNA, QN, PCR (02/10/2021 9:36 AM EDT) HEPATITIS C ANTIBODY NON-REACT MOMO NON-REACT MOMO [facility] INDEX 0.02 <1.00 [facility] Comment: ?? HCV antibody was non-reactive. There is no laboratory ?? evidence of HCV infection. ?? In most cases, no further action is required. However, if recent HCV exposure is suspected, a test for HCV RNA (test code 85885) is suggested. ?? For additional information please refer to http://education.Rebls/faq/KVM33x7 (This link is being provided for informational/ educational purposes only.) ?? 02/10/2021 9:3 6 AM EDT Milagros Walls MD HISTORICAL/NON ORDERABLE LABS Final Result [facility] Formerly [facility] Anywhere [address] from Last 3 Months or Most Recently Relevant to Health Maintenance [place] [address] [place] [address] STANDARD [employer] P[place] ST[place] AD[place] Care Teams Linoleum Tile Layer Relationship Specialty Start Date End Date Milagros Walls MD [address] [place] [address] [phone] PCP - General Family Medicine 02/10/21
--- OUTSIDE RECORDS SUMMARY | 2024-10-29 12:06 | XMS_ITS | Encounter Summary ---
Author Organization [employer] Address [address] [facility] [address] [place] [address] Care Team Providers Care Electronic Coils Supervisor Name Role Phone Milagros Walls MD Primary Care Provider [phone] Reason for Visit * Reason Comments Med Refill Encounter Details Date Type Department Care Team ([facility] st Contact Info) Description 02/06/2024 Refill [facility] MEDICINE [address] [place], [place] [phone] Milagros Walls MD [address] [place], [place] [phone] Left flank pain Social History Tobacco Use [...] 11/05/2024 8:00 AM EDT Office Visit [facility] ADULT DENTAL [address] [place], [place] [phone] Mike Bruce, REN [address] [place] [address] documented as of this encounter Visit Diagnoses Diagnosis Left flank pain Abdominal pain, unspecified site documented in this encounter Care Teams Electronic Coils Supervisor Relationship Specialty Start Date End Date Milagros Walls MD [address] [place] [address] PCP - General Family Medicine 02/10/21 documented as of this encounter
--- OUTSIDE RECORDS SUMMARY | 2024-10-29 12:06 | XMS_ITS | Encounter Summary ---
Author Organization [employer] Address [address] [facility] [address]t [place] [address] Care Team Providers Care Data Analyst Report Writer Name Role Phone Milagros Walls MD Primary Care Provider [phone] Reason for Visit * Reason Onset Date Comments GI Appt 10/21/2024 Encounter Details Date Type Department Care Team ([facility] [place] [facility] st Contact Info) Description 10/21/[address] [facility] [address] [place], [place] [phone] Milagros Walls MD [address] [place], [place] [phone] GI Appt Social History Tobacco Use Types Packs/Day Years [...] encounter Miscellaneous Notes * Telephone Encounter - Shruti Gonzalez [place] - 10/21/2024 3:14 PM EDT T/c placed to notify pt that Appointment has been made for a colonoscopy consult at [facility] on February 08, 2025 at 10:30am documented in this encounter Plan of Treatment Upcoming Encounters Date Type Department Care Team (Late st Contact Info) Description 11/05/2024 8:00 AM EDT Office Visit [facility] ADULT DENTAL [address] [place] [address] Mike Bruce, DMD [address] [place] [address] documented as of this encounter Visit Diagnoses Not on filedocumented in this encounter Additional Health Concerns Assessment Noted Time PHQ-9 Depression Total Score: 0 03/04/20 24 10:17 AM EDT documented as of this encounter Care Teams Data Analyst Report Writer Relationship Specialty Start Date End Date Milagros Walls MD [address] [place] [address] PCP - General Family Medicine 02/10/21 documented as of this encounter
--- OUTSIDE RECORDS SUMMARY | 2024-10-29 12:07 | XMS_ITS | Encounter Summary ---
Author Organization [employer] Address [address] [place] [address] 7t [place] [address] Care Team Providers Care Repack Room Worker Name Role Phone Milagros Walls MD Primary Care Provider [phone] Encounter Details Date Type Department Care Team (Late Contact Info) Description 01/09/2023 Abstract [facility] MEDICINE [address] [place] [address] Nereida Duncan RN [address] [place] [address] Social History Tobacco Use Types Packs/Day Years [...] Description 11/05/2024 8:00 AM EDT Office Visit [facility] ADULT DENTAL [address] [place], [place] [phone] Mike Bruce DMD [address] [place] [address] documented as of this encounter Procedures Procedure Name Priority Date/Time Associated Diagnosis Comments MAMMOGRAPHY Routine 10/25/2022 documented in this encounter Results * Mammography (10/25/2022) Mammogram BI-RADS 3: Probably Benign Anatomical Region Laterality Modality Other us Historical Provider HEALTH MAINTENANCE Final Result documented in this encounter Visit Diagnoses Not on filedocumented in this encounter Care Teams Repack Room Worker Relationship Specialty Start Date End Date Milagros Walls MD [address] [place] [address] PCP - General Family Medicine 02/10/21 documented as of this encounter
--- OUTSIDE RECORDS SUMMARY | 2024-10-29 12:07 | XMS_ITS | Encounter Summary ---
Author Organization [employer] Address [address] [facility] 7t [place] [address] Care Team Providers Care Area Captain Name Role Phone Milagros Walls MD Primary Care Provider [phone] Encounter Details Date Type Department Care Team [...] Description 11/05/2024 8:00 AM EDT Office Visit [facility] ADULT DENTAL [address] [place] [address] Mike Bruce DMD [address] [place] [address] documented as of this encounter Visit Diagnoses Not on filedocumented in this encounter Additional Health Concerns Assessment Noted Time PHQ-9 Depression Total Score: 0 03/04/20 24 10:17 AM EDT documented as of this encounter Care Teams Area Captain Relationship Specialty Start Date End Date Milagros Walls MD [address] [place] [address] PCP - General Family Medicine 02/10/21 documented as of this encounter
--- OUTSIDE RECORDS SUMMARY | 2024-10-29 12:07 | XMS_ITS | Encounter Summary ---
Author Organization [employer] Address [address] [facility] [address]t [place] [address] Care Team Providers Care Petrography Teacher Name Role Phone Milagros Walls MD Primary Care Provider [phone] Reason for Visit * Reason Onset Date Comments PT1 06/03/2023 Encounter Details Date Type Department Care Team ([facility] st Contact Info) Description 06/03/2023 Telephone [facility] [address] [place] [address] Milagros Walls MD [address] [place], [place] [phone] PT1 Social History Tobacco Use Types Packs/Day [...] the past 12 months, has t he [employer], gas, oil or water company threatened to [...] 3:14 PM EDT PT1 Name of facility: [facility] Specialty: Mammograms Location: [address] [place] [phone] Date: n/a Time: n/a fax: [phone] wheelchair: NO File Conversion Operator: NO All Future appt's PT1 Name of facility: [facility] Specialty: C.O.P Appt Location: [address] [place] [address] Date: 09/23/2022 Time: 9:30 am fax: n/a wheelchair: NO File Conversion Operator: NO All Future Appt's Pt is requesting a call in regards to other PT1 statuses. Please contact pt at [phone] documented in this encounter Plan of Treatment Upcoming Encounters Date Type Department Care Team (Late st Contact Info) Description 11/05/2024 8:00 AM EDT Office Visit [facility] [address] [place], [place] [phone] Mike Bruce, REN [address] [place], [place] documented as of this encounter Visit Diagnoses Not on filedocumented in this encounter Care Teams Petrography Teacher Relationship Specialty Start Date End Date Milagros Walls MD [address] [place] [address] PCP - General Family Medicine 02/10/21 documented as of this encounter
--- OUTSIDE RECORDS SUMMARY | 2024-10-29 12:07 | XMS_ITS | Encounter Summary ---
Author Organization [employer] Address [address] [place] [address] 7t [place] [address] Care Team Providers Care Pharmaceutical Detailer Name Role Phone Milagros Walls MD Primary Care Provider [phone] Encounter Details Date Type Department Care Team ([facility] Contact [facility] Description 10/31/2022 Orders Only [facility] MEDICINE [address] [place] [address] Milagros Walls MD 230 [place] [address] Kidney stone (Primary Dx) Social History Tobacco [...] Department Care Team (Late Contact Info) Description 11/05/2024 8:00 AM EDT Office Visit [facility] ADULT DENTAL [address] [place] [address] Mike Bruce DMD [address] [place] [address] documented as of this encounter Visit Diagnoses Diagnosis Kidney stone- Primary Calculus of kidney documented in this encounter Care Teams Pharmaceutical Detailer Relationship Specialty Start Date End Date Milagros Walls MD [address] [place] [address], [place] [address] PCP - General Family Medicine 02/10/21 documented as of this encounter
--- OUTSIDE RECORDS SUMMARY | 2024-10-29 12:07 | XMS_ITS | Encounter Summary ---
Author Organization [employer] Address 75 [facility] 7t [place] [address] Care Team Providers Care Infrastructure Security Architect Name Role Phone Milagros Walls MD Primary Care Provider [phone] Encounter Details Date Type Department Care Team (Late Contact Info) Description 03/29/2023 Telephone [facility] MEDICINE [address] [place] [address] Milagros Walls MD [address] [place] [address] [phone] Social History Tobacco Use Types Packs/Day Years [...] to be renewed. Please contact pt at [phone] documented in this encounter Plan of Treatment Upcoming Encounters Date Type Department Care Team (Late Contact Info) Description 11/05/2024 8:00 AM EDT Office Visit [facility] ADULT DENTAL [address] [place] [address] Mike Bruce, DMD [address] [place] [address] documented as of this encounter Visit Diagnoses Not on filedocumented in this encounter Care Teams Infrastructure Security Architect Relationship Specialty Start Date End Date Milagros Walls MD 230 [place] [address] PCP - General Family Medicine 02/10/21 documented as of this encounter
--- OUTSIDE RECORDS SUMMARY | 2024-10-29 12:07 | XMS_ITS | Clinical Summary ---
Author Organization Patient Business Ser [facility] Address [address] [place] [address] Care Team Providers Care Clinical Data Research Name Role Phone Milagros Walls MD Primary Care Provider [phone] Allergies No known active allergies Medications butalbital-acet aminophen-caffe ine-codeine (FIORICET WITH CODEINE) 38-568-52-30 mg per capsule Take 1 capsule by [...] EDT - 10/20/2024 7:14 PM EDT Emergency [facility] Emergency [address] [place] [address] Oral candidiasis (Primary Dx) Discharge Disposition: Home or Self Care 09/08/2024 8:15 AM EST Office Visit Orthopedic Surgery - [address] [address] Marino Estrella, DPM Dermatophytosis of [...] AM EDT Office Visit Orthopedic Surgery - [place] [address] [phone] Marino Estrella, DPM [address] [address] Health Maintenance Due Date Last Done Comments [...] Negative Negative, Invalid 10/20/2024 7:02 PM EDT [facility] Comment:Refer to Throat Cult ure. Swab Structure of anterior portion of neck / Unknown Non-blood Collection / Unknown 10/20/2024 6:44 PM EDT 10/20/2024 6:48 PM EDT [facility] MICROBIOLOGY - GENERAL ORDER ALVIN Final Result [facility] [address] [place] [address], * Culture throat (10/20/2024 6:44 PM EDT) Culture, Throat No pathogens isolated. 10/22/2024 12:52 PM EDT [facility] Swab Structure of anterior portion of neck / Unknown Non-blood Collection / Unknown 10/20/2024 6:44 PM EDT 10/20/2024 6:48 PM EDT us [facility] MICROBIOLOGY - GENERAL ORDER ALVIN Final Result [facility] [address] [place] [address], * Annual BMP Blood Test (03/16/2004) Annual BMP Blood Test Abstracted Historical Provider HEALTH MAINTENANCE Final Result from Last 3 Months or Most Recently Relevant to Health Maintenance Insurance [place] Care Teams Clinical Data Research Relationship Specialty Start Date End Date Milagros Walls MD [address] [place] [address] PCP - General 04/01/24
--- OUTSIDE RECORDS SUMMARY | 2024-10-29 12:07 | XMS_ITS | Encounter Summary ---
Author Organization [employer] Address [address] [facility] [address] 7t [place] [address] Care Team Providers Care Business And Financial Counsel Name Role Phone Milagros Walls MD Primary Care Provider [phone] Reason for Visit * Reason Comments Med Refill Encounter Details Date Type Department Care Team ([facility] st Contact Info) Description 09/09/[address] [facility] MED[facility]INE [address] [place], [place] [phone] Milagros Walls MD [address] [place], [place] [phone] Fibromyalgia Social History Tobacco Use Types Packs/Day [...] 11/05/2024 8:00 AM EDT Office [address] [facility] ADULT DENTAL 230 [place] [address] Mike Bruce, DMD 230 [place] [address] documented as of this encounter Visit Diagnoses Diagnosis Fibromyalgia Unspecified myalgia and myositis documented in this encounter Care Teams Business And Financial Counsel Relationship Specialty Start Date End Date Milagros Walls MD [address] [place] [address] PCP - General Family Medicine 02/10/21 documented as of this encounter
--- OUTSIDE RECORDS SUMMARY | 2024-10-29 12:07 | XMS_ITS | Clinical Summary ---
Author Organization [facility] Address [address] [facility] [address] [place] [address] Phone Care Team Providers Care Prize Fighter Name Role Phone Milagros Walls MD Primary [...] Visit [facility] [address] [address] Mark Hanna MD [address] [address] Health Maintenance Due Date Last [...] complete this topic Insurance [place]ID [place] [employer] [facility] ADV PPO ([id number]) [employer] [facility] ADV PPO ([id number]) MEDICAID [place] Care Teams Prize Fighter Relationship Specialty Start Date End Date Milagros Walls MD [address] [place] [address] PCP - General Roller Pneumatic 09/03/22
--- OUTSIDE RECORDS SUMMARY | 2024-10-29 12:07 | XMS_ITS | Encounter Summary ---
Author Organization [employer] Address [address] [facility] [address] 7t [place] [address] Care Team Providers Care Transit Driver Name Role Phone Milagors Walls MD Primary Care Provider [phone] Reason for Visit * Reason Comments Med Refill Encounter Details Date Type Department Care Team ([facility] st Contact Info) Description 07/26/2023 Refill [facility] 230 [place], [place] [phone] Milagros Walls MD 230 [place], [place] [phone] Social History Tobacco Use Types Packs/Day Years [...] Description 11/05/2024 8:00 AM EDT Office Visit [facility] ADULT DENT[facility] 230 [place] [address] Mike Bruce DMD 230 [place] [address] documented as of this encounter Visit Diagnoses Not on filedocumented in this encounter Care Teams Transit Driver Relationship Specialty Start Date End Date Milagros Walls MD 230 [place] [address] PCP - General Family Medicine 02/10/21 documented as of this encounter
--- OUTSIDE RECORDS SUMMARY | 2024-10-29 12:07 | XMS_ITS | Encounter Summary ---
Author Organization [employer] Address [address] [facility] [address] 7t [place] [address] Care Team Providers Care Professional Services Consultant Name Role Phone Milagros Walls MD Primary Care Provider [phone] Reason for Visit * Reason Onset Date Comments Referral 08/14/2023 Encounter Details Date Type Department Care Team ([facility] st Contact Info) Description 08/14/2023 Telephone [facility]INE 230 [place] [address] Milagros Walls MD [address] [place], [place] [phone] Referral Social History Tobacco Use Types Packs/Day [...] the past 12 months, has t he [employer], [employer], oil or water [employer] threatened to shut off services in your [...] - 08/14/2023 2:03 PM EST Referral/Renewals Location: [address] [place] [address] Date: 10/29 Time: 9:30 AM Specialty: [facility] radiation oncology DX: cancer Location: [address] [place] [address] Date: n/a Time: n/a Specialty: [facility] surgical oncology DX: cancer Location: [address] [place] [address] Date: n/a Time: n/a Specialty: [facility] DX: Cancer Location: [address] [facility] [place] Date: 10/21 Time: 2:30 PM Fax: n/a Specialty: [facility] women's center DX: breast symptoms Location: [address] [facility] [place] Date: 09/05 Time: 9:15 AM Fax: n/a Specialty:[facility] pulmonology center DX: COPD Location: [address] [facility], [address] [facility] Date: n/a Time: n/a Specialty: [facility] DX: n/a Location: [address] [facility] Date: n/a Time: n/a Fax: n/a Specialty: [facility] urology DX: n/a documented in this encounter Plan of Treatment Upcoming Encounters Date Type Department Care Team (Late st Contact Info) Description 11/05/2024 8:00 AM EDT Office Visit [facility] ADULT DENTAL 230 [place] [address] Mike Bruce, DMD 230 [place] [address] documented as of this encounter Visit Diagnoses Not on filedocumented in this encounter Care Teams Professional Services Consultant Relationship Specialty Start Date End Date Milagros Walls MD [address] [place] [address] PCP - General Family Medicine 02/10/21 documented as of this encounter
--- OUTSIDE RECORDS SUMMARY | 2024-10-29 12:07 | XMS_ITS | Encounter Summary ---
Author Organization [employer] Address [address] [facility] [address] 7t [place] [address] Care Team Providers Care Clinical Support Tech Name Role Phone Milagros Walls MD Primary Care Provider [phone] Reason for Visit * Reason Comments Med Refill Encounter Details Date Type Department Care Team ([facility] st Contact Info) Description 07/31/2023 Refill [facility] [address] [place], [place] [phone] Milagros Walls MD 230 [place], [place] [phone] Left flank pain Social History Tobacco Use [...] Office Visit [facility] ADULT DENTAL [address] [place], [place] [phone] Mike Bruce, REN [address] [place] [address] documented as of this encounter Visit Diagnoses Diagnosis Left flank pain Abdominal pain, unspecified site documented in this encounter Care Teams Clinical Support Tech Relationship Specialty Start Date End Date Milagros Walls MD 230 [place] [address] PCP - General Family Medicine 02/10/21 documented as of this encounter
--- OUTSIDE RECORDS SUMMARY | 2024-10-29 12:07 | XMS_ITS | Encounter Summary ---
Author Organization [employer] Address 75 [facility] 7t [place] [address] Care Team Providers Care Director Of Neighborhood Service Center Name Role Phone Milagros Walls MD Primary Care Provider [phone] Reason for Visit * Reason Onset Date Comments PT-1 07/24/2024 Encounter Details Date Type Department Care Team ([facility] st Contact Info) Description 07/24/2024 Telephone [facility] MEDICINE 230 [place], [place] [phone] Milagros Walls MD [address] [place], [place] [phone] PT-1 Social History Tobacco Use Types Packs/Day [...] or facility name: [facility] Facility Address: [address] [place] [address] Escort needed: Y/N: No Do you have a wheelchair: Y/N: No If yes- Manual or electric: N/A Visits: Once a month documented in this encounter Plan of Treatment Upcoming Encounters Date Type Department Care Team (Late st Contact Info) Description 11/05/2024 8:00 AM EDT Office Visit [facility] ADULT DENTAL 230 [place] [address] Mike Bruce, REN 230 [place] [address] documented as of this encounter Visit Diagnoses Not on filedocumented in this encounter Additional Health Concerns Assessment Noted Time PHQ-9 Depression Total Score: 0 03/04/20 24 10:17 AM EDT documented as of this encounter Care Teams Director Of Neighborhood Service Center Relationship Specialty Start Date End Date Milagros Walls MD [address] [place] [address] PCP - General Family Medicine 02/10/21 documented as of this encounter
--- OUTSIDE RECORDS SUMMARY | 2024-10-29 12:07 | XMS_ITS | Encounter Summary ---
Author Organization [employer] Address [address] [place] [address] 7t [place] [address] Care Team Providers Care Rug Cleaning Supervisor Name Role Phone Milagros Walls MD Primary Care Provider [phone] Reason for Visit * Reason Comments Med Refill Encounter Details Date Type Department Care Team (Late Contact Info) Description 02/11/2023 Refill [facility] MEDICINE [address] [place], [place] [phone] Sade Townsend MD 230 [place], [place] [phone] Social History Tobacco Use Types Packs/Day Years [...] Description 11/05/2024 8:00 AM EDT Office Visit [facility] ADULT DENTAL [address] [place], [place] [phone] Mike Bruce DMD [address] [place], [place] [phone] documented as of this encounter Visit Diagnoses Not on filedocumented in this encounter Care Teams Rug Cleaning Supervisor Relationship Specialty Start Date End Date Milagros Walls MD [address] [place] [address] PCP - General Family Medicine 02/10/21 documented as of this encounter
--- OUTSIDE RECORDS SUMMARY | 2024-10-29 12:07 | XMS_ITS | Encounter Summary ---
Author Organization [employer] Address [address] [facility] 7t [place] [address] Care Team Providers Care Calliope Player Name Role Phone Milagros Walls MD Primary Care Provider [phone] Reason for Visit * Reason Onset Date Comments Referral 10/30/2022 Encounter Details Date Type Department Care Team ([facility] st Contact Info) Description 10/30/2022 Telephone [facility] MEDICINE 230 [place], [place] [phone] Milagros Walls MD 230 [place], [place] [phone] Referral Social History Tobacco Use Types Packs/Day [...] Miscellaneous Notes * Telephone Encounter - Wanda Dunen - 10/30/2022 1:16 PM EDT Tc from pt requesting a referral for Specialty:[facility] Location:[address] [place] [address] [address], [place], [place] Date&Time: N/A Learning Services Coordinator:n/a Pt is also requesting a call back . documented in this encounter Plan of Treatment Upcoming Encounters Date Type Department Care Team (Late st Contact Info) Description 11/05/2024 8:00 AM EDT Office Visit [facility] ADULT DENTAL [address] [place], [place] [phone] Mike Bruce, REN [address] [place] [address] documented as of this encounter Visit Diagnoses Not on filedocumented in this encounter Care Teams Calliope Player Relationship Specialty Start Date End Date Milagros Walls MD [address] [place] [address] PCP - General Family Medicine 02/10/21 documented as of this encounter
--- OUTSIDE RECORDS SUMMARY | 2024-10-29 12:07 | XMS_ITS | Encounter Summary ---
Author Organization [employer] Address [address] 7t [place] [address] Care Team Providers Care Forging Machine Hand Name Role Phone Milagros Walls MD Primary Care Provider [phone] Reason for Visit * Reason Onset Date Comments Pt1 08/13/2023 Encounter Details Date Type Department Care Team ([facility] st Contact Info) Description 08/13/2023 Telephone [facility] MEDICINE 230 [place] [address] Milagros Walls MD 230 [place], [place] [phone] Pt1 Social History Tobacco Use Types Packs/Day [...] the past 12 months, has t he [employer], gas, oil or water company threatened to [...] n/a Visits: [employer] Address: [address] [place], [place] Facility: [facility] Wheel Chair: no [id number] Operator Needed: no PT1 needed Date: n/a Time: n/a Visits: [employer] Address: [address] [place] [address] Facility: [facility] Wheel Chair: No As400 Operator Needed: No PT1 needed Date: n/a Time: n/a Visits: [employer] Address: [address] [place] [address] Facility: [facility] Wheel Chair: No As400 Operator Needed: No documented in this encounter Plan of Treatment Upcoming Encounters Date Type Department Care Team (Late st Contact Info) Description 11/05/2024 8:00 AM EDT Office Visit [facility] ADULT DENTAL 230 [place] [address] Mike Bruce, REN 230 [place] [address] documented as of this encounter Visit Diagnoses Not on filedocumented in this encounter Care Teams Forging Machine Hand Relationship Specialty Start Date End Date Milagros Walls MD [address] [place], [place] PCP - General Family Medicine 02/10/21 documented as of this encounter
--- OUTSIDE RECORDS SUMMARY | 2024-10-29 12:07 | XMS_ITS | Encounter Summary ---
Author Organization [facility] Address [address] [place] [address] Care Team Providers Care Corporate Travel Consultant Name Role Phone Osbaldo Benavides MD Primary Care Provider [phone] Reason for Visit * Reason Comments Mouth Lesions Pt states cracked to ngue with some bleeding x 2 days Encounter Details Date Type Department Care Team ([facility] st Contact Info) Description 10/20/2024 4:16 PM EDT - 10/20/2024 7:14 PM EDT Emergency [facility] Emergency [address] [place] [address] Oral candidiasis (Primary Dx) Discharge [...] be sent through Care Everywhere. * Candidiasis (Mozambican) documented in this encounter Medications at Time of Discharge ammonium lactate (AmLactin) 12 % lotion Apply topically if needed for dry skin. 400 g 09/08/2024 6 butalbital-aceta minophen-caffein e-codeine (FIORICET WITH CODEINE) 16-087-29-30 mg per capsule Take 1 capsule by [...] been over the last 2 days. Endorses mikencjhon as well. No additional complaints or concerns. [...] needed for dry skin. 400 g 0 sfaxjfvnwl-ygtpghprclqax-qbqfhmiq-codeine (FIORICET WITH CODEINE) 58-329-24-30 mg per capsule Take 1 capsule by [...] and I agree with the Nurse practitioner's/Physician assistant professor of economics's note and plan by ISAMAR Ospina dated 10/20/2024, except as noted: None Bennett De La Rosa MD 10/20/24 7:07 PM EDT documented in this encounter Plan of Treatment Upcoming Encounters Date Type Department Care Team (Late st Contact Info) Description 12/07/2024 8:15 AM EDT Office Visit Orthopedic Surgery - [place] [address] [phone] Marino Estrella, DPM [address] [address] documented as of this encounter Procedures Procedure Name Priority Date/Time Associated Diagnosis Comments RAPID STREP A SCREEN STAT 10/20/2024 6:44 PM EDT CULTURE THROAT STAT 10/20/2024 6:44 PM EDT documented in this encounter Results * Culture throat (10/20/2024 6:44 PM EDT) Culture, Throat No pathogens isolated. 10/22/2024 12:52 PM EDT [facility] Swab Structure of anterior portion of neck / Unknown Non-blood Collection / Unknown 10/20/2024 6:44 PM EDT 10/20/2024 6:48 PM EDT [facility] MICROBIOLOGY - GENERAL ORDER ALVIN Final Result Performing Organization Address [facility]/ZIP Co de Phone Number [facility] [address] [place] [address], [place] [phone] * Rapid strep A screen (10/20/2024 6:44 PM EDT) Strep A Ag Negative Negative, Invalid 10/20/2024 7:02 PM EDT [facility] Comment:Refer to Throat Cult ure. Swab Structure of anterior portion of neck / Unknown Non-blood Collection / Unknown 10/20/2024 6:44 PM EDT 10/20/2024 6:48 PM EDT [facility] MICROBIOLOGY - GENERAL ORDER ALVIN Final Result Performing Organization Address [facility] Co de Phone Number [facility] [address] [place] [address], [place] [phone] documented in this encounter Visit Diagnoses Diagnosis Oral candidiasis- Primary Candidiasis of mouth documented in this encounter Care Teams Corporate Travel Consultant Relationship Specialty Start Date End Date Osbaldo Benavides MD [address] [place] [address] PCP - General 04/01/24 documented as of this encounter
--- OUTSIDE RECORDS SUMMARY | 2024-10-29 12:07 | XMS_ITS | Encounter Summary ---
Author Organization [employer] Address [address] [place] [address] 7t [place] [address] Care Team Providers Care Right Of Way Maintenance Supervisor Name Role Phone Milagros Walls MD Primary Care Provider [phone] Encounter Details Date Type Department Care Team (Late Contact Info) Description 08/29/2022 Orders Only [facility] MEDICINE [address] [place], [place] [phone] Milagros Walls MD [address] [place], [place] [phone] Kidney stone (Primary Dx) Social History Tobacco [...] Description 11/05/2024 8:00 AM EDT Office Visit [facility] ADULT DENTAL [address] [place], [place] [phone] Mike Bruce DMD [address] [place], [place] [phone] documented as of this encounter Procedures Procedure Name Priority Date/Time Associated Diagnosis Comments BI MAMMOGRAM SCREENING TOMOSYNTHESIS BILATERAL Routine 09/14/2022 9:51 AM EST documented in this encounter Results * BI Mammogram Screening Tomosynthesis Bilateral (09/14/2022 9:51 AM EST) Anatomical Region Laterality Modality Breast Bilateral Mammography 09/14/2022 9:51 AM EST Narrative 09/18/2022 5:22 PM EST ? [facility] [place] ? [address] ?[place], [place] [address] ? Mammography Report ? Signed ? Patient: Marjorie Henson Hussein ?MR#: [id number] ?? 54 ? : 1965 ?Acct:[id number] ? Age/Sex: 56 / F ?ADM Date: 09/14/22 ? Loc: HO.MAMMO ? Attending Dr: Milagros Walls MD ? Ordering Physician: Milagros Walls ?Results: 0Incomple ?? te: Needs Additional Imaging Evaluation ? Date of Service: 09/14/22 ?Follow Up: Additional Imagi ?? ng ? Procedure(s): MM tomosynthesis screening BI ?? Accession Number(s): [id number] ? cc: Kaity Wallsia ? EXAMINATION: ?? [...] ?09/18/22 1720 ? DD/ ? TD/TT: ? Baccarat Manager: SK ? Procedure Note Rakesh Mar - 09/18/2022 [facility] [address] [place], [place] [address] Mammography Report Signed Patient: Marjorie Henson LMR#: [id number] 54 : 1965Acct:[id number] Age/Sex: 56 / FADM Date: 09/14/22 Loc: [facility] Attending Dr: Milagros Walls MD Ordering Physician: Cory Wallsults: 0Incomple te: Needs Additional Imaging Evaluation Date of Service: 09/14/22Follow Up: Additional Imagi ng Procedure(s): MM tomosynthesis screening BI Accession Number(s): [id number] cc: Milagros Walls EXAMINATION: MM SCREENING DIGITAL [...] in OV> 09/18/22 1720 DD/ 0951 TD/TT: Baccarat Manager: NATAL[facility] External Provider IMG BI PROCEDURES Edited Result - Final documented in this encounter Visit Diagnoses Diagnosis Kidney stone- Primary Calculus of kidney documented in this encounter Care Teams Right Of Way Maintenance Supervisor Relationship Specialty Start Date End Date Milagros Walls MD [address] [place] [address] PCP - General Family Medicine 02/10/21 documented as of this encounter
--- OUTSIDE RECORDS SUMMARY | 2024-10-29 12:07 | XMS_ITS | Encounter Summary ---
Author Organization [employer] Address [address] [facility] 7t [place] [address] Care Team Providers Care At[employer] Retailer Sales Consultant Name Role Phone Milagros Walls MD Primary Care Provider [phone] Reason for Visit * Reason Onset Date Comments rs comp exam 07/24/2024 Encounter Details Date Type Department Care Team ([facility] st Contact Info) Description 07/24/2024 Telephone [facility] [address] [place], [place] [phone] Mike Bruce, DMD [address] [place] [address] rs comp exam Social History Tobacco Use [...] Visit [facility] [address] [place] [address] Mike Bruce, REN [address] [place] [address] documented as of this encounter Visit Diagnoses Not on filedocumented in this encounter Additional Health Concerns Assessment Noted Time PHQ-9 Depression Total Score: 0 03/04/20 24 10:17 AM EDT documented as of this encounter Care Teams [employer] Retailer Sales Consultant Relationship Specialty Start Date End Date Milagros Walls MD [address] [place] [address] PCP - General Family Medicine 02/10/21 documented as of this encounter
--- OUTSIDE RECORDS SUMMARY | 2024-10-29 12:07 | XMS_ITS | Encounter Summary ---
Author Organization [employer] Address [address] [facility] 7t [place] [address] Care Team Providers Care Flight Follower Name Role Phone Milagros Walls MD Primary Care Provider [phone] Reason for Visit * Reason Onset Date Comments PT-1 06/10/2024 Encounter Details Date Type Department Care Team ([facility] st Contact Info) Description 06/10/2024 Telephone [facility] [address] [place], [place] [phone] Milagros Walls MD [address] [place], [place] [phone] PT-1 Social History Tobacco Use Types Packs/Day [...] Y/N: Yes Provider name or facility name: [facility] Address: [address] [place] [address] Escort needed: Y/N: No Do you have a wheelchair: Y/N: No If yes- Manual or electric: N/A Visits: Twice a month. documented in this encounter Plan of Treatment Upcoming Encounters Date Type Department Care Team (Late st Contact Info) Description 11/05/2024 8:00 AM EDT Office Visit [facility]ULT [facility] [address] [place] [address] Mike Bruce, DMD [address] [place] [address] documented as of this encounter Visit Diagnoses Not on filedocumented in this encounter Additional Health Concerns Assessment Noted Time PHQ-9 Depression Total Score: 0 03/04/20 10:17 AM EDT documented as of this encounter Care Teams Flight Follower Relationship Specialty Start Date End Date Milagros Walls MD [address] [place] [address] PCP - General Family Medicine 02/10/21 documented as of this encounter
--- OUTSIDE RECORDS SUMMARY | 2024-10-29 12:07 | XMS_ITS | Encounter Summary ---
Author Organization [employer] Address [address] [facility] [address] 7t [place] [address] Care Team Providers Care Field Application Engineer Name Role Phone Milagros Walls MD Primary Care Provider [phone] Encounter Details Date Type Department Care Team (Late st Contact Info) Description 06/08/2024 Telephone [facility] [address] [place], [place] [phone] Milagros Walls MD [address] [place], [place] [phone] Social History Tobacco Use Types Packs/Day Years [...] Visit [facility] [address] [place] [address] Mike Bruce, DMD [address] [place] [address] documented as of this encounter Visit Diagnoses Not on filedocumented in this encounter Additional Health Concerns Assessment Noted Time PHQ-9 Depression Total Score: 0 03/04/20 24 10:17 AM EDT documented as of this encounter Care Teams Field Application Engineer Relationship Specialty Start Date End Date Milagros Walls MD [address] [place] [address] PCP - General Family Medicine 02/10/21 documented as of this encounter
--- OUTSIDE RECORDS SUMMARY | 2024-10-29 12:07 | XMS_ITS | Encounter Summary ---
Author Organization [employer] Address [address] [facility] [address] [place] [address] Care Team Providers Care Agronomy Professor Name Role Phone Milagros Walls MD Primary Care Provider [phone] Reason for Visit * Reason Onset Date Comments Med Refill 06/29/2024 Encounter Details Date Type Department Care Team ([facility] st Contact Info) Description 06/29/2024 Telephone [facility] [address] [place], [place] [phone] Milagros Walls MD [address] [place], [place] [phone] Med Refill Social History Tobacco Use Types [...] 10 MG tablet To be sent to: [id number] - [place], [place] - [address] [place] [address] [address] [facility] [address] documented in this encounter Plan of Treatment Upcoming Encounters Date Type Department Care Team (Late st Contact Info) Description 11/05/2024 8:00 AM EDT Office Visit [facility]ULT [facility] [address] [place] [address] Mike Bruce, REN [address] [place] [address] documented as of this encounter Visit Diagnoses Not on filedocumented in this encounter Additional Health Concerns Assessment Noted Time PHQ-9 Depression Total Score: 0 03/04/20 10:17 AM EDT documented as of this encounter Care Teams Agronomy Professor Relationship Specialty Start Date End Date Milagros Walls MD [address] [place] [address] PCP - General Family Medicine 02/10/21 documented as of this encounter
--- OUTSIDE RECORDS SUMMARY | 2024-10-29 12:07 | XMS_ITS | Encounter Summary ---
Author Organization [employer] Address 75 [facility] 7t [place] [address] Care Team Providers Care Waste Handling Technician Name Role Phone Milagros Walls MD Primary Care Provider [phone] Reason for Visit * Reason Comments Med Refill Encounter Details Date Type Department Care Team ([facility] st Contact Info) Description 06/15/2024 Refill [facility] [address] [place], [place] [phone] Milagros Walls MD [address] [place], [place] [phone] Social History Tobacco Use Types Packs/Day Years [...] Description 11/05/2024 8:00 AM EDT Office Visit [facility]ULT D[facility] [address] [place] [address] Mike Bruce DMD [address] [place] [address] documented as of this encounter Visit Diagnoses Not on filedocumented in this encounter Additional Health Concerns Assessment Noted Time PHQ-9 Depression Total Score: 0 03/04/20 24 10:17 AM EDT documented as of this encounter Care Teams Waste Handling Technician Relationship Specialty Start Date End Date Milagros Walls MD [address] [place] [address] PCP - General Family Medicine 02/10/21 documented as of this encounter
== END 2024-10-29 11:18 | disposition home or self-care (01) ==
LOC: HO.HPS 10:31
PROVIDERS: PCP General Practice; Visit Provider Internal Medicine
DX: J44.9 Chronic obstructive pulmonary disease, unspecified (principal); Z87.891 Personal history of nicotine dependence; R05.9 Cough, unspecified
CPT/HCPCS: 99213

== ENCOUNTER → 2024-10-29 10:30 | Outpatient (BNVA) | payer MEDICARE, MEDICAID, SELFPAY | PROVIDERS: PCP General Practice; Visit Provider Internal Medicine | DX: J44.9 Chronic obstructive pulmonary disease, unspecified (principal); R05.9 Cough, unspecified; Z87.891 Personal history of nicotine dependence | CPT/HCPCS: 99212 ==

== ENCOUNTER 2025-02-05 10:24 | Outpatient (AMB) | payer MEDICARE, SELFPAY ==
--- NOTE | 2025-02-05 10:30 | A.OFFVIS_ITS ---
Vital Signs 02/05/25 10:31 Height 5 ft 1 in Weight 168 lb BMI 31.7 BP 102/65 Blood Pressure Location Lt brachial Position Sitting Pulse 87 Pulse Oximetry (%) 96 Oxygen Delivery Method Room Air Intake Visit Reasons: colo screening cailin pt Intake Note: Patient complex follow up for pre Colonoscopy screening/Cailin holm was 12/05/23 for acid reflux. Patient cc: tiredness, abdominal bloating with gasses and burping bad odor, sensation of food getting stuck in her esophagus, and constipation on and off. Shipping And Receiving Clerk Required: No Accompanied by: Self / Same As Patient Allergies No Known Allergies Allergy (Verified 02/05/25 10:29) Medication List - Last Reconciled 02/05/25 by Haydee Obrien CNP albuterol sulfate 2.5 mg (3 mL) inhalation Q4H PRN 30 days amitriptyline 100 mg PO BEDTIME atorvastatin 10 mg PO BEDTIME baclofen 20 mg PO QID bisacodyl 5 mg PO ONCE 1 day budesonide-formoterol 160-4.5 mcg/actuation (Breyna) 2 puffs inhalation BID 30 days bupropion HCl SR 200 mg PO BID docusate sodium 100 mg PO BID PRN duloxetine 60 mg PO DAILY fluticasone propion-salmeterol 500-50 mcg/dose 1 ea PO BID montelukast 10 mg PO QPM olmesartan 5 mg PO DAILY omeprazole 20 mg PO DAILY ondansetron HCl 4 mg PO Q8H PRN peg 3350-electrolytes 236-22.74-6.74 -5.86 gram 240 mL PO Q10M polyethylene glycol 3350 (Miralax) 17 grams PO DAILY 30 days polyethylene glycol 3350 (Miralax) 238 grams PO ONCE pregabalin 25 mg PO BEDTIME simethicone (Gas Relief (simethicone)) 125 mg PO BID-TID PRN tamsulosin 0.4 mg PO BEDTIME tramadol 50 mg PO BID PRN umeclidinium 62.5 mcg/actuation (Incruse Ellipta) 1 inh inhalation DAILY umeclidinium 62.5 mcg/actuation (Incruse Ellipta) 1 inh inhalation DAILY 30 days Ventolin HFA 90 mcg/actuation (albuterol sulfate) 2 puffs PO Q6H PRN NS zanubrutinib (Brukinsa) 160 mg PO .in am and 1 in pm HPI HPI colo screening cailin pt: Details: Patient is a 59-year-old female with PMH of COPD, hyperlipidemia, hypertension, CKDIII and fibromyalgia. Last visit with ISAMAR Miranda 12/05/2023 for pre colonoscopy screening. She was scheduled to have double endoscopy last year but had to cancel due to covid19 diagnosis. Today she reports experiencing irregular bowel movements, typically defecating once every four days, and when they do, the consistency varies greatly from constipation to normal to pudding-like. Symptoms have persisted for the past few months. She drinks a lot of water due to having one kidney. The patient reports excessive gas and bloating, with burps having a foul odor. Stool softeners (Docusate) have been used occasionally?with some effect?but patient avoids high-fiber treatments due to renal concerns. Patient experiences episodic nausea and vomiting, recently exacerbated by heat. She also notes that excessive gas and its accompanying bloating deter her from going outside. Symptoms also include episodes of lower abdominal pain and sometimes dysphagia for the last six months. She experiences occasional heartburn, managed with occasional Tums, but burping remains problematic. Endorses a decrease appetite since October. Patient denies: fever/chills, regurgitation, unintentional wt loss or melena/hematochezia. Social hx: Diet: Eats a lot of mixed salads and meat. Avoids certain fibers due to kidney concerns. Alcohol/Tobacco/Drug Use: Smokes marijuana before meals to stimulate appetite, recently reduced tobacco use. - family hx as below -tolerated anesthesia in the past without difficulty. PFS Medical History (Updated 02/06/25 @ 07:07 by Haydee Obrien CNP) Change in stool Elevated alkaline phosphatase level Dysphagia Arthritis Constipation History of headache Habitual snoring Wheezing Asthma History of chemotherapy Chronic renal insufficiency Lymphoma Renal calculi Elevated cholesterol HTN (hypertension) Fallopian tube cancer, carcinoma Cough Post-COVID chronic cough Fibromyalgia Obesity (BMI 30.0-34.9) Personal history of nicotine dependence COPD (chronic obstructive pulmonary disease) Surgical History History of tonsillectomy and adenoidectomy Hx of tubal ligation History of esophagogastroduodenoscopy (EGD) Hx of cystoscopy H/O colonoscopy History of total hysterectomy History of cholecystectomy Family History (Updated 02/05/25 @ 11:13 by Haydee Obrien CNP) Maternal Grandmother Colon cancer Social History Household Members Other:: Many family members Are you a primary healthcare science specialist to a significant other at home: No Do you presently have visiting nurse or other home services: No Patient Tobacco Use Status: Current everyday Tobacco user Tobacco use type: Cigarette Cigarette Packs Per Day: 0.5 Cigarettes Per Day: 10.0 Years Smoked: 31 Review of Systems Const Reports as per HPI ENT Reports as per HPI Card Reports as per HPI Resp Reports as per HPI GI Reports as per HPI Reports as per HPI Physical Exam Vital Signs: Last Vital Signs Pulse 87 02/05/25 10:31 BP 102/65 02/05/25 10:31 Pulse Ox 96 02/05/25 10:31 Oxygen Delivery Method Room Air 02/05/25 10:31 BMI result Body Mass Index 31.7 Const General: healthy appearing and no acute distress Nutritional Appearance: average body habitus Orientation/consciousness: patient oriented x3 HEENT Head: Yes normal to inspection, Yes normocephalic and Yes atraumatic Face and sinus: Yes normal facial exam Eyes General: appearance normal, both eyes and all related structures Neck Neck: Yes normal visual inspection Resp Effort & Inspection: normal respiratory effort, able to speak in complete sentences, no tracheal deviation and symmetric chest movement Auscultation: clear to auscultation bilaterally Cardio Jugular venous distension: no JVD Rate: regular rate Rhythm: regular rhythm Heart sounds: S1 normal heart sound present, S2 normal heart sound present, no gallops and no murmurs GI Inspection: Yes normal to inspection and No distended Palpation (GI): Soft to palpation, not firm, nontender and No hepatosplenomegaly present Auscultation: normal bowel sounds Neuro General: patient oriented x3 Gait exam (Neuro): Normal gait present Psych Appearance: grossly normal Mental Status: mental status grossly normal Speech and movement: Normal speech and movement present Affect: normal affect Attitude: cooperative Thought process: Normal thought process present Thought content: Normal thought content present Insight: Good insight present (Psych) Judgement: Good judgement present (Psych) Assessment & Plan Assessment & Plan (1) Dysphagia: Code(s): R13.10 - Dysphagia, unspecified Category: Medical Qualifiers: Dysphagia type: unspecified Qualified Code(s): R13.10 - Dysphagia, unspecified Plan: Onset six month ago, with chronic GERD symptoms Diagnostics: Order barium swallow study, upper endoscopy concurrent with colonoscopy (2) Acid reflux: Code(s): K21.9 - Gastro-esophageal reflux disease without esophagitis Category: Medical Qualifiers: Esophagitis presence: esophagitis presence not specified Qualified Code(s): K21.9 - Gastro-esophageal reflux disease without esophagitis Plan: Chronic, partial relief with antacid and questionable use of PPI Diagnostics: H. pylori breath test. informational handout provided, including PPI hold instructions Medications: Resume omeprazole 20 mg daily after breath test Encouraged to take omeprazole as prescribed, taken at least 30-60 minutes before a meal. Education on GERD prevention : -Advised against heavy meals; encouraged small, frequent meals instead of large ones. - Instructed to remain upright for 2?3 hours after eating. - Advised to avoid late-night meals, spicy foods, caffeine, alcohol, known tary triggers, and tight-fitting clothing. - Emphasis placed on gradual implementation of lifestyle changes to improve adherence and symptom control. (3) Encounter for screening colonoscopy: Code(s): Z12.11 - Encounter for screening for malignant neoplasm of colon Category: Medical Plan: Due for screening, recent stool changes Medications: -prescriptions for laxative tablets and MiraLax sent to pharmacy; instructions for Gatorade purchase and clear liquid diet given. Patient educated on scheduling process, procedure preparation, including avoiding certain foods and ensuring clear liquid intake Advised on necessity for ride post-procedure due to sedation. (4) Change in stool: Code(s): R19.5 - Other fecal abnormalities Category: Medical Plan: primary constipation VS overflow diarrhea VS IBD Diagnostic: repeat/screening labs, stool testing and colonoscopy as above Medications: Start Miralax 17g PO daily; continue docusate 100mg PO PRN (may use daily), Simethicone 500mg PO BID-TID PRN Lifestyle: Monitor and modify dietary intake to identify and reduce gas- producing foods (provided low FODMAP handout) Reinforced lifestyle modifications to promote regularity: - diet as above -adequate hydration with water -150 minutes of moderate intensity exercise per week Plan Follow-up in 2 weeks for H pylori testing with nursing Follow-up in 8 weeks with provider or sooner as needed Time: I spent a total of 50 minutes on the date of encounter which includes: Preparing to see the patient (reviewed previous documentation, test results and medical history) Performing a medically appropriate exam and/or evaluation Ordering medications, tests, and procedures Documenting clinical information in the health record Orders: Orders FL barium swallow 02/05/25 R13.10 - Dysphagia, unspecified TSH reflex Free T4 Today R19.5 - Other fecal abnormalities Calprotectin, Fecal Today R19.5 - Other fecal abnormalities Comprehensive Gilbert. Panel Fast 02/05/25 R74.8 - Abnormal levels of other serum enzymes C Reactive Protein 02/05/25 R74.8 - Abnormal levels of other serum enzymes Transglutaminase IgA Today R19.5 - Other fecal abnormalities Medications: New polyethylene glycol 3350 (Miralax) Take 17G (one cap full) daily with 8oz of water 17 grams PO DAILY 510 grams 2RF constipation 30 days polyethylene glycol 3350 (Miralax) per colonoscopy prep instructions 238 grams PO ONCE 238 grams 0RF simethicone (Gas Relief (simethicone)) 125 mg PO BID-TID PRN 120 caps 1RF gas bisacodyl Take four tablets once for 1 day per colonoscopy instructions 5 mg PO ONCE 4 tabs 0RF 1 day Coding Level of Care Code Established Pt Est Pt Level 5 (60109) Patient Type Established Diagnoses Dysphagia, unspecified type R13.10 Dysphagia type: unspecified Gastroesophageal reflux disease, unspecified whether esophagitis present K21.9 Esophagitis presence: esophagitis presence not specified Encounter for screening colonoscopy Z12.11 Change in stool R19.5
[2025-02-05 10:31] VITALS: BP 102/65; PULSE 87; O2SAT 96; BMI 31.7
--- OUTSIDE RECORDS SUMMARY | 2025-02-05 11:12 | XMS_ITS | Clinical Summary ---
Author Organization [employer] Address [address] [facility] [address] [place] [address] Care Team Providers Care Insole Reinforcer Name Role Phone Milagros Walls MD Primary Care Provider [phone] Allergies No known active allergies Medications Blood [...] MOUTH TWICE DAILY FOR COPD 024 Active atorvastatin (Lipitor) 10 MG tablet TAKE 1 TABLET(10 MG) BY MOUTH IN THE MORNING 90 tablet 3 024 Active COVID-19 Antigen Test kit 1 each by In Vitro route if needed (covid symptoms). 10 kit 1 024 Active Colace 100 MG capsule Take 1 capsule (100 mg) by mouth 2 times daily. 180 capsule 3 024 Active omeprazole (PriLOSEC) [address] capsule Take 1 capsule (20 mg) by mouth Once per day. 90 capsule 3 Active butalbital-acetam inophen-caffeine- codeine (Fioricet W/Codeine) 34-299-70-30 MG capsule Take 1 capsule by mouth [...] WITH THE EVENING MEAL 90 tablet 3 Active amitriptyline (Elavil) 50 MG tabletIndications :Fibromyalgia TAKE 2 TABLETS(100 MG) BY MOUTH AT BEDTIME 180 tablet 3 Active naltrexone (Depade) 50 MG tablet Take 0.5 tablets (25 mg) by mouth Once per day. 15 tablet 11 024 2024 Active Magnesium 400 MG capsule Take 400 mg by mouth at bedtime. 90 capsule 3 Active olmesartan (BENIcar) 5 MG tablet TAKE 2 TABLETS BY MOUTH DAILY EVERY MORNING 180 tablet 3 Active Magnesium Oxide -Mg Supplement 400 MG capsule Take 1 capsule by mouth at bedtime. Active ondansetron ODT (Zofran-ODT) 4 MG disintegrating tabletIndications :Nausea DISSOLVE 1 TABLET ON THE TONGUE THREE TIMES DAILY NEEDED FOR NAUSEA 30 tablet 3 Active DULoxetine (Cymbalta) [address] capsuleIndication s:Fibromyalgia TAKE 2 CAPSULES BY MOUTH EVERY MORNING 180 capsule 3 Active prochlorperazine (Compazine) 5 MG tablet Active Fluticasone-Salme terol 500-50 MCG/ACT aerosol powder Inhale 1 puff 2 times daily. Active tamsulosin (Flomax) 0.4 MG 24 hr capsuleIndication s:Left flank pain TAKE 1 CAPSULE(0.4 MG) BY MOUTH IN THE MORNING 90 capsule 3 025 Active buPROPion SR (Wellbutrin SR) 200 MG 12 hr tablet TAKE 1 TABLET(200 MG) BY MOUTH TWICE DAILY 180 tablet 3 025 Active albuterol 108 (90 Base) MCG/ACT inhaler INHALE 2 PUFFS BY MOUTH EVERY 6 HOURS NEEDED FOR WHEEZING 18 g 3 025 Active albuterol 108 (90 Base) MCG/ACT inhaler INHALE 2 PUFFS BY MOUTH EVERY 6 HOURS NEEDED FOR WHEEZING 18 g 3 025 2024 Discontinued traMADol (Ultram) 50 MG tabletIndications :Fibromyalgia Take 1 tablet (50 mg) by mouth every 12 (twelve) hours if needed for severe pain for up to 28 days. 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 08/13 Muscle spasm 10/23/2023 Assessment & Plan (10/23/2023 10:45 AM EDT): Trialed trigger point injections in office, 3 on each size of trapezius muscles, not helpful in immediate pain relief Screen for colon cancer 10/23/2023 Assessment & Plan (10/23/2023 10:45 AM EDT): Refer to [facility] Left flank pain 07/21/2023 Assessment & Plan [...] tabs daily Monitored every 3 months by [facility] oncology No swelling currently or enlarged lymph nodes currently Assessment & Plan (04/22/2023 8:17 AM EDT): On Zanubrutnib for active disease, 3 tabs daily Monitored every 3 months by [facility] oncology No swelling currently or enlarged lymph nodes currently Assessment & Plan (11/13/2022 6:07 AM EDT): On Zanubrutnib for active disease, 3 tabs daily Monitored every 3 months by [facility] oncology No swelling currently Assessment & Plan [...] does not follow fibromyalgia - trial of Jmi Chi - consider acupuncture in the office [...] (10/23/2023 10:44 AM EDT): Sees Pulm at [facility], now q6 months due to improvements Cont Advair Cont CATHRYN prn Smoking cessation encouraged Assessment & Plan (11/13/2022 6:09 AM EDT): Sees Pulm at [facility], now q6 months due to improvements Cont Advair Cont CATHRYN prn Smoking cessation encouraged Assessment & Plan (08/21/2022 12:07 PM EST): Cont Advair Cont CATHRYN prn Smoking cessation Nephrolithiasis 02/15/2021 Assessment & Plan (11/13/2022 6:08 AM EDT): [place]s [place] Resolved, all passed on last US 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 Asthma 05/10/2010 GERD (gastroesophageal reflux disease) 0 Migraine 05/10/2010 Resolved Problems Problem Noted Date Diagnosed Date Resolved Date CLL (chronic lymphocytic leukemia) 08/21/2022 08/21/2022 Disease due to severe acute respiratory syndrome coronavirus 2 (SARS-CoV-2) 09/15/2021 03/0 02/2025 Overview (11/12/2022): Problem added by Discern Expert Encounters Date Type Department Care Team Description 01/19/2025 Refill [facility] [address] [place] [phone] Milagros Walls MD 12/31/2024 Refill [facility] [address] [place] [phone] Milagros Walls MD Fibromyalgia (Primary Dx) 12/24/2024 Telephone [facility] [address] [place] [phone] Milagros Walls MD pt1 12/24/2024 Patient Outreach [facility] [address] [place] [phone] Milagros Walls MD Care Coordination (CHW outreach for SDOH PT-1 and food needs-referral completed /) 12/24/2024 Telephone [facility] [address] [place] [phone] Milagros Walls MD PT-1 12/22/2024 Orders Only [facility] [address] [place] [phone] Milagros Walls MD Kidney mass (Primary Dx); Kidney atrophy 12/22/2024 Telephone [facility] [address] [place] [address] Milagros Walls MD Referral 12/18/2024 1:30 PM EDT Office Visit [facility] [address] [place] [address] Mike Bruce DMD 11/27/2024 11:00 AM EDT Office Visit [facility] [address] [place] [address], [place] [address] Mike Bruce DMD 11/25/2024 Refill [facility] [address] [place] [address] Milagros Walls MD 11/20/2024 8:00 AM EDT Office Visit [facility] [address] [place] [address] Mike Bruce DMD 11/05/2024 Telephone [facility] [address] [place] [phone] Mike Bruce DMD rs appt from Last 3 Months Immunizations Immunization Administration Dates Next Due Influenza Injectable Quadriv [...] Sign Reading Time Taken Comments Blood Pressure 134/80 12/18/2024 1:13 PM EDT Pulse 74 12/18/2024 1:13 PM EDT Temperature 36.4 C (97.6 F) 10/13/2024 10:15 AM EST Respiratory Rate 17 10/13/2024 10:15 AM EST Oxygen Saturation 95% 10/13/2024 10:15 AM EST Inhaled Oxygen Concentration - - Weight 79.8 kg (176 lb) 10/13/2024 10:15 AM EST Height 154.9 cm (5' 1 ) 10/13/2024 10:15 AM EST Body Mass Index 33.25 10/13/2024 10:15 AM EST Plan of Treatment Upcoming Encounters Date Type Department Care Team (Late st Contact Info) Description 02/08/2025 10:00 AM EDT Office Visit [facility] [address] [place] [phone] Mike Bruce, REN [address] [place] [address] 03/16/2025 9:00 AM EDT Office Visit [facility] [address] [place] [address] Kaycee Franz, OD [address] [place] [address] Health Maintenance Due Date Last Done Comments CT Colonography 1965 Colonoscopy 1965 Colorectal Cancer Screening 1965 Dental Prophylaxis 1964 Dental X-Ray: Bitewings 1964 FIT DNA/Cologuard 1965 FIT 1965 FOBT 1965 HIV Screening 1965 Sigmoidoscopy 1965 Disability Screening 1965 Alcohol/Substance Use Screening 1976 Pap Smear 1985 HPV/Cotest 1994 RSV Patients and Patients Aged 60 years or older (1 - Risk 60-74 years 1-dose series) 2024 Diagnostic Breast Imaging 11/11/20242023, 05/10/2023, 10/25/2022 Mammogram 11/11/2024 11/12/2023, 04/13, 10/25/2022, Additional history exists COVID-19 Vaccine ( season) 2024 10/13/2024, 06/09/2024, 07/19/2023, Additional history exists Dental Oral Exam 02/15/2025 08/17/2024 Depression Screening 03/04/2025 03/04/2024, 03/04/20 24 SDOH Screening 03/04/2025 03/04/2024 Diabetes: Hemoglobin A1C 10/13/2025 10/13/2024, 07/09/2020 Tobacco Screening 12/18/2025 12/18/2024 Dental X-Ray: Full Mouth 08/18/2027 08/17/2024 Lipid [...] age to complete this topic Meningococcal B Vaccine Aged Out No l onger eligible based on patient's age to complete [...] Procedure Name Priority Date/Time Associated Diagnosis Comments CASE PRESENTATION, DETAILED AND EXTENSIVE TREATMENT PLANNING Routine 12/18/2024 1:30 PM EDT Roberth COMPLETE DENTURE - MANDIBULAR Routine 12/18/2024 1:30 PM EDT Max COMPLETE DENTURE - MAXILLARY Routine 12/18/2024 1:30 PM EDT WAX TRY IN Routine 11/27/2024 11:00 AM EDT WAX TRY IN Routine 11/20/2024 8:00 AM EDT HEMOGLOBIN A1C Routine 10/13/2024 10:58 AM EST Primary hypertension LIPID PANEL, STANDARD Routine 10/13/2024 10:58 AM EST Primary hypertension PANORAMIC RADIOGRAPHIC IMAGE Routine 08/17/2024 8:00 AM EST COMPREHENSIVE ORAL EVALUATION - NEW OR ESTABLISHED PATIENT Routine 08/17/2024 8:00 AM EST BI MAMMOGRAM DIAGNOSTIC TOMOSYNTHESIS BILATERAL Routine 11/12/2023 1:05 PM EDT ZZZ HISTORICAL HEPATITIS C AB W/REFL TO HCV RNA, QN, PCR Routine 02/10/2021 9:36 AM EDT from Last 3 Months or Most Recently Relevant to Health Maintenance Results * Hemoglobin A1c (10/13/2024 10:58 AM EST) Hemoglobin A1c 6.0 <6.0 % [facility] Comment:Hemoglobin A1C Refer ence Range Adults: 4.8 - 6.0 % Non diabetic: < 6.0 % Goal: < 7.0 %Additional Action Suggested: > 8.0 %Note: Hemoglobin A1c results are invalid for patients with abnormal amounts of HbF. Blood transfusions may impact the HbA1c concentration in the patient sample. Estimated Average Glucose 126 mg/dL [facility] Comment:eAG = Estimated ave rage glucose which is %A1C expressed asaverage glucose, using the formula of the S8Y-SaqfmbiCiqmlui Glucose study (ADAG), Diabetes Care, Vol.31,#8,Mar. 2007 Blood Venous blood specimen / Unknown 10/13/2024 10:58 AM EST 10/13/2024 1:11 PM EST us Milagros Walls MD LAB BLOOD ORDERABLES Final Res ult [facility] [address] [place] [phone] * (ABNORMAL) Lipid Panel, Standard (10/13/2024 10:58 AM EST) Triglycerides 180(H) <150 mg/dL [facility] Comment:Desirable Triglyceri de: less than 150 mg/dLBorderline High Triglyceride 150-199 mg/dLHigh Triglyceride: 200-499 mg/dLVery High Triglyceride: greater than or equal to 5OO mg/dL Cholesterol 178 <200 mg/dL [facility] Comment:Desirable Cholestero l: less than 200 mg/dLBorderline High Cholesterol: 200-239 mg/dLHigh Cholesterol: greater than 239 mg/dL LDL Cholesterol Calculated 90 <100 mg/dL [facility] Comment:Desirable LDL: less than 100 mg/dLNear Optimal/Above Optimal LDL: 110- 129 mg/dLBorderline High LDL: 130-159 mg/dLHigh LDL: 160-189 mg/dLVery High LDL: greater than or equal to 190 mg/dL HDL Cholesterol 52 >40 mg/dL [facility] Comment:Desirable HDL: great er than 40 mg/dL Note: This HDL assay may give artificially low results in patients with liver disease. Blood Venous blood specimen / Unknown 10/13/2024 10:58 AM EST 10/13/2024 1:12 PM EST us Milagros Walls MD LAB BLOOD ORDERABLES Final Res ult [facility] [address] [place] [phone] * BI Mammogram Diagnostic Tomosynthesis Bilateral (11/12/2023 1:05 PM EDT) Anatomical Region Laterality Modality Breast Bilateral Mammography 11/12/2023 1:05 PM EDT Narrative 11/12/2023 2:02 PM EDT [facility] [address] [place] [address] Mammography Report Signed Patient: Marjorie Henson MR#: [id number] 54 : 1965 Acct:[id number] Age/Sex: 58 / F ADM Date: 11/12/23 Loc: HO.MAMMO Attending Dr: Milagros Walls MD Ordering Physician: Milagros Walls Results: 3.12MProb ably Benign Finding - 12 month F/U Suggested Date of Service: 11/12/23 Follow Up: 12 month diagnos tic follow up Procedure(s): MM tomosynthesis diagnostic BI Accession Number(s): [id number] cc: Milagros Walls EXAMINATION: MM DIAGNOSTIC DIGITAL [...] in OV> 11/12/23 1359 DD/ 1305 TD/TT: Packer Insulation: Procedure Note Donotuseinterpreter, Image - 11/12/2023 Man [facility] [address] [place] [address] Mammography Report Signed Patient: Marjorie Henson LMR#: [id number] 54 : 1965Acct:[id number] Age/Sex: 58 / FADM Date: 11/12/23 Loc: HO.MAMMO Attending Dr: Milagros Walls MD Ordering Physician: Cory Wallsults: 3.12MProb ably Benign Finding - 12 month F/U Suggested Date of Service: 11/12/23Follow Up: 12 month diagnos tic follow up Procedure(s): MM tomosynthesis diagnostic BI Accession Number(s): [id number] cc: Milagros Walls EXAMINATION: MM DIAGNOSTIC DIGITAL [...] in OV> 11/12/23 1359 DD/ 1305 TD/TT: Packer Insulation: Milagros Walls MD IMG BI PROCEDURES Final Result * HEPATITIS C AB W/REFL TO HCV RNA, QN, PCR (02/10/2021 9:36 AM EDT) HEPATITIS C ANTIBODY NON-REACT MOMO NON-REACT MOMO [facility] INDEX 0.02 <1.00 [facility] Comment: HCV antibody was non-reactive. There is no laboratory evidence of HCV infection. In most cases, no further action is required. However, if recent HCV exposure is suspected, a test for HCV RNA (test code 93331) is suggested. For additional information please refer to [email or web address] [email or web address]/[email or web address] (This link is being provided for informational/ educational purposes only.) 02/10/2021 9:36 AM EDT Milagros Walls MD HISTORICAL/NON ORDERABLE LABS Final Result [facility] [address] from Last 3 Months or Most Recently Relevant to Health Maintenance Insurance [facility] STANDARD [employer] PPO [place] MED[employer]ARE PREFERRED [facility] MEDICAID STAND ADULT Care Teams Insole Reinforcer Relationship Specialty Start Date End Date Milagros Walls MD [address] [place] [address] PCP - General Family Medicine 02/10/21
== END 2025-02-05 11:22 | disposition home or self-care (01) ==
LOC: HO.HGI 10:25
PROVIDERS: PCP General Practice; Visit Provider Nurse Practitioner Family
DX: R13.10 Dysphagia, unspecified (principal); K21.9 Gastro-esophageal reflux disease without esophagitis; R19.5 Other fecal abnormalities
CPT/HCPCS: 99215

== ENCOUNTER → 2025-02-05 10:24 | Outpatient (BNVA) | payer MEDICARE, SELFPAY | PROVIDERS: PCP General Practice; Visit Provider Nurse Practitioner Family | DX: Z12.11 Encounter for screening for malignant neoplasm of colon (principal); R13.10 Dysphagia, unspecified; K21.9 Gastro-esophageal reflux disease without esophagitis; R19.5 Other fecal abnormalities | CPT/HCPCS: 99212 ==

== ENCOUNTER 2025-02-19 08:51 | Outpatient (REF) | payer MEDICARE, SELFPAY ==
--- OUTSIDE RECORDS SUMMARY | 2025-02-19 09:01 | XMS_ITS | Clinical Summary ---
Author Organization [employer] Address [address] [facility] 7[address] [place] [address] Care Team Providers Care Senior Net Software Developer Name Role Phone Milagros Walls MD Primary Care Provider [phone] Allergies No known active allergies Medications Blood Pressure Monitoring (Blood Pressure Cuff) miscIndications:El evated blood pressure reading in office without diagnosis of hypertension 1 kit in the morning. 1 each 08/20/19 23 Active Incruse Ellipta 62.5 MCG/ACT aerosol powder INHALE 1 PUFF BY MOUTH DAILY 07/30/20 22 Active Brukinsa 80 MG chemo capsule 08/07/20 22 Active acetaminophen (Tylenol) 325 MG tablet Take 650 mg by mouth. 10/18/19 23 Active melatonin 3 MG tablet Take 3 mg by mouth. 10/18/19 23 Active Misc. Devices (Pulse Oximeter For Finger) misc 1 each if needed each day (shortness of breath, infection, wheezing). 1 each 09/17/19 24 Active Misc. Devices (Fingertip Pulse Oximeter) misc 1 each if needed (SOB). 1 each 10/10/19 24 Active fluticasone-salmet hunter (Advair) 230-21 MCG/ACT inhaler INHALE 2 PUFFS BY MOUTH TWICE DAILY FOR COPD 10/14/19 24 Active atorvastatin (Lipitor) 10 MG tablet TAKE 1 TABLET(10 MG) BY MOUTH IN THE MORNING 90 tablet 3 12/25/19 24 Active COVID-19 Antigen Test kit 1 each by In Vitro route if needed (covid symptoms). 10 kit 1 03/04/20 24 Active Colace 100 MG capsule Take 1 capsule (100 mg) by mouth 2 times daily. 180 capsule 3 03/04/20 24 Active omeprazole (PriLOSEC) [address] capsule Take 1 capsule (20 mg) by mouth Once per day. 90 capsule 3 06/05/20 24 Active butalbital-acetami lqynnx-hkuxaekp-il deine (Fioricet W/Codeine) 66-002-08-30 MG capsule Take 1 capsule by mouth every 4 (four) hours if needed. Active polyethylene glycol-electrolyte s (Nulytely) 420 g solution DRINK 240ML ORALLY EVERY 10 MINUTES.REFER TO PREP INSTRUCTIONS 04/24/20 24 Active baclofen (Lioresal) 10 MG tablet TAKE 2 TABLETS(20 MG) BY MOUTH FOUR TIMES DAILY 360 tablet 9 06/29/20 24 Active montelukast (Singulair) 10 MG tabletIndications: Chronic obstructive pulmonary disease, unspecified COPD type (CMS/HCC) TAKE 1 TABLET(10 MG) BY MOUTH WITH THE EVENING MEAL 90 tablet 3 07/01/20 24 Active amitriptyline (Elavil) 50 MG tabletIndications: Fibromyalgia TAKE 2 TABLETS(100 MG) BY MOUTH AT BEDTIME 180 tablet 3 07/07/20 24 Active naltrexone (Depade) 50 MG tablet Take 0.5 tablets (25 mg) by mouth Once per day. 15 tablet 11 07/08/20 24 025 Active Magnesium 400 MG capsule Take 400 mg by mouth at bedtime. 90 capsule 3 07/08/20 24 Active olmesartan (BENIcar) 5 MG tablet TAKE 2 TABLETS BY MOUTH DAILY EVERY MORNING 180 tablet 3 07/29/20 24 Active Magnesium Oxide -Mg Supplement 400 MG capsule Take 1 capsule by mouth at bedtime. 07/08/20 24 Active ondansetron ODT (Zofran-ODT) 4 MG disintegrating tabletIndications: Nausea DISSOLVE 1 TABLET ON THE TONGUE THREE TIMES DAILY NEEDED FOR NAUSEA 30 tablet 3 08/19/19 25 Active DULoxetine (Cymbalta) [address] capsuleIndications :Fibromyalgia TAKE 2 CAPSULES BY MOUTH EVERY MORNING 180 capsule 3 10/14/19 25 Active prochlorperazine (Compazine) 5 MG tablet 09/14/19 25 Active Fluticasone-Salmet hunter 500-50 MCG/ACT aerosol powder Inhale 1 puff 2 times daily. 09/08/19 25 Active tamsulosin (Flomax) 0.4 MG 24 hr capsuleIndications :Left flank pain TAKE 1 CAPSULE(0.4 MG) BY MOUTH IN THE MORNING 90 capsule 3 11/03/19 25 Active buPROPion SR (Wellbutrin SR) 200 MG 12 hr tablet TAKE 1 TABLET(200 MG) BY MOUTH TWICE DAILY 180 tablet 3 11/26/19 25 Active albuterol 108 (90 Base) MCG/ACT inhaler INHALE 2 PUFFS BY MOUTH EVERY 6 HOURS NEEDED FOR WHEEZING 18 g 3 01/21/20 25 Active nystatin (Mycostatin) 597812 UNIT/ML suspension SHAKE LIQUID WELL AND SWISH AND SWALLOW 5 ML BY MOUTH FOUR TIMES DAILY FOR 14 DAYS 10/21/19 25 Active baclofen (Lioresal) 10 MG tablet Take 10 tablets by mouth 3 times daily. Active traMADol (Ultram) 50 MG tabletIndications: Fibromyalgia Take 1 tablet (50 mg) by mouth every 12 (twelve) hours if needed for severe pain for up to 28 days. 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) use of opiate analgesic 08/13 Muscle spasm 10/23/2023 Assessment & Plan (10/23/2023 10:45 AM EDT): Trialed trigger point injections in office, 3 on each size of trapezius muscles, not helpful in immediate pain relief Screen for colon cancer 10/23/2023 Assessment & Plan (10/23/2023 10:45 AM EDT): Refer to [facility] Left flank pain 07/21/2023 Assessment & Plan [...] tabs daily Monitored every 3 months by [facility] oncology No swelling currently or enlarged lymph nodes currently Assessment & Plan (04/22/2023 8:17 AM EDT): On Zanubrutnib for active disease, 3 tabs daily Monitored every 3 months by [facility] oncology No swelling currently or enlarged lymph nodes currently Assessment & Plan (11/13/2022 6:07 AM EDT): On Zanubrutnib for active disease, 3 tabs daily Monitored every 3 months by [facility] oncology No swelling currently Assessment & [...] 10:44 AM EDT): Sees Pulm at [facility], now q6 months due to improvements Cont Advair Cont CATHRYN prn Smoking cessation encouraged Assessment & Plan (11/13/2022 6:09 AM EDT): Sees Pulm at [facility], now q6 months due to improvements Cont Advair Cont CATHRYN prn Smoking cessation encouraged Assessment & Plan (08/21/2022 12:07 PM EST): Cont Advair Cont CATHRYN prn Smoking cessation Nephrolithiasis 02/15/2021 Assessment & Plan (11/13/2022 6:08 AM EDT): [place] [facility] Resolved, all passed on last US 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 Asthma 05/10/2010 GERD (gastroesophageal reflux disease) 0 Migraine 05/10/2010 Gastroesophageal reflux disease 05/10/2010 Resolved Problems Problem Noted Date Diagnosed Date Resolved Date CLL (chronic lymphocytic leukemia) 08/21/2022 08/21/2022 Disease due to severe acute respiratory syndrome coronavirus 2 (SARS-CoV-2) 09/15/2021 03/0 02/2025 Overview (11/12/2022): Problem added by Discern Expert Encounters Date Type Department Care Team Description 02/15/2025 9:00 AM EDT Office Visit [facility] [address] [place] [address] Mike Bruce, REN 02/08/2025 10:00 AM EDT Office Visit [facility] [address] [place] [address] Mike Bruce, REN 01/19/2025 Refill [facility] [address] [place] [phone] Milagros Walls MD 12/31/2024 Refill [facility] [address] [place] [phone] Milagros Walls MD Fibromyalgia (Primary Dx) 12/24/2024 Telephone [facility] [address] [place] [phone] Milagros Walls MD pt1 12/24/2024 Patient Outreach [facility] [address] [place] [phone] Milagrso Walls MD Care Coordination (CHW outreach for SDOH PT-1 and food needs-referral completed /) 12/24/2024 Telephone [facility] [address] [place] [phone] Milagros Walls MD PT-1 12/22/2024 Orders Only [address] [phone] Milagros Walls MD Kidney mass (Primary Dx); Kidney atrophy 12/22/[address] [phone] Milagros Walls MD Referral 12/18/2024 1:30 PM EDT Office Visit [facility] [address] [place] [phone] Mike Bruce DMD 11/27/2024 11:00 AM EDT Office Visit [facility] [address] [place] [phone] Mike Bruce DMD 11/25/[address] [address] Milagros Walls MD 11/20/2024 8:00 AM EDT Office Visit [facility] [address] [place] [phone] Mike Bruce DMD from Last 3 Months Immunizations Immunization Administration [...] Care Team (Late st Contact Info) Description 03/16/2025 9:00 AM EDT Office Visit [facility] [address] [place] [address] Kaycee Franz, OD [address] [place] [address] 03/29/2025 8:00 AM EDT Office Visit [facility] [address] [place] [address] JanisMike, DMD [address] [place] [address] Health Maintenance Due Date Last Done Comments [...] 03/04/2024, 03/04/20 24 SDOH Screening 03/04/2025 03/04/2024 Influenza Vaccine (#1) 2025 , 07/19/2023, 04/29/2020 Diabetes: Hemoglobin A1C 10/13/2025 10/13/2024, 07/0 09/2020 Tobacco Screening 02/15/2026 02/15/2025 Dental X-Ray: Full Mouth 08/18/2027 08/17/2024 Lipid Panel 10/13/2029 10/13/2024, 02/10/2021 DTaP/Tdap/Td Vaccines (2 - Td or Tdap) 10/20/2033 10/21/2023 Hepatitis C Screening Completed 02/10/2021 Pneumococcal Vaccine: 50+ Years Completed 10/21/2023 Zoster Vaccines Completed 12/26/2023, 10/14/2023 Cervical Cancer Screening Discontinued HIB Vaccines Aged [...] Name Priority Date/Time Associated Diagnosis Comments DENTURE FOLLOWUP Routine 02/15/2025 9:0 0 AM EDT DENTURE ADJUSTMENT Routine 02/08/2025 10 :00 AM EDT CASE PRESENTATION, DETAILED AND EXTENSIVE TREATMENT PLANNING [...] AM EST) Hemoglobin A1c 6.0 <6.0 % [facility] Comment:Hemoglobin A1C Refer ence Range Adults: 4.8 - 6.0 % Non diabetic: < 6.0 % Goal: < 7.0 %Additional Action Suggested: > 8.0 %Note: Hemoglobin A1c results are invalid for patients with abnormal amounts of HbF. Blood transfusions may impact the HbA1c concentration in the patient sample. Estimated Average Glucose 126 mg/dL [facility] Comment:eAG = Estimated ave rage glucose which is %A1C expressed asaverage glucose, using the formula of the V4I-PxwfrpbGkzmibh Glucose study (ADAG), Diabetes Care, Vol.31,#8,Aug. 2007 Blood Venous blood specimen / Unknown 10/13/2024 10:58 AM EST 10/13/2024 1:11 PM EST us Milagros Walls MD LAB BLOOD ORDERABLES Final Res ult [facility] [address] [place], [place] [phone] * (ABNORMAL) Lipid Panel, Standard (10/13/2024 10:58 AM EST) Triglycerides 180(H) <150 mg/dL [facility] Comment:Desirable Triglyceri de: less than 150 mg/dLBorderline High Triglyceride 150-199 mg/dLHigh Triglyceride: 200-499 mg/dLVery High Triglyceride: greater than or equal to 5OO mg/dL Cholesterol 178 <200 mg/dL [facility] Comment:Desirable Cholestero l: less than 200 mg/dLBorderline High Cholesterol: 200-239 mg/dLHigh Cholesterol: greater than 239 mg/dL LDL Cholesterol Calculated 90 <100 mg/dL [facility] Comment:Desirable LDL: less than 100 mg/dLNear Optimal/Above Optimal LDL: 110- 129 mg/dLBorderline High LDL: 130-159 mg/dLHigh LDL: 160-189 mg/dLVery High LDL: greater than or equal to 190 mg/dL HDL Cholesterol 52 >40 mg/dL [facility] Comment:Desirable HDL: great er than 40 mg/dL Note: This HDL assay may give artificially low results in patients with liver disease. Blood Venous blood specimen / Unknown 10/13/2024 10:58 AM EST 10/13/2024 1:12 PM EST us Milagros Walls MD LAB BLOOD ORDERABLES Final Res ult [facility] [address] [place] [phone] * BI Mammogram Diagnostic Tomosynthesis Bilateral (11/12/2023 1:05 PM EDT) Anatomical Region Laterality Modality Breast Bilateral Mammography 11/12/2023 1:05 PM EDT Narrative 11/12/2023 2:02 PM EDT [facility] [address] [place] [address] [place] [address] Mammography Report Signed Patient: Marjorie Henson MR#: [id number] 54 : 1965 Acct:[id number] Age/Sex: 58 / F ADM Date: 11/12/23 Loc: MAMMO Attending Dr: Milagros Walls MD Ordering Physician: Milagros Walls Results: 3.12MProb ably Benign Finding - 12 month F/U Suggested Date of Service: 11/12/23 Follow Up: 12 month diagnos tic follow up Procedure(s): MM tomosynthesis diagnostic BI Accession Number(s): [id number] cc: Milagros Walls EXAMINATION: MM DIAGNOSTIC DIGITAL [...] by Travis Steele MD in OV> 11/12/23 9629 DD/ 1305 TD/TT: Engineer Booster And Exhauster: Procedure Note Donotuseinterpreter, Image - 11/12/2023 [facility] [address] [place], [place] [address] Mammography Report Signed Patient: Marjorie Henson LMR#: [id number] 54 : 1965Acct:[id number] Age/Sex: 58 / FADM Date: 11/12/23 Loc: HO.MAMMO Attending Dr: Milagros Walls MD Ordering Physician: Cory Wallsults: 3.12MProb ably Benign Finding - 12 month F/U Suggested Date of Service: 11/12/23Follow Up: 12 month diagnos tic follow up Procedure(s): MM tomosynthesis diagnostic BI Accession Number(s): [id number] cc: Milagros Walls EXAMINATION: MM DIAGNOSTIC DIGITAL [...] in OV> 11/12/23 1359 DD/ 1305 TD/TT: Engineer Booster And Exhauster: Milagros Walls MD IMG BI PROCEDURES Final Result * HEPATITIS C AB W/REFL TO HCV RNA, QN, PCR (02/10/2021 9:36 AM EDT) HEPATITIS C ANTIBODY NON-REACT MOMO NON-REACT MOMO [facility] LAB SYSTEM INDEX 0.02 <1.00 [facility] Comment: HCV antibody was non-reactive. There is no laboratory evidence of HCV infection. In most cases, no further action is required. However, if recent HCV exposure is suspected, a test for HCV RNA (test code 91645) is suggested. For additional information please refer to http://education.Independa/faq/BLX45d6 (This link is being provided for informational/ educational purposes only.) 02/10/2021 9:36 AM EDT Milagros Walls MD HISTORICAL/NON ORDERABLE LABS Final Result [facility] [address] from Last 3 Months or Most Recently Relevant to Health Maintenance Insurance [facility] STANDARD [employer] PPO [employer] PREFERRED PRIME DENTAL-[facility] MEDICAID STAND ADULT Care Teams Senior Net Software Developer Relationship Specialty Start Date End Date Milagros Walls MD [address] [place] [phone] PCP - General Family Medicine 02/10/21
--- OUTSIDE RECORDS SUMMARY | 2025-02-19 09:01 | XMS_ITS | Clinical Summary ---
Author Organization [facility] Address [address] [phone] Phone Care Team Providers Care Shredded Filler Cutter Operator Name Role Phone Milagros Walls MD [...] Do not crush, chew, or split. Active Zanubrutinib (Brukinsa) 80 MG capsule Take 160 mg by mouth 2 (two) times a day Active prochlorperazine (COMPAZINE) 5 MG tablet Take 5 mg by mouth 5 Active Magnesium Oxide -Mg Supplement 400 MG capsule 400 mg Activ e naltrexone (DEPADE) 50 MG tablet Take 25 mg by mouth in the morning. 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 Nephrolithiasis 02/15/2021 Gastroesophageal reflux disease 05/10/2010 Encounters Date Type Department Care Team Description 01/01/2025 Orders Only [facility] [address] [facility] [address] [place] [phone] Mark Hanna MD Stage 3b chronic kidney disease (HCC); Smoker; Nephrolithiasis; Hypertension; Elevated blood-pressure reading without diagnosis of hypertension 12/31/2024 8:00 AM EDT [facility] [address] [facility] [address] [place] [address] Mark Hanna MD Stage 3b chronic kidney disease (HCC) (Primary Dx); Nephrolithiasis; Mantle cell lymphoma, not otherwise specified (HCC); Hypertension; Elevated blood-pressure reading without diagnosis of hypertension; Diverticular disease; Smoker from Last 3 Months Immunizations Immunization Administration Dates Next Due Influenza (IM) Preservative Free 06/09/2024 Influenza, MDCK, PF, Quadrivalent 04/29/2020 Influenza, Quadrivalent, Preservative Free 07/19 Pneumococcal Conjugate Pcv 20 10/21/2023 Shingrix 12/26/2023,10/14/2023 Tdap 10/21/2023 Family History Medical History Relation Comments Breast cancer Maternal Grandmother Cervical cancer Other Relation Status Comments Maternal Grandmother Other Social History Tobacco Use Types Packs/Day Years Used Date Smoking Tobacco: Never Assessed Comments Unknown Sex and Gender Information Value Date Recorded Sex Assigned at Not on file Legal Sex Female 9:07 AM EST Gender Identity Not on file Sexual Orientation Not on file Last Filed Vital Signs Vital Sign Reading Time Taken Comments Blood Pressure 100/70 12/31/2024 7:57 AM EDT Pulse 106 12/31/2024 7:57 AM EDT Temperature - - Respiratory Rate - - Oxygen Saturation 96% 12/31/2024 7:57 AM EDT Inhaled Oxygen Concentration - - Weight 77.6 kg (171 lb) 12/31/2024 7:57 AM EDT Height 154.9 cm (5' 1 ) 01/02/2024 8:07 AM EDT Body Mass Index 32.31 01/02/2024 8:07 AM EDT Plan of Treatment Upcoming Encounters Date Type Department Care Team (Late st Contact Info) Description 12/29/2025 8:00 AM EDT [facility] [address] [phone] Mark Hanna MD [address] [address] Health Maintenance Due Date Last Done Comments Breast Cancer Screening 1965 Colorectal Cancer Screening: Annual FOBT 2013 Colorectal Cancer Screening: Colonoscopy 2013 Colorectal Cancer Screening: Sigmoidoscopy 2013 Influenza Vaccine (#1) 2025 4, 07/19/2023, 04/29/2020 Pneumococcal Vaccine: 50+ Years Completed 10/21/2023 Pneumococcal Vaccine: Peds ( 0 to 5 Years) and At-Risk Patients (6 to 49 Years) Discontinued 10/21/2023 Hepatitis B Vaccine Aged Out No longe r eligible based on patient's age to complete this topic Insurance Medicaid [place] [employer] Care Teams Shredded Filler Cutter Operator Relationship Specialty Start Date End Date Milagros Walls MD [facility] [place] [address] PCP - General Operational Trainer 1/23/23
--- OUTSIDE RECORDS SUMMARY | 2025-02-19 09:01 | XMS_ITS | Clinical Summary ---
Author Organization [facility] [employer] [facility] Address [address] [place] [address] Care Team Providers Care Maintenance Craftsman Name Role Phone Milagros Walls MD Primary Care Provider [phone] Allergies No known active allergies Medications butalbital-acet aminophen-caffe ine-codeine (FIORICET WITH CODEINE) 14-257-44-30 mg per capsule Take 1 capsule by mouth every 4 (four) hours if needed. Max Daily Amount: 6 capsules Active ciclopirox (LOPROX) 0.77 % gel Apply topically 2 (two) times a day. 45 g 5 03/07/20 25 Active ammonium lactate (AmLactin) 12 % lotion Apply topically if needed for dry skin. 400 g 5 12/08/19 26 Active Active Problems Problem Noted Date Diagnosed Date Asthma 05/10/2010 GERD (gastroesophageal reflux disease) 0 Kidney stone 05/10/2010 Overview (05/14/2024): 2004 Migraine 05/10/2010 Encounters Date Type Department Care Team Description 01/06/2025 8:45 AM EDT Office Visit Orthopedic Surgery [facility] [address] [facility] [address] [place] [address] Marino Estrella, DPM Dermatophytosis of nail (Primary Dx); Chemotherapy-induced neuropathy (CMS/HCC V24); Verruca plantaris; Acquired hallux valgus of left foot; Acquired hallux valgus of right foot 12/07/2024 8:15 AM EDT Office Visit [facility]opedic [facility] [place] [address] [place] [phone] Marino Estrella DPM Verruca plantaris (Primary Dx); Dermatophytosis of nail; Acquired hallux valgus of right foot; Acquired hallux valgus of left foot; Pain in toe of left foot; Pain in toe of right foot; Chemotherapy-induced neuropathy (CMS/HCC V24) from Last 3 Months Surgical History Surgery [...] 92 10/20/2024 3:45 PM EDT Temperature 36.7 C (98.1 F) 10/20/2024 3:45 PM EDT Respiratory Rate 18 10/20/2024 3:45 PM EDT Oxygen Saturation 94% 10/20/2024 3:45 PM EDT Inhaled Oxygen Concentration - - Weight 78.9 kg (174 lb) 01/06/2025 8:27 AM EDT Height 154.9 cm (5' 0.98 ) 01/06/2025 8:27 AM ED T Body Mass Index 32.89 01/06/2025 8:27 AM EDT Plan of Treatment Upcoming Encounters Date Type Department Care Team (Late st Contact Info) Description 03/08/2025 8:15 AM EDT Office Visit [facility] [place] [address] [phone] Marino Estrella, DPM [address] [address] Health Maintenance Due Date Last Done Comments Breast Cancer Screening 1965 Cervical Cancer Screening: Pap Smear 1985 Colorectal Cancer Screening: Colonoscopy 10/18/2023 HIV Screening 10/18/2023 Hepatitis C Screening 10/18/2023 Medicare Annual Wellness Visit 10/18/2023 Social Influencers of Health Screening 10/18/2023 RSV Immunization Adult Patients (1 - Risk 60-74 years 1-dose series) 2024 Depression Screening 03/04/2025 03/04/2024 Influenza Vaccine (#1) 2025 , 07/19/2023, 04/29/2020 Hypertension/CHF/CAD Annual BMP Blood Test 10/13/2025 10/13/2024, 03/23/2024, 03/23/2024, Additional history exists Cholesterol Screening (Lipid Panel) 10/13/2029 10/13/2024, 02/10/2021 DTaP,Tdap,and Td Vaccines (2 - Td or Tdap) 10/20/2033 10/21/2023 Pneumococcal Vaccine: 50+ Years Completed 10/21/2023 Pneumococcal Vaccine: Pediatrics (0 to 5 Years) and At-Risk Patients (6 to 49 Years) Completed 10/21/2023 Zoster Vaccines Completed 12/26/2023, 10/14/2023 COVID-19 Vaccine Completed 10/13/2024, , 07/19/2023, Additional [...] - [place] [employer] [place] Care Teams Maintenance Craftsman Relationship Specialty Start Date End Date Milagros Walls MD [address] [place] [address] PCP - General 04/01/24
[2025-02-19 10:09] LABS: Alanine Aminotransferase 16 U/L (0-31); Albumin Level 4.3 g/dL (3.5-5.0); Alkaline Phosphatase 137 U/L (39-117); Anion Gap 14 (12-20); Aspartate Amino Transferase 16 U/L (5-31); Blood Urea Nitrogen 18 mg/dL (9-16); Calcium 9.0 mg/dL (8.4-10.2); Carbon Dioxide 25 mmol/L (22-29); Chloride 105 mmol/L (96-108); Estimated Glomerular Filt Rate 39; Potassium 4.7 mmol/L (3.3-5.1); Sodium 139 mmol/L (135-145); Total Protein 6.6 g/dL (6.5-8.0)
== END 2025-02-19 08:52 | disposition home or self-care (01) ==
LOC: HO.LAB 08:51
PROVIDERS: PCP General Practice; Visit Provider Nurse Practitioner Family
DX: R74.8 Abnormal levels of other serum enzymes (principal); R19.5 Other fecal abnormalities; K21.9 Gastro-esophageal reflux disease without esophagitis; R13.10 Dysphagia, unspecified
CPT/HCPCS: 36415; 80053; 83013; 84443; 86140; 86364; 99211

== ENCOUNTER 2025-02-19 09:06 | Outpatient (AMB) | payer MEDICARE, SELFPAY ==
--- NOTE | 2025-02-19 09:20 | AM.OFFVISNUR ---
Intake Visit Reasons: H PYLORI Allergies No Known Allergies Allergy (Verified 02/05/25 10:29) Nursing Note Patient presents for collection of H Pylori breath test. Patient has been fasting for 1 hour (nothing to eat, drink, no chewing gum or smoking) has not taken any antacid medication for at least 2 weeks and has no allergies to artificial sweeteners.?? Assessment & Plan Assessment & Plan (1) Acid reflux: Code(s): K21.9 - Gastro-esophageal reflux disease without esophagitis Category: Medical Qualifiers: Esophagitis presence: esophagitis presence not specified Qualified Code(s): K21.9 - Gastro-esophageal reflux disease without esophagitis (2) Dysphagia: Code(s): R13.10 - Dysphagia, unspecified Category: Medical Qualifiers: Dysphagia type: unspecified Qualified Code(s): R13.10 - Dysphagia, unspecified Plan Patient presents for collection of H Pylori breath test. Patient has been fasting for 1 hour (nothing to eat, drink, no chewing gum or smoking) has not taken any antacid medication for at least 2 weeks and has no allergies to artificial sweeteners.???This test checks for an overgrowth of bacteria in your stomach. We all have bacteria but some may have more than others. It is treatable. if the test comes back negative there is nothing else to do. If the test result is positive we will treat you with 2 antibiotics and a medication to decrease the acid in your stomach (PPI) for 2 weeks. Two weeks after you have completed the treatment we will retest you to make sure the overgrowth has resolved. Orders: Orders H Pylori Breath Test Today Patient Instructions: Process for specimen collection and reason for testing was explained to the patient. Specimen collection. Patient instructed to take a deep breath and then exhale into the blue bag, filling it up as much as possible. Patient instructed to drink a mixture of water and the artificial sweetener with a straw. A 15 minute wait period was observed. Patient instructed to take a deep breath and then exhale into the pink bag, filling it up as much as possible.?? Coding Level of Care Code Established Pt Est Pt Level 1 (17066) Patient Type Established Medical Decision Making Straight Forward Diagnoses Gastroesophageal reflux disease, unspecified whether esophagitis present K21.9 Esophagitis presence: esophagitis presence not specified Dysphagia, unspecified type R13.10 Dysphagia type: unspecified
== END 2025-02-19 09:38 | disposition home or self-care (01) ==
LOC: HO.HGI 09:06
PROVIDERS: PCP General Practice; Visit Provider Nurse Practitioner Family
DX: K21.9 Gastro-esophageal reflux disease without esophagitis (principal); R13.10 Dysphagia, unspecified

== ENCOUNTER 2025-02-23 14:12 | Outpatient (REF) | payer MEDICARE, SELFPAY ==
--- NOTE | ~2025-02-23 | MM_ITS ---
EXAMINATION: MM DIAGNOSTIC DIGITAL BREAST TOMOSYNTHESIS, BILATERAL CLINICAL INFORMATION: Year follow-up for grouped calcifications in the central outer right breast. Patient has a history of leukemia/lymphoma and is on chemotherapy currently. COMPARISON: Mammography: Comparison is made with relevant prior exams. TECHNIQUE: Digital breast mammography with tomosynthesis is performed in both the craniocaudal and mediolateral oblique views along with computer-aided detection (CAD). FINDINGS: The breasts are heterogeneously dense, which may obscure small masses (ACR BI-RADS breast composition Category c). Previously seen grouped calcifications in the central outer right breast are not significantly changed on prior mammograms magnification views dating back for 2 years and therefore benign. There are no significant masses, abnormal calcifications, or other abnormalities. Results are provided to the patient at time of visit by the technologist. MM/MM tomosynthesis diagnostic BI IMPRESSION: No mammographic evidence of malignancy. ASSESSMENT: BI-RADS BI-RADS 2 - Benign Findings RECOMMENDATION: 1 year F/U This patient's information was entered into a reminder system with a target due date for their next mammogram. Electronically signed by: Emilia Rosales DO 02/23/2025 02:56 PM EDT
--- OUTSIDE RECORDS SUMMARY | 2025-02-23 15:28 | XMS_ITS | Clinical Summary ---
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 08/13 Muscle spasm 10/23/2023 Assessment & Plan (10/23/2023 10:45 AM EDT): Trialed trigger point injections in office, 3 on each size of trapezius muscles, not helpful in immediate pain relief Screen for colon cancer 10/23/2023 Assessment & Plan (10/23/2023 10:45 AM EDT): Refer to [facility] Left flank pain 07/21/2023 Assessment & Plan [...] tabs daily Monitored every 3 months by [facility] oncology No swelling currently or enlarged lymph nodes currently Assessment & Plan (04/22/2023 8:17 AM EDT): On Zanubrutnib for active disease, 3 tabs daily Monitored every 3 months by [facility] No swelling currently or enlarged lymph nodes currently Assessment & Plan (11/13/2022 6:07 AM EDT): On Zanubrutnib for active disease, 3 tabs daily Monitored every 3 months by [facility] oncology No swelling currently Assessment [...] does not follow fibromyalgia - trial of Ijm Chi - consider acupuncture in the office [...] (10/23/2023 10:44 AM EDT): Sees Pulm at [facility], now q6 months due to improvements Cont Advair Cont CATHRYN prn Smoking cessation encouraged Assessment & Plan (11/13/2022 6:09 AM EDT): Sees Pulm at [facility], now q6 months due to improvements Cont [...] Encounters Date Type Department Care Team Description 02/19/2025 Orders Only GENERIC EXTERNAL DATA DEPARTMENT Provider, Generic External Data 02/15/2025 9:00 AM EDT Office Visit [facility] [address] [place] [address] Mike Bruce DMD 02/08/2025 10:00 AM EDT Office Visit [facility] [address] [place] [address] Mike Bruce DMD 01/19/[address] [facility] [address] [place] [address] Milagros Walls MD 12/31/[address] [facility] [address] [place] [address] Milagros Walls MD Fibromyalgia (Primary Dx) 12/24/[address] [facility] [address] [place] [address] Milagros Walls MD pt1 12/24/[address] [facility] [address] [place] [phone] Milagros Walls MD Care Coordination (CHW outreach for SDOH PT-1 and food needs-referral completed /) 12/24/[address] [facility] [address] [place] [phone] Milagros Walls MD PT-1 12/22/[address] [facility] [address] [place] [phone] Milagros Walls MD Kidney mass (Primary Dx); Kidney atrophy 12/22/[address] [phone] Milagros Walls MD Referral 12/18/2024 1:30 PM EDT Office Visit [facility] [address] [place] [address] Mike Bruce, DMD 11/27/2024 11:00 AM EDT Office Visit [facility] [address] [place] [phone] Mike Bruce, DMD 11/25/[address] [facility] [address] [place] [phone] Milagros Walls MD from Last 3 Months Immunizations Immunization Administration [...] Description 03/16/2025 9:00 AM EDT Office Visit [facility] [address] [place] [address] Maria M Kaycee, OD [address] [place] [address] 03/29/2025 8:00 AM EDT Office Visit [facility] [address] [place] [address] Mike Bruce, DMD [address] [place] [address] Health Maintenance Due Date Last Done Comments [...] - Risk 60-74 years 1-dose series) 2024 COVID-19 Vaccine ( season) 2024 10/13/2024, 06/09/2024, 07/19/2023, Additional history exists Dental Oral Exam 02/15/2025 08/17/2024 Depression Screening 03/04/2025 03/04/2024, 03/04/20 24 SDOH Screening 03/04/2025 03/04/2024 Influenza Vaccine (#1) 2025 , 07/19/2023, 04/29/2020 Diabetes: Hemoglobin A1C 10/13/2025 10/13/2024, 07/0 09/2020 Tobacco Screening 02/15/2026 02/15/2025 Diagnostic Breast Imaging 02/23/20262024, 11/12/2023, 05/10/2023, Additional history exists Mammogram 02/23/2026 02/23/2025, 04/0 09/2023, 05/10/2023, Additional history exists Dental X-Ray: Full Mouth 08/18/2027 08/17/2024 Lipid [...] Priority Date/Time Associated Diagnosis Comments BI MAMMOGRAM DIAGNOSTIC TOMOSYNTHESIS BILATERAL Routine 02/23/2025 2:14 PM EDT HELICOBACTER PYLORI, UREA BREATH TEST Routine 02/19/2025 9:37 AM EDT TSH W/REFLEX TO FT4 Routine 02/19/2025 9 :02 AM EDT C-REACTIVE PROTEIN Routine 02/19/2025 9: 02 AM EDT COMPREHENSIVE METABOLIC PANEL, FASTING Routine 02/19/2025 9:02 AM EDT DENTURE FOLLOWUP Routine 02/15/2025 9:00 AM EDT DENTURE ADJUSTMENT Routine 02/08/2025 10 :00 AM EDT CASE PRESENTATION, DETAILED AND EXTENSIVE TREATMENT PLANNING Routine 12/18/2024 1:30 PM EDT Roberth COMPLETE DENTURE - MANDIBULAR Routine 12/18/2024 1:30 PM EDT Max COMPLETE DENTURE - MAXILLARY Routine 12/18/2024 1:30 PM EDT WAX TRY IN Routine 11/27/2024 11:00 AM EDT HEMOGLOBIN A1C Routine 10/13/2024 10:58 AM EST Primary hypertension LIPID PANEL, STANDARD Routine 10/13/2024 10:58 AM EST Primary hypertension PANORAMIC RADIOGRAPHIC IMAGE Routine 08/17/2024 8:00 AM EST COMPREHENSIVE ORAL EVALUATION - NEW OR ESTABLISHED PATIENT Routine 08/17/2024 8:00 AM EST ZZZ HISTORICAL HEPATITIS C AB W/REFL TO HCV RNA, QN, PCR Routine 02/10/2021 9:36 AM EDT from Last 3 Months or Most Recently Relevant to Health Maintenance Results * BI Mammogram Diagnostic Tomosynthesis Bilateral (02/23/2025 2:14 PM EDT) Anatomical Region Laterality Modality Breast Bilateral Mammography 02/23/2025 2:14 PM EDT Narrative 02/23/2025 3:00 PM EDT [facility] [address] [place] [address] Mammography Report Signed Patient: Marjorie Henson MR#: [id number] 54 : 1965 Acct:[id number] Age/Sex: 59 / F ADM Date: 02/23/25 Loc: HO.MAMMO Attending Dr: Milagros Walls MD Ordering Physician: Milagros Walls Results: 2Benign F indings Date of Service: 02/23/25 Follow Up: 1 Year From Orig inal Mammogram Procedure(s): MM tomosynthesis diagnostic BI Accession Number(s): [id number] cc: Milagros Walls EXAMINATION: MM DIAGNOSTIC DIGITAL BREAST TOMOSYNTHESIS, BILATERAL CLINICAL INFORMATION: Year follow-up for grouped calcifications in the central outer right breast. Patient has a history of leukemia/lymphoma and is on chemotherapy currently. COMPARISON: Mammography: Comparison is made with relevant prior exams. TECHNIQUE: Digital breast mammography with tomosynthesis is performed in both the craniocaudal and mediolateral oblique views along with computer-aided detection (CAD). FINDINGS: The breasts are heterogeneously dense, which may obscure small masses (ACR BI-RADS breast composition Category c). Previously seen grouped calcifications in the central outer right breast are not significantly changed on prior mammograms magnification views dating back for 2 years and therefore benign. There are no significant masses, abnormal calcifications, or other abnormalities. Results are provided to the patient at time of visit by the technologist. MM/MM tomosynthesis diagnostic BI IMPRESSION: No mammographic evidence of malignancy. ASSESSMENT: BI-RADS BI-RADS 2 - Benign Findings RECOMMENDATION: 1 year F/U This patient's information was entered into a reminder system with a target due date for their next mammogram. Electronically signed by: Emilia Rosales DO 02/23/2025 02:56 PM EDT Dictated By: Emilia Rosales DO Signed By: <Electronically signed by Emilia Rosales DO in OV> 02/23/25 1456 DD/ 1414 TD/TT: 02/23/25 1448 Stone Carver: Procedure Note Donotuseinterpreter, Image - 02/23/2025 [facility] [address] [place] [address] Mammography Report Signed Patient: Marjorie Henson LMR#: [id number] 54 : 1965Acct:[id number] Age/Sex: 59 / FADM Date: 02/23/25 Loc: [facility] Attending Dr: Milagros Walls MD Ordering Physician: Cory Wallsults: 2Benign F indings Date of Service: 02/23/25Follow Up: 1 Year From Orig inal Mammogram Procedure(s): MM tomosynthesis diagnostic BI Accession Number(s): [id number] cc: Milagros Walls EXAMINATION: MM DIAGNOSTIC DIGITAL BREAST TOMOSYNTHESIS, BILATERAL CLINICAL INFORMATION: Year follow-up for grouped calcifications in the central outer right breast. Patient has a history of leukemia/lymphoma and is on chemotherapy currently. COMPARISON: Mammography: Comparison is made with relevant prior exams. TECHNIQUE: Digital breast mammography with tomosynthesis is performed in both the craniocaudal and mediolateral oblique views along with computer-aided detection (CAD). FINDINGS: The breasts are heterogeneously dense, which may obscure small masses (ACR BI-RADS breast composition Category c). Previously seen grouped calcifications in the central outer right breast are not significantly changed on prior mammograms magnification views dating back for 2 years and therefore benign. There are no significant masses, abnormal calcifications, or other abnormalities. Results are provided to the patient at time of visit by the technologist. MM/MM tomosynthesis diagnostic BI IMPRESSION: No mammographic evidence of malignancy. ASSESSMENT: BI-RADS BI-RADS 2 - Benign Findings RECOMMENDATION: 1 year F/U This patient's information was entered into a reminder system with a target due date for their next mammogram. Electronically signed by: Emilia Rosales DO 02/23/2025 02:56 PM EDT Dictated By: Emilia Rosales DO Signed By: <Electronically signed by Emilia Rosales DO in OV> 02/23/25 1456 DD/ 1414 TD/TT: 02/23/25 1448 Stone Carver: Milagros Walls MD IMG BI PROCEDURES Final Result * Helicobacter pylori, Urea Breath Test (02/19/2025 9:37 AM EDT) H. pylori Breath Test Negative Negative [facility] Comment:Antimicrobials, prot on pump inhibitors and bismuthpreparations are known to suppress H. pylori. Ingestingthese medications within two weeks prior to performing thebreath test may produce negative test results. A positiveresult is still clinically valid. 02/19/2025 9:37 AM EDT 02/19/2025 11:55 AM EDT us Generic External Data Provider LAB BODY FLUIDS AND STOOLS ORDERABLES Edited Result - Final [facility] [address] [place] [address] [phone] * (ABNORMAL) Comprehensive Metabolic Panel, Fasting (02/19/2025 9:02 AM EDT) Sodium 139 135 - 145 mmol/L [facility] Potassium 4.7 3.3 - 5.1 mmol/L [facility] Chloride 105 96 - 108 mmol/L [facility] Carbon Dioxide 25 22 - 29 mmol/L [facility] Anion Gap 14 12 - 20 [facility] Urea Nitrogen (BUN) 18(H) 9 - 16 mg/dL [facility] Creatinine, Serum 1.37 0.5 - 1.4 mg/dL [facility] Estimated Glomerular Filt Rate 39 [facility] Comment:Chronic Kidney Disea se: Estimated GFR < 60 mL/min/1.95z3Yoyiex Kidney Disease: Estimated GFR < 15 mL/min/1.73m2 Glucose Fasting 118(H) 60 - 99 mg/dL [facility] Comment:A fasting glucose fr om 100-125 mg/dl is considered impaired(pre-diabetes). Calcium 9.0 8.4 - 10.2 mg/dL [facility] Bilirubin, Total 0.2 0.0 - 1.0 mg/dL [facility] Aspartate Amino Transferase 16 5 - 31 U/L [facility] Alanine Aminotransferase 16 0 - 31 U/L [facility] Total Protein 6.6 6.5 - 8.0 g/dL [facility] Albumin Level 4.3 3.5 - 5.0 g/dL [facility] Alkaline Phosphatase 137(H) 39 - 117 U/L [facility] 02/19/2025 9:02 AM EDT 02/19/2025 9:02 AM EDT us Generic External Data Provider LAB BLOOD ORDERAB LES Final Result Performing Organization Address [facility]/ZIP Co de Phone Number [facility] [address] [place] [address] [phone] * TSH with Reflex to Free T4 (02/19/2025 9:02 AM EDT) TSH reflex Free T4 2.84 0.32 - 4.0 uIU/mL [facility] 02/19/2025 9:02 AM EDT 02/19/2025 9:02 AM EDT Generic External Data Provider LAB BLOOD ORDERAB LES Final Result Performing Organization Address [facility]/ZIP Co de Phone Number [facility] [address] [place] [phone] * (ABNORMAL) C-reactive Protein (02/19/2025 9:02 AM EDT) C Reactive Protein 0.51(H) < or = 0.50 mg/dL [facility] 02/19/2025 9:02 AM EDT 02/19/2025 9:02 AM EDT Generic External Data Provider LAB BLOOD ORDERAB LES Final Result Performing Organization Address [facility] Co de Phone Number [facility] [address] [place] [phone] * Hemoglobin A1c (10/13/2024 10:58 AM EST) Hemoglobin A1c 6.0 <6.0 % [facility] Comment:Hemoglobin A1C Refer ence Range Adults: 4.8 - 6.0 % Non diabetic: < 6.0 % Goal: < 7.0 %Additional Action Suggested: > 8.0 %Note: Hemoglobin A1c results are invalid for patients with abnormal amounts of HbF. Blood transfusions may impact the HbA1c concentration in the patient sample. Estimated Average Glucose 126 mg/dL [facility] Comment:eAG = Estimated ave rage glucose which is %A1C expressed asaverage glucose, using the formula of the P2A-VmbejvxLwdqiop Glucose study (ADAG), Diabetes Care, Vol.31,#8,2007 Blood Venous blood specimen / Unknown 10/13/2024 10:58 AM EST 10/13/2024 1:11 PM EST us Milagros Walls MD LAB BLOOD ORDERABLES Final Res ult Performing Organization Address [facility] Co de Phone Number [facility] [address] [place] [phone] [phone] * (ABNORMAL) Lipid Panel, Standard (10/13/2024 10:58 AM EST) Triglycerides 180(H) <150 mg/dL [facility] Comment:Desirable Triglyceri de: less than 150 mg/dLBorderline High Triglyceride 150-199 mg/dLHigh Triglyceride: 200-499 mg/dLVery High Triglyceride: greater than or equal to 5OO mg/dL Cholesterol 178 <200 mg/dL [facility] Comment:Desirable Cholestero l: less than 200 mg/dLBorderline High Cholesterol: 200-239 mg/dLHigh Cholesterol: greater than 239 mg/dL LDL Cholesterol Calculated 90 <100 mg/dL [facility] Comment:Desirable LDL: less than 100 mg/dLNear Optimal/Above Optimal LDL: 110- 129 mg/dLBorderline High LDL: 130-159 mg/dLHigh LDL: 160-189 mg/dLVery High LDL: greater than or equal to 190 mg/dL HDL Cholesterol 52 >40 mg/dL [facility] Comment:Desirable HDL: great er than 40 mg/dL Note: This HDL assay may give artificially low results in patients with liver disease. Blood Venous blood specimen / Unknown 10/13/2024 10:58 AM EST 10/13/2024 1:12 PM EST us Milagros Walls MD LAB BLOOD ORDERABLES Final Res ult Performing Organization Address [facility]/ZIP Co de Phone Number [facility] [address] [place] [address] [phone] * HEPATITIS C AB W/REFL TO HCV RNA, QN, PCR (02/10/2021 9:36 AM EDT) HEPATITIS C ANTIBODY NON-REACT [facility] NON-REACT [facility] INDEX 0.02 <1.00 [facility] Comment: HCV antibody was non-reactive. There is no laboratory evidence of HCV infection. In most cases, no further action is required. However, if recent HCV exposure is suspected, a test for HCV RNA (test code 09674) is suggested. For additional information please refer to [email or web address]her[employer]/faq/TUZ10i9 (This link is being provided for informational/ educational purposes only.) 02/10/2021 9:36 AM EDT Milagros Walls MD HISTORICAL/NON ORDERABLE LABS Final Result [facility] [address] from Last 3 Months or Most Recently Relevant to Health Maintenance Insurance [facility] STANDARD [employer] PPO [employer] [employer] PREFERRED [facility] STAND ADULT Care Teams Commercial Designer Relationship Specialty Start Date End Date Milagros Walls MD [address] [place] [phone] PCP - General Family Medicine 02/10/21
--- OUTSIDE RECORDS SUMMARY | 2025-02-23 15:28 | XMS_ITS | Clinical Summary ---
Author Organization Patient Business [facility] Address [address] [place] [address] Care Team Providers Care Visiting Teacher Name Role Phone Milagros Walls MD Primary Care Provider [phone] Allergies No known active allergies Medications butalbital-acet aminophen-caffe ine-codeine (FIORICET WITH CODEINE) 86-496-03-30 mg per capsule Take 1 capsule by [...] 8:45 AM EDT Office Visit Orthopedic Surgery [facility] [address] [facility] [address] [place] [address] Marino Estrella, DPM Dermatophytosis of nail (Primary Dx); Chemotherapy-induced neuropathy (CMS/HCC V24); Verruca plantaris; Acquired hallux valgus of left foot; Acquired hallux valgus of right foot 12/07/2024 8:15 AM EDT Office Visit Orthopedic Surgery [facility] [place] [address] [place] [phone] Marino Estrella DPM Verruca plantaris (Primary [...] AM EDT Office Visit Orthopedic [facility] [place] [address] [phone] Marino Estrella, DPM [address] [address] Health Maintenance Due Date Last Done Comments [...] 10/21/2023 Pneumococcal Vaccine: 50+ Years Completed 10/21/2023 Zoster [...] Test (03/16/2004) Annual BMP Blood Test Abstracted [facility] Provider MD HEALTH MAINTENANCE Final Result from Last 3 Months or Most Recently Relevant to Health Maintenance Insurance MEDICAID - [place] [employer] [employer] Care Teams Visiting Teacher Relationship Specialty Start Date End Date Milagros Walls MD [address] [place] [address] PCP - General 04/01/24
--- OUTSIDE RECORDS SUMMARY | 2025-02-23 15:28 | XMS_ITS | Clinical Summary ---
Author Organization [facility] Address [address] [address] Phone Care Team Providers Care Children'S Book Author Name Role Phone Milagros Walls MD Primary [...] [facility] [address] [facility] [address] [place] [phone] Mark Hanna MD Stage 3b chronic kidney disease (HCC); Smoker; Nephrolithiasis; Hypertension; Elevated blood-pressure reading without diagnosis of hypertension 12/31/2024 8:00 AM EDT [facility] [address] [facility] [address] [place] [address] Mark Hanna MD Stage 3b [...] Office Visit [facility] [address] [phone] Mark Hanna MD [address] [phone] Health Maintenance Due Date Last Done Comments [...] age to complete this topic Insurance Medicaid [place] Medicaid [place] [employer] Medicare Care Teams Children'S Book Author Relationship Specialty Start Date End Date Milagros Walls MD [facility] [place] [address] PCP - General Trimming Cutter 1/23/23
== END 2025-02-23 14:13 | disposition home or self-care (01) ==
LOC: HO.MAMMO 14:12
PROVIDERS: PCP General Practice; Visit Provider General Practice
DX: R92.1 Mammographic calcification found on diagnostic imaging of breast (principal)
CPT/HCPCS: 77062; 77066

== ENCOUNTER → 2025-02-23 14:30 | Outpatient (BNV) | payer MEDICARE, SELFPAY | PROVIDERS: PCP General Practice; Visit Provider Internal Medicine | DX: R92.1 Mammographic calcification found on diagnostic imaging of breast (principal); Z85.6 Personal history of leukemia | CPT/HCPCS: 77066; G0279 ==

== ENCOUNTER 2025-03-01 09:13 | Outpatient (AMB) | payer MEDICARE, MEDICAID, SELFPAY ==
[2025-03-01 09:20] VITALS: BP 146/77; PULSE 87; O2SAT 92; BMI 32.3
--- NOTE | 2025-03-01 09:20 | MHC.OFFVIS ---
Vital Signs 03/01/25 09:20 Height 5 ft 1 in Weight 171 lb 0.9 oz BMI 32.3 BP 146/77 H Blood Pressure Location Lt brachial Position Sitting Pulse 87 Pulse Source Pulse Oximeter Pulse Oximetry (%) 92 Oxygen Delivery Method Room Air Intake Visit Reasons: COPD Intake Note: pt is here for follow up and states her breathing is good, weather does affect her breathing Branch Coordinator Required: No Allergies No Known Allergies Allergy (Verified 03/01/25 09:37) Medication List - Last Reconciled 03/01/25 by Feliciano Mayorga MD albuterol sulfate 2.5 mg (3 mL) inhalation Q4H PRN 30 days amitriptyline 100 mg PO BEDTIME atorvastatin 10 mg PO BEDTIME baclofen 20 mg PO QID bisacodyl 5 mg PO ONCE 1 day bupropion HCl SR 200 mg PO BID docusate sodium 100 mg PO BID PRN duloxetine 60 mg PO DAILY fluticasone furoate-vilanterol 200-25 mcg/dose (Breo Ellipta) 1 inh inhalation DAILY montelukast 10 mg PO QPM olmesartan 5 mg PO DAILY omeprazole 20 mg PO DAILY ondansetron HCl 4 mg PO Q8H PRN peg 3350-electrolytes 236-22.74-6.74 -5.86 gram 240 mL PO Q10M polyethylene glycol 3350 (Miralax) 17 grams PO DAILY 30 days polyethylene glycol 3350 (Miralax) 238 grams PO ONCE pregabalin 25 mg PO BEDTIME simethicone (Gas Relief (simethicone)) 125 mg PO BID-TID PRN tamsulosin 0.4 mg PO BEDTIME tramadol 50 mg PO BID PRN umeclidinium 62.5 mcg/actuation (Incruse Ellipta) 1 inh inhalation DAILY 30 days Ventolin HFA 90 mcg/actuation (albuterol sulfate) 2 puffs PO Q6H PRN NS zanubrutinib (Brukinsa) 160 mg PO .in am and 1 in pm Do you need a note to return to daycare/school/sports/work: No HPI HPI COPD: Details: This 59 years old female with chronic obstructive pulmonary disease, is here for follow-up after 4 months. Claims that during the past 4 months she has remained fairly stable, except that on hot and humid days she has some increased cough and wheezing. She tends to use Ventolin couple times a day on these hot days. She has very little cough or expectoration. Advair 500-50 has been changed to Breo 200-25 once a day She continues to use Incruse Ellipta once a day. She was also taking montelukast 10 mg daily but has stopped taking it. SMOKING : Say is she smokes 1 or 2 cigarettes a week at the most . Last LDCT in October 2024 was benign category 2. [facility] Medical History Change in stool Elevated alkaline phosphatase level Dysphagia Arthritis Constipation History of headache Habitual snoring Wheezing Asthma History of chemotherapy Chronic renal insufficiency Lymphoma Renal calculi Elevated cholesterol HTN (hypertension) Fallopian tube cancer, carcinoma Cough Post-COVID chronic cough Fibromyalgia Obesity (BMI 30.0-34.9) Personal history of nicotine dependence COPD (chronic obstructive pulmonary disease) Surgical History History of tonsillectomy and adenoidectomy Hx of tubal ligation History of esophagogastroduodenoscopy (EGD) Hx of cystoscopy H/O colonoscopy History of total hysterectomy History of cholecystectomy Family History Maternal Grandmother Colon cancer Social History Household Members Other:: Many family members Are you a primary child day care center worker to a significant other at home: No Do you presently have visiting nurse or other home services: No Patient Tobacco Use Status: Current someday Tobacco user Tobacco use type: Cigarette Cigarette Packs Per Day: 0.5 Cigarettes Per Day: 2 Years Smoked: 31 Review of Systems Const All systems reviewed & are unremarkable except as noted in HPI and below Eyes Reports no additional complaints ENT Reports nasal congestion (Mild intermittent) Card Denies chest pain, Denies irregular heart rhythm and Denies leg edema Resp Reports as per HPI GI Reports no additional complaints Reports no additional complaints Musc Reports myalgias Skin/Breast Reports system reviewed and no additional complaints, except as documented Neuro Reports no additional complaints Psych Reports anxiety Physical Exam Vital Signs: Last Vital Signs Pulse 87 03/01/25 09:20 BP 146/77 H 03/01/25 09:20 Pulse Ox 92 03/01/25 09:20 Oxygen Delivery Method Room Air 03/01/25 09:20 BMI result Body Mass Index 32.3 Const General: comfortable, no acute distress, alert and awake Orientation/consciousness: patient oriented x3 HEENT Head: Yes normal to inspection General nose exam: No nasal polyps present, mucous membranes and turbinates abnormal (She does have moderate hypertrophy of the nasal turbinates.) and No nasal discharge present Face and sinus: Yes sinuses nontender Mouth: oropharynx normal and Abnormal oral and palatal mucosa present (NO ACTIVE THRUSH NOTED, BUT SHE DOES HAVE MILD REDNESS OF ANTERIOR TONGUE) Throat: Yes posterior oropharynx normal Eyes General: appearance normal, both eyes and all related structures Neck Neck: Yes normal visual inspection, Yes no lymphadenopathy, Yes trachea midline and Yes no JVD Thyroid: Thyroid normal Chest Chest palpation & inspection: normal inspection of the chest, normal palpation of entire chest wall and no tenderness Resp Other: Percussion note resonant, breath sounds are distant as usual with prolonged expiratory phase. No wheezes rhonchi or crepitations are heard. Cardio Palpation: normal PMI Rate: regular rate Rhythm: regular rhythm Heart sounds: no gallops and no murmurs GI Palpation (GI): Soft to palpation, nontender, No hepatosplenomegaly present and no masses Auscultation: normal bowel sounds Back/Spine/Pelvis Thoracic/Lumbar Spine: thoracic and lumbar spine normal to inspection Skin General skin exam: no rashes or lesions noted Neuro General: patient oriented x3 and no focal motor deficits Cranial nerves: Yes CN's II-XII intact bilaterally Extrem General: Yes normal to inspection, Yes no clubbing, cyanosis or edema and Yes no calf tenderness Psych Appearance: grossly normal and well kempt Speech and movement: Normal speech and movement present Results Reviewed Results Reviewed: LDCT 10/21/24 Previously described pleural-based nodule is unchanged. No new nodules are noted. Coronary artery calcifications: None Limited upper abdomen: Unremarkable Other: None Impression: LungRADS 2 - Benign Appearance: Continue annual screening with low dose Chest CT in 12 months. Assessment & Plan Assessment & Plan (1) COPD (chronic obstructive pulmonary disease): Comment: MODERATELY SEVERE OBSTRUCTIVE AIRWAY DISORDER. 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 REMAINS FAIRLY STABLE , EXCEPT THAT SHE HAS INCREASED COUGH OFF AND ON . Code(s): J44.9 - Chronic obstructive pulmonary disease, unspecified Category: Medical Plan: Continue using Breo 200-251 inhalation daily And Incruse Ellipta 1 inhalation daily. Ventolin 2 puffs Q 4-6 hours only p.r.n. (2) Personal history of nicotine dependence: Comment: (onset 18, x 40yrs, max 1.5ppd, 50pyh - quit 03/25/24, uses vape) but again went back to smoking currently smoking , and now smokes 1 or 2 cigarettes per week. Code(s): Z87.891 - Personal history of nicotine dependence Category: Medical Plan: Advised that she should better quit completely. Continue yearly lung screening with LD CT Coding Level of Care Code Est Pt Level 3 (78292) Diagnoses COPD (chronic obstructive pulmonary disease) J44.9 Personal history of nicotine dependence Z87.891
--- OUTSIDE RECORDS SUMMARY | 2025-03-01 09:35 | XMS_ITS | Clinical Summary ---
Author Organization [facility] Address [address] [phone] Phone Care Team Providers Care Hospital Pharmacy Director Name Role Phone Milagros Walls MD Primary [...] [facility] [address] [facility] [address] [place] [phone] Mark Hanna MD Stage 3b chronic kidney disease (HCC); Smoker; Nephrolithiasis; Hypertension; Elevated blood-pressure reading without diagnosis of hypertension 12/31/2024 8:00 AM EDT [facility] [address] [facility] [address] [place] [address] Mark Hanna MD Stage 3b [...] Office Visit [facility] [address] [phone] Mark Hanna MD [address] [phone] Health Maintenance Due Date Last Done Comments [...] age to complete this topic Insurance Medicaid [place] Medicaid [place] [employer] Medicare Care Teams Hospital Pharmacy Director Relationship Specialty Start Date End Date Milagros Walls MD [facility] [place] [address] PCP - General Anodic Operator 1/23/23
--- OUTSIDE RECORDS SUMMARY | 2025-03-01 09:35 | XMS_ITS | Clinical Summary ---
Author Organization [employer] Address [address] [facility] [address] [place] [address] Care Team Providers Care Business Assistant Name Role Phone Milagros Walls MD Primary Care Provider [phone] Allergies No known active allergies Medications Blood [...] 90 capsule 3 06/05/20 24 Active butalbital-acetami paffgs-hwauctna-fw deine (Fioricet W/Codeine) 72-779-60-30 MG capsule Take 1 capsule by mouth [...] g 3 01/21/20 25 Active nystatin (Mycostatin) 310862 UNIT/ML suspension SHAKE LIQUID WELL AND SWISH AND SWALLOW 5 ML BY MOUTH FOUR TIMES DAILY FOR 14 DAYS 10/21/19 Active baclofen (Lioresal) 10 MG tablet Take 10 tablets by mouth 3 times daily. 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/30/2024 roasterman (current) use of opiate analgesic 08/13 Muscle spasm 10/23/2023 Assessment & Plan (10/23/2023 10:45 AM EDT): Trialed trigger point injections in office, 3 on each size of trapezius muscles, not helpful in immediate pain relief Screen for colon cancer 10/23/2023 Assessment & Plan (10/23/2023 10:45 AM EDT): Refer to [facility] Left flank pain 07/21/2023 Assessment [...] tabs daily Monitored every 3 months by [facility] No swelling currently or enlarged lymph nodes currently Assessment & Plan (04/22/2023 8:17 AM EDT): On Zanubrutnib for active disease, 3 tabs daily Monitored every 3 months by [facility] No swelling currently or enlarged lymph nodes currently Assessment & Plan (11/13/2022 6:07 AM EDT): On Zanubrutnib for active disease, 3 tabs daily Monitored every 3 months by [facility] No swelling currently Assessment & Plan [...] & Plan (10/23/2023 10:44 AM EDT): Sees Pulalejandro at [facility], now q6 months due to improvements Cont Advair Cont CATHRYN prn Smoking cessation encouraged Assessment & Plan (11/13/2022 6:09 AM EDT): Seediana Pulalejandro at [facility], now q6 months due to [...] Data 02/15/2025 9:00 AM EDT Office Visit [facility] [address] [place] [phone] Mike Bruce DMD 02/08/2025 10:00 AM EDT Office Visit [facility] [address] [place] [address] Mike Bruce DMD 01/19/2025 Refill [facility] [address] [place] [phone] Milagros Walls MD 12/31/2024 Refill [facility] [address] [place] [phone] Milagros Walls MD Fibromyalgia (Primary Dx) 12/24/2024 Telephone [facility] [address] [place] [phone] Milagros Walls MD pt1 12/24/2024 Patient Outreach [facility] [address] [place] [phone] Milagros Walls MD Care Coordination (CHW outreach for SDOH PT-1 and food needs-referral completed /) 12/24/2024 Telephone [facility] [address] [place] [address] Milagros Walls MD PT-1 12/22/2024 Orders Only [facility] [address] [facility] [place] [address] Milagros Walls MD Kidney mass (Primary Dx); Kidney atrophy 12/22/2024 Telephone [facility] [address] [place], [place] [phone] Milagros Walls MD Referral 12/18/2024 1:30 PM EDT Office Visit [facility] [address] [place], [place] [phone] Mike Bruce DMD from Last 3 Months [...] housing situation today? I have wernermary hernandez 03/04/[address] you [...] Description 03/16/2025 9:00 AM EDT Office Visit [facility] [address] [place] [address] Kaycee Franz, OD [address] [place] [address] 03/29/2025 8:00 AM EDT Office Visit [facility] [address] [place] [address] Mike Bruce, REN [address] [place] [address] Health Maintenance Due Date Last Done Comments [...] 03/04/2025 03/04/2024, 03/04/20 SDOH Screening 03/04/2025 03/04/2024 Influenza Vaccine (#1) 2025 , 07/19/2023, 04/29/2020 Diabetes: Hemoglobin A1C 10/13/2025 10/13/2024, 07/0 09/2020 Tobacco Screening 02/15/2026 02/15/2025 Mammogram 02/23/2026 02/23/2025, 04/0 09/2023, 05/10/2023, Additional [...] BREATH TEST Routine 02/19/2025 9:37 AM EDT TISSUE TRANSGLUTAMINASE AB, IGA Routine 02/19/2025 9:02 AM EDT TSH W/REFLEX TO FT4 Routine [...] - MAXILLARY Routine 12/18/2024 1:30 PM EDT HEMOGLOBIN A1C Routine 10/13/2024 10:58 AM [...] PM EDT Narrative 02/23/2025 3:00 PM EDT [facility]'[address] [place] [address] Mammography Report Signed Patient: Marjorie Henson MR#: [id number] 54 : 1965 Acct:[id number] Age/Sex: 59 / F ADM Date: 02/23/25 Loc: HO.MAMMO Attending Dr: Milagros Walls MD Ordering Physician: Milagros Walls Results: 2Benign F indings Date of Service: 02/23/25 Follow Up: 1 Year From [facility] [place] [facility] Mammogram Procedure(s): MM tomosynthesis diagnostic BI Accession Number(s): [id number] cc: Milagros Walls EXAMINATION: MM DIAGNOSTIC DIGITAL [...] Emilia Rosales DO 02/23/2025 02:56 PM EDT RP Dictated By: Emilia Rosales DO Signed By: <Electronically signed by Emilia Rosales DO in OV> 02/23/25 1456 DD/ 1414 TD/TT: 02/23/25 1448 Extrusion Technician: Procedure Note Donotuseinterpreter, Image - 02/23/2025 [facility] [address] [place] [address] Mammography Report Signed Patient: Marjorie Henson LMR#: [id number] 54 : 1965Acct:[id number] Age/Sex: 59 / FADM Date: 02/23/25 Loc: HO.MAMMO Attending Dr: Milagros Walls MD Ordering Physician: Cory Wallsults: 2Benign F indings Date of Service: 02/23/25Follow Up: 1 Year From [facility] [place] [facility] Mammogram Procedure(s): MM tomosynthesis diagnostic BI Accession Number(s): [id number] cc: Milagros Walls EXAMINATION: MM DIAGNOSTIC DIGITAL [...] Emilia Rosales DO 02/23/2025 02:56 PM EDT RP Dictated By: Emilia Rosales DO Signed By: <Electronically signed by Emilia Rosales DO in OV> 02/23/25 1456 DD/ 1414 TD/TT: 02/23/25 1448 Extrusion Technician: Milagros Walls MD IMG BI PROCEDURES Final Result * Helicobacter pylori, Urea Breath Test (02/19/2025 9:37 AM EDT) H. pylori Breath Test Negative Negative [facility] Comment:Antimicrobials, prot on pump inhibitors and bismuthpreparations are known to suppress H. pylori. Ingestingthese medications within two weeks prior to performing thebreath test may produce negative test results. A positiveresult is still clinically valid. 02/19/2025 9:37 AM EDT 02/19/2025 11:55 AM EDT Generic External Data Provider LAB BODY FLUIDS AND STOOLS ORDERABLES Edited Result - Final [facility] [address] [place] [phone] * (ABNORMAL) Comprehensive Metabolic Panel, Fasting (02/19/2025 9:02 AM EDT) Sodium 139 135 - 145 mmol/L [facility] Potassium 4.7 3.3 - 5.1 mmol/L [facility] Chloride 105 96 - 108 mmol/L [facility] Carbon Dioxide 25 22 - 29 mmol/L [facility] Anion Gap 14 12 - 20 [facility] Urea Nitrogen (BUN) 18(H) 9 - 16 mg/dL [facility] Creatinine, Serum 1.37 0.5 - 1.4 mg/dL [facility] Estimated Glomerular Filt Rate 39 [facility] Comment:Chronic Kidney Disea se: Estimated GFR < 60 mL/min/1.47f9Qoykgd Kidney Disease: Estimated GFR < 15 mL/min/1.73m2 Glucose Fasting 118(H) 60 - 99 mg/dL [facility] Comment:A fasting glucose fr om 100-125 mg/dl is considered impaired(pre-diabetes). Calcium 9.0 8.4 - 10.2 mg/dL [facility] Bilirubin, Total 0.2 0.0 - 1.0 mg/dL [facility] Aspartate Amino Transferase 16 5 - 31 U/L [facility] Alanine Aminotransferase 16 0 - 31 U/L [facility] Total Protein 6.6 6.5 - 8.0 g/dL [facility] Albumin Level 4.3 3.5 - 5.0 g/dL [facility] Alkaline Phosphatase 137(H) 39 - 117 U/L [facility] 02/19/2025 9:02 AM EDT 02/19/2025 9:02 AM EDT us Generic External Data Provider LAB BLOOD ORDERAB LES Final Result Performing Organization Address [facility]/ZIP Co de Phone Number [facility] [address] [place] [phone] * TSH with Reflex to Free T4 (02/19/2025 9:02 AM EDT) TSH reflex Free T4 2.84 0.32 - 4.0 uIU/mL [facility] 02/19/2025 9:02 AM EDT 02/19/2025 9:02 AM EDT us Generic External Data Provider LAB BLOOD ORDERAB LES Final Result [facility] [address] [place] [phone] * Tissue Transglutaminase Antibody, IgA (02/19/2025 9:02 AM EDT) Transglutaminase IgA <1.0 U/mL [facility] Comment:Value Interpretation ----- <15.0 Antibody not detected> or = 15.0 Antibody detectedTHIS TEST WAS PERFORMED AT:[address] [place] [phone] CARTER MD 02/19/2025 9:02 AM EDT 02/19/2025 9:02 AM EDT Generic External Data Provider LAB BLOOD ORDERAB LES Final Result Performing Organization Address [facility]/ZIP Co de Phone Number [facility] [address] [place] [phone] * (ABNORMAL) C-reactive Protein (02/19/2025 9:02 AM EDT) C Reactive Protein 0.51(H) < or = 0.50 mg/dL [facility] 02/19/2025 9:02 AM EDT 02/19/2025 9:02 AM EDT Generic External Data Provider LAB BLOOD ORDERAB LES Final Result Performing Organization Address City/[facility]/ZIP Co de Phone Number [facility] [address] [place] [phone] * Hemoglobin A1c (10/13/2024 10:58 AM EST) Hemoglobin A1c 6.0 <6.0 % [facility] Comment:Hemoglobin A1C Refer ence Range Adults: 4.8 - 6.0 % Non diabetic: < 6.0 % Goal: < 7.0 %Additional Action Suggested: > 8.0 %Note: Hemoglobin A1c results are invalid for patients with abnormal amounts of HbF. Blood transfusions may impact the HbA1c concentration in the patient sample. Estimated Average Glucose 126 mg/dL [facility] Comment:eAG = Estimated ave rage glucose which is %A1C expressed asaverage glucose, using the formula of the X8A-WkfgmrcRhwomfv Glucose study (ADAG), Diabetes Care, Vol.31,#8,Mar. 2007 Blood Venous blood specimen / Unknown 10/13/2024 10:58 AM EST 10/13/2024 1:11 PM EST Milagros Walls MD LAB BLOOD ORDERABLES Final Res ult [facility] [address] [place] [address] [phone] * (ABNORMAL) Lipid Panel, Standard (10/13/2024 10:58 AM EST) Triglycerides 180(H) <150 mg/dL [facility] Comment:Desirable Triglyceri de: less than 150 mg/dLBorderline High Triglyceride 150-199 mg/dLHigh Triglyceride: 200-499 mg/dLVery High Triglyceride: greater than or equal to 5OO mg/dL Cholesterol 178 <200 mg/dL [facility] Comment:Desirable Cholestero l: less than 200 mg/dLBorderline High Cholesterol: 200-239 mg/dLHigh Cholesterol: greater than 239 mg/dL LDL Cholesterol Calculated 90 <100 mg/dL [facility] Comment:Desirable LDL: less than 100 mg/dLNear Optimal/Above Optimal LDL: 110- 129 mg/dLBorderline High LDL: 130-159 mg/dLHigh LDL: 160-189 mg/dLVery High LDL: greater than or equal to 190 mg/dL HDL Cholesterol 52 >40 mg/dL [facility] Comment:Desirable HDL: great er than 40 mg/dL Note: This HDL assay may give artificially low results in patients with liver disease. Blood Venous blood specimen / Unknown 10/13/2024 10:58 AM EST 10/13/2024 1:12 PM EST Milagros Walls MD LAB BLOOD ORDERABLES Final Res ult [facility] [address] [place] [phone] [phone] * HEPATITIS C AB W/REFL TO HCV RNA, QN, PCR (02/10/2021 9:36 AM EDT) HEPATITIS C ANTIBODY NON-REACT MOMO NON-REACT MOMO [facility] INDEX 0.02 <1.00 [facility] Comment: HCV antibody was non-reactive. There is no laboratory evidence of HCV infection. In most cases, no further action is required. However, if recent HCV exposure is suspected, a test for HCV RNA (test code 31887) is suggested. For additional information please refer to http://education.Screenz/faq/NUK14d2 (This link is being provided for informational/ educational purposes only.) 02/10/2021 9:36 AM EDT us Milagros Walls MD HISTORICAL/NON ORDERABLE LABS Final Result Performing Organization Address City/[facility]/ZIP Co de Phone Number [facility] [address] from Last 3 Months or Most Recently Relevant to Health Maintenance Insurance STANDARD [employer] P[employer] [employer] [facility] MEDICAID STAND ADULT Care Teams Business Assistant Relationship Specialty Start Date End Date Milagros Walls MD [address] [place] [phone] PCP - General Family Medicine 02/10/21
--- OUTSIDE RECORDS SUMMARY | 2025-03-01 09:35 | XMS_ITS | Clinical Summary ---
Author Organization Patient Business Ser [facility] Address [address] [place] [address] Care Team Providers Care Oil Pipeline Dispatcher Name Role Phone Milagros Walls MD Primary Care Provider [phone] Allergies No known active allergies Medications butalbital-acet aminophen-caffe ine-codeine (FIORICET WITH CODEINE) 49-728-40-30 mg per capsule Take 1 capsule by [...] 8:45 AM EDT Office Visit Orthopedic [facility] [address] [facility] [address] [place] [address] Marino Estrella, DPM Dermatophytosis of nail (Primary Dx); Chemotherapy-induced neuropathy (CMS/HCC V24); Verruca plantaris; Acquired hallux valgus of left foot; Acquired hallux valgus of right foot 12/07/2024 8:15 AM EDT Office Visit [facility] [place] [address] [place] [phone] Marino Estrella DPM Verruca plantaris (Primary [...] AM EDT Office Visit [facility] [place] [address] [phone] Marino Estrella, DPM [address] [address] Health Maintenance Due Date Last Done Comments Breast Cancer Screening 1965 Cervical Cancer Screening: Pap Smear 1985 Colorectal Cancer Screening: Colonoscopy 10/18/2023 HIV Screening 10/18/2023 Hepatitis C Screening 10/18/2023 Medicare Annual Wellness Visit 10/18/2023 Social Influencers of Health Screening 10/18/2023 Depression Screening 08/12/2024 RSV Immunization Adult Patients (1 - Risk 60-74 years 1-dose series) 2024 Influenza Vaccine (#1) 2025 , 07/19/2023, 04/29/2020 [...] - [place] [employer] Care Teams Oil Pipeline Dispatcher Relationship Specialty Start Date End Date Milagros Walls MD [address] [place] [address] [facility] - General 04/01/24
== END 2025-03-01 09:38 | disposition home or self-care (01) ==
LOC: HO.HPS 09:13
PROVIDERS: PCP General Practice; Visit Provider Internal Medicine
DX: J44.9 Chronic obstructive pulmonary disease, unspecified (principal); Z87.891 Personal history of nicotine dependence
CPT/HCPCS: 99213

== ENCOUNTER → 2025-03-01 09:13 | Outpatient (BNVA) | payer MEDICARE, MEDICAID, SELFPAY | PROVIDERS: PCP General Practice; Visit Provider Internal Medicine | DX: R06.2 Wheezing (principal); R05.9 Cough, unspecified; J44.9 Chronic obstructive pulmonary disease, unspecified; Z87.891 Personal history of nicotine dependence | CPT/HCPCS: 99212 ==

== ENCOUNTER 2025-03-02 08:58 | Outpatient (REF) | payer MEDICARE, SELFPAY ==
--- OUTSIDE RECORDS SUMMARY | 2025-03-04 09:25 | XMS_ITS | Clinical Summary ---
Author Organization [employer] Address [address] [facility] 7[address] [place] [address] Care Team Providers Care Sheet Taker Name Role Phone Milagros Walls MD Primary Care Provider [phone] Allergies No known active allergies Medications Blood [...] 90 capsule 3 06/05/20 24 Active butalbital-acetami utsadf-wmesldtv-ol deine (Fioricet W/Codeine) 07-782-71-30 MG capsule Take 1 capsule by mouth [...] g 3 01/21/20 25 Active nystatin (Mycostatin) [id number] UNIT/ML suspension SHAKE LIQUID WELL AND SWISH AND SWALLOW 5 ML BY MOUTH FOUR TIMES DAILY FOR 14 DAYS 10/21/19 Active baclofen (Lioresal) 10 MG tablet Take 10 tablets by mouth 3 times daily. 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 [address] [place] [address] [phone] Milagros Walls MD PT-1 02/19/2025 Orders Only GENERIC EXTERNAL DATA DEPARTMENT Provider, Generic External Data 02/15/2025 9:00 AM EDT Office Visit [facility] [address] [place] [address] [phone] Mike Bruce, DMD 02/08/2025 10:00 AM EDT Office Visit [facility] [address] [place] [address] Mike Bruce, DMD 01/19/[address] [facility] [address] [place] [address] [phone] Milagros Walls MD 12/31/[address] [facility] [address] [place] [address] [phone] Milagros Walls MD Fibromyalgia (Primary Dx) 12/24/[address] [facility] [address] [place] [address] [phone] Milagros Walls MD pt1 12/24/[address] [facility] [address] [place] [address] [phone] Milagros Walls MD Care Coordination (CHW outreach for SDOH PT-1 and food needs-referral completed /) 12/24/[address] [facility] [address] [place] [address] [phone] Milagros Walls MD PT-1 12/22/[address] [facility] [address] [place] [address] [phone] Milagros Walls MD Kidney mass (Primary Dx); Kidney atrophy 12/22/[address] [facility] [address] [place] [address] Milagros Walls MD Referral 12/18/2024 1:30 PM EDT Office Visit [facility] [address] [place] [address] [phone] Mike Bruce DMD from Last 3 Months [...] your housing situation today? I have werner hernnadez 03/04/[address] you li [...] 03/16/2025 9:00 AM EDT Office Visit [facility] [address] [place] [address] Kaycee Franz, OD [address] [place] [address] 03/29/2025 8:00 AM EDT Office Visit [facility] [address] [place] [address] Mike Bruce, DMD [address] [place] [address] Health Maintenance Due Date Last Done Comments [...] EDT Narrative 02/23/2025 3:00 PM EDT [facility] [place] [address] Mammography Report Signed Patient: Marjorie Henson MR#: [id number] 54 : 1965 Acct:[id number] Age/Sex: 59 / F ADM Date: 02/23/25 Loc: HO.MAMMO Attending Dr: Milagros Walls MD Ordering Physician: Milagros Walls Results: 2Benign F indings Date of Service: 02/23/25 Follow Up: 1 Year From [facility] Mammogram Procedure(s): MM tomosynthesis diagnostic BI Accession Number(s): [id number] cc: Milagros Walls EXAMINATION: MM DIAGNOSTIC DIGITAL [...] 02/23/25 1456 DD/ 1414 TD/TT: 02/23/25 1448 Graduate Teaching Associate: Procedure Note Donotuseinterpreter, Image - 02/23/2025 [facility] [address] [place] [address] Mammography Report Signed Patient: Marjorie Henson LMR#: [id number] 54 : 1965Acct:[id number] Age/Sex: 59 / FADM Date: 02/23/25 Loc: HO.MAMMO Attending Dr: Milagros Walls MD Ordering Physician: Cory Wallsults: 2Benign F indings Date of Service: 02/23/25Follow Up: 1 Year From Orig ina Mammogram Procedure(s): MM tomosynthesis diagnostic BI Accession Number(s): [id number] cc: Milagros Walls EXAMINATION: MM DIAGNOSTIC DIGITAL [...] 02/23/25 1456 DD/ 1414 TD/TT: 02/23/25 1448 Graduate Teaching Associate: Milagros Walls MD IMG BI PROCEDURES Final Result * Helicobacter pylori, Urea Breath Test (02/19/2025 9:37 AM EDT) H. pylori Breath Test Negative Negative [facility] Comment:Antimicrobials, prot on pump inhibitors and bismuthpreparations are known to suppress H. pylori. Ingestingthese medications within two weeks prior to performing thebreath test may produce negative test results. A positiveresult is still clinically valid. 02/19/2025 9:37 AM EDT 02/19/2025 11:55 AM EDT us Generic External Data Provider LAB BODY FLUIDS AND STOOLS ORDERABLES Edited Result - Final [facility] [address] [place] [phone] * (ABNORMAL) Comprehensive Metabolic Panel, Fasting (02/19/2025 9:02 AM EDT) Sodium 139 135 - 145 mmol/L [facility] Potassium 4.7 3.3 - 5.1 mmol/L [facility] Chloride 105 96 - 108 mmol/L [facility] Carbon Dioxide 25 22 - 29 mmol/L [facility] Anion Gap 14 12 - 20 [facility] Urea Nitrogen (BUN) 18(H) 9 - 16 mg/dL [facility] Creatinine, Serum 1.37 0.5 - 1.4 mg/dL [facility] Estimated Glomerular Filt Rate 39 [facility] Comment:Chronic Kidney Disea se: Estimated GFR < 60 mL/min/1.26p0Jtekpa Kidney Disease: Estimated GFR < 15 mL/min/1.73m2 Glucose Fasting 118(H) 60 - 99 mg/dL [facility] Comment:A fasting glucose fr om 100-125 mg/dl is considered impaired(pre-diabetes). Calcium 9.0 8.4 - 10.2 mg/dL [facility] Bilirubin, Total 0.2 0.0 - 1.0 mg/dL [facility] Aspartate Amino Transferase 16 5 - 31 U/L [facility] Alanine Aminotransferase 16 0 - 31 U/L [facility] Total Protein 6.6 6.5 - 8.0 g/dL [facility] Albumin Level 4.3 3.5 - 5.0 g/dL [facility] Alkaline Phosphatase 137(H) 39 - 117 U/L [facility] 02/19/2025 9:02 AM EDT 02/19/2025 9:02 AM EDT us Generic External Data Provider LAB BLOOD ORDERAB LES Final Result [facility] [address] [place] [phone] * TSH with Reflex to Free T4 (02/19/2025 9:02 AM EDT) TSH reflex Free T4 2.84 0.32 - 4.0 uIU/mL [facility] 02/19/2025 9:02 AM EDT 02/19/2025 9:02 AM EDT us Generic External Data Provider LAB BLOOD ORDERAB LES Final Result Performing Organization Address [facility] Co de Phone Number [facility] [address] [place] [phone] * Tissue Transglutaminase Antibody, IgA (02/19/2025 9:02 AM EDT) Transglutaminase IgA <1.0 U/mL [facility] Comment:Value Interpretation ----- <15.0 Antibody not detected> or = 15.0 Antibody detectedTHIS TEST WAS PERFORMED AT:[employer] [place] [phone] CARTER MD 02/19/2025 9:02 AM EDT 02/19/2025 9:02 AM EDT Generic External Data Provider LAB BLOOD ORDERAB LES Final Result Performing Organization Address [facility] Co de Phone Number [facility] [address] [place] [phone] * (ABNORMAL) C-reactive Protein (02/19/2025 9:02 AM EDT) [facility] C Reactive Protein 0.51(H) < or = 0.50 mg/dL [facility] 02/19/2025 9:02 AM EDT 02/19/2025 9:02 AM EDT us Generic External Data Provider LAB BLOOD ORDERAB LES Final Result Performing Organization Address [facility] Co de Phone Number [facility] [address] [place] [phone] * Hemoglobin A1c (10/13/2024 10:58 AM EST) Hemoglobin A1c 6.0 <6.0 % [facility] Comment:Hemoglobin A1C Refer ence Range Adults: 4.8 - 6.0 % Non diabetic: < 6.0 % Goal: < 7.0 %Additional Action Suggested: > 8.0 %Note: Hemoglobin A1c results are invalid for patients with abnormal amounts of HbF. Blood transfusions may impact the HbA1c concentration in the patient sample. Estimated Average Glucose 126 mg/dL [facility] Comment:eAG = Estimated ave rage glucose which is %A1C expressed asaverage glucose, using the formula of the M1Q-AhacbtjQkppbtx Glucose study (ADAG), Diabetes Care, Vol.31,#8,Mar. 2007 Blood Venous blood specimen / Unknown 10/13/2024 10:58 AM EST 10/13/2024 1:11 PM EST us Milagros Walls MD LAB BLOOD ORDERABLES Final Res ult [facility] [address] [place] [phone] * (ABNORMAL) Lipid Panel, Standard (10/13/2024 10:58 AM EST) Triglycerides 180(H) <150 mg/dL [facility] Comment:Desirable Triglyceri de: less than 150 mg/dLBorderline High Triglyceride 150-199 mg/dLHigh Triglyceride: 200-499 mg/dLVery High Triglyceride: greater than or equal to 5OO mg/dL Cholesterol 178 <200 mg/dL [facility] Comment:Desirable Cholestero l: less than 200 mg/dLBorderline High Cholesterol: 200-239 mg/dLHigh Cholesterol: greater than 239 mg/dL LDL Cholesterol Calculated 90 <100 mg/dL [facility] Comment:Desirable LDL: less than 100 mg/dLNear Optimal/Above Optimal LDL: 110- 129 mg/dLBorderline High LDL: 130-159 mg/dLHigh LDL: 160-189 mg/dLVery High LDL: greater than or equal to 190 mg/dL HDL Cholesterol 52 >40 mg/dL [facility] Comment:Desirable HDL: great er than 40 mg/dL Note: This HDL assay may give artificially low results in patients with liver disease. Blood Venous blood specimen / Unknown 10/13/2024 10:58 AM EST 10/13/2024 1:12 PM EST us Milagros Walls MD LAB BLOOD ORDERABLES Final Res ult [facility] [address] [place] [phone] * HEPATITIS C AB W/REFL TO HCV RNA, QN, PCR (02/10/2021 9:36 AM EDT) HEPATITIS C ANTIBODY NON-REACT [facility] NON-REACT [facility] INDEX 0.02 <1.00 [facility] Comment: HCV antibody was non-reactive. There is no laboratory evidence of HCV infection. In most cases, no further action is required. However, if recent HCV exposure is suspected, a test for HCV RNA (test code 46608) is suggested. For additional information please refer to http://[employer].Labtrip/faq/KLR38s7 (This link is being provided for informational/ educational purposes only.) 02/10/2021 9:36 AM EDT us Milagros Walls MD HISTORICAL/NON ORDERABLE LABS Final Result Performing Organization Address City/[facility] Co de Phone Number [facility] [address] from Last 3 Months or Most Recently Relevant to Health Maintenance Insurance [facility] STANDARD AETNA PPO [employer] PREFERRED PRIME DENTAL-[facility] [address] [address] MEDICAID STAND ADULT Care Teams Sheet Taker Relationship Specialty Start Date End Date Milagros Walls MD [address] [place] [address] PCP - General Family Medicine 02/10/21
--- OUTSIDE RECORDS SUMMARY | 2025-03-04 09:25 | XMS_ITS | Clinical Summary ---
Author Organization [facility] Address [address] [phone] Phone Care Team Providers Care Community Relations Coordinator Name Role Phone Milagros Walls MD [...] [facility] [address] [facility] [address] [place] [phone] Mark Hanna MD Stage 3b chronic kidney disease (HCC); Smoker; Nephrolithiasis; Hypertension; Elevated blood-pressure reading without diagnosis of hypertension 12/31/2024 8:00 AM EDT [facility] [address] [facility] [address] [place] [address] Mark Hanna MD Stage 3b [...] [facility] [address] [phone] Mark Hanna MD [address] [phone] Health Maintenance Due Date Last Done Comments [...] age to complete this topic Insurance Medicaid [place] [employer] Care Teams Community Relations Coordinator Relationship Specialty Start Date End Date Milagros Walls MD [facility] [place] [address] PCP - General Bookkeeping Machine Mechanic 1/23/23
--- OUTSIDE RECORDS SUMMARY | 2025-03-04 09:25 | XMS_ITS | Clinical Summary ---
Author Organization [facility] Address [address] [place] [address] Care Team Providers Care Multimedia Teacher Name Role Phone Milagros Walls MD Primary Care Provider [phone] Allergies No known active allergies Medications butalbital-acet aminophen-caffe ine-codeine (FIORICET WITH CODEINE) [id number] mg per capsule Take 1 capsule by [...] 8:45 AM EDT Office Visit [facility] [address] [facility] [address] [place] [address] Marino Estrella, DPM Dermatophytosis of nail (Primary Dx); Chemotherapy-induced neuropathy (CMS/HCC V24); Verruca plantaris; Acquired hallux valgus of left foot; Acquired hallux valgus of right foot 12/07/2024 8:15 AM EDT Office Visit [facility] [place] [address] [place] [phone] Marino Estrella DPM Verruca plantaris (Primary [...] AM EDT Office Visit [facility] [place] [address] [phone] Marino Estrella, DPM [address] [address] Health Maintenance Due Date Last Done Comments [...] - [place] [employer] Care Teams Multimedia Teacher Relationship Specialty Start Date End Date Milagros Walls MD [address] [place] [phone] [facility] - General 04/01/24
[2025-03-10 20:28] LABS: Calprotectin, Fecal 11 mcg/g
== END 2025-03-02 08:59 | disposition home or self-care (01) ==
LOC: HO.LNP 08:58
PROVIDERS: Visit Provider Nurse Practitioner Family
DX: R19.5 Other fecal abnormalities (principal)
CPT/HCPCS: 83993

== ENCOUNTER 2025-03-30 05:35 | Day surgery (SDC) | payer MEDICARE, SELFPAY ==
--- OUTSIDE RECORDS SUMMARY | 2025-03-03 14:39 | XMS_ITS | Clinical Summary ---
Author Organization [employer] Address [address] [place] [address] Care Team Providers Care Production Team Member Name Role Phone Milagros Walls MD Primary Care Provider [phone] Allergies No known active allergies Medications Blood [...] 90 capsule 3 06/05/20 24 Active butalbital-acetami nqfnby-sxmictwg-me deine (Fioricet W/Codeine) [id number] MG capsule Take 1 capsule by mouth [...] g 3 01/21/20 25 Active nystatin (Mycostatin) 239952 UNIT/ML suspension SHAKE LIQUID WELL AND SWISH AND SWALLOW 5 ML BY MOUTH FOUR TIMES DAILY FOR 14 DAYS 10/21/19 Active baclofen (Lioresal) 10 MG tablet Take 10 tablets by mouth 3 times daily. 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 08/13 Muscle spasm 10/23/2023 Assessment & Plan (10/23/2023 10:45 AM EDT): Trialed trigger point injections in office, 3 on each size of trapezius muscles, not helpful in immediate pain relief Screen for colon cancer 10/23/2023 Assessment & Plan (10/23/2023 10:45 AM EDT): Refer to [facility] Left flank pain 07/21/2023 Assessment & [...] tabs daily Monitored every [facility] No swelling currently or enlarged lymph [...] (10/23/2023 10:44 AM EDT): Sees Pulalejandro at [facility], now q6 months due to improvements Cont Advair Cont CATHRYN prn Smoking cessation encouraged Assessment & Plan (11/13/2022 6:09 AM EDT): Seediana Pulalejandro at [facility], now q6 months due to improvements [...] Data 02/15/2025 9:00 AM EDT Office Visit [facility]ULT [facility]ENT[facility] [address] [place] [phone] Mike Bruce DMD 02/08/2025 10:00 AM EDT Office Visit [facility] ADULT DENTAL [address] [place] [address] Mike Bruce DMD 01/19/[address] [facility] [address] [place] [phone] Milagros Walls MD 12/31/[address] [facility] [address] [place] [phone] Milagros Walls MD Fibromyalgia (Primary Dx) 12/24/[address] [facility] [address] [place] [phone] Milagros Walls MD pt1 12/24/2024 Patient Outreach [facility] [address] [place] [phone] Milagros Walls MD Care Coordination (CHW outreach for SDOH PT-1 and food needs-referral completed /) 12/24/[address] [facility] [address] [facility] [place] [phone] Milagros Walls MD PT-1 12/22/2024 Orders Only [facility] [address] [facility] [place] [facility] [place] [phone] Milagros Walls MD Kidney mass (Primary Dx); Kidney atrophy 12/22/[address] [facility] [address] [place], [place] [phone] Milagros Walls MD Referral 12/18/2024 1:30 PM EDT Office Visit [facility] [address] [place], [place] [phone] Mike Bruce DMD from Last 3 Months [...] Description 03/16/2025 9:00 AM EDT Office Visit [facility] OPTOMETRY [address] [place] [address] Kaycee Franz, OD [address] [place] [address] 03/29/2025 8:00 AM EDT Office Visit [facility] ADULT DENTAL [address] [place] [address] Mike Bruce, REN [address] [place] [address] Health Maintenance Due Date Last Done Comments [...] PM EDT Narrative 02/23/2025 3:00 PM EDT [facility]'[address] [place] [address] Mammography Report Signed Patient: Marjorie Henson MR#: [id number] 54 : 1965 Acct:[id number] Age/Sex: 59 / F ADM Date: 02/23/25 Loc: HO.MAMMO Attending Dr: Milagros Walls MD Ordering Physician: Milagros Walls Results: 2Benign F indings Date of Service: 02/23/25 Follow Up: 1 Year From [facility] Mammogram Procedure(s): MM tomosynthesis diagnostic BI Accession Number(s): [id number] cc: Milagros Walls EXAMINATION: MM DIAGNOSTIC DIGITAL [...] 02/23/25 1456 DD/ 1414 TD/TT: 02/23/25 1448 Hypnotherapist: Procedure Note Donotuseinterpreter, Image - 02/23/2025 [facility]'s [address] [place] [address] Mammography Report Signed Patient: Marjorie Henson LMR#: [id number] 54 : 1965Acct:[id number] Age/Sex: 59 / FADM Date: 02/23/25 Loc: HO.MAMMO Attending Dr: Milagros Walls MD Ordering Physician: Cory Wallsults: 2Benign F indings Date of Service: 02/23/25Follow Up: 1 Year From [facility] Mammogram Procedure(s): MM tomosynthesis diagnostic BI Accession Number(s): [id number] cc: Milagros Walls EXAMINATION: MM DIAGNOSTIC DIGITAL [...] 02/23/25 1456 DD/ 1414 TD/TT: 02/23/25 1448 Hypnotherapist: Milagros Walls MD IMG BI PROCEDURES Final Result * Helicobacter pylori, Urea Breath Test (02/19/2025 9:37 AM EDT) H. pylori Breath Test Negative Negative [facility] Comment:Antimicrobials, prot on pump inhibitors and bismuthpreparations are known to suppress H. pylori. Ingestingthese medications within two weeks prior to performing thebreath test may produce negative test results. A positiveresult is still clinically valid. 02/19/2025 9:37 AM EDT 02/19/2025 11:55 AM EDT Generic External Data Provider LAB BODY FLUIDS AND STOOLS ORDERABLES Edited Result - Final [facility] [phone] * (ABNORMAL) Comprehensive Metabolic Panel, Fasting (02/19/2025 9:02 AM EDT) Sodium 139 135 - 145 mmol/L [facility] Potassium 4.7 3.3 - 5.1 mmol/L [facility] Chloride 105 96 - 108 mmol/L [facility] Carbon Dioxide 25 22 - 29 mmol/L [facility] Anion Gap 14 12 - 20 [facility] Urea Nitrogen (BUN) 18(H) 9 - 16 mg/dL [facility] Creatinine, Serum 1.37 0.5 - 1.4 mg/dL [facility] Estimated Glomerular Filt Rate 39 [facility] Comment:Chronic Kidney Disea se: Estimated GFR < 60 mL/min/1.69x7Xvokic Kidney Disease: Estimated GFR < 15 mL/min/1.73m2 Glucose Fasting 118(H) 60 - 99 mg/dL [facility] Comment:A fasting glucose fr om 100-125 mg/dl is considered impaired(pre-diabetes). Calcium 9.0 8.4 - 10.2 mg/dL [facility] Bilirubin, Total 0.2 0.0 - 1.0 mg/dL [facility] Aspartate Amino Transferase 16 5 - 31 U/L [facility] Alanine Aminotransferase 16 0 - 31 U/L [facility] Total Protein 6.6 6.5 - 8.0 g/dL [facility] Albumin Level 4.3 3.5 - 5.0 g/dL [facility] Alkaline Phosphatase 137(H) 39 - 117 U/L [facility] 02/19/2025 9:02 AM EDT 02/19/2025 9:02 AM EDT us Generic External Data Provider LAB BLOOD ORDERAB LES Final Result Performing Organization Address [facility]/ZIP Co de Phone Number [facility] [address] [place] [phone] * TSH with Reflex to Free T4 (02/19/2025 9:02 AM EDT) TSH reflex Free T4 2.84 0.32 - 4.0 uIU/mL [facility] 02/19/2025 9:02 AM EDT 02/19/2025 9:02 AM EDT us Generic External Data Provider LAB BLOOD ORDERAB LES Final Result [facility] [address] [place] [phone] * Tissue Transglutaminase Antibody, IgA (02/19/2025 9:02 AM EDT) Transglutaminase IgA <1.0 U/mL [facility] Comment:Value Interpretation ----- <15.0 Antibody not detected> or = 15.0 Antibody detectedTHIS TEST WAS PERFORMED AT:[facility] [employer] [place] [phone] CARTER MD 02/19/2025 9:02 AM EDT 02/19/2025 9:02 AM EDT Generic External Data Provider LAB BLOOD ORDERAB LES Final Result Performing Organization Address [facility]/ZIP Co de Phone Number [facility] [address] [place] [phone] * (ABNORMAL) C-reactive Protein (02/19/2025 9:02 AM EDT) C Reactive Protein 0.51(H) < or = 0.50 mg/dL [facility] 02/19/2025 9:02 AM EDT 02/19/2025 9:02 AM EDT Generic External Data Provider LAB BLOOD ORDERAB LES Final Result Performing Organization Address City/[facility]/ZIP Co de Phone Number [facility] [address] [place] [phone] * Hemoglobin A1c (10/13/2024 10:58 AM EST) Hemoglobin A1c 6.0 <6.0 % [facility] Comment:Hemoglobin A1C Refer ence Range Adults: 4.8 - 6.0 % Non diabetic: < 6.0 % Goal: < 7.0 %Additional Action Suggested: > 8.0 %Note: Hemoglobin A1c results are invalid for patients with abnormal amounts of HbF. Blood transfusions may impact the HbA1c concentration in the patient sample. Estimated Average Glucose 126 mg/dL [facility] Comment:eAG = Estimated ave rage glucose which is %A1C expressed asaverage glucose, using the formula of the A7R-RtlyunnQlqwtrb Glucose study (ADAG), Diabetes Care, Vol.31,#8,Mar. 2007 Blood Venous blood specimen / Unknown 10/13/2024 10:58 AM EST 10/13/2024 1:11 PM EST Milagros Walls MD LAB BLOOD ORDERABLES Final Res ult [facility] [address] [place] [address] [phone] * (ABNORMAL) Lipid Panel, Standard (10/13/2024 10:58 AM EST) Triglycerides 180(H) <150 mg/dL [facility] Comment:Desirable Triglyceri de: less than 150 mg/dLBorderline High Triglyceride 150-199 mg/dLHigh Triglyceride: 200-499 mg/dLVery High Triglyceride: greater than or equal to 5OO mg/dL Cholesterol 178 <200 mg/dL [facility] Comment:Desirable Cholestero l: less than 200 mg/dLBorderline High Cholesterol: 200-239 mg/dLHigh Cholesterol: greater than 239 mg/dL LDL Cholesterol Calculated 90 <100 mg/dL [facility] Comment:Desirable LDL: less than 100 mg/dLNear Optimal/Above Optimal LDL: 110- 129 mg/dLBorderline High LDL: 130-159 mg/dLHigh LDL: 160-189 mg/dLVery High LDL: greater than or equal to 190 mg/dL HDL Cholesterol 52 >40 mg/dL [facility] Comment:Desirable HDL: great er than 40 mg/dL Note: This HDL assay may give artificially low results in patients with liver disease. Blood Venous blood specimen / Unknown 10/13/2024 10:58 AM EST 10/13/2024 1:12 PM EST Milagros Walls MD LAB BLOOD ORDERABLES Final Res ult [facility] [address] [place] [phone] * HEPATITIS C AB W/REFL TO HCV RNA, QN, PCR (02/10/2021 9:36 AM EDT) HEPATITIS C ANTIBODY NON-REACT MOMO NON-REACT MOMO [facility] INDEX 0.02 <1.00 [facility] Comment: HCV antibody was non-reactive. There is no laboratory evidence of HCV infection. In most cases, no further action is required. However, if recent HCV exposure is suspected, a test for HCV RNA (test code 89871) is suggested. For additional information please refer to http://education.[employer]/faq/YCT61x6 (This link is being provided for informational/ educational purposes only.) 02/10/2021 9:36 AM EDT us Milagros Walls MD HISTORICAL/NON ORDERABLE LABS Final Result Performing Organization Address City/[facility]/ZIP Co de Phone Number [facility] [address] from Last 3 Months or Most Recently Relevant to Health Maintenance Insurance STANDARD [employer] PPO [place] [employer] [facility]REF[facility] MED[facility] STAND ADULT Care Teams Production Team Member Relationship Specialty Start Date End Date Milagros Walls MD [address] [place] [phone] PCP - General Family Medicine 02/10/21
--- OUTSIDE RECORDS SUMMARY | 2025-03-03 14:39 | XMS_ITS | Clinical Summary ---
Author Organization [facility] Address [address] [place] [address] Care Team Providers Care Orthopedic Rn Name Role Phone Milagros Walls MD Primary Care Provider [phone] Allergies No known active allergies Medications butalbital-acet aminophen-caffe ine-codeine (FIORICET WITH CODEINE) 16-800-08-30 mg per capsule Take 1 capsule by [...] Orthopedic Surgery [facility] [address] [facility] 250 [place] [address] Marino Estrella, DPM Dermatophytosis of nail (Primary Dx); Chemotherapy-induced neuropathy (CMS/HCC V24); Verruca plantaris; Acquired hallux valgus of left foot; Acquired hallux valgus of right foot 12/07/2024 8:15 AM EDT Office Visit [facility] [place] [address] [place] [phone] Marino Estrella DPM Verruca plantaris (Primary [...] AM EDT Office Visit [facility] [place] [address] [phone] Marino Estrella, DPM [address] [address] Health Maintenance Due Date Last Done Comments [...] - [place] [employer] Care Teams Orthopedic Rn Relationship Specialty Start Date End Date Milagros Walls MD [address] [place] [phone] [facility] - General 04/01/24
--- OUTSIDE RECORDS SUMMARY | 2025-03-03 14:39 | XMS_ITS | Clinical Summary ---
Author Organization [facility] Address [address] [phone] Phone Care Team Providers Care Machine Pack Assembler Name Role Phone Milagros Walls MD [...] [facility] [address] [facility] [address] [place] [phone] Mark Hanna MD Stage 3b chronic kidney disease (HCC); Smoker; Nephrolithiasis; Hypertension; Elevated blood-pressure reading without diagnosis of hypertension 12/31/2024 8:00 AM EDT [facility] [address] [facility] [address] [place] [address] Mark Hanna MD Stage 3b [...] Office Visit [facility] [address] [phone] Mark Hanna MD [address] [phone] Health Maintenance Due Date Last Done Comments [...] age to complete this topic Insurance Medicaid [place] Medicaid [place] Care Teams Machine Pack Assembler Relationship Specialty Start Date End Date Milagros Walls MD [facility] [place] [address] PCP - General Excellence Specialist 1/23/23
[2025-03-26 09:30] VITALS: BMI 31.7
--- NOTE | 2025-03-26 14:44 | HO.ANESPROP2 ---
HPI - Anesthesia Eval Consult details Narrative: 59 yr old female for upper endoscopy, colonoscopy COPD: stable with intermittent cough, on maintenance inhalers; stable pleural-based nodule; follows with Dr. Mayorga, last visit February 2025. Non-Hodgkin's Lymphoma/atypical SLL/CLL dx in 12/2021: [facility] last visit 03/2025, no changes to tx regimen. PMFSH Active Problems Active Problems: All Active Problems Change in stool (Acute) Elevated alkaline phosphatase level (Acute) Dysphagia (Acute) Encounter for screening colonoscopy (Acute) Acid reflux (Acute) Bilateral hip pain (Acute) Chronic pelvic pain in female (Acute) History of syncope (Acute) Poor dentition (Acute) Primary fibromyalgia syndrome (Acute) High cholesterol (Acute) HTN (hypertension), benign (Acute) Chronic kidney disease, stage 3 (Acute) Nephrolithiasis (Acute) Non-Hodgkin's lymphoma (Acute) Cough (Acute) Post-COVID chronic cough (Acute) Personal history of nicotine dependence (Acute) COPD (chronic obstructive pulmonary disease) (Acute) Past Medical History Medical History Change in stool Elevated alkaline phosphatase level Dysphagia Arthritis Constipation History of headache Habitual snoring Wheezing Asthma History of chemotherapy Chronic renal insufficiency Lymphoma Renal calculi Elevated cholesterol HTN (hypertension) Fallopian tube cancer, carcinoma Cough Post-COVID chronic cough Fibromyalgia Obesity (BMI 30.0-34.9) Personal history of nicotine dependence COPD (chronic obstructive pulmonary disease) Family History Family History Maternal Grandmother Colon cancer Surgical History Surgical History History of tonsillectomy and adenoidectomy Hx of tubal ligation History of esophagogastroduodenoscopy (EGD) Hx of cystoscopy H/O colonoscopy History of total hysterectomy History of cholecystectomy Social History Social History Household Members Other:: Many family members Are you a primary occasional caregiver to a significant other at home: No Do you presently have visiting nurse or other home services: No Patient Tobacco Use Status: Current someday Tobacco user Tobacco use type: Cigarette Cigarette Packs Per Day: 0.5 Cigarettes Per Day: 2 Years Smoked: 31 Meds Allergies Allergy/AdvReac Type Severity Reaction Status Date / Time No Known Allergies Allergy Verified 03/01/25 09:37 Home Medications ?Medication ?Instructions ?Recorded ?Confirmed ?Last Taken ?Type atorvastatin 10 mg tablet 10 mg PO BEDTIME 04/11/21 03/01/25 Unknown History ondansetron HCl 4 mg tablet 4 mg PO Q8H PRN Nausea And Vomiting 04/11/21 03/01/25 Unknown History duloxetine 30 mg capsule,delayed 60 mg PO DAILY 09/26/21 03/01/25 Unknown History release montelukast 10 mg tablet 10 mg PO QPM 09/26/21 03/01/25 Unknown History baclofen 10 mg tablet 20 mg PO QID 08/28/22 03/01/25 Unknown History bupropion HCl 200 mg tablet,12 hr 200 mg PO BID 08/28/22 03/01/25 Unknown History sustained-release zanubrutinib 80 mg capsule 160 mg PO .in am and 1 in pm 03/18/23 03/01/25 Unknown History (Brukinsa) amitriptyline 50 mg tablet 100 mg PO BEDTIME 09/23/23 03/01/25 Unknown History olmesartan 5 mg tablet 5 mg PO DAILY 09/23/23 03/01/25 Unknown History tamsulosin 0.4 mg capsule 0.4 mg PO BEDTIME 09/23/23 03/01/25 Unknown History pregabalin 25 mg capsule 25 mg PO BEDTIME 02/11/24 03/01/25 Unknown History tramadol 50 mg tablet 50 mg PO BID PRN Pain 07/02/24 03/01/25 Unknown History docusate sodium 100 mg capsule 100 mg PO BID PRN Constipation 08/24/24 03/01/25 Unknown History fluticasone furoate 200 1 inh inhalation DAILY 03/01/25 03/01/25 Unknown History mcg-vilanterol 25 mcg/dose inhalation powder (Breo Ellipta) Exam Height,Weight and Vital Signs: Height 5 ft 1 in Weight 76.204 kg Pertinent Lab Results Pertinent Lab Results: Labs from [facility] 11/2024 Sodium: 139 Potassium: 5.1 Glucose: 131 Creat: 1.24 BUN: 23 WBC: 9.2 RBC: 5.12 Hgb: 15.1 Hct 46.2 Platelet: 263
--- NOTE | 2025-03-30 06:59 | ECG_ITS ---
Test Reason : preop Blood Pressure : */* mmHG Vent. Rate : 79 BPM Atrial Rate : 79 BPM P-R Int : 154 ms QRS Dur : 78 ms QT Int : 374 ms P-R-T Axes : 73 67 82 degrees QTcB Int : 428 ms Normal sinus rhythm Nonspecific T wave abnormality Abnormal ECG No previous ECGs available Referred By: Rita Jeter Electronically Signed By: MARYJANE CARDONA MD
[2025-03-30 07:00] VITALS: BP 136/82; PULSE 89; RESP 16; TEMP 36.4; O2SAT 96
[2025-03-30] MEDS: Lactated Ringers 1,000 ML 100 ML IVCONT (07:11)
--- NOTE | 2025-03-30 07:32 | HO.ANESPROP2 ---
[facility] Active Problems Active Problems: All Active Problems (Updated 03/01/25 @ 09:45 by Feliciano Mayorga MD) Change in stool (Acute) Elevated alkaline phosphatase level (Acute) Dysphagia (Acute) Encounter for screening colonoscopy (Acute) Acid reflux (Acute) Bilateral hip pain (Acute) Chronic pelvic pain in female (Acute) History of syncope (Acute) Poor dentition (Acute) Primary fibromyalgia syndrome (Acute) High cholesterol (Acute) HTN (hypertension), benign (Acute) Chronic kidney disease, stage 3 (Acute) Nephrolithiasis (Acute) Non-Hodgkin's lymphoma (Acute) Cough (Acute) Post-COVID chronic cough (Acute) Personal history of nicotine dependence (Acute) COPD (chronic obstructive pulmonary disease) (Acute) Past Medical History Medical History Change in stool Elevated alkaline phosphatase level Dysphagia Arthritis Constipation History of headache Habitual snoring Wheezing Asthma History of chemotherapy Chronic renal insufficiency Lymphoma Renal calculi Elevated cholesterol HTN (hypertension) Fallopian tube cancer, carcinoma Cough Post-COVID chronic cough Fibromyalgia Obesity (BMI 30.0-34.9) Personal history of nicotine dependence COPD (chronic obstructive pulmonary disease) Functional capacity: independent ambulation Patient : No Family History Family History Maternal Grandmother Colon cancer Family history of problems with anesthesia: No Surgical History Surgical History History of tonsillectomy and adenoidectomy Hx of tubal ligation History of esophagogastroduodenoscopy (EGD) Hx of cystoscopy H/O colonoscopy History of total hysterectomy History of cholecystectomy History of Problems with Anesthesia: Yes Social History Social History Household Members Other:: Many family members Are you a primary care support representative to a significant other at home: No Do you presently have visiting nurse or other home services: No Patient Tobacco Use Status: Never used Tobacco Tobacco use type: Cigarette Cigarette Packs Per Day: 0.5 Cigarettes Per Day: 2 Years Smoked: 31 Second Hand Smoke Exposure: No Use of substances other than those prescribed or required for medical reasons: No Have you been hit, kicked, punched, or otherwise hurt by someone within the past year? If so, by whom?: No Are you DNR?: No Advance Directives: No Advance Directives Information Provided: Yes Advance Directives on File: No Patient : No : No Poor oral hygiene: No Meds Allergies Allergy/AdvReac Type Severity Reaction Status Date / Time No Known Allergies Allergy Verified 03/01/25 09:37 Active Medications: Current Medications Lactated Ringer's (Lr) 1,000 mls @ 100 mls/hr IVCONT .Q10H NASRIN Last Admin: 03/30/25 07:11 Dose: 100 mls/hr Home Medications ?Medication ?Instructions ?Recorded ?Confirmed ?Last Taken ?Type atorvastatin 10 mg tablet 10 mg PO BEDTIME 04/11/21 03/30/25 Unknown History ondansetron HCl 4 mg tablet 4 mg PO Q8H PRN Nausea And Vomiting 04/11/21 03/30/25 Unknown History duloxetine 30 mg capsule,delayed 60 mg PO DAILY 09/26/21 03/30/25 Unknown History release montelukast 10 mg tablet 10 mg PO QPM 09/26/21 03/30/25 Unknown History baclofen 10 mg tablet 20 mg PO QID 08/28/22 03/30/25 Unknown History bupropion HCl 200 mg tablet,12 hr 200 mg PO BID 08/28/22 03/30/25 Unknown History sustained-release zanubrutinib 80 mg capsule 160 mg PO .in am and 1 in pm 03/18/23 03/30/25 Unknown History (Jenniferkinsluis) amitriptyline 50 mg tablet 100 mg PO BEDTIME 09/23/23 03/30/25 Unknown History olmesartan 5 mg tablet 5 mg PO DAILY 09/23/23 03/30/25 Unknown History tamsulosin 0.4 mg capsule 0.4 mg PO BEDTIME 09/23/23 03/30/25 Unknown History pregabalin 25 mg capsule 25 mg PO BEDTIME 02/11/24 03/30/25 Unknown History tramadol 50 mg tablet 50 mg PO BID PRN Pain 07/02/24 03/30/25 Unknown History docusate sodium 100 mg capsule 100 mg PO BID PRN Constipation 08/24/24 03/30/25 Unknown History fluticasone furoate 200 1 inh inhalation DAILY 03/01/25 03/30/25 Unknown History mcg-vilanterol 25 mcg/dose inhalation powder (Breo Ellipta) Exam Height,Weight and Vital Signs: Height 5 ft 1 in Weight 76.204 kg Last Vital Signs Temp 97.6 F 03/30/25 07:00 Pulse 89 03/30/25 07:00 Resp 16 03/30/25 07:00 BP 136/82 03/30/25 07:00 Pulse Ox 96 03/30/25 07:00 O2 Del Method Room Air 03/30/25 07:00 Airway Mallampati Class: III TM Dist: >3cm Neck ROM: Full Heart: RRR Lungs: CTA Assessment and Plan Assessment Anesthesia Assessment: Anesthesia Plan Discussed Final Anesthetic Review Family History of Problems with Anesthesia: No History of Problems with Anesthesia: Yes NPO: Yes ASA Class: III Final Preanesthetic Review: Meds/Allgs Chart Reviewed, Consent Obtained/Reviewed and Anes Risks/Benef Reviewed Patient Risk: Intermediate Procedure Risk: Low Anesthetic Plan Anesthetic Plan: MAC: Disposition: Standard PACU
--- NOTE | 2025-03-30 07:53 | MHC.SHP ---
Pre-Procedural Eval Section A - 24 Hr Update-Section A only Date of Service: 03/30/25 Section B - Complete if H&P > 30 days Chief Complaint: dysphagia, screening Details of Present Illness: Change in stool Elevated alkaline phosphatase level Dysphagia Arthritis Constipation History of headache Habitual snoring Wheezing Asthma History of chemotherapy Chronic renal insufficiency Lymphoma Renal calculi Elevated cholesterol HTN (hypertension) Fallopian tube cancer, carcinoma Cough Post-COVID chronic cough Fibromyalgia Obesity (BMI 30.0-34.9) Personal history of nicotine dependence COPD (chronic obstructive pulmonary disease) Present Medications: see Short Stay Collaborative assessment Allergies: Allergies Allergy/AdvReac Type Severity Reaction Status Date / Time No Known Allergies Allergy Verified 03/01/25 09:37 Review of Systems Review of Systems Comment: Ten point ROS negative Exam Exam Comment: Gen appear: No acute distress HEENT: no icterus Chest: No overt resp distress Abd: soft, nontender, nondistended Psych: Stable affect, answering questions appropriately Neuro: A/Ox3 noted to move all extremities spontaneously Ext: no peripheral edema Plan Diagnosis/Plan: Unchanged I have reviewed the history and physical and performed a pertinent physical examination on my patient. No changes have occurred unless specified. Time Spent With Patient Time: Total time managing care of this patient today ____ minutes.
[2025-03-30 08:35] VITALS: BP 110/67; PULSE 79; RESP 16; TEMP 36.4; O2SAT 96
--- NOTE | 2025-03-30 08:37 | P.OPN-COLO_ITS ---
Colonoscopy Operative Note Operative Note Date of Service: 03/30/25 Narrative: Procedure: Upper endoscopy and colonoscopy Indication: Dysphagia, screening Endoscopist: Sabrina Metzger MD Anesthesia Provider: Dr Annita Martin Anesthesia type: MAC Instrument: GIF-H190 and PCF-H190L EGD Procedure:?? The procedure, indications, preparation and potential complications were reviewed with the patient, who indicated understanding and gave written informed consent to proceed. The endoscope was introduced through the mouth, and advanced to the 2nd part of the duodenum. The mucosa was carefully examined on slow withdrawal of the endoscope. The patient tolerated the procedure well. There were no immediate complications.? EGD Findings:? * Esophagus:? Normal esophageal mucosa was noted. The Z-line was at 35 cm and displaced by a small hiatal hernia with the diaphragmatic pinch at 37 cm. Cold forceps biopsies were taken from middle and lower esophagus to rule out eosinophilic esophagitis. Diffuse spasms were noted during the procedure. * Stomach:?Erythema and erosions in the antrum.Retroflexion was performed in the cardia. Random cold forceps biopsies were taken from the stomach. * Duodenum:? Normal duodenal mucosa. Cold forceps biopsies were taken from the d uodenal bulb and 2nd portion of the duodenum to rule out celiac sprue. Additional intervention: Soft tip Savary wire was introduced through the biopsy channel of the gastroscope and advanced to the antrum. ?The gastroscope was then backed out. ?Savary Tonja bougie was advanced over the guidewire and the esophagus was dilated to 17 mm without any resistance felt. ?On relook, no heme or tear was noted. ? Colonoscopy Procedure:? The patient was then turned for the colonoscopy. A digital rectal exam was performed which was normal.? A distal attachment cap was affixed to the tip of the scope and the colonoscope was then inserted through the anus and advanced through the colon and advanced to the transverse colon at 55 cm.?Mucosa was carefully examined under high definition white light as the instrument was slowly withdrawn in a retrograde panoramic fashion. Retroflexion was not performed. The procedure was not difficult. The quality of the prep was BBPS: N/A+0+1 = inadequate Withdrawal time N/A Limitations: Poor prep Findings: Mucosa: Copious liquid and semi-solid stool present throughout the colon, which limited visualization. The colonoscopy could not be completed. Protruding lesions: * Small internal hemorrhoids without stigmata of recent bleeding. Impression: 1. Normal esophagus (biopsy, dilation) 2. Gastritis (biopsy) 3. Hiatal hernia 4. Normal duodenum (biopsy) 5. Poor prep: 6. Internal hemorrhoids Recommendations:?? * Follow-up path results * Avoid NSAIDs * Continue omeprazole daily * Repeat colonoscopy will be set up in 6-12 months
[2025-03-30 08:50] VITALS: BP 130/78; PULSE 76; RESP 16; TEMP 36.5; O2SAT 96
--- NOTE | 2025-03-30 18:22 | HO.POSTANES ---
Post Anesthesia Evaluation Post Anesthesia Evaluation Date of Service: 03/30/25 Vital Signs: Vital Signs Temp Pulse Resp BP Pulse Ox O2 Del Method 03/30/25 08:50 97.7 F 76 16 130/78 96 Room Air 03/30/25 08:35 97.5 F 79 16 110/67 96 Room Air 03/30/25 07:00 97.6 F 89 16 136/82 96 Room Air Anesthesia: Monitored Mental Status: Awake Pain Control: Satisfactory Nausea/Vomiting: None Hydration: Adequate Anesthesia-Related Issues: No Anes. Related Issues
== END 2025-03-30 09:23 | disposition home or self-care (01) ==
PROVIDERS: PCP General Practice; Visit Provider Internal Medicine
PROC: (CPT 43248; principal; 2025-03-30 07:30)
DX: Z12.11 Encounter for screening for malignant neoplasm of colon (principal); K64.8 Other hemorrhoids; Z91.199 Patient's noncompliance with other medical treatment and regimen due to unspecified reason; R13.10 Dysphagia, unspecified; K29.60 Other gastritis without bleeding; K44.9 Diaphragmatic hernia without obstruction or gangrene; K21.9 Gastro-esophageal reflux disease without esophagitis; I12.9 Hypertensive chronic kidney disease with stage 1 through stage 4 chronic kidney disease, or unspecified chronic kidney disease; N18.30 Chronic kidney disease, stage 3 unspecified; E78.5 Hyperlipidemia, unspecified; J44.9 Chronic obstructive pulmonary disease, unspecified; C85.90 Non-Hodgkin lymphoma, unspecified, unspecified site; F17.210 Nicotine dependence, cigarettes, uncomplicated; Z92.21 Personal history of antineoplastic chemotherapy; Z79.899 Other long term (current) drug therapy; Z79.02 Long term (current) use of antithrombotics/antiplatelets
CPT/HCPCS: 43248; 43239; G0121; 88305; 88342; 93005; C1769; J2003; J2704

== ENCOUNTER → 2025-03-30 05:35 | Outpatient (BNV) | payer MEDICARE, SELFPAY | PROVIDERS: PCP General Practice; Visit Provider Internal Medicine | DX: Z12.11 Encounter for screening for malignant neoplasm of colon (principal); K64.8 Other hemorrhoids; Z91.199 Patient's noncompliance with other medical treatment and regimen due to unspecified reason; R13.10 Dysphagia, unspecified; K29.70 Gastritis, unspecified, without bleeding | CPT/HCPCS: 43239; 43248; 45378 ==

== ENCOUNTER → 2025-03-30 06:59 | Outpatient (BNV) | payer MEDICARE, SELFPAY | PROVIDERS: PCP General Practice; Visit Provider Internal Medicine Cardiovascular Disease | DX: R94.31 Abnormal electrocardiogram [ECG] [EKG] (principal); Z01.810 Encounter for preprocedural cardiovascular examination | CPT/HCPCS: 93010 ==

== ENCOUNTER 2025-04-14 10:31 | Outpatient (AMB) | payer MEDICARE, SELFPAY ==
--- NOTE | 2025-04-14 10:38 | A.OFFVIS_ITS ---
Vital Signs 04/14/25 10:43 Height 5 ft 1 in Weight 163 lb 2.273 oz BMI 30.8 BP 120/76 Blood Pressure Location Lt brachial Position Sitting Pulse 85 Intake Visit Reasons: 8 week f/u HP Intake Note: Marjorie presents in the office as a follow up for HP. CC: She states that she having severe constipation. She was unable to keep the prep down because nothing was coming out the other end. She states they were only able to do the EGD. [employer] Required: No Allergies No Known Allergies Allergy (Verified 04/14/25 10:41) HPI HPI 8 week f/u HP: Details: Patient is a 59-year-old female with PMH of COPD, hyperlipidemia, hypertension, CKDIII and fibromyalgia. Patient notes that constipation remains uncontrolled, reporting bowel movements as infrequent as every 7?8 days, with some episodes extending to 15 days. Symptoms have been associated with significant back pain and discomfort. Despite prior recommendations to use Miralax daily, the patient has been taking it every other day due to concerns about its safety with single kidney function. The patient also experiences bloating and continues to express frustration over poor prep for the prior incomplete colonoscopy, which requires need for a repeat procedure within 6?12 months. Decreased appetite has persisted for 2?3 weeks, with no recent nausea or vomiting. Weight has declined from 171 lbs in February to 163 lbs currently. The patient confirms stable oncologic management for metastatic cancer (blood and bone marrow involvement) and regular oncologist follow-up through [facility]. She is established with Dr. Mark Worthy, nephrology Shares she is current on breast cancer screening. She has declined cervical ca screening, post hysterectomy. [facility] Medical History (Updated 04/14/25 @ 12:18 by Haydee Obrien CNP) Decreased appetite Change in stool Elevated alkaline phosphatase level Dysphagia Arthritis Constipation History of headache Habitual snoring Wheezing Asthma History of chemotherapy Chronic renal insufficiency Lymphoma Renal calculi Elevated cholesterol HTN (hypertension) Fallopian tube cancer, carcinoma Cough Post-COVID chronic cough Fibromyalgia Obesity (BMI 30.0-34.9) Personal history of nicotine dependence COPD (chronic obstructive pulmonary disease) Surgical History History of tonsillectomy and adenoidectomy Hx of tubal ligation History of esophagogastroduodenoscopy (EGD) Hx of cystoscopy H/O colonoscopy History of total hysterectomy History of cholecystectomy Family History Maternal Grandmother Colon cancer Social History Household Members Other:: Many family members Are you a primary post anesthesia care unit nurse to a significant other at home: No Do you presently have visiting nurse or other home services: No Patient Tobacco Use Status: Never used Tobacco Tobacco use type: Cigarette Cigarette Packs Per Day: 0.5 Cigarettes Per Day: 2 Years Smoked: 31 Second Hand Smoke Exposure: No Review of Systems Const Reports as per HPI ENT Reports as per HPI Card Reports as per HPI Resp Reports as per HPI GI Reports as per HPI Reports as per HPI Physical Exam Vital Signs: Last Vital Signs Pulse 85 04/14/25 10:43 BP 120/76 04/14/25 10:43 BMI result Body Mass Index 30.8 Const General: healthy appearing, no acute distress and well developed Nutritional Appearance: average body habitus Orientation/consciousness: patient oriented x3 HEENT Head: Yes normal to inspection, Yes normocephalic and Yes atraumatic Face and sinus: Yes normal facial exam Eyes General: appearance normal, both eyes and all related structures Neck Neck: Yes normal visual inspection Resp Effort & Inspection: normal respiratory effort, able to speak in complete sentences, no tracheal deviation and symmetric chest movement Auscultation: clear to auscultation bilaterally Cardio Jugular venous distension: no JVD Rate: regular rate Rhythm: regular rhythm Heart sounds: S1 normal heart sound present, S2 normal heart sound present, no gallops and no murmurs GI Inspection: Yes normal to inspection, No distended and Yes obesity Palpation (GI): Soft to palpation, not firm, nontender and No hepatosplenomegaly present Auscultation: normoactive bowel sounds Neuro General: patient oriented x3 Gait exam (Neuro): Normal gait present Psych Appearance: grossly normal Mental Status: mental status grossly normal Speech and movement: Normal speech and movement present Affect: normal affect Attitude: cooperative Thought process: Normal thought process present Thought content: Normal thought content present Insight: Good insight present (Psych) Judgement: Good judgement present (Psych) Results Reviewed Results Reviewed: Operative Note Date of Service: 08/19/25 Narrative: Procedure: Upper endoscopy and colonoscopy Indication: Dysphagia, screening Endoscopist: Sabrina Metzger MD Anesthesia Provider: Dr Annita Martin Anesthesia type: MAC Instrument: GIF-H190 and PCF-H190L EGD Procedure: The procedure, indications, preparation and potential complications were reviewed with the patient, who indicated understanding and gave written informed consent to proceed. The endoscope was introduced through the mouth, and advanced to the 2nd part of the duodenum. The mucosa was carefully examined on slow withdrawal of the endoscope. The patient tolerated the procedure well. There were no immediate complications. EGD Findings: Esophagus: Normal esophageal mucosa was noted. The Z-line was at 35 cm and displaced by a small hiatal hernia with the diaphragmatic pinch at 37 cm. Cold forceps biopsies were taken from middle and lower esophagus to rule out eosinophilic esophagitis. Diffuse spasms were noted during the procedure. Stomach: Erythema and erosions in the antrum.Retroflexion was performed in the cardia. Random cold forceps biopsies were taken from the stomach. Duodenum: Normal duodenal mucosa. Cold forceps biopsies were taken from the du odenal bulb and 2nd portion of the duodenum to rule out celiac sprue. Additional intervention: Soft tip Savary wire was introduced through the biopsy channel of the gastroscope and advanced to the antrum. The gastroscope was then backed out. Savary Tonja bougie was advanced over the guidewire and the esophagus was dilated to 17 mm without any resistance felt. On relook, no heme or tear was noted. Colonoscopy Procedure: The patient was then turned for the colonoscopy. A digital rectal exam was performed which was normal. A distal attachment cap was affixed to the tip of the scope and the colonoscope was then inserted through the anus and advanced through the colon and advanced to the transverse colon at 55 cm. Mucosa was carefully examined under high definition white light as the instrument was slowly withdrawn in a retrograde panoramic fashion. Retroflexion was not performed. The procedure was not difficult. The quality of the prep was BBPS: N/A+0+1 = inadequate Withdrawal time N/A Limitations: Poor prep Findings: Mucosa: Copious liquid and semi-solid stool present throughout the colon, which limited visualization. The colonoscopy could not be completed. Protruding lesions: Small internal hemorrhoids without stigmata of recent bleeding. Impression: 1. Normal esophagus (biopsy, dilation) 2. Gastritis (biopsy) 3. Hiatal hernia 4. Normal duodenum (biopsy) 5. Poor prep: 6. Internal hemorrhoids Recommendations: Follow-up path results Avoid NSAIDs Continue omeprazole daily Repeat colonoscopy will be set up in 6-12 months PATHOLOGY: Collected: 03/30/25 Location: .[facility] Received: 03/30/25 Diagnosis A. Duodenum, biopsy: Duodenal mucosa with preserved villi and no specific change. B. Stomach, random, biopsy: Gastric antral and body mucosa with focal minimal chronic inactive inflammation; negative for H. pylori, intestinal metaplasia and dysplasia. C. Esophagus, lower, biopsy: Squamous mucosa with no specific change; no columnar mucosa present. D. Esophagus, middle, biopsy: Squamous mucosa with no specific change; no columnar mucosa present. Clinical History Pre-Op Dx: Screening, dysphagia Post-Op Dx: Gastritis, hiatal hernia, incomplete colonoscopy due to poor prep Assessment & Plan Assessment & Plan (1) Acid reflux: Comment: 03/30/25 Upper endoscopy Normal esophagus W/ dilation, Gastritis, Hiatal hernia Code(s): K21.9 - Gastro-esophageal reflux disease without esophagitis Category: Medical Qualifiers: Esophagitis presence: esophagitis presence not specified Qualified Code(s): K21.9 - Gastro-esophageal reflux disease without esophagitis Plan: Stable; patient asymptomatic on current management. consistent adherence to PPI therapy. Medications: Continue omeprazole daily as prescribed. Lifestyle Recommendations:Avoid late meals, high-fat/acidic foods, and large portion sizes to reduce reflux risks. Follow-Up Plan: Review for symptoms only in the event of recurrence or escalation. (2) Constipation: Comment: 03/30/25 colonoscopy incomplete with poor prep- Internal hemorrhoids. Eliseo mmendation for repeat in 6-12 months. Code(s): K59.00 - Constipation, unspecified Category: Medical Qualifiers: Constipation type: unspecified constipation type Qualified Code(s): K59.00 - Constipation, unspecified Plan: Worsening; likely multifactorial given CKD hx, medications and lifestyle. Suboptimal response to Miralax (currently taking every other day). Chronic constipation is contributing to incomplete colonoscopy prepping. Back pain likely secondary to stool burden. Additional Testing: -monitor electrolytes, repeat fasting week before next appt -focus remains on clinical symptom improvement. Medications: -discontinue miralax -start lactulose daily, evidence of renoprotective effects. -increase Docusate 200mg HS -continue simethicone up to t.i.d. as needed, refills sent Lifestyle Recommendations: -Fiber handout provided; patient encouraged to focus on high-fiber diet (e.g., whole grains, fruits, veggies). -Strict hydration goal per Nephrology, avoiding caffeine and alcohol which may worsen symptoms. Referrals / Coordination of Care: Reinforced coordination with methods analyst data processing at July appointment to verify safety of planned regimen. Follow-Up Plan:Revisit in 2 months to assess frequency of bowel movements, compliance with medications, and overall symptom control. (3) Decreased appetite: Code(s): R63.0 - Anorexia Category: Medical Plan: Progressive but moderate weight loss (4.6% in 2 months). Weight loss and decreased appetite may indicate ongoing cancer-related catabolism or a GI- related factor. Additional Testing: -unexplained weight loss under surveillance by oncology. -colonoscopy after improvement in chronic constipation Medications: No new medications added. Lifestyle Recommendations:Encouraged small, frequent, calorie-dense meals and consultation with oncology nutrition for support. Follow-Up Plan: -Continue to monitor treatment plan with oncologist. -GI follow-up in 2 months to monitor weight and appetite trends post dietary reinforcement. (4) Chronic kidney disease, stage 3: Code(s): N18.30 - Chronic kidney disease, stage 3 unspecified Category: Medical Qualifiers: Chronic kidney disease stage 3 subtype: stage 3b (GFR 30-44) Qualified Code(s): N18.32 - Chronic kidney disease, stage 3b Plan: EGFR 39. Stable; single functioning kidney, established nephrology f/u scheduled. Pt concerned re: safety of constipation regimen; no dose adjustment needed for current meds per guidelines. Additional Testing: monitor labs as noted Medications: -She is agreeable to above bowel regimen after further discussion via phone following our visit. -All current GI meds reviewed for renal safety. Lifestyle: Maintain hydration; avoid nephrotoxins. F/u: -Continue routine nephrology care at follow up sceduled for July 21 -pt to review constipation regimen with methods analyst data processing. Plan Follow-up in two months or sooner as needed Time: I spent a total of 60 minutes on the date of encounter which includes: Preparing to see the patient (reviewed previous documentation, test results and medical history) Performing a medically appropriate exam and/or evaluation Ordering medications, tests, and procedures Documenting clinical information in the health record Orders: Orders Alkaline Phosphatase Isoenzyme Today R74.8 - Abnormal levels of other serum enzymes Comprehensive [place]. Panel Fast Today K59.00 - Constipation, unspecified, N18.32 - Chronic kidney disease, stage 3b Gamma Glutamyl Transpeptidase Today R74.8 - Abnormal levels of other serum enzymes Medications: New docusate sodium Take two tablets at bedtime 200 mg (2 x 100 mg) PO BEDTIME 90 caps 1RF constipation lactulose Take 15mL daily for constipation 10 grams (15 mL) PO DAILY 3,785 mL 1RF Changed From simethicone (Gas Relief (simethicone)) 125 mg PO BID-TID PRN 120 caps 1RF gas To simethicone (Gas Relief (simethicone)) Take one tablet up to three times daily as needed 125 mg PO TID PRN 120 caps 1RF gas Coding Level of Care Code Established Pt Est Pt Level 5 (65301) Patient Type Established Diagnoses Gastroesophageal reflux disease, unspecified whether esophagitis present K21.9 Esophagitis presence: esophagitis presence not specified Constipation, unspecified constipation type K59.00 Constipation type: unspecified constipation type Decreased appetite R63.0 Stage 3b chronic kidney disease N18.32 Chronic kidney disease stage 3 subtype: stage 3b (GFR 30-44)
[2025-04-14 10:43] VITALS: BP 120/76; PULSE 85; BMI 30.8
--- OUTSIDE RECORDS SUMMARY | 2025-04-14 12:18 | XMS_ITS | Clinical Summary ---
Author Organization [employer] Address [address] [facility] 7t [place] [address] Care Team Providers Care Cardroom Worker Name Role Phone Milagros Walls MD Primary Care Provider [phone] Allergies No known active allergies Medications Blood [...] 90 capsule 3 06/05/20 24 Active butalbital-acetami txjydm-rdieegjl-cq deine (Fioricet W/Codeine) 06-619-89-30 MG capsule Take 1 capsule by mouth [...] 5 MG tablet 09/14/19 25 Active Fluticasone-Salmet uhnter 500-50 MCG/ACT aerosol powder Inhale 1 puff [...] g 3 01/21/20 25 Active nystatin (Mycostatin) 052530 UNIT/ML suspension SHAKE LIQUID WELL AND SWISH [...] for up to 28 days. 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) use of opiate analgesic 08/13 Muscle spasm 10/23/2023 Assessment & Plan (10/23/2023 10:45 AM EDT): Trialed trigger point injections in office, 3 on each size of trapezius muscles, not helpful in immediate pain relief Screen for colon cancer 10/23/2023 Assessment & Plan (10/23/2023 10:45 AM EDT): Refer to [facility] Left flank pain 07/21/2023 Assessment & Plan [...] tabs daily Monitored every 3 months by [facility] oncology No swelling currently or enlarged lymph nodes currently Assessment & Plan (04/22/2023 8:17 AM EDT): On Zanubrutnib for active disease, 3 tabs daily Monitored every 3 months by [facility] oncology No swelling currently or enlarged lymph nodes currently Assessment & Plan (11/13/2022 6:07 AM EDT): On Zanubrutnib for active disease, 3 tabs daily Monitored every 3 months by [facility] oncology No swelling currently Assessment & [...] (10/23/2023 10:44 AM EDT): Sees Pulm at [facility], now q6 months due to improvements Cont Advair Cont CATHRYN prn Smoking cessation encouraged Assessment & Plan (11/13/2022 6:09 AM EDT): Sees Pulm at [facility], now q6 months due to improvements Cont [...] Encounters Date Type Department Care Team Description 04/06/2025 Refill [facility] MEDICINE [address] [place] [address] Milagros Walls MD 04/05/2025 Refill [facility] MEDICINE [address] [place] [address] Milagros Walls MD Fibromyalgia (Primary Dx) 03/30/2025 Orders Only GENERIC EXTERNAL DATA DEPARTMENT Provider, Generic External Data 03/29/2025 8:00 AM EDT Office Visit [facility] ADULT DENTAL [address] [place] [address] Mike Bruce DMD 03/18/2025 Telephone [facility] MEDICINE [address] [place] [address] Katharine Eduardo MA CHARTPREP 03/16/2025 9:00 AM EDT Office Visit [facility] OPTOMETRY [address] [place] [address] Tarka, Kaycee, OD Combined forms of age-related cataract of both eyes (Primary Dx); Open angle with borderline findings, low risk, bilateral; Presbyopia; Anatomical narrow angle of both eyes 03/16/2025 Travel 03/15/2025 Orders Only [address] [address] Milagros Walls MD 03/15/2025 Patient Outreach [address] [address] Milagros Walls MD Care Coordination (W outreach for SDOH PT-1 and food needs-referral completed /) 03/15/[address] [address] Milagros Walls MD Medication Question 03/15/[address] [address] Milagros Walls MD pt1 03/04/2025 Patient Outreach [address] [address] Milagros Walls MD Care Coordination (CHW outreach for SDOH PT-1 and food needs-referral completed /) 03/04/[address] [address] Milagros Walls MD PT-1 02/19/2025 Orders Only GENERIC EXTERNAL DATA DEPARTMENT Provider, Generic External Data 02/15/2025 9:00 AM EDT Office Visit [facility] ADULT DENTAL [address] [place] [address] Mike Bruce DMD 02/08/2025 10:00 AM EDT Office Visit [facility] ADULT DENTAL [address] [place] [address] Mike Bruce DMD 01/19/[address] [address] Milagros Walls MD from Last 3 Months [...] Reading Time Taken Comments Blood Pressure 134/80 03/29/2025 8:03 AM EDT Pulse 74 12/18/2024 1:13 PM EDT [...] Care Team (Late st Contact Info) Description 05/28/2025 9:30 AM EDT Office Visit [facility] MEDICINE [address] [place] [address] Milagros Walls MD [address] [place] [address] 06/18/2025 11:30 AM EST Office Visit [facility] OPTOMETRY [address] [place] [address] Tarka, Kaycee, OD [address] [place] [address] Health Maintenance Due Date Last Done Comments [...] - Risk 60-74 years 1-dose series) 2024 Dental Oral Exam 02/15/2025 08/17/2024 Depression Screening 03/04/2025 03/04/2024, 03/04/20 SDOH Screening 03/04/2025 03/04/2024 COVID-19 Vaccine ( season) 2025 10/13/2024, 06/09/2024, 07/19/2023, Additional history exists Influenza Vaccine (#1) 2025 , 07/19/2023, 04/29/2020 Diabetes: Hemoglobin A1C 10/13/2025 10/13/2024, 07/0 09/2020 Mammogram 02/23/2026 02/23/2025, 04/0 09/2023, 05/10/2023, Additional history exists Tobacco Screening 03/29/2026 03/29/2025 Dental X-Ray: Full Mouth 08/18/2027 08/17/2024 Lipid [...] Procedure Name Priority Date/Time Associated Diagnosis Comments HEMATOXYLIN AND EOSIN STAIN Routine 03/30/2025 8:30 AM EDT DENTURE ADJUSTMENT Routine 03/29/2025 8: 00 AM EDT OCT, OPTIC NERVE - OU - BOTH EYES Routine 03/16/2025 9:00 AM EDT Open angle with borderline findings, low risk, bilateral BI MAMMOGRAM DIAGNOSTIC TOMOSYNTHESIS BILATERAL Routine 02/23/2025 [...] ADJUSTMENT Routine 02/08/2025 10 :00 AM EDT HEMOGLOBIN A1C Routine 10/13/2024 10:58 [...] Recently Relevant to Health Maintenance Results * Hematoxylin and Eosin Stain (03/30/2025 8:30 AM EDT) 03/30/2025 8:30 AM EDT 03/30/2025 8:40 AM EDT [facility] - 04/01/2025 10:23 AM EDT ----- ------- Name: Marjorie Henson Age/Sex: 59/F : 1965 Unit#: [id number] Attend Dr: Sabrina Metzger MD Re03/30/25 Status: [facility] Location: [facility] Disch: ----- ------- SPEC : [id number] RECD: 03/30/25 STATUS: ROBINSON [facility]OMBS NUM: [id number] ANTONIO: 03/30/25 [facility] DR: Sabrina Metzger MD ENTERED: 03/30/25 TYPE: Surgical OTHR DR: Milagros Walls ORDERED: HE Stain/6, Gross Micro L4/4, IHC, H. pylori Diagnosis A. Duodenum, biopsy: Duodenal mucosa with preserved villi and no specific change. B. Stomach, random, biopsy: Gastric antral and body mucosa with focal minimal chronic inactive inflammation; negative for H. pylori, intestinal metaplasia and dysplasia. C. Esophagus, lower, biopsy: Squamous mucosa with no specific change; no columnar mucosa present. D. Esophagus, middle, biopsy: Squamous mucosa with no specific change; no columnar mucosa present. Clinical History Pre-Op Dx: Screening, dysphagia Post-Op Dx: Gastritis, hiatal hernia, incomplete colonoscopy due to poor prep Microscopic Description Microscopic sections reviewed. Immunostain for H. pylori on B is negative. Control stains appropriately. Material Received A. Duodenum B. Random gastric C. Lower esophagus D. Middle esophagus Gross Description Received in four parts. Part A: Received in formalin labeled duodenum are four doshi-pink irregular tissue fragments ranging from 0.2-0.3 cm, submitted in toto in a cassette labeled A. Part B: Received in formalin labeled random gastric are four doshi irregular tissue fragments ranging from 0.2-0.35 cm, submitted in toto in a cassette labeled B. Part C: Received in formalin labeled lower esophagus bx are four zhao-white irregular and rectangular tissue fragments ranging from 0.3-0.4 cm, submitted in toto in a cassette labeled C CONTINUED ON NEXT PAGE ----- ------- Name: Marjorie Henson Age/Sex: 59/F : 1965 Unit#: [id number] Attend Dr: Sabrina Metzger MD Re03/30/25 Status: [facility] Location: [facility] Disch: ----- ------- SPEC : [id number] RECD: 03/30/25 STATUS: [facility] NUM: [id number] ANTONIO: 03/30/25 [facility] DR: Sabrina Metzger MD ENTERED: 03/30/25 SP TYPE: Surgical OTHR DR: Milagros Walls ORDERED: HE Stain/6, Gross Micro L4/4, IHC, H. pylori Gross Description (Continued) Part D: Received in formalin labeled middle esophagus bx are four zhao-white rectangular tissue fragments ranging from 0.25-0.35 cm, submitted in toto in a cassette labeled D. CEDS Special studies ordered and performed: Immunostain for H. pylori on B1. IHC S/NG Disclaimer NOTE: Unless otherwise stated, all tissue is formalin-fixed and paraffin-embedded. Some or all of the immunohistochemical tests reported herein may have been developed and their performance characteristics determined by [facility]. They have not been cleared or approved by the U.S. Food and Drug Administration (FDA). However, the FDA has determined that such clearance or approval is not necessary. This laboratory is certified under the Clinical Laboratory Improvement Amendments of 1988 (CLIA) as qualified to perform high complexity clinical laboratory testing. Copies To: Milagros Walls [address] [place], [place] [phone] Sabrina Metzger MD [facility] [address] [place] [phone] [email or web address] ----- ------- Signed (signature on file) Micki Siddiqi 04/01/25 1023 ----- ------- END OF REPORT us Generic External Data Provider LAB BLOOD ORDERAB LES Final Result [facility] [address] [place], [place] [phone] * OCT, Optic Nerve - OU - Both Eyes (03/16/2025 9:00 AM EDT) Kaycee Manrique, CHAKA - 03/18/2025 9:45 AM EDT Images from the original result were not included. OCT GLAUCOMA INTERPRETATION Reliability : OD: SS 47 - adequate reliability OS: SS 43 - adequate reliability Measurements RNFL: Avg RNFL thickness OD: 101 microns OS: 102 microns Test findings RNFL: RNFL OD: Robust RNFL 360. Baseline. RNFL OS: Robust RNFL 360. Baseline. Test findings GCL: GCL OD: Robust GCL 360. Baseline. GCL OS: Robust GCL 360. Baseline. Impression and Plan: Low risk glaucoma suspect. RTC for intraocular pressure (IOP) check. Monitor with annual OCTs. Kaycee Franz OD OPHTH TOMOGRAPHY Final Result * BI Mammogram Diagnostic Tomosynthesis Bilateral (02/23/2025 2:14 PM EDT) Anatomical Region Laterality Modality Breast Bilateral Mammography 02/23/2025 2:14 PM EDT Narrative 02/23/2025 3:00 PM EDT [facility] [place] [address] Mammography Report Signed Patient: Marjorie Henson MR#: [id number] 54 : 1965 Acct:[id number] Age/Sex: 59 / F ADM Date: 02/23/25 Loc: HO.MAMMO Attending Dr: Milagros Walls MD Ordering Physician: Milagros Walls Results: 2Benign F indings Date of Service: 02/23/25 Follow Up: 1 Year From [facility] Mammogram Procedure(s): MM tomosynthesis diagnostic Accession Number(s): [id number] cc: Milagros Walls EXAMINATION: MM DIAGNOSTIC DIGITAL [...] 02/23/25 1456 DD/ 1414 TD/TT: 02/23/25 1448 Managing Broker: Procedure Note Donotuseinterpreter, Image - 02/23/2025 [facility] [address] [place] [address] Mammography Report Signed Patient: Marjorie Henson LMR#: [id number] 54 : 1965Acct:[id number] Age/Sex: 59 / FADM Date: 02/23/25 Loc: .MAMMO Attending Dr: Milagros Walls MD Ordering Physician: Cory Wallsults: 2Benign F indings Date of Service: 02/23/25Follow Up: 1 Year From [facility] Mammogram Procedure(s): MM tomosynthesis diagnostic BI Accession Number(s): [id number] cc: Milagros Walls EXAMINATION: MM DIAGNOSTIC DIGITAL [...] 02/23/25 1456 DD/ 1414 TD/TT: 02/23/25 1448 Managing Broker: us Milagros Walls MD IMG BI PROCEDURES Final Result * Helicobacter pylori, Urea Breath Test (02/19/2025 9:37 AM EDT) H. pylori Breath Test Negative Negative [facility] Comment:Antimicrobials, prot on pump inhibitors and bismuthpreparations are known to suppress H. pylori. Ingestingthese medications within two weeks prior to performing thebreath test may produce negative test results. A positiveresult is still clinically valid. 02/19/2025 9:37 AM EDT 02/19/2025 11:55 AM EDT us Generic External Data Provider LAB BODY FLUIDS AND STOOLS ORDERABLES Edited Result - Final [facility] [address] [place] [phone] * (ABNORMAL) Comprehensive Metabolic Panel, Fasting (02/19/2025 9:02 AM EDT) Sodium 139 135 - 145 mmol/L [facility] Potassium 4.7 3.3 - 5.1 mmol/L [facility] Chloride 105 96 - 108 mmol/L [facility] Carbon Dioxide 25 22 - 29 mmol/L [facility] Anion Gap 14 12 - 20 [facility] Urea Nitrogen (BUN) 18(H) 9 - 16 mg/dL [facility] Creatinine, Serum 1.37 0.5 - 1.4 mg/dL [facility] Estimated Glomerular Filt Rate 39 [facility] Comment:Chronic Kidney Disea se: Estimated GFR < 60 mL/min/1.59p4Qwywyy Kidney Disease: Estimated GFR < 15 mL/min/1.73m2 Glucose Fasting 118(H) 60 - 99 mg/dL [facility] Comment:A fasting glucose fr om 100-125 mg/dl is considered impaired(pre-diabetes). Calcium 9.0 8.4 - 10.2 mg/dL [facility] Bilirubin, Total 0.2 0.0 - 1.0 mg/dL [facility] Aspartate Amino Transferase 16 5 - 31 U/L [facility] Alanine Aminotransferase 16 0 - 31 U/L [facility] Total Protein 6.6 6.5 - 8.0 g/dL [facility] Albumin Level 4.3 3.5 - 5.0 g/dL [facility] Alkaline Phosphatase 137(H) 39 - 117 U/L [facility] 02/19/2025 9:02 AM EDT 02/19/2025 9:02 AM EDT us Generic External Data Provider LAB BLOOD ORDERAB LES Final Result [facility] [address] [place], [place] [phone] * TSH with Reflex to Free T4 (02/19/2025 9:02 AM EDT) TSH reflex Free T4 2.84 0.32 - 4.0 uIU/mL [facility] 02/19/2025 9:02 AM EDT 02/19/2025 9:02 AM EDT us Generic External Data Provider LAB BLOOD ORDERAB LES Final Result Performing Organization Address [facility] Co de Phone Number [facility] [address] [place] [phone] * Tissue Transglutaminase Antibody, IgA (02/19/2025 9:02 AM EDT) Transglutaminase IgA <1.0 U/mL [facility] Comment:Value Interpretatio n----- <15.0 Antibody not detected> or = 15.0 Antibody detectedTHIS TEST WAS PERFORMED AT:[facility] [place] [phone] CARTER MD 02/19/2025 9:02 AM EDT 02/19/2025 9:02 AM EDT Generic External Data Provider LAB BLOOD ORDERAB LES Final Result Performing Organization Address [facility] Co de Phone Number [facility] [address] [place] [phone] * (ABNORMAL) C-reactive Protein (02/19/2025 9:02 AM EDT) C Reactive Protein 0.51(H) < or = 0.50 mg/dL [facility] 02/19/2025 9:02 AM EDT 02/19/2025 9:02 AM EDT us Generic External Data Provider LAB BLOOD ORDERAB LES Final Result Performing Organization Address [facility] Co de Phone Number [facility] [address] [place] [phone] * Hemoglobin A1c (10/13/2024 10:58 AM EST) Hemoglobin A1c 6.0 <6.0 % [facility] Comment:Hemoglobin A1C Refer ence Range Adults: 4.8 - 6.0 % Non diabetic: < 6.0 % Goal: < 7.0 %Additional Action Suggested: > 8.0 %Note: Hemoglobin A1c results are invalid for patients with abnormal amounts of HbF. Blood transfusions may impact the HbA1c concentration in the patient sample. Estimated Average Glucose 126 mg/dL [facility] Comment:eAG = Estimated ave rage glucose which is %A1C expressed asaverage glucose, using the formula of the C3A-NjazlfxRlublon Glucose study (ADAG), Diabetes Care, Vol.31,#8,Mar. 2007 Blood Venous blood specimen / Unknown 10/13/2024 10:58 AM EST 10/13/2024 1:11 PM EST us Milagros Walls MD LAB BLOOD ORDERABLES Final Res ult [facility] [address] [place] [phone] * (ABNORMAL) Lipid Panel, Standard (10/13/2024 10:58 AM EST) Triglycerides 180(H) <150 mg/dL [facility] Comment:Desirable Triglyceri de: less than 150 mg/dLBorderline High Triglyceride 150-199 mg/dLHigh Triglyceride: 200-499 mg/dLVery High Triglyceride: greater than or equal to 5OO mg/dL Cholesterol 178 <200 mg/dL [facility] Comment:Desirable Cholestero l: less than 200 mg/dLBorderline High Cholesterol: 200-239 mg/dLHigh Cholesterol: greater than 239 mg/dL LDL Cholesterol Calculated 90 <100 mg/dL [facility] Comment:Desirable LDL: less than 100 mg/dLNear Optimal/Above Optimal LDL: 110- 129 mg/dLBorderline High LDL: 130-159 mg/dLHigh LDL: 160-189 mg/dLVery High LDL: greater than or equal to 190 mg/dL HDL Cholesterol 52 >40 mg/dL [facility] Comment:Desirable HDL: great er than 40 mg/dL Note: This HDL assay may give artificially low results in patients with liver disease. Blood Venous blood specimen / Unknown 10/13/2024 10:58 AM EST 10/13/2024 1:12 PM EST us Milagros Walls MD LAB BLOOD ORDERABLES Final Res ult [facility] [address] [place] [phone] * HEPATITIS C AB W/REFL TO HCV RNA, QN, PCR (02/10/2021 9:36 AM EDT) HEPATITIS C ANTIBODY NON-REACT [facility] NON-REACT [facility] INDEX 0.02 <1.00 [facility] Comment: HCV antibody was non-reactive. There is no laboratory evidence of HCV infection. In most cases, no further action is required. However, if recent HCV exposure is suspected, a test for HCV RNA (test code 10557) is suggested. For additional information please refer to http://education.Agnitus/faq/HNX68e2 (This link is being provided for informational/ educational purposes only.) 02/10/2021 9:36 AM EDT us Milagros Walls MD HISTORICAL/NON ORDERABLE LABS Final Result Performing Organization Address [place]/[facility] Co de Phone Number [facility] [address] from Last 3 Months or Most Recently Relevant to Health Maintenance Insurance [facility] [employer] [place] [employer] PREFERRED PRIME DENTAL-[facility] MEDICAID STAND ADULT Care Teams Cardroom Worker Relationship Specialty Start Date End Date Milagros Walls MD [address] [place] [phone] PCP - General Family Medicine 02/10/21
--- OUTSIDE RECORDS SUMMARY | 2025-04-14 12:18 | XMS_ITS | Clinical Summary ---
Author Organization Patient Business Ser [facility] Address [address] [place] [address] Care Team Providers Care Dry Wall Nailer Name Role Phone Milagros Walls MD Primary Care Provider [phone] Allergies No known active allergies Medications butalbital-acet aminophen-caffe ine-codeine (FIORICET WITH CODEINE) 78-134-67-30 mg per capsule Take 1 capsule by mouth every 4 (four) hours if needed. Max Daily Amount: 6 capsules Active ammonium lactate (AmLactin) 12 % lotion Apply topically if needed for dry skin. 400 g 5 03/08/20 26 Active ketoconazole (NIZORAL) 2 % cream Apply topically 1 (one) time each day. 30 g 2 5 Active clotrimazole (LOTRIMIN) 1 % cream Apply topically 2 (two) times a day. 30 g 3 5 04/07/20 25 Active Problems Problem Noted Date Diagnosed Date Asthma 05/10/2010 GERD (gastroesophageal reflux disease) 0 Kidney stone 05/10/2010 Overview (05/14/2024): 2004 Migraine 05/10/2010 Encounters Date Type Department Care Team Description 03/08/2025 8:15 AM EDT Office Visit Orthopedic Surgery [facility] [address] [facility] [address] [place] [address] Marino Estrella, ARIAS Rocha (Primary Dx); Dermatophytosis of nail; Chemotherapy-induce d neuropathy (CMS/HCC V24); Verruca plantaris; Acquired hallux valgus of left foot; Acquired hallux valgus of right foot; Pain in toe of left foot; Pain in toe of right foot 03/08/2025 Telephone Orthopedic Surgery - [place] [address] [address] Marino Estrella DPM from Last 3 Months Surgical History Surgery [...] - - Weight 78.9 kg (174 lb) 03/08/2025 8:32 AM EDT Height 154.9 cm (5' 0.98 ) 03/08/2025 8:32 AM ED T Body Mass Index 32.89 03/08/2025 8:32 AM EDT Plan of Treatment Upcoming Encounters Date Type Department Care Team (Late st Contact Info) Description 06/08/2025 8:45 AM EDT Office Visit Orthopedic Surgery - [place] [address] [phone] Marino Estrella, DPM [address] [phone] Health Maintenance Due Date Last Done Comments [...] Test (03/16/2004) Annual BMP Blood Test Abstracted [facility] Provider HEALTH MAINTENANCE Final Result from Last 3 Months or Most Recently Relevant to Health Maintenance Insurance [place]ICA[place] [employer] [employer] Care Teams Dry Wall Nailer Relationship Specialty Start Date End Date Milagros Walls MD [address] [place] [phone] PCP - General 04/01/24
--- OUTSIDE RECORDS SUMMARY | 2025-04-14 12:18 | XMS_ITS | Encounter Summary ---
Author Organization [employer] Address [address] [facility] 7t [place] [address] Care Team Providers Care Agency Owner Name Role Phone Milagros Walls MD Primary Care Provider [phone] Reason for Visit * Reason Onset Date Comments PT1 06/03/2023 Encounter Details Date Type Department Care Team ([facility] st Contact Info) Description 06/03/[address] [facility] MEDICINE [address] [place], [place] [phone] Milagros Walls MD [address] [place], [place] [phone] PT1 Social History Tobacco Use Types Packs/Day [...] 3:14 PM EDT PT1 Name of facility: [facility] Specialty: Mammograms Location: [address] [place] [address] Date: n/a Time: n/a fax: [phone] wheelchair: NO Patient Relations Manager: NO All Future appt's PT1 Name of facility: [facility] Specialty: C.O.P Appt Location: [address] [place] [phone] Date: 09/23/2022 Time: 9:30 am fax: n/a wheelchair: NO Patient Relations Manager: NO All Future Appt's Pt is requesting a call in regards to other PT1 statuses. Please contact pt at [phone] documented in this encounter Plan of Treatment Upcoming Encounters Date Type Department Care Team ([facility] st Contact Info) Description 05/28/2025 9:30 AM EDT Office Visit [facility] MEDICINE [address] [place] [phone] Milagros Walls MD [address] [place] [address] 06/18/2025 11:30 AM EST Office Visit [facility] OPTOMETRY [address] [place], [place] [phone] Kaycee Franz, OD [address] [place] [address] documented as of this encounter Visit Diagnoses Not on filedocumented in this encounter Care Teams Agency Owner Relationship Specialty Start Date End Date Milagros Walls MD [address] [place] [phone] PCP - General Family Medicine 02/10/21 documented as of this encounter
--- OUTSIDE RECORDS SUMMARY | 2025-04-14 12:18 | XMS_ITS | Encounter Summary ---
Author Organization [employer] Address 75 [facility] 7t [place] [address] Care Team Providers Care Circus Rider Name Role Phone Milagros Walls MD Primary Care Provider [phone] Reason for Visit * Reason Onset Date Comments rs appt 11/05/2024 Encounter Details Date Type Department Care Team ([facility] st Contact Info) Description 11/05/[address] [facility] [address] [place], [place] [phone] Mike Bruce, REN [address] [place], [place] [phone] rs appt Social History Tobacco Use Types Packs/Day Years [...] * Telephone Encounter - Leilani Valero - 11/05/2024 8:21 AM EDT Patient called in to rs appt on 11/05 due to PT 1 never arriving to greens picker. Rs for 11/20 at 8am. Wax try in. documented in this encounter Plan of Treatment Upcoming Encounters Date Type Department Care Team (Late st Contact Info) Description 05/28/2025 9:30 AM EDT Office Visit [facility] [address] [place] [address] Milagros Walls MD 230 [place] [address] 06/18/2025 11:30 AM EST Office Visit [facility] OPT[facility] [address] [place] [address] Kaycee Franz, OD 267 [place] [address] documented as of this encounter Visit Diagnoses Not on filedocumented in this encounter Additional Health Concerns Assessment Noted Time PHQ-9 Depression Total Score: 0 03/04/20 10:17 AM EDT documented as of this encounter Care Teams Circus Rider Relationship Specialty Start Date End Date Milagros Walls MD 230 [place] [address] PCP - General Family Medicine 02/10/21 documented as of this encounter
--- OUTSIDE RECORDS SUMMARY | 2025-04-14 12:18 | XMS_ITS | Encounter Summary ---
Author Organization [employer] Address 75 [facility] 7t [place] [address] Care Team Providers Care Seismograph Recorder Name Role Phone Milagros Walls MD Primary Care Provider [phone] Reason for Visit * Reason Comments Med Refill Encounter Details Date Type Department Care Team (Late st Contact Info) Description 09/09/2023 Refill [facility] 230 [place], [place] [phone] Milagros Walls MD 230 [place], [place] [phone] Fibromyalgia Social History Tobacco Use Types Packs/Day Years Used Date Smoking Tobacco: Every Day Cigarettes Smokeless Tobacco: Never Comments:1 cigarette daily Alcohol Use Standard Drinks/Week Comments Never 0 (1 standard drink = 0.6 oz pur e alcohol) Housing Stability Answer Date Recorded What is your housing situation today? I have werner david 06/03/[address] you li [...] Description 05/28/2025 9:30 AM EDT Office Visit [facility] 230 [place] [address] Milagros Walls MD 230 [place] [address] 06/18/2025 11:30 AM EST Office Visit [facility] OPTOMETRY [address] [place] [address] Kaycee Franz, OD 267 [place] [address] documented as of this encounter Visit Diagnoses Diagnosis Fibromyalgia Unspecified myalgia and myositis documented in this encounter Care Teams Seismograph Recorder Relationship Specialty Start Date End Date Milagros Walls MD [address] [place] [address] PCP - General Family Medicine 02/10/21 documented as of this encounter
--- OUTSIDE RECORDS SUMMARY | 2025-04-14 12:18 | XMS_ITS | Encounter Summary ---
Author Organization [employer] Address 75 [facility] 7t [place] [address] Care Team Providers Care Weather Analyst Name Role Phone Milagros Walls MD Primary Care Provider [phone] Reason for Visit * Reason Comments Med Refill Encounter Details Date Type Department Care Team (Late st Contact Info) Description 07/31/[address] [facility] 230 [place], [place] [phone] Milagros Walls MD 230 [place], [place] [phone] Left flank pain Social History Tobacco Use [...] 05/28/2025 9:30 AM EDT Office Visit [facility] 230 [place] [address] Milagros Walls MD 230 [place] [address] 06/18/2025 11:30 AM EST Office Visit [facility] OPTOMETRY 267 [place] [address] Kaycee Franz, OD 267 [place] [address] documented as of this encounter Visit Diagnoses Diagnosis Left flank pain Abdominal pain, unspecified site documented in this encounter Care Teams Weather Analyst Relationship Specialty Start Date End Date Milagros Walls MD [address] [place] [address] PCP - General Family Medicine 02/10/21 documented as of this encounter
--- OUTSIDE RECORDS SUMMARY | 2025-04-14 12:18 | XMS_ITS | Encounter Summary ---
Author Organization [employer] Address 75 [facility] 7t [place] [address] Care Team Providers Care Beef Killer Name Role Phone Milagros Walls MD Primary Care Provider Reason for Visit * Reason Onset Date Comments pt1 03/15/2025 Encounter Details Date Type Department Care Team ([facility] st Contact Info) Description 03/15/2025 Telephone [facility] MEDICINE 230 [place], [place] [phone] Milagros Walls MD 230 [place], [place] [phone] pt1 Social History Tobacco Use Types Packs/Day Years [...] encounter Miscellaneous Notes * Telephone Encounter - Jenae Oh - 03/15/2025 10:13 AM EDT Patient calling requesting PT1 Home Address verified: Y/N: Yes Provider name or facility name: [address] [place] [address] Escort needed: Y/N: No Do you have a wheelchair: Y/N: No If yes- Manual or electric: n/a Visits: 3 x monthly documented in this encounter Plan of Treatment Upcoming Encounters Date Type Department Care Team ([facility] st Contact Info) Description 05/28/2025 9:30 AM EDT Office Visit [facility] MED[facility] 230 [place] [address] Milagros Walls MD 230 [place] [address] 06/18/2025 11:30 AM EST Office Visit [facility] OPTOMETRY 267 [place] [address] Kaycee Franz, OD 267 [place] [address] documented as of this encounter Visit Diagnoses Not on filedocumented in this encounter Additional Health Concerns Assessment Noted Time PHQ-9 Depression Total Score: 0 03/04/20 10:17 AM EDT documented as of this encounter Care Teams Beef Killer Relationship Specialty Start Date End Date Milagros Walls MD [address] [place] [address] PCP - General Family Medicine 02/10/21 documented as of this encounter
--- OUTSIDE RECORDS SUMMARY | 2025-04-14 12:18 | XMS_ITS | Encounter Summary ---
Author Organization [employer] Address 75 [facility] 7t [place] [address] Care Team Providers Care Cook Soup Name Role Phone Milagros Walls MD Primary Care Provider [phone] Encounter Details Date Type Department Care Team (Late st Contact Info) Description 03/15/2025 Orders Only [facility] MED[facility]INE 230 [place], [place] [phone] Milagros Walls MD 230 [place], [place] [phone] Social History Tobacco Use Types Packs/Day Years [...] AM EDT Office Visit [facility] MED[facility] [address] [place] [address] Milagros Walls MD 230 [place] [address] 06/18/2025 11:30 AM EST Office Visit [facility] OPTOMETRY 267 [place] [address] TarkaKaycee, OD 267 [place] [address] documented as of this encounter Visit Diagnoses Not on filedocumented in this encounter Additional Health Concerns Assessment Noted Time PHQ-9 Depression Total Score: 0 03/04/20 24 10:17 AM EDT documented as of this encounter Care Teams Cook Soup Relationship Specialty Start Date End Date Milagros Walls MD 230 [place] [address] PCP - General Family Medicine 02/10/21 documented as of this encounter
--- OUTSIDE RECORDS SUMMARY | 2025-04-14 12:18 | XMS_ITS | Encounter Summary ---
Author Organization [employer] Address 75 [facility] 7t [place] [address] Care Team Providers Care Oil And Gas Superintendent Name Role Phone Milagros Walls MD Primary Care Provider [phone] Reason for Visit * Reason Comments Med Refill Encounter Details Date Type Department Care Team (Late Contact Info) Description 02/11/2023 Refill [facility] MED[facility] [address] [place] [address] [phone] Sade Townsend MD [address] [place] [address] [phone] Social History Tobacco Use Types Packs/Day Years [...] Description 05/28/2025 9:30 AM EDT Office Visit [facility] MED[facility] [address] [place] [address] [phone] Milagros Walls MD [address] [place] [address] [phone] 06/18/2025 11:30 AM EST Office Visit [facility] OPTOMETRY [address] [place] [address] Kaycee Franz, OD [address] [place] [address] documented as of this encounter Visit Diagnoses Not on filedocumented in this encounter Care Teams Oil And Gas Superintendent Relationship Specialty Start Date End Date Milagros Walls MD 230 [place] [address] PCP - General Family Medicine 02/10/21 documented as of this encounter
--- OUTSIDE RECORDS SUMMARY | 2025-04-14 12:18 | XMS_ITS | Encounter Summary ---
Author Organization [employer] Address [address] [facility] [address] 7t [place] [address] Care Team Providers Care Report Programmer Name Role Phone Milagros Walls MD Primary Care Provider [phone] Reason for Visit * Reason Onset Date Comments Referral 08/14/2023 Encounter Details Date Type Department Care Team ([facility] st Contact Info) Description 08/14/2023 Telephone [facility] MED[facility] 230 [place] [address] Milagros Walls MD 230 [place], [place] [phone] Referral Social History Tobacco Use Types Packs/Day [...] - 08/14/2023 2:03 PM EST Referral/Renewals Location: [address] [place] [address] Date: 10/29 Time: 9:30 AM Specialty: [facility] radiation oncology DX: cancer Location: [address] [place] [address] Date: n/a Time: n/a Specialty: [facility] surgical oncology DX: cancer Location: [address] [place] [address] Date: n/a Time: n/a Specialty: [facility] for [facility] care DX: Cancer Location: [facility] [place] Date: 10/21 Time: 2:30 PM Fax: n/a Specialty: [facility] DX: breast symptoms Location: [facility] [place] Date: 09/05 Time: 9:15 AM Fax: n/a Specialty:[facility] DX: COPD [facility] [address] [facility] [address] [facility] Date: n/a Time: n/a Specialty: [facility] DX: n/a Location: [address] [facility] Date: n/a Time: n/a Fax: n/a Specialty: [facility] DX: n/a documented in this encounter Plan of Treatment Upcoming Encounters Date Type Department Care Team (Late st Contact Info) Description 05/28/2025 9:30 AM EDT Office Visit [facility] [address] [place] [address] Milagros Walls MD 230 [place] [address] 06/18/2025 11:30 AM EST Office Visit [facility] OPTOMETRY 267 [place], [place] [phone] Kaycee Franz, OD 267 [place] [address] documented as of this encounter Visit Diagnoses Not on filedocumented in this encounter Care Teams Report Programmer Relationship Specialty Start Date End Date Milagros Walls MD 230 [place], [place] [phone] PCP - General Family Medicine 02/10/21 documented as of this encounter
--- OUTSIDE RECORDS SUMMARY | 2025-04-14 12:18 | XMS_ITS | Encounter Summary ---
Author Organization [employer] Address 75 [facility] 7t [place] [address] Care Team Providers Care Economics Teacher Name Role Phone Milagros Walls MD Primary Care Provider [phone] Reason for Visit * Reason Onset Date Comments PT-1 12/24/2024 Encounter Details Date Type Department Care Team ([facility] st Contact Info) Description 12/24/2024 Telephone [facility] 230 [place], [place] [phone] Milagros Walls MD 230 [place], [place] [phone] PT-1 Social History Tobacco Use Types Packs/Day [...] encounter Miscellaneous Notes * Telephone Encounter - Sally Elizabeth - 12/24/2024 8:37 AM EDT Patient calling requesting PT1 Home Address verified: Y/N: Yes Provider name or facility name: [address] [place] [address] Escort needed: Y/N: No Do you have a wheelchair: Y/N: No If yes- Manual or electric: Visits: (1 x every 6 months) documented in this encounter Plan of Treatment Upcoming Encounters Date Type Department Care Team ([facility] Contact Info) Description 05/28/2025 9:30 AM EDT Office Visit [facility] MED[facility]INE 230 [place] [address] Milagros Walls MD 230 [place] [address] 06/18/2025 11:30 AM EST Office Visit [facility] OPTOMETRY 267 [place] [address] Kaycee Franz, OD 267 [place] [address] documented as of this encounter Visit Diagnoses Not on filedocumented in this encounter Additional Health Concerns Assessment Noted Time PHQ-9 Depression Total Score: 0 03/04/20 10:17 AM EDT documented as of this encounter Care Teams Economics Teacher Relationship Specialty Start Date End Date Milagros Walls MD 230 [place] [address] PCP - General Family Medicine 02/10/21 documented as of this encounter
--- OUTSIDE RECORDS SUMMARY | 2025-04-14 12:18 | XMS_ITS | Encounter Summary ---
Author Organization [employer] Address 75 [facility] 7t [place] [address] Care Team Providers Care Research Physiologist Name Role Phone Milagros Walls MD Primary Care Provider [phone] Reason for Referral * Consultation (Routine) - Closed Specialty Diagnoses / Procedures Referred By Diony santana Referred To Contact Urology Diagnoses Kidney mass Kidney atrophy Milagros Walls MD 230 [place] [address] Phone: tel: fax: [facility] [address] [place], [place] Phone: tel: fax: Referral ID Status Reason Start Date Expiration Date V isits Requested Visits Authorized [id number] Closed Specialty Services Required 12/22/2024 12/22/2025 1 1 Encounter Details Date Type Department Care Team (Late st Contact Info) Description 12/22/2024 Orders Only [facility] 230 [place] [address] Milagros Walls MD [address] [place], [place] [phone] Kidney mass (Primary Dx); Kidney atrophy Social History Tobacco Use Types Packs/Day Years [...] Description 05/28/2025 9:30 AM EDT Office Visit [facility] 230 [place] [address] Milagros Walls MD 230 [place] [address] 06/18/2025 11:30 AM EST Office Visit [facility] OPTOMETRY 267 [place] [address] Kaycee Franz, CHAKA 267 [place] [address] Scheduled Referrals Name Type Priority Associated Diagnoses Orde r Schedule Referral to Urology Outpatient Referral Routine Kidney mass Kidney atrophy Expected: 12/22/2024 (Approximate), Expires: 12/22/2025 documented as of this encounter Visit Diagnoses Diagnosis Kidney mass- Primary Unspecified disorder of kidney and ureter Kidney atrophy documented in this encounter Additional Health Concerns Assessment Noted Time PHQ-9 Depression Total Score: 0 03/04/20 24 10:17 AM EDT documented as of this encounter Care Teams Research Physiologist Relationship Specialty Start Date End Date Milagros Walls MD [address] [place] [address] PCP - General Family Medicine 02/10/21 documented as of this encounter
--- OUTSIDE RECORDS SUMMARY | 2025-04-14 12:18 | XMS_ITS | Encounter Summary ---
Author Organization [employer] Address 75 [facility] 7t [place] [address] Care Team Providers Care Diabetes Trainer Name Role Phone Milagros Walls MD Primary Care Provider [phone] Encounter Details Date Type Department Care Team (Late Contact Info) Description 01/09/2023 Abstract [facility] MEDICINE [address] [place] [address] [phone] Nereida Duncan, RN 230 [place], [place] [phone] Social History Tobacco Use Types Packs/Day Years [...] Department Care Team (Late Contact Info) Description 05/28/2025 9:30 AM EDT Office Visit [facility] MED[facility]INE [address] [place] [address] [phone] Milagros Walls MD 230 [place], [place] [phone] 06/18/2025 11:30 AM EST Office Visit [facility] OPTOMETRY 267 [place], [place] [phone] Kaycee Franz OD 267 [place] [address] documented as of this encounter Procedures Procedure Name Priority Date/Time Associated Diagnosis Comments MAMMOGRAPHY Routine 10/25/2022 documented in this encounter Results * Mammography (10/25/2022) Mammogram BI-RADS 3: Probably Benign Anatomical Region Laterality Modality Other Historical Provider HEALTH MAINTENANCE Final Result documented in this encounter Visit Diagnoses Not on filedocumented in this encounter Care Teams Diabetes Trainer Relationship Specialty Start Date End Date Milagros Walls MD 230 [place] [address] PCP - General Family Medicine 02/10/21 documented as of this encounter
--- OUTSIDE RECORDS SUMMARY | 2025-04-14 12:18 | XMS_ITS | Clinical Summary ---
Author Organization [facility] Address [address] [phone] Phone Care Team Providers Care Tug Boat Captain Name Role Phone Milagros Walls MD [...] 02/15/2021 Nephrolithiasis 02/15/2021 Gastroesophageal reflux disease 05/10/2010 Immunizations Immunization Administration Dates Next Due Influenza [...] Office Visit [facility] [address] [phone] Mark Hanna MD [address] [phone] Health Maintenance Due Date Last Done Comments [...] age to complete this topic Insurance Medicaid [place] Medicaid [place] Medicare Care Teams Tug Boat Captain Relationship Specialty Start Date End Date Milagros Walls MD [address] [place] [address] PCP - General Ledger Poster 09/03/22
--- OUTSIDE RECORDS SUMMARY | 2025-04-14 12:18 | XMS_ITS | Encounter Summary ---
Author Organization [employer] Address 75 [facility] 7t [place] [address] Care Team Providers Care Behavior Support Specialist Name Role Phone Milagros Walls MD Primary Care Provider [phone] Reason for Visit * Reason Comments Med Refill Encounter Details Date Type Department Care Team ([facility] st Contact Info) Description 04/06/2025 Refill [facility] 230 [place], [place] [phone] Milagros Walls MD 230 [place], [place] [phone] Social History Tobacco Use Types Packs/Day Years [...] 9:30 AM EDT Office Visit [facility] 230 [place] [address] Milagros Walls MD 230 [place] [address] 06/18/2025 11:30 AM EST Office Visit [facility] 267 [place] [address] Kaycee Franz, OD 267 [place] [address] documented as of this encounter Visit Diagnoses Not on filedocumented in this encounter Additional Health Concerns Assessment Noted Time PHQ-9 Depression Total Score: 0 03/04/20 24 10:17 AM EDT documented as of this encounter Care Teams Behavior Support Specialist Relationship Specialty Start Date End Date Milagros Walls MD [address] [place] [address] PCP - General Family Medicine 02/10/21 documented as of this encounter
--- OUTSIDE RECORDS SUMMARY | 2025-04-14 12:18 | XMS_ITS | Encounter Summary ---
Author Organization [employer] Address 75 [facility] 7t [place] [address] Care Team Providers Care Melting Supervisor Name Role Phone Milagros Walls MD Primary Care Provider [phone] Encounter Details Date Type Department Care Team (Late Contact Info) Description 03/29/2023 Telephone [facility] MEDICINE [address] [place] [address] [phone] Milagros Walls MD [address] [place] [address] [phone] Social History Tobacco Use Types Packs/Day Years [...] * Telephone Encounter - Collette Flanagan - 03/29/2023 11:49 AM EDT Tc from pt requesting all her PT1 on file to be renewed. Please contact pt at [phone] documented in this encounter Plan of Treatment Upcoming Encounters Date Type Department Care Team (Late Contact Info) Description 05/28/2025 9:30 AM EDT Office Visit [facility] MEDICINE [address] [place] [address] Milagros Walls MD 230 [place], [place] [phone] 06/18/2025 11:30 AM EST Office Visit [facility] OPTOMETRY 267 [place], [place] [phone] Kaycee Franz, OD 267 [place], [place] [phone] documented as of this encounter Visit Diagnoses Not on filedocumented in this encounter Care Teams Melting Supervisor Relationship Specialty Start Date End Date Milagros Walls MD 230 [place], [place] [phone] PCP - General Family Medicine 02/10/21 documented as of this encounter
--- OUTSIDE RECORDS SUMMARY | 2025-04-14 12:18 | XMS_ITS | Encounter Summary ---
Author Organization [employer] Address 75 [facility] 7t [place] [address] Care Team Providers Care Rn Transition Name Role Phone Milagros Walls MD Primary Care Provider [phone] Reason for Referral * Consultation (Routine) - Closed Specialty Diagnoses / Procedures Referred By Diony santana Referred To Contact Podiatry Diagnoses Milagros Diaz MD 230 [place] [address] Phone: tel: fax: Marino Estrella DPM Phone: tel: fax: Referral ID Status Reason Start Date Expiration Date V isits Requested Visits Authorized [id number] Closed Specialty Services Required 03/25/2024 03/25/2025 1 1 Encounter Details Date Type Department Care Team (Late st Contact Info) Description 03/25/2024 Orders Only [facility] MEDICINE [address] [place] [address] Milagros Walls MD [address] [place] [address] Josefina (Primary Dx) Social History Tobacco Use [...] Description 05/28/2025 9:30 AM EDT Office Visit [facility] MEDICINE 230 [place] [address] Milagros Walls MD 230 [place] [address] 06/18/2025 11:30 AM EST Office Visit [facility] OPTOMETRY 267 [place] [address] Kaycee Franz OD 267 [place] [address] Scheduled Referrals Name Type Priority Associated Diagnoses Orde r Schedule Referral to Podiatry Outpatient Referral Routine Bunion Expected: 03/25/2024 (Approximate), Expires: 03/25/2025 documented as of this encounter Visit Diagnoses Diagnosis Bunion- Primary documented in this encounter Additional Health Concerns Assessment Noted Time PHQ-9 Depression Total Score: 0 03/04/20 24 10:17 AM EDT documented as of this encounter Care Teams Rn Transition Relationship Specialty Start Date End Date Milagros Walls MD 230 [place] [address] PCP - General Family Medicine 02/10/21 documented as of this encounter
--- OUTSIDE RECORDS SUMMARY | 2025-04-14 12:18 | XMS_ITS | Encounter Summary ---
Author Organization [employer] Address 75 [facility] 7t [place] [address] Care Team Providers Care Field Mechanic Name Role Phone Milagros Walls MD Primary Care Provider [phone] Reason for Visit * Reason Onset Date Comments PT-1 03/04/2025 Encounter Details Date Type Department Care Team ([facility] st Contact Info) Description 03/04/2025 Telephone [facility] [address] [place], [place] [phone] Milagros Walls MD 230 [place], [place] [phone] PT-1 Social History Tobacco Use Types Packs/Day [...] encounter Miscellaneous Notes * Telephone Encounter - Nilda Simons - 03/15/2025 10:47 AM EDT Tc from pt requesting to add additional visits to current location [address] [place] [address] Contact pt at [phone] * Telephone Encounter - Hugo Weeks - 03/04/2025 9:12 AM EDT Patient calling requesting PT1 Home Address verified: Y/N: Yes Provider name or facility name: Dr. Alcantara Facility Address: [address] [place] [address] Escort needed: Y/N: No Do you have a wheelchair: Y/N: No If yes- Manual or electric: N/A Visits: once a month - Patient calling requesting PT1 Home Address verified: Y/N: Yes Provider name or facility name: [facility] Facility Address: [address] [place] [address] Escort needed: Y/N: No Do you have a wheelchair: Y/N: No If yes- Manual or electric: no Visits: Once a month - Patient calling requesting PT1 Home Address verified: Y/N: Yes Provider name or facility name: [facility] Facility Address: [address] [place] [address] Escort needed: Y/N: No Do you have a wheelchair: Y/N: No If yes- Manual or electric: N/A Visits: 3 times a month documented in this encounter Plan of Treatment Upcoming Encounters Date Type Department Care Team (Late st Contact Info) Description 05/28/2025 9:30 AM EDT Office Visit [facility] [address] [place] [address] Milagros Walls MD [address] [place] [address] 06/18/2025 11:30 AM EST Office Visit [facility] OPTOMETRY [address] [place], [place] [phone] Kaycee Franz OD [address] [place] [address] documented as of this encounter Visit Diagnoses Not on filedocumented in this encounter Additional Health Concerns Assessment Noted Time PHQ-9 Depression Total Score: 0 03/04/20 24 10:17 AM EDT documented as of this encounter Care Teams Field Mechanic Relationship Specialty Start Date End Date Milagros Walls MD 230 [place], [place] [phone] PCP - General Family Medicine 02/10/21 documented as of this encounter
--- OUTSIDE RECORDS SUMMARY | 2025-04-14 12:18 | XMS_ITS | Encounter Summary ---
Author Organization [employer] Address 75 [facility] 7t [place] [address] Care Team Providers Care Radiology Interventional Physician Name Role Phone Milagros Walls MD Primary Care Provider [phone] Reason for Visit * Reason Onset Date Comments Pt1 08/13/2023 Encounter Details Date Type Department Care Team ([facility] st Contact Info) Description 08/13/2023 Telephone [facility] MEDICINE 230 [place], [place] [phone] Milagros Walls MD 230 [place], [place] [phone] Pt1 Social History Tobacco Use Types Packs/Day [...] n/a Visits: All future Appt's Address: [address], [place] Facility: [facility] Wheel Chair: no Solvent Process Extractor Operator Needed: no PT1 needed Date: n/a Time: n/a Visits: All future Appt's Address: [address] [place] [address] Facility: [facility] Wheel Chair: No Solvent Process Extractor Operator Needed: No PT1 needed Date: n/a Time: n/a Visits: All future Appt's Address: 230 [place] [address] Facility: [facility] Wheel Chair: No Solvent Process Extractor Operator Needed: No documented in this encounter Plan of Treatment Upcoming Encounters Date Type Department Care Team (Late st Contact Info) Description 05/28/2025 9:30 AM EDT Office Visit [facility] MEDICINE 230 [place] [address] Milagros Walls MD 230 [place] [address] 06/18/2025 11:30 AM EST Office Visit [facility] OPTOMETRY [address] [place] [address] Kaycee Franz, CHAKA [address] [place] [address] documented as of this encounter Visit Diagnoses Not on filedocumented in this encounter Care Teams Radiology Interventional Physician Relationship Specialty Start Date End Date Milagros Walls MD 230 [place] [address] PCP - General Family Medicine 02/10/21 documented as of this encounter
--- OUTSIDE RECORDS SUMMARY | 2025-04-14 12:18 | XMS_ITS | Encounter Summary ---
Author Organization [employer] Address 75 [facility] 7t [place] [address] Care Team Providers Care Gun Examiner Name Role Phone Milagros Walls MD Primary Care Provider [phone] Reason for Visit * Reason Comments Med Refill Encounter Details Date Type Department Care Team ([facility] st Contact Info) Description 07/26/2023 Refill [facility] MED[facility]INE [address] [place], [place] [phone] Milagros Walls MD 230 [place], [place] [phone] Social History Tobacco Use Types Packs/Day Years [...] 05/28/2025 9:30 AM EDT Office Visit [facility] MEDICINE [address] [place] [address] Milagros Walls MD [address] [place] [address] 06/18/2025 11:30 AM EST Office Visit [facility] OPTOMETRY [address] [place] [address] Kaycee Franz, OD [address] [place] [address] documented as of this encounter Visit Diagnoses Not on filedocumented in this encounter Care Teams Gun Examiner Relationship Specialty Start Date End Date Milagros Walls MD 230 [place] [address] PCP - General Family Medicine 02/10/21 documented as of this encounter
--- OUTSIDE RECORDS SUMMARY | 2025-04-14 12:19 | XMS_ITS | Encounter Summary ---
Author Organization [employer] Address 75 [facility] 7t [place] [address] Care Team Providers Care Ironmolder Name Role Phone Milagros Walls MD Primary Care Provider [phone] Encounter Details Date Type Department Care Team (Late st Contact Info) Description 10/31/[address] [facility] MEDICINE [address] [place] [address] [phone] Milagros Walls MD [address] [place] [address] [phone] Kidney stone (Primary Dx) Social History Tobacco [...] 05/28/2025 9:30 AM EDT Office Visit [facility] MED[facility] [address] [place] [address] Milagros Walls MD [address] [place] [address] 06/18/2025 11:30 AM EST Office Visit [facility] OPTOMETRY 267 [place], [place] [phone] Kaycee Franz, OD [address] [place] [address] documented as of this encounter Visit Diagnoses Diagnosis Kidney stone- Primary Calculus of kidney documented in this encounter Care Teams Ironmolder Relationship Specialty Start Date End Date Milagros Walls MD [address] [place] [address] PCP - General Family Medicine 02/10/21 documented as of this encounter
--- OUTSIDE RECORDS SUMMARY | 2025-04-14 12:19 | XMS_ITS | Encounter Summary ---
Author Organization [employer] Address 75 [facility] 7t [place] [address] Care Team Providers Care Supervisor Transcribing Operators Name Role Phone Milagros Walls MD Primary Care Provider [phone] Reason for Visit * Reason Onset Date Comments PT-1 05/20/2024 Encounter Details Date Type Department Care Team ([facility] st Contact Info) Description 05/20/2024 Telephone [facility] MEDICINE 230 [place], [place] [phone] Milagros Walls MD 230 [place], [place] [phone] PT-1 Social History Tobacco Use Types Packs/Day [...] Y/N: Yes Provider name or facility name: [facility] Facility Address: [address] [place] [address] Escort needed: Y/N: No Do you have a wheelchair: Y/N: No If yes- Manual or electric: N/A Visits: 2 every 6 months - Patient calling requesting PT1 Home Address verified: Y/N: Yes Provider name or facility name: [facility] Facility Address: [address] [place] [address] Escort needed: Y/N: No Do you have a wheelchair: Y/N: No If yes- Manual or electric: N/A Visits: Once a month documented in this encounter Plan of Treatment Upcoming Encounters Date Type Department Care Team (Late st Contact Info) Description 05/28/2025 9:30 AM EDT Office Visit [facility] MED[facility]INE [address] [place] [address] Milagros Walls MD [address] [place] [address] 06/18/2025 11:30 AM EST Office Visit [facility] OPTOMETRY [address] [place] [address] Kaycee Franz, OD [address] [place] [address] documented as of this encounter Visit Diagnoses Not on filedocumented in this encounter Additional Health Concerns Assessment Noted Time PHQ-9 Depression Total Score: 0 03/04/20 24 10:17 AM EDT documented as of this encounter Care Teams Supervisor Transcribing Operators Relationship Specialty Start Date End Date Milagros Walls MD 230 [place] [address] PCP - General Family Medicine 02/10/21 documented as of this encounter
--- OUTSIDE RECORDS SUMMARY | 2025-04-14 12:19 | XMS_ITS | Encounter Summary ---
Author Organization [employer] Address [address] [facility] [address] 7t [place] [address] Care Team Providers Care It Solutions Architect Name Role Phone Milagros Walls MD Primary Care Provider [phone] Encounter Details Date Type Department Care Team (Late st Contact Info) Description 06/08/2024 Telephone [facility] MEDICINE 230 [place], [place] [phone] Milagros Walls MD 230 [place], [place] [phone] Social History Tobacco Use Types Packs/Day Years [...] 05/28/2025 9:30 AM EDT Office Visit [facility] MEDICINE [address] [place] [address] Milagros Walls MD 230 [place] [address] 06/18/2025 11:30 AM EST Office Visit [facility] OPTOMETRY 267 [place] [address] Tarka, Kaycee, OD [address] [place] [address] documented as of this encounter Visit Diagnoses Not on filedocumented in this encounter Additional Health Concerns Assessment Noted Time PHQ-9 Depression Total Score: 0 03/04/20 24 10:17 AM EDT documented as of this encounter Care Teams It Solutions Architect Relationship Specialty Start Date End Date Milagros Walls MD 230 [place] [address] PCP - General Family Medicine 02/10/21 documented as of this encounter
--- OUTSIDE RECORDS SUMMARY | 2025-04-14 12:19 | XMS_ITS | Encounter Summary ---
Author Organization [employer] Address 75 [facility] 7t [place] [address] Care Team Providers Care Dean Of Girls Name Role Phone Milagros Walls MD Primary Care Provider [phone] Reason for Visit * Reason Onset Date Comments PT-1 07/24/2024 Encounter Details Date Type Department Care Team ([facility] st Contact Info) Description 07/24/2024 Telephone [facility] MED[facility]INE [address] [place], [place] [phone] Milagros Walls MD 230 [place], [place] [phone] PT-1 Social History Tobacco Use Types Packs/Day [...] or facility name: [facility] Facility Address: [address] [place] [address] Escort needed: Y/N: No Do you have a wheelchair: Y/N: No If yes- Manual or electric: N/A Visits: Once a month documented in this encounter Plan of Treatment Upcoming Encounters Date Type Department Care Team (Late st Contact Info) Description 05/28/2025 9:30 AM EDT Office Visit [facility] MEDICINE [address] [place] [address] Milagros Walls MD [address] [place] [address] 06/18/2025 11:30 AM EST Office Visit [facility] OPTOMETRY [address] [place] [address] Kaycee Franz, OD [address] [place] [address] documented as of this encounter Visit Diagnoses Not on filedocumented in this encounter Additional Health Concerns Assessment Noted Time PHQ-9 Depression Total Score: 0 03/04/20 10:17 AM EDT documented as of this encounter Care Teams Dean Of Girls Relationship Specialty Start Date End Date Milagros Walls MD [address] [place] [address] PCP - General Family Medicine 02/10/21 documented as of this encounter
--- OUTSIDE RECORDS SUMMARY | 2025-04-14 12:19 | XMS_ITS | Encounter Summary ---
Author Organization [employer] Address 75 [facility] 7t [place] [address] Care Team Providers Care Destination Imagination Coordinator Name Role Phone Milagros Walls MD Primary Care Provider [phone] Reason for Visit * Reason Onset Date Comments PT1 03/24/2024 Encounter Details Date Type Department Care Team ([facility] st Contact Info) Description 03/24/2024 Telephone [facility] MEDICINE 230 [place], [place] [phone] Milagros Walls MD 230 [place], [place] [phone] PT1 Social History Tobacco Use Types Packs/Day [...] name or facility name: [facility] Facility Address: [address] [place] [address] Escort needed: Y/N: Yes Do you have a wheelchair: Y/N: No If yes- Manual or electric: NOP Visits: All future appt;'s documented in this encounter Plan of Treatment Upcoming Encounters Date Type Department Care Team ([facility] st Contact Info) Description 05/28/2025 9:30 AM EDT Office Visit [facility] MEDICINE [address] [place] [address] Milagros Walls MD [address] [place] [address] 06/18/2025 11:30 AM EST Office Visit [facility] OPTOMETRY [address] [place] [address] Kaycee Franz OD [address] [place] [address] documented as of this encounter Visit Diagnoses Not on filedocumented in this encounter Additional Health Concerns Assessment Noted Time PHQ-9 Depression Total Score: 0 03/04/20 10:17 AM EDT documented as of this encounter Care Teams Destination Imagination Coordinator Relationship Specialty Start Date End Date Milagros Walls MD [address] [place] [address] PCP - General Family Medicine 02/10/21 documented as of this encounter
--- OUTSIDE RECORDS SUMMARY | 2025-04-14 12:19 | XMS_ITS | Encounter Summary ---
Author Organization [employer] Address 75 [facility] 7t [place] [address] Care Team Providers Care Neonatal Nurse Practitioner Name Role Phone Milagros Walls MD Primary Care Provider [phone] Reason for Visit * Reason Onset Date Comments Pt1 03/06/2024 Encounter Details Date Type Department Care Team ([facility] st Contact Info) Description 03/06/2024 Telephone [facility] MEDICINE 230 [place], [place] [phone] Milagros Walsl MD 230 [place], [place] [phone] Pt1 Social History Tobacco Use Types Packs/Day [...] Y/N: Yes Provider name or facility name: [facility] Facility Address: [address] [place] [address] Escort needed: No Do you have a wheelchair: Y/N: No Visits: All future appts. Patient calling requesting PT1 Home Address verified: Y/N: Yes Provider name or facility name: [facility] Facility Address: [address] [place] [address] Escort needed: No Do you have a wheelchair: Y/N: No Visits: All future appts. Patient calling requesting PT1 Home Address verified: Y/N: Yes Provider name or facility name: [facility] Facility Address: [address] [place] [address] Escort needed: No Do you have a wheelchair: Y/N: No Visits: All future appts. Patient calling requesting PT1 Home Address verified: Y/N: Yes Provider name or facility name: [facility] Facility Address: [address] [place], [place] Escort needed: No Do you have a wheelchair: Y/N: No Visits: All future appts. Patient calling requesting PT1 Home Address verified: Y/N: Yes Provider name or facility name: [facility] Facility Address: [address] [place], [place] Escort needed: No Do you have a wheelchair: Y/N: No Visits: All future appts. Patient calling requesting PT1 Home Address verified: Y/N: Yes Provider name or facility name: [facility] Facility Address: [address] [place], [place] Escort needed: No Do you have a wheelchair: Y/N: No Visits: All future appts. Patient calling requesting PT1 Home Address verified: Y/N: Yes Provider name or facility name: [facility] [address] [facility] [place] [place] Escort needed: No Do you have a wheelchair: Y/N: No Visits: All future appts. documented in this encounter Plan of Treatment Upcoming Encounters Date Type Department Care Team (Late st Contact Info) Description 05/28/2025 9:30 AM EDT Office Visit [facility] MED[facility]INE [address] [place] [address] Milagros Walls MD [address] [place] [address] 06/18/2025 11:30 AM EST Office Visit [facility] OPTOMETRY [address] [place], [place] [phone] Kaycee Franz, OD [address] [place] [address] documented as of this encounter Visit Diagnoses Not on filedocumented in this encounter Additional Health Concerns Assessment Noted Time PHQ-9 Depression Total Score: 0 03/04/20 10:17 AM EDT documented as of this encounter Care Teams Neonatal Nurse Practitioner Relationship Specialty Start Date End Date Milagros Walls MD [address] [place], [place] [phone] PCP - General Family Medicine 02/10/21 documented as of this encounter
--- OUTSIDE RECORDS SUMMARY | 2025-04-14 12:19 | XMS_ITS | Encounter Summary ---
Author Organization [employer] Address 75 [facility] 7t [place] [address] Care Team Providers Care Field Tax Auditor Name Role Phone Milagros Walls MD Primary Care Provider [phone] Reason for Visit * Reason Comments Med Refill Encounter Details Date Type Department Care Team ([facility] st Contact Info) Description 06/15/2024 Refill [facility] MED[facility]INE 230 [place], [place] [phone] Milagros Walls MD [address] [place], [place] [phone] Social History Tobacco Use Types Packs/Day Years [...] Description 05/28/2025 9:30 AM EDT Office Visit [facility] MED[facility]INE [address] [place] [address] Milagros Walls MD [address] [place] [address] 06/18/2025 11:30 AM EST Office Visit [facility] OPTOMETRY [address] [place] [address] Kaycee Franz, OD 267 [place] [address] documented as of this encounter Visit Diagnoses Not on filedocumented in this encounter Additional Health Concerns Assessment Noted Time PHQ-9 Depression Total Score: 0 03/04/20 24 10:17 AM EDT documented as of this encounter Care Teams Field Tax Auditor Relationship Specialty Start Date End Date Milagros Walls MD [address] [place] [address] PCP - General Family Medicine 02/10/21 documented as of this encounter
--- OUTSIDE RECORDS SUMMARY | 2025-04-14 12:19 | XMS_ITS | Encounter Summary ---
Author Organization [employer] Address 75 [facility] 7t [place] [address] Care Team Providers Care Electromechanical Assembly Technician Name Role Phone Milagros Walls MD Primary Care Provider [phone] Reason for Visit * Reason Onset Date Comments Referral 10/30/2022 Encounter Details Date Type Department Care Team (Late Contact Info) Description 10/30/2022 Telephone [facility] MEDICINE [address] [place], [place] [phone] Milagros Walls MD [address] [place], [place] [phone] Referral Social History Tobacco Use Types Packs/Day [...] Tc from pt requesting a referral for Specialty:[facility] Urology Location:[address] [place] [address] [address], [place], [place] Date&Time: N/A Electronics Hardware Design Engineer:n/a Pt is also requesting a call back . documented in this encounter Plan of Treatment Upcoming Encounters Date Type Department Care Team (Late st Contact Info) Description 05/28/2025 9:30 AM EDT Office Visit [facility] MEDICINE [address] [place] [address] Milagros Walls MD [address] [place] [address] 06/18/2025 11:30 AM EST Office Visit [facility] OPTOMETRY [address] [place], [place] [phone] Kaycee Frnaz, OD 267 [place] [address] documented as of this encounter Visit Diagnoses Not on filedocumented in this encounter Care Teams Electromechanical Assembly Technician Relationship Specialty Start Date End Date Milagros Walls MD [address] [place] [address] PCP - General Family Medicine 02/10/21 documented as of this encounter
--- OUTSIDE RECORDS SUMMARY | 2025-04-14 12:19 | XMS_ITS | Encounter Summary ---
Author Organization [employer] Address 75 [facility] 7t [place] [address] Care Team Providers Care Telecommunicator Supervisor Name Role Phone Milagros Walls MD Primary Care Provider [phone] Reason for Visit * Reason Onset Date Comments rs comp exam 07/24/2024 Encounter Details Date Type Department Care Team ([facility] st Contact Info) Description 07/24/2024 Telephone [facility] D[facility]AL 230 [place], [place] [phone] Mike Bruce, REN 230 [place], [place] [phone] rs comp exam Social History Tobacco Use [...] Description 05/28/2025 9:30 AM EDT Office Visit [facility] MEDICINE 230 [place] [address] Milagros Walls MD 230 [place] [address] 06/18/2025 11:30 AM EST Office Visit [facility] OPTOMETRY [address] [place] [address] TarkaKaycee, OD [address] [place] [address] documented as of this encounter Visit Diagnoses Not on filedocumented in this encounter Additional Health Concerns Assessment Noted Time PHQ-9 Depression Total Score: 0 03/04/20 10:17 AM EDT documented as of this encounter Care Teams Telecommunicator Supervisor Relationship Specialty Start Date End Date Milagros Walls MD [address] [place] [address] PCP - General Family Medicine 02/10/21 documented as of this encounter
--- OUTSIDE RECORDS SUMMARY | 2025-04-14 12:19 | XMS_ITS | Encounter Summary ---
Author Organization [employer] Address [address] [facility] 7t [place] [address] Care Team Providers Care Seismology Technical Officer Name Role Phone Milagros Walls MD Primary Care Provider [phone] Reason for Visit * Reason Onset Date Comments PT-1 10/31/2023 Encounter Details Date Type Department Care Team ([facility] st Contact Info) Description 10/31/2023 Telephone [facility] MEDICINE 230 [place], [place] [phone] Milagros Walls MD 230 [place], [place] [phone] PT-1 Social History Tobacco Use Types Packs/Day [...] the past 12 months, has t he [employer] oil or water [employer] threatened to shut off services in your [...] Y/N: Yes Provider name or facility name: [facility] Facility Address: [address] [place] [address] Escort needed: Y/N: No Do you have a wheelchair: Y/N: No If yes- Manual or electric: no Visits: (amount of visits) ( x monthly, weekly, daily) documented in this encounter Plan of Treatment Upcoming Encounters Date Type Department Care Team (Late st Contact Info) Description 05/28/2025 9:30 AM EDT Office Visit [facility] MEDICINE [address] [place] [address] Milagros Walls MD 230 [place] [address] 06/18/2025 11:30 AM EST Office Visit [facility] OPTOMETRY [address] [place] [address] Kaycee Franz, OD [address] [place] [address] documented as of this encounter Visit Diagnoses Not on filedocumented in this encounter Care Teams Seismology Technical Officer Relationship Specialty Start Date End Date Milagros Walls MD 230 [place] [address] PCP - General Family Medicine 02/10/21 documented as of this encounter
--- OUTSIDE RECORDS SUMMARY | 2025-04-14 12:19 | XMS_ITS | Encounter Summary ---
Author Organization [employer] Address [address] 7t [place] [address] Care Team Providers Care Manager Recovery Name Role Phone Milagros Walls MD Primary Care Provider [phone] Encounter Details Date Type Department Care Team (Late st Contact Info) Description 10/10/2023 Orders Only [facility] MEDICINE [address] [place], [place] [phone] Milagros Walls MD [address] [place], [place] [phone] Social History Tobacco Use Types Packs/Day Years [...] Description 05/28/2025 9:30 AM EDT Office Visit [facility] MEDICINE [address] [place] [address] Milagros Walls MD 230 [place], [place] [phone] 06/18/2025 11:30 AM EST Office Visit [facility] OPTOMETRY [address] [place] [address] Kaycee Franz, OD [address] [place], [place] [phone] documented as of this encounter Procedures Procedure Name Priority Date/Time Associated Diagnosis Comments LDCT LUNG SCREENING Routine 10/21/2023 1 :01 PM EDT documented in this encounter Results * CT Lung Screening Low dose (10/21/2023 1:01 PM EDT) Anatomical Region Laterality Modality Lung Computed Tomogra phy 10/21/2023 1:01 PM EDT Narrative 10/23/2023 9:09 AM EDT [address] [address] [address] Scan Report Signed Patient: Marjorie Henson MR#: [id number] 55 : 1965 Acct:[id number] Age/Sex: 58 / F ADM Date: 10/21/23 Loc: HO.CT Attending Dr: Cinthia Ugarte PA-C Ordering Physician: Cinthia Ugarte PA-C Date of Service: 10/21/23 Procedure(s): CT lung screening Accession Number(s): [id number] cc: Milagros Walls; Cinthia Ugarte PA-C EXAMINATION: [...] in OV> 10/23/23 0905 DD/ 1301 TD/TT: Problem Manager: MAINE Procedure Note Donotuseinterpreter, Image - 10/23/[address] [address] [address] Scan Report Signed Patient: Marjorie Henson LMR#: [id number] 54 : 1965Acct:[id number] Age/Sex: 58 / FADM Date: 10/21/23 Loc: .CT Attending Dr: Cinthia Ugarte PA-C Ordering Physician: Cinthia Ugarte PA-C Date of Service: 10/21/23 Procedure(s): CT lung screening Accession Number(s): [id number] cc: Milagros Walls; Cinthia Ugarte PA-C EXAMINATION: [...] in OV> 10/23/23 0905 DD/ 1301 TD/TT: Problem Manager: MAINE [facility] External Provider IMG CT PROCEDURES Final Result documented in this encounter Visit Diagnoses Not on filedocumented in this encounter Care Teams Manager Recovery Relationship Specialty Start Date End Date Milagros Walls MD [address] [place] [address] PCP - General Family Medicine 02/10/21 documented as of this encounter
--- OUTSIDE RECORDS SUMMARY | 2025-04-14 12:19 | XMS_ITS | Encounter Summary ---
Author Organization [employer] Address [address] [facility] 7t [place] [address] Care Team Providers Care Content Manager Name Role Phone Milagros Walls MD Primary Care Provider [phone] Reason for Visit * Reason Onset Date Comments Med Refill 03/24/2024 Encounter Details Date Type Department Care Team ([facility] st Contact Info) Description 03/24/2024 Telephone [facility] MEDICINE 230 [place], [place] [phone] Milagros Walls MD [address] [place], [place] [phone] Med Refill Social History Tobacco Use Types [...] Description 05/28/2025 9:30 AM EDT Office Visit [facility] MEDICINE 230 [place] [address] Milagros Walls MD [address] [place] [address] 06/18/2025 11:30 AM EST Office Visit [facility] OPTOMETRY [address] [place] [address] Kaycee Franz, OD [address] [place] [address] documented as of this encounter Visit Diagnoses Not on filedocumented in this encounter Additional Health Concerns Assessment Noted Time PHQ-9 Depression Total Score: 0 03/04/20 24 10:17 AM EDT documented as of this encounter Care Teams Content Manager Relationship Specialty Start Date End Date Milagros Walls MD 230 [place] [address] PCP - General Family Medicine 02/10/21 documented as of this encounter
--- OUTSIDE RECORDS SUMMARY | 2025-04-14 12:19 | XMS_ITS | Encounter Summary ---
Author Organization [employer] Address [address] [facility] 7t [place] [address] Care Team Providers Care Tape Editor Name Role Phone Milagros Walls MD Primary Care Provider [phone] Reason for Referral * Consultation (Routine) - Closed Specialty Diagnoses / Procedures Referred By Diony santana Referred To Contact Optometry Diagnoses Blurry vision, bilateral Milagros Walls MD 230 [place] [address] Phone: tel: fax: [facility] OPTOMETRY [address] [place] [address] Phone: tel: fax: Referral ID Status Reason Start Date Expiration Date V isits Requested Visits Authorized [id number] Closed Consult and Treat 12/22/2024 12/22/2025 1 1 Reason for Visit * Reason Onset Date Comments Referral 12/22/2024 Encounter Details Date Type Department Care Team ([facility] st Contact Info) Description 12/22/2024 Telephone [facility] MEDICINE [address] [place] [address] Milagros Walls MD [address] [place] [address] Referral Social History Tobacco Use Types Packs/Day [...] encounter Miscellaneous Notes * Telephone Encounter - Ines Michaels RN - 12/22/2024 11:46 AM EDT TC placed to patient [phone] regarding below message. Patient informed RN that she has been having issues with seeing distance and wants a referral to [facility] vision center. Last exam was 10 years ago. Patient also reported she needs a update urology referral, patient stated she sees them once a year. RN informed patient that a [facility] Vision referral will be sent by RN, however the PCP has to approve a referral to Urology. Pt verbalized understanding. Pt to F/U PRN. PCP to review. * Telephone Encounter - Sally Elizabeth - 12/22/2024 11:29 AM EDT Tc from pt requesting a referral for vision center. documented in this encounter Plan of Treatment Upcoming Encounters Date Type Department Care Team (Late st Contact Info) Description 05/28/2025 9:30 AM EDT Office Visit [facility] MEDICINE [address] [place] [address] Milagros Walls MD [address] [place] [address] 06/18/2025 11:30 AM EST Office Visit [facility] OPTOMETRY [address] [place] [address] TarkaKaycee, OD [address] [place] [address] Scheduled Referrals Name Type Priority Associated Diagnoses Orde r Schedule Referral to [facility] Eye Care Outpatient Referral Routine Blurry vision, bilateral Expected: 12/22/2024 (Approximate), Expires: 12/22/2025 documented as of this encounter Visit Diagnoses Diagnosis Blurry vision, bilateral- Primary Other specified visual disturbances documented in this encounter Additional Health Concerns Assessment Noted Time PHQ-9 Depression Total Score: 0 03/04/20 24 10:17 AM EDT documented as of this encounter Care Teams Tape Editor Relationship Specialty Start Date End Date Milagros Walls MD [address] [place] [address] PCP - General Family Medicine 02/10/21 documented as of this encounter
--- OUTSIDE RECORDS SUMMARY | 2025-04-14 12:19 | XMS_ITS | Encounter Summary ---
Author Organization [employer] Address [address] [facility] 7t [place] [address] Care Team Providers Care Earring Maker Name Role Phone Milagros Walls MD Primary Care Provider [phone] Reason for Visit * Reason Onset Date Comments PT-1 06/10/2024 Encounter Details Date Type Department Care Team ([facility] st Contact Info) Description 06/10/2024 Telephone [facility] MEDICINE 230 [place], [place] [phone] Milagros Walls MD 230 [place], [place] [phone] PT-1 Social History Tobacco Use Types Packs/Day [...] Y/N: Yes Provider name or facility name: [facility] Address: [address] [place] [address] Escort needed: Y/N: No Do you have a wheelchair: Y/N: No If yes- Manual or electric: N/A Visits: Twice a month. documented in this encounter Plan of Treatment Upcoming Encounters Date Type Department Care Team (Late st Contact Info) Description 05/28/2025 9:30 AM EDT Office Visit [facility] MEDICINE [address] [place] [address] Milagros Walls MD [address] [place] [address] 06/18/2025 11:30 AM EST Office Visit [facility] OPTOMETRY [address] [place] [address] Kaycee Franz, CHAKA [address] [place] [address] documented as of this encounter Visit Diagnoses Not on filedocumented in this encounter Additional Health Concerns Assessment Noted Time PHQ-9 Depression Total Score: 0 07/24/20 24 10:17 AM EDT documented as of this encounter Care Teams Earring Maker Relationship Specialty Start Date End Date Milagros Walls MD [address] [place] [address] PCP - General Family Medicine 02/10/21 documented as of this encounter
--- OUTSIDE RECORDS SUMMARY | 2025-04-14 12:19 | XMS_ITS | Encounter Summary ---
Author Organization [employer] Address [address] [facility] [address] [facility] [address] 7t [place] [address] Care Team Providers Care Machine Deicer Element Winder Name Role Phone Milagros Walls MD Primary Care Provider [phone] Encounter Details Date Type Department Care Team (Late st Contact Info) Description 09/02/[address] [facility] MEDICINE [address] [place], [place] [phone] Milagros Walls MD [address] [place], [place] [phone] Social History Tobacco Use Types Packs/Day Years [...] [facility] [address] [place] [address] Milagros Walls MD [address] [place] [address] 06/18/2025 11:30 AM EST Office Visit [facility] OPTOMETRY [address] [place] [address] Tarka, Kaycee, OD [address] [place] [address] documented as of this encounter Visit Diagnoses Not on filedocumented in this encounter Additional Health Concerns Assessment Noted Time PHQ-9 Depression Total Score: 0 03/04/20 24 10:17 AM EDT documented as of this encounter Care Teams Machine Deicer Element Winder Relationship Specialty Start Date End Date Milagros Walls MD [address] [place] [address] PCP - General Family Medicine 02/10/21 documented as of this encounter
--- OUTSIDE RECORDS SUMMARY | 2025-04-14 12:19 | XMS_ITS | Encounter Summary ---
Author Organization [employer] Address [address] [facility] 7t [place] [address] Care Team Providers Care Electrician [employer] Name Role Phone Milagros Walls MD Primary Care Provider [phone] Encounter Details Date Type Department Care Team (Late st Contact Info) Description 08/29/2022 Orders Only [facility] MEDICINE [address] [place] [phone] Milagros Walls MD [address] [place] [phone] Kidney stone (Primary Dx) Social History Tobacco [...] AM EDT Office Visit [facility] MEDICINE [address] [place] [phone] Milagros Walls MD [address] [place] [phone] 06/18/2025 11:30 AM EST Office Visit [facility] OPTOMETRY [address] [place] [address] Kaycee Franz, OD [address] [place] [address] documented as of this encounter Procedures Procedure Name Priority Date/Time Associated Diagnosis Comments BI MAMMOGRAM SCREENING TOMOSYNTHESIS BILATERAL Routine 09/14/2022 9:51 AM EST documented in this encounter Results * BI Mammogram Screening Tomosynthesis Bilateral (09/14/2022 9:51 AM EST) Anatomical Region Laterality Modality Breast Bilateral Mammography 09/14/2022 9:51 AM EST Narrative 09/18/2022 5:22 PM EST [facility] [place] [address] Mammography Report Signed Patient: Marjorie Henson MR#: [id number] 54 : 1965 Acct:[id number] Age/Sex: 56 / F ADM Date: 09/14/22 Loc: HO.MAMMO Attending Dr: Milagros Walls MD Ordering Physician: Milagros Walls Results: 0Incomple te: Needs Additional Imaging Evaluation Date of Service: 09/14/22 Follow Up: Additional Imagi ng Procedure(s): MM tomosynthesis screening BI Accession Number(s): [id number] cc: Milagros Walls EXAMINATION: MM SCREENING DIGITAL [...] in OV> 09/18/22 1720 DD/ 0951 TD/TT: Crm Consultant: SK Procedure Note Donotuseinterpreter, Image - 09/18/2022 [facility] [address] [place], [place] [address] Mammography Report Signed Patient: Marjorie Henson LMR#: [id number] 54 : 1965Acct:[id number] Age/Sex: 56 / FADM Date: 09/14/22 Loc: HO.MAMMO Attending Dr: Milagros Walls MD Ordering Physician: Cory Wallsults: 0Incomple te: Needs Additional Imaging Evaluation Date of Service: 09/14/22Follow Up: Additional Imagi ng Procedure(s): MM tomosynthesis screening BI Accession Number(s): [id number] cc: Milagros Walls EXAMINATION: MM SCREENING DIGITAL [...] in OV> 09/18/22 1720 DD/ 0951 TD/TT: Crm Consultant: NATALIIA [facility] External Provider IMG BI PROCEDURES Edited Result - Final documented in this encounter Visit Diagnoses Diagnosis Kidney stone- Primary Calculus of kidney documented in this encounter Care Teams Electrician [employer] Relationship Specialty Start Date End Date Milagros Walls MD [address] [place] [address] PCP - General Family Medicine 02/10/21 documented as of this encounter
--- OUTSIDE RECORDS SUMMARY | 2025-04-14 12:19 | XMS_ITS | Encounter Summary ---
Author Organization [employer] Address [address] [facility] 7t [place] [address] Care Team Providers Care State Patrol Officer Name Role Phone Milagros Walls MD Primary Care Provider [phone] Reason for Visit * Reason Comments Med Refill Encounter Details Date Type Department Care Team (Late st Contact Info) Description 11/07/2023 Refill [facility] MEDICINE [address] [place], [place] [phone] Milagros Walls MD 230 [place], [place] [phone] Social History Tobacco Use Types Packs/Day Years [...] Description 05/28/2025 9:30 AM EDT Office Visit [facility] MEDICINE [address] [place] [address] Milagros Walls MD [address] [place] [address] 06/18/2025 11:30 AM EST Office Visit [facility] OPTOMETRY [address] [place] [address] Kaycee Franz, OD [address] [place] [address] documented as of this encounter Visit Diagnoses Not on filedocumented in this encounter Care Teams State Patrol Officer Relationship Specialty Start Date End Date Milagros Walls MD 230 [place] [address] PCP - General Family Medicine 02/10/21 documented as of this encounter
--- OUTSIDE RECORDS SUMMARY | 2025-04-14 12:19 | XMS_ITS | Encounter Summary ---
Author Organization [email or web address] Address [address] [facility] 7t [place] [address] Care Team Providers Care Sorting Cows Worker Name Role Phone Milagros Walls MD Primary Care Provider [phone] Reason for Visit * Reason Comments Med Refill Encounter Details Date Type Department Care Team (Late st Contact Info) Description 02/06/2024 Refill [facility] MEDICINE 230 [place], [place] [phone] Milagros Walls MD [address] [place], [place] [phone] Left flank pain Social History Tobacco Use [...] Description 05/28/2025 9:30 AM EDT Office Visit [facility] MEDICINE [address] [place] [address] Milagros Walls MD [address] [place] [address] 06/18/2025 11:30 AM EST Office Visit [facility] OPTOMETRY [address] [place] [address] Kaycee Franz, OD [address] [place] [address] documented as of this encounter Visit Diagnoses Diagnosis Left flank pain Abdominal pain, unspecified site documented in this encounter Care Teams Sorting Cows Worker Relationship Specialty Start Date End Date Milagros Walls MD [address] [place] [address] PCP - General Family Medicine 02/10/21 documented as of this encounter
== END 2025-04-14 11:26 | disposition home or self-care (01) ==
LOC: HO.HGI 10:32
PROVIDERS: PCP General Practice; Visit Provider Nurse Practitioner Family
DX: K21.9 Gastro-esophageal reflux disease without esophagitis (principal); K59.00 Constipation, unspecified; R63.0 Anorexia; N18.32 Chronic kidney disease, stage 3b
CPT/HCPCS: 99215

== ENCOUNTER → 2025-04-14 10:31 | Outpatient (BNVA) | payer MEDICARE, SELFPAY | PROVIDERS: PCP General Practice; Visit Provider Nurse Practitioner Family | DX: N18.32 Chronic kidney disease, stage 3b (principal); K21.9 Gastro-esophageal reflux disease without esophagitis; K59.00 Constipation, unspecified; R63.0 Anorexia | CPT/HCPCS: 99212 ==

== ENCOUNTER 2025-05-28 09:51 | Outpatient (REF) | payer MEDICARE, SELFPAY ==
--- NOTE | ~2025-05-28 | FL_ITS ---
EXAMINATION: XR BARIUM SWALLOW CLINICAL INFORMATION: Dysphagia COMPARISON: None available. TECHNIQUE: Routine upright barium swallow was performed with thick barium and barium coated saltine crackers. Thin barium was administered in prone lying position. FINDINGS: Following oral administration of thick barium in upright view there is normal perfusion bolus from the oral cavity through the pharynx into esophagus and stomach without obstruction, narrowing or stricture. There are tertiary peristalsis seen in distal esophagus. The GE junction is widely patent. On oral administration of barium coated saltine crackers is normal oral mastication and propagation bolus from the oral cavity through the pharynx, esophagus into stomach without obstruction narrowing. No retention of food seen in the valleculae or piriform sinuses. On oral administration of thin barium in prone lying position there is normal flow seen through the upper esophagus without obstruction, narrowing or stricture. There is no extrinsic compression. A small hiatal hernia is suspected. FLUOROSCOPY TIME: 2 minute 41 seconds DOSE AREA PRODUCT: 32.32 uGy-m2 (microgray-meter squared) FL/FL barium swallow IMPRESSION: Presence of tertiary peristalsis in the distal esophagus on oral administration of thick barium. A small sliding hiatal hernia suspected. No laryngeal penetration or aspiration seen on Electronically signed by: Simone Adan MD 05/28/2025 01:58 PM EDT
--- OUTSIDE RECORDS SUMMARY | 2025-05-28 11:25 | XMS_ITS | Clinical Summary ---
Author Organization [employer] Address [address] [facility] 7t [place] [address] Care Team Providers Care Software Packaging Engineer Name Role Phone Milagros Walls MD Primary Care Provider [phone] Allergies No known active allergies Medications Blood [...] TWICE DAILY FOR COPD 10/14/19 24 Active COVID-19 Antigen Test kit 1 [...] 90 capsule 3 06/05/20 24 Active butalbital-acetami sziucq-qawtdghc-br deine (Fioricet W/Codeine) 52-766-37-30 MG capsule Take 1 capsule by mouth [...] obstructive pulmonary disease, unspecified COPD type (CMS/HCC) (HCC) TAKE 1 TABLET(10 MG) BY MOUTH WITH [...] MOUTH TWICE DAILY 180 tablet 3 11/26/19 Active albuterol 108 (90 Base) MCG/ACT inhaler INHALE 2 PUFFS BY MOUTH EVERY 6 HOURS NEEDED FOR WHEEZING 18 g 3 01/21/20 Active nystatin (Mycostatin) 281121 UNIT/ML suspension SHAKE LIQUID WELL AND SWISH AND SWALLOW 5 ML BY MOUTH FOUR TIMES DAILY FOR 14 DAYS 10/21/19 Active baclofen (Lioresal) 10 MG tablet Take 10 tablets by mouth 3 times daily. Active atorvastatin (Lipitor) 10 MG tablet TAKE 1 TABLET(10 MG) BY MOUTH IN THE MORNING 90 tablet 3 04/15/20 Active traMADol (Ultram) 50 MG tabletIndications: Fibromyalgia Take 1 tablet (50 mg) by mouth every 12 (twelve) hours if needed for severe pain for up to 28 days. 56 tablet 04/05/20 25 025 Active Problems Problem Noted Date Diagnosed Date Chronic lymphocytic leukemia (CMS/HCC) 5 halfway (current) use of opiate analgesic 08/13 Muscle spasm 10/23/2023 Assessment & Plan (10/23/2023 10:45 AM EDT): Trialed trigger point injections in office, 3 on each size of trapezius muscles, not helpful in immediate pain relief Screen for colon cancer 10/23/2023 Assessment & Plan (10/23/2023 10:45 AM EDT): Refer to [facility] Left flank pain 07/21/2023 [...] Nausea 04/22/2023 Stage 3a chronic kidney disease ([facility]/HCC) 2022 Assessment & Plan (04/22/2023 8:15 AM EDT): [...] 11/12/2022 Uterine pain 11/12/2022 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 ([facility]/HCC) 08/21/2022 Assessment & Plan (01/27/2024 12:13 PM EDT): On Zanubrutnib for active disease, 3 tabs daily Monitored every 3 months by [facility] No swelling currently or enlarged lymph nodes currently Assessment & Plan (04/22/2023 8:17 AM EDT): On Zanubrutnib for active disease, 3 tabs daily Monitored every 3 months by [facility] No swelling currently or enlarged lymph nodes currently Assessment & Plan (11/13/2022 6:07 AM EDT): On Zanubrutnib for active disease, 3 tabs daily Monitored every 3 months by [facility] No swelling currently Assessment [...] (10/23/2023 10:44 AM EDT): Sees Pulm at [facility] [place], now q6 months due to improvements Cont Advair Cont CATHRYN prn Smoking cessation encouraged Assessment & Plan (11/13/2022 6:09 AM EDT): Sees Pulm at [facility] [place] [facility], now q6 months due [...] Encounters Date Type Department Care Team Description 04/25/2025 Refill [facility] MEDICINE [address] [place] [address] Milagros Walls MD 04/18/2025 Refill C MEDICINE [address] [place] [address] Milagros Walls MD Fibromyalgia 04/14/2025 Refill [facility] MEDICINE [address] [place] [address] Milagros Walls MD 04/06/2025 Refill [facility] MEDICINE [address] [place] [address] Milagros Walls MD 04/05/2025 Refill [facility] MEDICINE [address] [place] [address] Milagros Walls MD Fibromyalgia (Primary Dx) 03/30/2025 Orders Only GENERIC EXTERNAL DATA DEPARTMENT Provider, Generic External Data 03/29/2025 8:00 AM EDT Office Visit [facility] ADULT DENTAL [address] [place] [address] Mike Bruce DMD 03/18/[address] [address] Asha EduardomarilinFRIDA CHARTPREP 03/16/2025 9:00 AM EDT Office Visit [facility] OPTOMETRY [address] [place] [phone] Maria M, Kaycee, OD Combined forms of age-related cataract of both eyes (Primary Dx); Open angle with borderline findings, low risk, bilateral; Presbyopia; Anatomical narrow angle of both eyes 03/16/2025 Travel 03/15/2025 Orders Only [facility] [address] [place] [address] Milagros Walls MD 03/15/2025 Patient Outreach [address] [address] Milagros Walls MD Care Coordination (CHW outreach for SDOH PT-1 and food needs-referral completed /) 03/15/[address] [address] Milagros Walls MD Medication Question 03/15/[address] [address] Milagros Walls MD pt1 03/04/2025 Patient Outreach [address] [address] Milagros Walls MD Care Coordination (CHW outreach for SDOH PT-1 and food needs-referral completed /) 03/04/[address] [address] Milagros Walls MD PT-1 from Last 3 Months Immunizations Immunization Administration [...] Care Team (Late st Contact Info) Description 06/18/2025 11:30 AM EST Office Visit [facility] OPTOMETRY [address] [place] [address] Kaycee Franz, OD [address] [place] [address] 08/11/2025 3:15 PM EST Office Visit [facility] MEDICINE [address] [place] [address] Milagros Walls MD [address] [place] [address] Health Maintenance Due Date Last Done Comments [...] history exists Influenza Vaccine (#1) 2025 , 06/09/2024, 07/19/2023, Additional history exists Diabetes: Hemoglobin A1C 10/13/2025 10/13/2024, 07/0 09/2020 [...] TOMOSYNTHESIS BILATERAL Routine 02/23/2025 2:14 PM EDT HEMOGLOBIN A1C Routine 10/13/2024 10:58 [...] 8:30 AM EDT 03/30/2025 8:40 AM EDT [facility] - 04/01/2025 10:23 AM EDT ----- ------- Name: Marjorie Henson Age/Sex: 59/F : 1965 Unit#: [id number] Attend Dr: Sabrina Metzger MD Re03/30/25 Status: [facility] [place] [place] Location: [facility] Disch: ----- ------- SPEC : [id number] RECD: 03/30/25 STATUS: [facility] NUM: [id number] ANTONIO: 03/30/[address] [facility] [address]: Sabrina Metzger MD ENTERED: 03/30/25 SP [...] Marjorie Henson Age/Sex: 59/F : 1965 Unit#: [id number] Attend Dr: Sabrina Metzger MD Re03/30/25 Status: [facility] [place] Location: [facility] Disch: ----- ------- SPEC : [id number] RECD: 03/30/25 STATUS: [facility] NUM: [id number] ANTONIO: 03/30/[address] [facility] [address]: Sabrina Metzger MD ENTERED: 03/30/25 SP [...] developed and their performance characteristics determined by [facility]. They have not been cleared or approved by the U.S. Food and Drug Administration (FDA). However, the FDA has determined that such clearance or approval is not necessary. This laboratory is certified under the Clinical Laboratory Improvement Amendments of 1988 (CLIA) as qualified to perform high complexity clinical laboratory testing. Copies To: Milagros Walls [address] [place] [phone] Sabrina Metzger MD [facility] [address] [place] [phone] [email or web address] ------- Signed (signature on file) Micki [place] 04/01/25 1023 ----- ------- END OF REPORT Generic External Data Provider LAB BLOOD ORDERAB LES Final Result [facility] [address] [place] [phone] * OCT, Optic Nerve - OU - Both Eyes (03/16/2025 9:00 AM EDT) Kaycee Manrique, OD - 03/18/2025 9:45 AM EDT Images from [...] PM EDT Narrative 02/23/2025 3:00 PM EDT [facility] [address] [place] [address] Mammography Report Signed Patient: Marjorie Henson MR#: [id number] 54 : 1965 Acct:[id number] Age/Sex: 59 / F ADM Date: 02/23/25 Loc: .MAMMO Attending Dr: Milagros Walls MD Ordering Physician: Milagros Walls Results: 2Benign F indings Date of Service: 02/23/25 Follow Up: 1 Year From [facility] Mammogram Procedure(s): MM tomosynthesis diagnostic BI Accession Number(s): [id number] cc: Milagros Walls EXAMINATION: MM DIAGNOSTIC DIGITAL [...] 02/23/25 1456 DD/ 1414 TD/TT: 02/23/25 1448 Identity Management Developer: Procedure Note Donotuseinterpreter, Image - 02/23/2025 [facility] [address] [place] [address] Mammography Report Signed Patient: Marjorie Henson LMR#: [id number] 54 : 1965Acct:[id number] Age/Sex: 59 / FADM Date: 02/23/25 Loc: HO.MAMMO Attending Dr: Milagros Walls MD Ordering Physician: Cory Wallsults: 2Benign F indings Date of Service: 02/23/25Follow Up: 1 Year From Orig ina Mammogram Procedure(s): MM tomosynthesis diagnostic BI Accession Number(s): [id number] cc: Milagros Walls EXAMINATION: MM DIAGNOSTIC DIGITAL [...] 02/23/25 1456 DD/ 1414 TD/TT: 02/23/25 1448 Identity Management Developer: Milagros Walls MD IMG BI PROCEDURES Final Result * Hemoglobin A1c (10/13/2024 10:58 AM EST) Hemoglobin A1c 6.0 <6.0 % [facility] Comment:Hemoglobin A1C Refer ence Range Adults: 4.8 - 6.0 % Non diabetic: < 6.0 % Goal: < 7.0 %Additional Action Suggested: > 8.0 %Note: Hemoglobin A1c results are invalid for patients with abnormal amounts of HbF. Blood transfusions may impact the HbA1c concentration in the patient sample. Estimated Average Glucose 126 mg/dL [facility] Comment:eAG = Estimated ave rage glucose which is %A1C expressed asaverage glucose, using the formula of the P3S-OkmnmlhUxchaud Glucose study (ADAG), Diabetes Care, Vol.31,#8,Mar. 2007 Blood Venous blood specimen / Unknown 10/13/2024 10:58 AM EST 10/13/2024 1:11 PM EST Milagros Walls MD LAB BLOOD ORDERABLES Final Res ult Performing Organization Address City/State/[facility] Co de Phone Number [facility] [address] [place] [phone] * (ABNORMAL) Lipid Panel, Standard (10/13/2024 10:58 AM EST) Triglycerides 180(H) <150 mg/dL [facility] Comment:Desirable Triglyceri de: less than 150 mg/dLBorderline High Triglyceride 150-199 mg/dLHigh Triglyceride: 200-499 mg/dLVery High Triglyceride: greater than or equal to 5OO mg/dL Cholesterol 178 <200 mg/dL [facility] Comment:Desirable Cholestero l: less than 200 mg/dLBorderline High Cholesterol: 200-239 mg/dLHigh Cholesterol: greater than 239 mg/dL LDL Cholesterol Calculated 90 <100 mg/dL [facility] Comment:Desirable LDL: less than 100 mg/dLNear Optimal/Above Optimal LDL: 110- 129 mg/dLBorderline High LDL: 130-159 mg/dLHigh LDL: 160-189 mg/dLVery High LDL: greater than or equal to 190 mg/dL HDL Cholesterol 52 >40 mg/dL [facility] Comment:Desirable HDL: great er than 40 mg/dL Note: This HDL assay may give artificially low results in patients with liver disease. Blood Venous blood specimen / Unknown 10/13/2024 10:58 AM EST 10/13/2024 1:12 PM EST us Milagros Walls MD LAB BLOOD ORDERABLES Final Res ult Performing Organization Address [facility] Co de Phone Number [facility] [address] [place] [phone] [phone] * HEPATITIS C AB W/REFL TO HCV RNA, QN, PCR (02/10/2021 9:36 AM EDT) HEPATITIS C ANTIBODY NON-REACT MOMO NON-REACT [facility] INDEX 0.02 <1.00 [facility] Comment: HCV antibody was non-reactive. There is no laboratory evidence of HCV infection. In most cases, no further action is required. However, if recent HCV exposure is suspected, a test for HCV RNA (test code 10297) is suggested. For additional information please refer to http://education.[employer].PK Clean/faq/RRG45h3 (This link is being provided for informational/ educational purposes only.) 02/10/2021 9:36 AM EDT us Milagros Walls MD HISTORICAL/NON ORDERABLE LABS Final Result Performing Organization Address City/[facility]/ZIP Co de Phone Number [facility] [address] from Last 3 Months or Most Recently Relevant to Health Maintenance Insurance [facility] STANDARD [place] MEDICARE PREFERRED PRIME FORMERLY [facility] MEDICAID STAND ADULT Care Teams Software Packaging Engineer Relationship Specialty Start Date End Date Milagros Walls MD [address] [place] [phone] PCP - General Family Medicine 02/10/21
--- OUTSIDE RECORDS SUMMARY | 2025-05-28 11:25 | XMS_ITS | Encounter Summary ---
Author Organization [employer] Address [address] [facility] 7t [place] [address] Care Team Providers Care Examination Scorer Name Role Phone Milagros Walls MD Primary Care Provider Reason for Visit * Reason Comments Med Refill Encounter Details Date Type Department Care Team ([facility] st Contact Info) Description 04/06/2025 Refill [facility] MEDICINE [address] [place], [place] [phone] Milagros Walls MD [address] [place], [place] [phone] Social History Tobacco Use Types Packs/Day Years [...] Description 06/18/2025 11:30 AM EST Office Visit [facility] OPTOMETRY [address] [place] [address] Kaycee Franz, OD [address] [place] [address] 08/11/2025 3:15 PM EST Office Visit [facility] MEDICINE [address] [place] [address] Milagros Walls MD [address] [place] [phone] documented as of this encounter Visit Diagnoses Not on filedocumented in this encounter Additional Health Concerns Assessment Noted Time PHQ-9 Depression Total Score: 0 03/04/20 24 10:17 AM EDT documented as of this encounter Care Teams Examination Scorer Relationship Specialty Start Date End Date Milagros Walls MD [address] [place] [phone] PCP - General Family Medicine 02/10/21 documented as of this encounter
--- OUTSIDE RECORDS SUMMARY | 2025-05-28 11:25 | XMS_ITS | Encounter Summary ---
Author Organization [employer] Address [address] [facility] 7t [place] [address] Care Team Providers Care Emergency Services Dispatcher Name Role Phone Milagros Walls MD Primary Care Provider [phone] Reason for Visit * Reason Onset Date Comments PT-1 03/04/2025 Encounter Details Date Type Department Care Team ([facility] st Contact Info) Description 03/04/2025 Telephone [facility] MEDICINE [address] [place], [place] [phone] Milagros Walls MD [address] [place], [place] [phone] PT-1 Social History Tobacco Use Types Packs/Day [...] to add additional visits to current location [address] [place] [address] Contact pt at [phone] * Telephone Encounter - Hugo Weeks - 03/04/2025 9:12 AM EDT Patient calling requesting PT1 Home Address verified: Y/N: Yes Provider name or facility name: Dr. Alcantara Facility Address: [address] [place] [address] Escort needed: Y/N: No Do you have a wheelchair: Y/N: No If yes- Manual or electric: N/A Visits: once a month - Patient calling requesting PT1 Home Address verified: Y/N: Yes Provider name or facility name: [facility] Facility Address: [address] [place] [address] Escort needed: Y/N: No Do you have a wheelchair: Y/N: No If yes- Manual or electric: no Visits: Once a month - Patient calling requesting PT1 Home Address verified: Y/N: Yes Provider [facility] or facility [facility] Facility Address: [address] [place] [address] Escort needed: Y/N: No Do you have a wheelchair: Y/N: No If yes- Manual or electric: N/A Visits: 3 times a month documented in this encounter Plan of Treatment Upcoming Encounters Date Type Department Care Team (Late st Contact Info) Description 06/18/2025 11:30 AM EST Office Visit [facility] OPTOMETRY [address] [place], [place] [phone] Maria M Kaycee, OD [address] [place], [place] [phone] 08/11/2025 3:15 PM EST Office Visit [facility] MEDICINE [address] [place], [place] [phone] Milagros Walls MD [address] [place], [place] [phone] documented as of this encounter Visit Diagnoses Not on filedocumented in this encounter Additional Health Concerns Assessment Noted Time PHQ-9 Depression Total Score: 0 03/04/20 24 10:17 AM EDT documented as of this encounter Care Teams Emergency Services Dispatcher Relationship Specialty Start Date End Date Milagros Walls MD [address] [place], [place] [phone] PCP - General Family Medicine 02/10/21 documented as of this encounter
--- OUTSIDE RECORDS SUMMARY | 2025-05-28 11:25 | XMS_ITS | Clinical Summary ---
Author Organization [facility] Address [address] [phone] Phone Care Team Providers Care School Age Teacher Name Role Phone Milagros Walls MD Primary Care Provider [phone] Allergies No known active allergies Medications baclofen [...] Encounters Date Type Department Care Team Description 04/14/2025 Office Communication [facility] [address] [phone] Mark Hanna MD from Last 3 Months Immunizations Immunization [...] Office Visit [facility] [address] [phone] Mark Hanna MD [address] [phone] Health Maintenance Due Date Last Done Comments [...] age to complete this topic [place] [employer] Medicare Care Teams School Age Teacher Relationship Specialty Start Date End Date Milagros Walls MD [address] [place] [address] PCP - General Scale Model Maker 09/03/22
--- OUTSIDE RECORDS SUMMARY | 2025-05-28 11:26 | XMS_ITS | Encounter Summary ---
Author Organization [employer] Address [address] [facility] 7t [place] [address] Care Team Providers Care Paralegals Name Role Phone Milagros Walls MD Primary Care Provider [phone] Reason for Visit * Reason Onset Date Comments PT-1 07/24/2024 Encounter Details Date Type Department Care Team ([facility] st Contact Info) Description 07/24/2024 Telephone [facility] MEDICINE [address] [place], [place] [phone] Milagros Walls MD [address] [place], [place] [phone] PT-1 Social History Tobacco Use Types Packs/Day [...] or facility name: [facility] Facility Address: [address] [place] [address] Escort needed: Y/N: No Do you have a wheelchair: Y/N: No If yes- Manual or electric: N/A Visits: Once a month documented in this encounter Plan of Treatment Upcoming Encounters Date Type Department Care Team (Late st Contact Info) Description 06/18/2025 11:30 AM EST Office Visit [facility] OPTOMETRY [address] [place] [address] Kaycee Franz, OD [address] [place] [address] 08/11/2025 3:15 PM EST Office Visit [facility] MEDICINE [address] [place] [address] Milagros Walls MD [address] [place] [address] documented as of this encounter Visit Diagnoses Not on filedocumented in this encounter Additional Health Concerns Assessment Noted Time PHQ-9 Depression Total Score: 0 03/04/20 24 10:17 AM EDT documented as of this encounter Care Teams Paralegals Relationship Specialty Start Date End Date Milagros Walls MD [address] [place] [address] PCP - General Family Medicine 02/10/21 documented as of this encounter
--- OUTSIDE RECORDS SUMMARY | 2025-05-28 11:26 | XMS_ITS | Encounter Summary ---
Author Organization [employer] Address 75 [facility] 7t [place] [address] Care Team Providers Care Metal Hanging Supervisor Name Role Phone Milagros Walls MD Primary Care Provider [phone] Reason for Visit * Reason Comments Med Refill Encounter Details Date Type Department Care Team ([facility] st Contact Info) Description 07/26/2023 Refill [facility] MEDICINE [address] [place], [place] [phone] Milagros Walls MD [address] [place], [place] [phone] Social History Tobacco Use Types Packs/Day Years [...] Description 06/18/2025 11:30 AM EST Office Visit [facility] OPTOMETRY [address] [place] [address] Kaycee Franz, OD [address] [place] [address] 08/11/2025 3:15 PM EST Office Visit [facility] MEDICINE [address] [place] [address] Milagros Walls MD [address] [place] [address] documented as of this encounter Visit Diagnoses Not on filedocumented in this encounter Care Teams Metal Hanging Supervisor Relationship Specialty Start Date End Date Milagros Walls MD [address] [place] [address] PCP - General Family Medicine 02/10/21 documented as of this encounter
--- OUTSIDE RECORDS SUMMARY | 2025-05-28 11:26 | XMS_ITS | Encounter Summary ---
Author Organization [employer] Address [address] [facility] 7t [place] [address] Care Team Providers Care Welding Machine Operator Gas Metal Arc Name Role Phone Milagros Walls MD Primary Care Provider [phone] Reason for Referral * Consultation (Routine) - Closed Specialty Diagnoses / Procedures Referred By Diony santana Referred To Contact Urology Diagnoses Kidney mass Kidney atrophy Milagros Walls MD [address] [place] [address] Phone: tel: fax: [facility] [address] [place], [place] Phone: tel: fax: Referral ID Status Reason Start Date Expiration Date V isits Requested Visits Authorized [id number] Closed Specialty Services Required 12/22/2024 12/22/2025 1 1 Encounter Details Date Type Department Care Team (Late st Contact Info) Description 12/22/2024 Orders Only [facility] MEDICINE [address] [place] [address] Milagros Walls MD [address] [place], [place] [phone] Kidney mass (Primary Dx); Kidney atrophy Social [...] Description 06/18/2025 11:30 AM EST Office Visit [facility] OPTOMETRY [address] [place] [address] Kaycee Franz, CHAKA [address] [place] [address] 08/11/2025 3:15 PM EST Office Visit [facility] MEDICINE [address] [place] [address] Milagros Wlals MD [address] [place] [address] Scheduled Referrals Name Type Priority Associated Diagnoses [...] documented as of this encounter Care Teams Welding Machine Operator Gas Metal Arc Relationship Specialty Start Date End Date Milagros Walls MD [address] [place] [phone] PCP - General Family Medicine 02/10/21 documented as of this encounter
--- OUTSIDE RECORDS SUMMARY | 2025-05-28 11:26 | XMS_ITS | Encounter Summary ---
Author Organization [employer] Address [address] 7t [place] [address] Care Team Providers Care Sulfonator Operator Name Role Phone Milagros Walls MD Primary Care Provider [phone] Reason for Visit * Reason Onset Date Comments Referral 08/14/2023 Encounter Details Date Type Department Care Team ([facility] st Contact Info) Description 08/14/2023 Telephone [facility] 230 [place] [address] Milagros Walls MD 230 [place], [place] [phone] Referral Social History Tobacco Use Types Packs/Day [...] - 08/14/2023 2:03 PM EST Referral/Renewals Location: [address] [place] [address] Date: 10/29 Time: 9:30 AM Specialty: [facility] radiation oncology DX: cancer Location: [address] [place] [address] Date: n/a Time: n/a Specialty: [facility] surgical oncology DX: cancer Location: [address] [place] [address] Date: n/a Time: n/a Specialty: [facility] DX: Cancer Location: [address] [facility] [place] Date: 10/21 Time: 2:30 PM Fax: n/a Specialty: [facility] DX: breast symptoms Location: [address] [facility] [place] Date: 09/05 Time: 9:15 AM Fax: n/a Specialty:[facility] DX: COPD [facility] [address] [facility] [address] [facility] Date: n/a Time: n/a Specialty: [facility] DX: n/a Location: [address] [facility] Date: n/a Time: n/a Fax: n/a Specialty: [facility] DX: n/a documented in this encounter Plan of Treatment Upcoming Encounters Date Type Department Care Team (Late st Contact Info) Description 06/18/2025 11:30 AM EST Office Visit [facility] [address] [place], [place] [phone] Kaycee Franz, OD 267 [place] [address] 08/11/2025 3:15 PM EST Office Visit [facility] [address] [place] [address] Milagros Walls MD 230 [place], [place] [phone] documented as of this encounter Visit Diagnoses Not on filedocumented in this encounter Care Teams Sulfonator Operator Relationship Specialty Start Date End Date Milagros Walls MD [address] [place], [place] [phone] PCP - General Family Medicine 02/10/21 documented as of this encounter
--- OUTSIDE RECORDS SUMMARY | 2025-05-28 11:26 | XMS_ITS | Clinical Summary ---
Author Organization [employer] [facility] Address [address] [place] [address] Care Team Providers Care Medical Office Technologist Name Role Phone Milagros Walls MD Primary Care Provider [phone] Allergies No known active allergies Medications butalbital-acet aminophen-caffe ine-codeine (FIORICET WITH CODEINE) [phone] mg per capsule Take 1 capsule by mouth every 4 (four) hours if needed. Max Daily Amount: 6 capsules Active ammonium lactate (AmLactin) 12 % lotion Apply topically if needed for dry skin. 400 g 5 03/08/20 26 Active ketoconazole (NIZORAL) 2 % cream Apply topically 1 (one) time each day. 30 g 2 5 Active Active Problems Problem Noted Date Diagnosed Date Asthma 05/10/2010 GERD (gastroesophageal reflux disease) 0 Kidney stone 05/10/2010 Overview (05/14/2024): 2004 Migraine 05/10/2010 Encounters Date Type Department Care Team Description 03/08/2025 8:15 AM EDT Office Visit [facility] - [place] [address] [facility] [address] [place] [address] Marino Estrella, ARIAS Rocha (Primary Dx); Dermatophytosis of nail; Chemotherapy-induce d neuropathy (CMS/HCC V24); Verruca plantaris; Acquired hallux valgus of left foot; Acquired hallux valgus of right foot; Pain in toe of left foot; Pain in toe of right foot 03/08/2025 Telephone Orthopedic Surgery [facility] [address] [address] Marino Estrella DPM from Last [...] Upcoming Encounters Date Type Department Care Team ([facility] st Contact Info) Description 06/08/2025 8:45 AM EDT Office Visit Orthopedic Surgery [facility] 250 175 [address] [place] [id number] Marino Estrella, DPM [address] [address] Health Maintenance Due Date Last Done Comments Breast Cancer Screening 1965 Colorectal Cancer Screening: Colonoscopy 1964 Cervical Cancer Screening: Pap Smear 1985 RSV Immunization Adult Patients (1 - Risk 50-74 years 1-dose series) 2014 HIV Screening 10/18/2023 Hepatitis C Screening 10/18/2023 Medicare Annual Wellness Visit 10/18/2023 Social Influencers of Health Screening 10/18/2023 Depression Screening 08/12/2024 Influenza Vaccine (#1) 2025 , 07/19/2023, 04/29/2020 [...] Test (03/16/2004) Annual BMP Blood Test Abstracted [facility] Provider HEALTH MAINTENANCE Final Result from Last 3 Months or Most Recently Relevant to Health Maintenance Insurance [place] Care Teams Medical Office Technologist Relationship Specialty Start Date End Date Milagros Walls MD [address] [place] [address] PCP - General 04/01/24
--- OUTSIDE RECORDS SUMMARY | 2025-05-28 11:26 | XMS_ITS | Encounter Summary ---
Author Organization [employer] Address [address] [facility] 7t [place] [address] Care Team Providers Care Steel Plate Caulker Name Role Phone Milagros Walls MD Primary Care Provider [phone] Reason for Visit * Reason Onset Date Comments PT-1 06/10/2024 Encounter Details Date Type Department Care Team ([facility] st Contact Info) Description 06/10/2024 Telephone [facility] 230 [place], [place] [phone] Milagros Walls MD 230 [place], [place] [phone] PT-1 Social History Tobacco Use Types Packs/Day [...] [facility] Address: [address] [place] [address] Escort needed: Y/N: No Do you have a wheelchair: Y/N: No If yes- Manual or electric: N/A Visits: Twice a month. documented in this encounter Plan of Treatment Upcoming Encounters Date Type Department Care Team (Late st Contact Info) Description 06/18/2025 11:30 AM EST Office Visit [facility] OPT[facility] 267 [place] [address] Kaycee Franz, CHAKA 267 [place] [address] 08/11/2025 3:15 PM EST Office Visit [facility] 230 [place] [address] Milagros Walls MD 230 [place] [address] documented as of this encounter Visit Diagnoses Not on filedocumented in this encounter Additional Health Concerns Assessment Noted Time PHQ-9 Depression Total Score: 0 03/04/20 24 10:17 AM EDT documented as of this encounter Care Teams Steel Plate Caulker Relationship Specialty Start Date End Date Milagros Walls MD 230 [place] [address] PCP - General Family Medicine 02/10/21 documented as of this encounter
--- OUTSIDE RECORDS SUMMARY | 2025-05-28 11:26 | XMS_ITS | Encounter Summary ---
Author Organization [employer] Address 75 [facility] 7t [place] [address] Care Team Providers Care Training And Development Specialist Name Role Phone Milagros Walls MD Primary Care Provider [phone] Reason for Visit * Reason Comments Med Refill Encounter Details Date Type Department Care Team (Late st Contact Info) Description 02/06/2024 Refill [facility] 230 [place], [place] [phone] Milagros Walls MD 230 [place], [place] [phone] Left flank pain Social History Tobacco Use [...] Office Visit [facility] OPT[facility] 267 [place] [address] Kaycee Franz, OD 267 [place] [address] 08/11/2025 3:15 PM EST Office Visit [facility] 230 [place] [address] Milagros Walls MD 230 [place] [address] documented as of this encounter Visit Diagnoses Diagnosis Left flank pain Abdominal pain, unspecified site documented in this encounter Care Teams Training And Development Specialist Relationship Specialty Start Date End Date Milagros Walls MD [address] [place] [address] PCP - General Family Medicine 02/10/21 documented as of this encounter
--- OUTSIDE RECORDS SUMMARY | 2025-05-28 11:26 | XMS_ITS | Encounter Summary ---
Author Organization [employer] Address [address] [facility] 7t [place] [address] Care Team Providers Care Milk Hauler Name Role Phone Milagros Walls MD Primary Care Provider [phone] Reason for Visit * Reason Onset Date Comments PT-1 05/20/2024 Encounter Details Date Type Department Care Team ([facility] st Contact Info) Description 05/20/2024 Telephone [facility] 230 [place], [place] [phone] Milagros Walls MD 230 [place], [place] [phone] PT-1 Social History Tobacco Use Types Packs/Day [...] Y/N: Yes Provider name or facility name: [facility] Facility Address: [address] [place] [address] Escort needed: Y/N: No Do you have a wheelchair: Y/N: No If yes- Manual or electric: N/A Visits: 2 every 6 months - Patient calling requesting PT1 Home Address verified: Y/N: Yes Provider name or facility name: [facility] Facility Address: [address] [place] [address] Escort needed: Y/N: No Do you have a wheelchair: Y/N: No If yes- Manual or electric: N/A Visits: Once a month documented in this encounter Plan of Treatment Upcoming Encounters Date Type Department Care Team (Late st Contact Info) Description 06/18/2025 11:30 AM EST Office Visit [facility] 267 [place] [address] Kaycee Franz, OD 267 [place] [address] 08/11/2025 3:15 PM EST Office Visit [facility] 230 [place] [address] Milagros Walls MD 230 [place] [address] documented as of this encounter Visit Diagnoses Not on filedocumented in this encounter Additional Health Concerns Assessment Noted Time PHQ-9 Depression Total Score: 0 03/04/20 24 10:17 AM EDT documented as of this encounter Care Teams Milk Hauler Relationship Specialty Start Date End Date Milagros Walls MD 230 [place] [address] PCP - General Family Medicine 02/10/21 documented as of this encounter
--- OUTSIDE RECORDS SUMMARY | 2025-05-28 11:26 | XMS_ITS | Encounter Summary ---
Author Organization [employer] Address [address] [facility] 7t [place] [address] Care Team Providers Care Engineering Design Manager Name Role Phone Milagros Walls MD Primary Care Provider [phone] Reason for Visit * Reason Onset Date Comments PT-1 12/24/2024 Encounter Details Date Type Department Care Team ([facility] st Contact Info) Description 12/24/2024 Telephone [facility] 230 [place], [place] [phone] Milagros Walls MD 230 [place], [place] [phone] PT-1 Social History Tobacco Use Types Packs/Day [...] Y/N: Yes Provider name or facility name: [address] [place] [address] Escort needed: Y/N: No Do you have a wheelchair: Y/N: No If yes- Manual or electric: Visits: (1 x every 6 months) documented in this encounter Plan of Treatment Upcoming Encounters Date Type Department Care Team ([facility] Contact Info) Description 06/18/2025 11:30 AM EST Office Visit [facility] OPT[facility] 267 [place] [address] Kaycee Franz, OD 267 [place] [address] 08/11/2025 3:15 PM EST Office Visit [facility] 230 [place] [address] Milagros Walls MD 230 [place] [address] documented as of this encounter Visit Diagnoses Not on filedocumented in this encounter Additional Health Concerns Assessment Noted Time PHQ-9 Depression Total Score: 0 03/04/20 10:17 AM EDT documented as of this encounter Care Teams Engineering Design Manager Relationship Specialty Start Date End Date Milagros Walls MD 230 [place] [address] PCP - General Family Medicine 02/10/21 documented as of this encounter
--- OUTSIDE RECORDS SUMMARY | 2025-05-28 11:26 | XMS_ITS | Encounter Summary ---
Author Organization [employer] Address [address] [facility] 7t [place] [address] Care Team Providers Care Veneer Puller Name Role Phone Milagros Walls MD Primary Care Provider Reason for Visit * Reason Comments Med Refill Encounter Details Date Type Department Care Team ([facility] st Contact Info) Description 04/25/2025 Refill [facility] 230 [place], [place] [phone] Milagros Walls MD 230 [place], [place] [phone] Social History Tobacco Use Types Packs/Day Years [...] Description 06/18/2025 11:30 AM EST Office Visit [facility] OPTOMETRY 267 [place] [address] Kaycee Franz, OD 267 [place] [address] 08/11/2025 3:15 PM EST Office Visit [facility] 230 [place] [address] Milagros Walls MD [address] [place] [address] documented as of this encounter Visit Diagnoses Not on filedocumented in this encounter Additional Health Concerns Assessment Noted Time PHQ-9 Depression Total Score: 0 03/04/20 24 10:17 AM EDT documented as of this encounter Care Teams Veneer Puller Relationship Specialty Start Date End Date Milagros Walls MD [address] [place] [phone] PCP - General Family Medicine 02/10/21 documented as of this encounter
--- OUTSIDE RECORDS SUMMARY | 2025-05-28 11:26 | XMS_ITS | Encounter Summary ---
Author Organization [employer] Address [address] [facility] 7t [place] [address] Care Team Providers Care Assembly Machine Operator Name Role Phone Milagros Walls MD Primary Care Provider [phone] Reason for Visit * Reason Onset Date Comments PT1 06/03/2023 Encounter Details Date Type Department Care Team ([facility] st Contact Info) Description 06/03/2023 Telephone [facility] 230 [place], [place] [phone] Milagros Walls MD 230 [place], [place] [phone] PT1 Social History Tobacco Use Types Packs/Day [...] 3:14 PM EDT PT1 Name of facility: [facility] [place] Specialty: Mammograms Location: [address] [place] [address] Date: n/a Time: n/a fax: [phone] wheelchair: NO Form Presser: NO All Future appt's PT1 Name of facility: [facility] [place] Specialty: C.O.P Appt Location: [address] [place] [address] Date: 09/23/2022 Time: 9:30 am fax: n/a wheelchair: NO Form Presser: NO All Future Appt's Pt is requesting a call in regards to other PT1 statuses. Please contact pt at [phone] documented in this encounter Plan of Treatment Upcoming Encounters Date Type Department Care Team ([facility] Contact Info) Description 06/18/2025 11:30 AM EST Office Visit [facility] OPT[facility] 267 [place], [place] [phone] Kaycee Franz, OD 267 [place] [address] 08/11/2025 3:15 PM EST Office Visit [facility] 230 [place] [address] Milagros Walls MD 230 [place], [place] [phone] documented as of this encounter Visit Diagnoses Not on filedocumented in this encounter Care Teams Assembly Machine Operator Relationship Specialty Start Date End Date Milagros Walls MD [address] [place] [phone] PCP - General Family Medicine 02/10/21 documented as of this encounter
--- OUTSIDE RECORDS SUMMARY | 2025-05-28 11:26 | XMS_ITS | Encounter Summary ---
Author Organization [employer] Address 75 [facility] 7t [place] [address] Care Team Providers Care Web Services Architect Name Role Phone Milagros Walls MD Primary Care Provider [phone] Reason for Visit * Reason Onset Date Comments Referral 10/30/2022 Encounter Details Date Type Department Care Team (Late Contact Info) Description 10/30/2022 Telephone [facility] [address] [place], [place] [phone] Milagros Walls MD 230 [place], [place] [phone] Referral Social History Tobacco Use Types Packs/Day [...] Tc from pt requesting a referral for Specialty:[facility] Location:[address] [place] [address] [address], [place], [place] Date&Time: N/A Excel Developer:n/a Pt is also requesting a call back . documented in this encounter Plan of Treatment Upcoming Encounters Date Type Department Care Team (Late st Contact Info) Description 06/18/2025 11:30 AM EST Office Visit [facility] OPT[facility] 267 [place], [place] [phone] Kaycee Franz, OD 267 [place] [address] 08/11/2025 3:15 PM EST Office Visit [facility] [address] [place] [address] Milagros Walls MD 230 [place] [address] documented as of this encounter Visit Diagnoses Not on filedocumented in this encounter Care Teams Web Services Architect Relationship Specialty Start Date End Date Milagros Walls MD 230 [place], [place] [phone] PCP - General Family Medicine 02/10/21 documented as of this encounter
--- OUTSIDE RECORDS SUMMARY | 2025-05-28 11:26 | XMS_ITS | Encounter Summary ---
Author Organization [employer] Address 75 [facility] 7t [place] [address] Care Team Providers Care Horticultural Farmworker Name Role Phone Milagros Walls MD Primary Care Provider [phone] Reason for Referral * Consultation (Routine) - Closed Specialty Diagnoses / Procedures Referred By Diony santana Referred To Contact Podiatry Diagnoses Milagros Diaz MD 230 [place] [address] Phone: tel: fax: Marino Estrella DPM Phone: tel: fax: Referral ID Status Reason Start Date Expiration Date V isits Requested Visits Authorized [id number] Closed Specialty Services Required 03/25/2024 03/25/2025 1 1 Encounter Details Date Type Department Care Team (Late st Contact Info) Description 03/25/2024 Orders Only [facility] MEDICINE [address] [place] [address] Milagros Walls MD [address] [place] [address] Josefina (Primary Dx) Social History Tobacco Use [...] 11:30 AM EST Office Visit [facility] OPTOMETRY [address] [place] [address] Kaycee Franz, CHAKA 267 [place] [address] 08/11/2025 3:15 PM EST Office Visit [facility] MEDICINE 230 [place] [address] Milagros Walls MD 230 [place] [address] Scheduled Referrals Name Type Priority Associated Diagnoses Orde r Schedule Referral to Podiatry Outpatient Referral Routine Bunion Expected: 03/25/2024 (Approximate), Expires: 03/25/2025 documented as of this encounter Visit Diagnoses Diagnosis Bunion- Primary documented in this encounter Additional Health Concerns Assessment Noted Time PHQ-9 Depression Total Score: 0 03/04/20 24 10:17 AM EDT documented as of this encounter Care Teams Horticultural Farmworker Relationship Specialty Start Date End Date Milagros Walls MD 230 [place] [address] PCP - General Family Medicine 02/10/21 documented as of this encounter
--- OUTSIDE RECORDS SUMMARY | 2025-05-28 11:26 | XMS_ITS | Encounter Summary ---
Author Organization [employer] Address 75 [facility] 7t [place] [address] Care Team Providers Care Fourdrinier Wire Weaver Name Role Phone Milagros Walls MD Primary Care Provider [phone] Reason for Visit * Reason Onset Date Comments PT-1 10/31/2023 Encounter Details Date Type Department Care Team ([facility] st Contact Info) Description 10/31/2023 Telephone [facility] MED[facility]INE 230 [place], [place] [phone] Milagros Walls MD 230 [place], [place] [phone] PT-1 Social History Tobacco Use Types Packs/Day [...] the past 12 months, has t he [employer], oil or water [employer] threatened to shut off services in your [...] Y/N: Yes Provider [place] [facility] [place] Address: [address] [place] [address] Escort needed: Y/N: No Do you have a wheelchair: Y/N: No If yes- Manual or electric: no Visits: (amount of visits) ( x monthly, weekly, daily) documented in this encounter Plan of Treatment Upcoming Encounters Date Type Department Care Team (Late st Contact Info) Description 06/18/2025 11:30 AM EST Office Visit [facility] OPTOMETRY 267 [place] [address] Kaycee Franz, OD 267 [place] [address] 08/11/2025 3:15 PM EST Office Visit [facility] MEDICINE 230 [place] [address] Milagros Walls MD 230 [place] [address] documented as of this encounter Visit Diagnoses Not on filedocumented in this encounter Care Teams Fourdrinier Wire Weaver Relationship Specialty Start Date End Date Milagros Walls MD 230 [place] [address] PCP - General Family Medicine 02/10/21 documented as of this encounter
--- OUTSIDE RECORDS SUMMARY | 2025-05-28 11:26 | XMS_ITS | Encounter Summary ---
Author Organization [employer] Address 75 [facility] 7t [place] [address] Care Team Providers Care Lathe Tender Name Role Phone Milagros Walls MD Primary Care Provider [phone] Reason for Visit * Reason Onset Date Comments Pt1 03/06/2024 Encounter Details Date Type Department Care Team ([facility] st Contact Info) Description 03/06/2024 Telephone [facility]INE 230 [place], [place] [phone] Milagros Walls MD 230 [place], [place] [phone] Pt1 Social History Tobacco Use Types Packs/Day [...] Y/N: Yes Provider name or facility name: [facility] Facility Address: [address] [place] [address] Escort needed: No Do you have a wheelchair: Y/N: No Visits: All future appts. Patient calling requesting PT1 Home Address verified: Y/N: Yes Provider name or facility name: [facility] Facility Address: [address] [place] [address] Escort needed: No Do you have a wheelchair: Y/N: No Visits: All future appts. Patient calling requesting PT1 Home Address verified: Y/N: Yes Provider name or facility name: [facility] Facility Address: [address] [place] [address] Escort needed: No Do you have a wheelchair: Y/N: No Visits: All future appts. Patient calling requesting PT1 Home Address verified: Y/N: Yes Provider name or facility name: [facility] Facility Address: [address] [place], [place] Escort needed: No Do you have a wheelchair: Y/N: No Visits: All future appts. Patient calling requesting PT1 Home Address verified: Y/N: Yes Provider name or facility name: [facility] Facility Address: [address] [place], [place] Escort needed: No Do you have a wheelchair: Y/N: No Visits: All future appts. Patient calling requesting PT1 Home Address verified: Y/N: Yes Provider name or facility name: [facility] Facility Address: [address] [place], [place] Escort needed: No Do you have a wheelchair: Y/N: No Visits: All future appts. Patient calling requesting PT1 Home Address verified: Y/N: Yes Provider name or facility name: [facility] Facility Address: [address] [place] Escort needed: No Do you have a wheelchair: Y/N: No Visits: All future appts. documented in this encounter Plan of Treatment Upcoming Encounters Date Type Department Care Team (Late st Contact Info) Description 06/18/2025 11:30 AM EST Office Visit [facility] OPTOMETRY 267 [place] [address] Kaycee Franz, OD 267 [place] [address] 08/11/2025 3:15 PM EST Office Visit [facility] MEDICINE 230 [place] [address] Milagros Walls MD 230 [place] [address] documented as of this encounter Visit Diagnoses Not on filedocumented in this encounter Additional Health Concerns Assessment Noted Time PHQ-9 Depression Total Score: 0 03/04/20 10:17 AM EDT documented as of this encounter Care Teams Lathe Tender Relationship Specialty Start Date End Date Milagros Walls MD 230 [place], [place] [phone] PCP - General Family Medicine 02/10/21 documented as of this encounter
--- OUTSIDE RECORDS SUMMARY | 2025-05-28 11:26 | XMS_ITS | Encounter Summary ---
Author Organization [email or web address] Address 75 [facility] 7t [place] [address] Care Team Providers Care Preschool Program Director Name Role Phone Milagros Walls MD Primary Care Provider [phone] Reason for Visit * Reason Comments Med Refill Encounter Details Date Type Department Care Team (Late st Contact Info) Description 07/31/2023 Refill [facility] MEDICINE 230 [place], [place] [phone] Milagros Walls MD 230 [place], [place] [phone] Left flank pain Social History Tobacco Use [...] 11:30 AM EST Office Visit [facility] OPTOMETRY [address] [place] [address] Kaycee Franz, OD 267 [place] [address] 08/11/2025 3:15 PM EST Office Visit [facility] MEDICINE [address] [place] [address] Milagros Walls MD 230 [place] [address] documented as of this encounter Visit Diagnoses Diagnosis Left flank pain Abdominal pain, unspecified site documented in this encounter Care Teams Preschool Program Director Relationship Specialty Start Date End Date Milagros Walls MD [address] [place] [address] PCP - General Family Medicine 02/10/21 documented as of this encounter
--- OUTSIDE RECORDS SUMMARY | 2025-05-28 11:26 | XMS_ITS | Encounter Summary ---
Author Organization [employer] Address 75 [facility] 7t [place] [address] Care Team Providers Care Pulp House Supervisor Name Role Phone Milagros Walls MD Primary Care Provider [phone] Reason for Visit * Reason Onset Date Comments rs appt 11/05/2024 Encounter Details Date Type Department Care Team ([facility] st Contact Info) Description 11/05/2024 Telephone [facility] ADULT DENTAL 230 [place], [place] [phone] Mike Bruce, REN [address] [place], [place] [phone] rs appt Social History Tobacco Use Types [...] due to PT 1 never arriving 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 Rs for 11/20 at 8am. Wax try in. documented in this encounter Plan of Treatment Upcoming Encounters Date Type Department Care Team (Late st Contact Info) Description 06/18/2025 11:30 AM EST Office Visit [facility] OPTOMETRY [address] [place] [address] Tarjanelle Kaycee, OD 267 [place] [address] 08/11/2025 3:15 PM EST Office Visit [facility] MEDICINE 230 [place] [address] Milagros Walls MD 230 [place] [address] documented as of this encounter Visit Diagnoses Not on filedocumented in this encounter Additional Health Concerns Assessment Noted Time PHQ-9 Depression Total Score: 0 03/04/20 10:17 AM EDT documented as of this encounter Care Teams Pulp House Supervisor Relationship Specialty Start Date End Date Milagros Walls MD 230 [place] [address] PCP - General Family Medicine 02/10/21 documented as of this encounter
--- OUTSIDE RECORDS SUMMARY | 2025-05-28 11:26 | XMS_ITS | Encounter Summary ---
Author Organization [employer] Address 75 [facility] 7t [place] [address] Care Team Providers Care Clinical Lab Assistant Name Role Phone Milagros Walls MD Primary Care Provider [phone] Reason for Visit * Reason Onset Date Comments rs comp exam 07/24/2024 Encounter Details Date Type Department Care Team ([facility] st Contact Info) Description 07/24/2024 Telephone [facility] ADULT DENTAL 230 [place], [place] [phone] Mike Bruce, REN 230 [place], [place] [phone] rs comp exam Social History Tobacco Use [...] Description 06/18/2025 11:30 AM EST Office Visit [facility] OPTOMETRY [address] [place] [address] TarkaKaycee, OD 267 [place] [address] 08/11/2025 3:15 PM EST Office Visit [facility] MEDICINE 230 [place] [address] Milagros Walls MD 230 [place] [address] documented as of this encounter Visit Diagnoses Not on filedocumented in this encounter Additional Health Concerns Assessment Noted Time PHQ-9 Depression Total Score: 0 03/04/20 10:17 AM EDT documented as of this encounter Care Teams Clinical Lab Assistant Relationship Specialty Start Date End Date Milagros Walls MD [address] [place] [address] PCP - General Family Medicine 02/10/21 documented as of this encounter
--- OUTSIDE RECORDS SUMMARY | 2025-05-28 11:26 | XMS_ITS | Encounter Summary ---
Author Organization [employer] Address 75 [facility] 7t [place] [address] Care Team Providers Care Systems Lead Name Role Phone Milagros Walls MD Primary Care Provider [phone] Reason for Referral * Consultation (Routine) - Closed Specialty Diagnoses / Procedures Referred By Diony santana Referred To Contact Optometry Diagnoses Blurry vision, bilateral Milagros Walls MD 230 [place] [address] Phone: tel: fax: [facility] OPTOMETRY [address] [place] [address] Phone: tel: fax: Referral ID Status Reason Start Date Expiration Date V isits Requested Visits Authorized [id number] Closed Consult and Treat 12/22/2024 12/22/2025 1 1 Reason for Visit * Reason Onset Date Comments Referral 12/22/2024 Encounter Details Date Type Department Care Team ([facility] st Contact Info) Description 12/22/2024 Telephone [facility] MEDICINE 230 [place] [address] Milagros Walls MD 230 [place] [address] Referral Social History Tobacco Use Types Packs/Day [...] 11:46 AM EDT TC placed to patient [phone] regarding below message. Patient informed RN that she has been having issues with seeing distance and wants a referral to [facility] vision center. Last exam was 10 years ago. Patient also reported she needs a update urology referral, patient stated she sees them once a year. RN informed patient that a [facility] Vision referral will be sent by [...] 11:30 AM EST Office Visit [facility] OPTOMETRY [address] [place], [place] [phone] TarkaKaycee, OD 267 [place] [address] 08/11/2025 3:15 PM EST Office Visit [facility] MEDICINE 230 [place] [address] Milagros Walls MD [address] [place] [address] Scheduled Referrals Name Type Priority Associated Diagnoses Orde r Schedule Referral to [facility] Eye Care Outpatient Referral Routine Blurry vision, bilateral Expected: 12/22/2024 (Approximate), Expires: 12/22/2025 documented as of this encounter Visit Diagnoses Diagnosis Blurry vision, bilateral- Primary Other specified visual disturbances documented in this encounter Additional Health Concerns Assessment Noted Time PHQ-9 Depression Total Score: 0 03/04/20 24 10:17 AM EDT documented as of this encounter Care Teams Systems Lead Relationship Specialty Start Date End Date Milagros Walls MD [address] [place] [address] [phone] PCP - General Family Medicine 02/10/21 documented as of this encounter
--- OUTSIDE RECORDS SUMMARY | 2025-05-28 11:26 | XMS_ITS | Encounter Summary ---
Author Organization [employer] Address 75 [facility] 7t [place] [address] Care Team Providers Care Skiff Operator Name Role Phone Milagros Walls MD Primary Care Provider [phone] Reason for Visit * Reason Comments Med Refill Encounter Details Date Type Department Care Team (Late Contact Info) Description 02/11/2023 Refill [facility] MEDICINE [address] [place] [address] [phone] Sade Townsend MD [address] [place] [address] [phone] Social History Tobacco Use Types Packs/Day Years [...] 11:30 AM EST Office Visit [facility] OPTOMETRY [address] [place], [place] [phone] TarkaKaycee, OD 267 [place], [place] [phone] 08/11/2025 3:15 PM EST Office Visit [facility] MEDICINE [address] [place] [address] Milagros Walls MD 230 [place], [place] [phone] documented as of this encounter Visit Diagnoses Not on filedocumented in this encounter Care Teams Skiff Operator Relationship Specialty Start Date End Date Milagros Walls MD 230 [place], [place] [phone] PCP - General Family Medicine 02/10/21 documented as of this encounter
--- OUTSIDE RECORDS SUMMARY | 2025-05-28 11:26 | XMS_ITS | Encounter Summary ---
Author Organization [employer] Address 75 [facility] 7t [place] [address] Care Team Providers Care Assembler Wire Group Name Role Phone Milagros Walls MD Primary Care Provider [phone] Reason for Visit * Reason Onset Date Comments Med Refill 03/24/2024 Encounter Details Date Type Department Care Team ([facility] st Contact Info) Description 03/24/2024 Telephone [facility] MEDICINE 230 [place], [place] [phone] Milagros Walls MD 230 [place], [place] [phone] Med Refill Social History Tobacco Use Types [...] 25 mg tablets To be sent to: [facility] documented in this encounter Plan of Treatment Upcoming Encounters Date Type Department Care Team (Late st Contact Info) Description 06/18/2025 11:30 AM EST Office Visit [facility] OPTOMETRY [address] [place] [address] Kaycee Franz, CHAKA 267 [place] [address] 08/11/2025 3:15 PM EST Office Visit [facility] MEDICINE 230 [place] [address] Milagros Walls MD 230 [place] [address] documented as of this encounter Visit Diagnoses Not on filedocumented in this encounter Additional Health Concerns Assessment Noted Time PHQ-9 Depression Total Score: 0 03/04/20 24 10:17 AM EDT documented as of this encounter Care Teams Assembler Wire Group Relationship Specialty Start Date End Date Milagros Walls MD 230 [place] [address] PCP - General Family Medicine 02/10/21 documented as of this encounter
--- OUTSIDE RECORDS SUMMARY | 2025-05-28 11:26 | XMS_ITS | Encounter Summary ---
Author Organization [employer] Address 75 [facility] 7t [place] [address] Care Team Providers Care Account Installation Specialist Name Role Phone Milagros Walls MD Primary Care Provider [phone] Encounter Details Date Type Department Care Team (Late st Contact Info) Description 03/15/2025 Orders Only [facility] MEDICINE 230 [place], [place] [phone] Milagros Walls MD 230 [place], [place] [phone] Social History Tobacco Use Types Packs/Day Years [...] Description 06/18/2025 11:30 AM EST Office Visit [facility] OPTOMETRY [address] [place] [address] TarkaKaycee, OD [address] [place] [address] 08/11/2025 3:15 PM EST Office Visit [facility] MEDICINE 230 [place] [address] Milagros Walls MD 230 [place] [address] documented as of this encounter Visit Diagnoses Not on filedocumented in this encounter Additional Health Concerns Assessment Noted Time PHQ-9 Depression Total Score: 0 03/04/20 24 10:17 AM EDT documented as of this encounter Care Teams Account Installation Specialist Relationship Specialty Start Date End Date Milagros Walls MD [address] [place] [address] PCP - General Family Medicine 02/10/21 documented as of this encounter
--- OUTSIDE RECORDS SUMMARY | 2025-05-28 11:26 | XMS_ITS | Encounter Summary ---
Author Organization [employer] Address 75 [facility] 7t [place] [address] Care Team Providers Care Seasonal Delivery Driver Name Role Phone Milagros Walls MD Primary Care Provider [phone] Encounter Details Date Type Department Care Team (Late Contact Info) Description 03/29/2023 Telephone [facility] MEDICINE 230 [place] [address] Milagros Walls MD 230 [place] [address] Social History Tobacco Use Types Packs/Day Years [...] to be renewed. Please contact pt at [phone] documented in this encounter Plan of Treatment Upcoming Encounters Date Type Department Care Team (Late Contact Info) Description 06/18/2025 11:30 AM EST Office Visit [facility] OPTOMETRY [address] [place], [place] [phone] Kaycee Franz, OD 267 [place] [address] 08/11/2025 3:15 PM EST Office Visit [facility] MEDICINE 230 [place], [place] [phone] Milagros Walls MD 230 [place], [place] [phone] documented as of this encounter Visit Diagnoses Not on filedocumented in this encounter Care Teams Seasonal Delivery Driver Relationship Specialty Start Date End Date Milagros Walls MD 230 [place], [place] [phone] PCP - General Family Medicine 02/10/21 documented as of this encounter
--- OUTSIDE RECORDS SUMMARY | 2025-05-28 11:26 | XMS_ITS | Encounter Summary ---
Author Organization [employer] Address 75 [facility] 7t [place] [address] Care Team Providers Care Visual Aid Expert Name Role Phone Milagros Walls MD Primary Care Provider [phone] Reason for Visit * Reason Onset Date Comments Pt1 08/13/2023 Encounter Details Date Type Department Care Team ([facility] st Contact Info) Description 08/13/2023 Telephone [facility] MEDICINE 230 [place], [place] [phone] Milagros Walls MD 230 [place], [place] [phone] Pt1 Social History Tobacco Use Types Packs/Day [...] n/a Visits: All future Appt's Address: [address] [place], [place] Facility: [facility] Wheel Chair: no It Help Desk Manager Needed: no PT1 needed Date: n/a Time: n/a Visits: All future Appt's Address: [address] [place] [address] Facility: [facility] Wheel Chair: No It Help Desk Manager Needed: No PT1 needed Date: n/a Time: n/a Visits: All future Appt's Address: 230 [place] [address] Facility: [facility] Wheel Chair: No It Help Desk Manager Needed: No documented in this encounter Plan of Treatment Upcoming Encounters Date Type Department Care Team (Late st Contact Info) Description 06/18/2025 11:30 AM EST Office Visit [facility] OPTOMETRY [address] [place] [address] Kaycee Franz OD 267 [place] [address] 08/11/2025 3:15 PM EST Office Visit [facility] MEDICINE 230 [place] [address] Milagros Walls MD 230 [place] [address] documented as of this encounter Visit Diagnoses Not on filedocumented in this encounter Care Teams Visual Aid Expert Relationship Specialty Start Date End Date Milagros Walls MD 230 [place] [address] PCP - General Family Medicine 02/10/21 documented as of this encounter
--- OUTSIDE RECORDS SUMMARY | 2025-05-28 11:26 | XMS_ITS | Encounter Summary ---
Author Organization [employer] Address [address] [facility] [address] 7t [place] [address] Care Team Providers Care Construction Ironworker Name Role Phone Milagros Walls MD Primary Care Provider [phone] Encounter Details Date Type Department Care Team (Late st Contact Info) Description 09/02/2024 Telephone [facility] MEDICINE 230 [place], [place] [phone] Milagros Walls MD 230 [place], [place] [phone] Social History Tobacco Use Types Packs/Day Years [...] Description 06/18/2025 11:30 AM EST Office Visit [facility] OPTOMETRY [address] [place] [address] TarkaKaycee, OD [address] [place] [address] 08/11/2025 3:15 PM EST Office Visit [facility] MEDICINE 230 [place] [address] Milagros Walls MD 230 [place], [place] [phone] documented as of this encounter Visit Diagnoses Not on filedocumented in this encounter Additional Health Concerns Assessment Noted Time PHQ-9 Depression Total Score: 0 03/04/20 24 10:17 AM EDT documented as of this encounter Care Teams Construction Ironworker Relationship Specialty Start Date End Date Milagros Walls MD [address] [place] [address] [phone] PCP - General Family Medicine 02/10/21 documented as of this encounter
--- OUTSIDE RECORDS SUMMARY | 2025-05-28 11:26 | XMS_ITS | Encounter Summary ---
Author Organization [employer] Address 75 [facility] 7t [place] [address] Care Team Providers Care Sawmill Equipment Operator Name Role Phone Milagros Walls MD Primary Care Provider Encounter Details Date Type Department Care Team (Late st Contact Info) Description 08/29/2022 Orders Only [facility] 230 [place], [place] [phone] Milagros Walls MD 230 [place], [place] [phone] Kidney stone (Primary Dx) Social History Tobacco [...] EST Office Visit [facility] OPTOMETRY [address] [place], [place] [phone] Kaycee Franz, OD [address] [place], [place] [phone] 08/11/2025 3:15 PM EST Office Visit [facility] MEDICINE 230 [place] [address] Milagros Walls MD 230 [place], [place] [phone] documented as of this encounter Procedures Procedure Name Priority Date/Time Associated Diagnosis Comments BI MAMMOGRAM SCREENING TOMOSYNTHESIS BILATERAL Routine 09/14/2022 9:51 AM EST documented in this encounter Results * BI Mammogram Screening Tomosynthesis Bilateral (09/14/2022 9:51 AM EST) Anatomical Region Laterality Modality Breast Bilateral Mammography 09/14/2022 9:51 AM EST Narrative 09/18/2022 5:22 PM EST [facility]'[address] [place] [address] Mammography Report Signed Patient: Marjorie Henson MR#: [id number] 54 : 1965 Acct:[id number] Age/Sex: 56 / F ADM Date: 09/14/22 Loc: HO.MAMMO Attending Dr: Milagros Walls MD Ordering Physician: Milagros Walls Results: 0Incomple te: Needs Additional Imaging Evaluation Date of Service: 09/14/22 Follow Up: Additional Imagi ng Procedure(s): MM tomosynthesis screening BI Accession Number(s): [id number] cc: Milagros Walls EXAMINATION: MM SCREENING DIGITAL [...] in OV> 09/18/22 1720 DD/ 0951 TD/TT: Compliance Representative Dealer: SK Procedure Note Donotuseinterpreter, Image - 09/18/2022 [facility] [address] [place] [address] Mammography Report Signed Patient: Marjorie Henson LMR#: [id number] 54 : 1965Acct:[id number] Age/Sex: 56 / FADM Date: 09/14/22 Loc: HO.MAMMO Attending Dr: Milagros Walls MD Ordering Physician: Cory Wallsults: 0Incomple te: Needs Additional Imaging Evaluation Date of Service: 09/14/22Follow Up: Additional Imagi ng Procedure(s): MM tomosynthesis screening BI Accession Number(s): [id number] cc: Milagros Walls EXAMINATION: MM SCREENING DIGITAL [...] in OV> 09/18/22 1720 DD/ 0951 TD/TT: Compliance Representative Dealer: NATALIIA [facility] External Provider IMG BI PROCEDURES Edited Result - Final documented in this encounter Visit Diagnoses Diagnosis Kidney stone- Primary Calculus of kidney documented in this encounter Care Teams Sawmill Equipment Operator Relationship Specialty Start Date End Date Milagros Walls MD [address] [place] [address] PCP - General Family Medicine 02/10/21 documented as of this encounter
--- OUTSIDE RECORDS SUMMARY | 2025-05-28 11:26 | XMS_ITS | Encounter Summary ---
Author Organization [employer] Address [address] [facility] [address] 7t [place] [address] Care Team Providers Care Grocery Supervisor Name Role Phone Milagros Walls MD Primary Care Provider [phone] Encounter Details Date Type Department Care Team (Late st Contact Info) Description 10/10/2023 Orders Only [facility] MEDICINE 230 [place], [place] [phone] Milagros Walls MD 230 [place], [place] [phone] Social History Tobacco Use Types Packs/Day Years [...] Description 06/18/2025 11:30 AM EST Office Visit [facility] OPTOMETRY [address] [place] [address] Tarjanelle Kaycee, OD 267 [place] [address] 08/11/2025 3:15 PM EST Office Visit [facility] MEDICINE 230 [place] [address] Milagros Walls MD 230 [place], [place] [phone] documented as of this encounter Procedures Procedure Name Priority Date/Time Associated Diagnosis Comments LDCT LUNG SCREENING Routine 10/21/2023 1 :01 PM EDT documented in this encounter Results * CT Lung Screening Low dose (10/21/2023 1:01 PM EDT) Anatomical Region Laterality Modality Lung Computed Tomogra phy 10/21/2023 1:01 PM EDT Narrative 10/23/2023 9:09 AM EDT [address] [address] [address] Scan Report Signed Patient: Marjorie Henson MR#: [id number] 54 : 1965 Acct:[id number] Age/Sex: 58 / F ADM Date: 10/21/23 Loc: .CT Attending Dr: Cinthia Ugarte PA-C Ordering Physician: Cinthia Ugarte PA-C Date of Service: 10/21/23 Procedure(s): CT lung screening Accession Number(s): [id number] cc: Milagros Walls; Cinthia Ugarte PA-C EXAMINATION: [...] in OV> 10/23/23 0905 DD/ 1301 TD/TT: [place] Stayer Machine Operator: SS Procedure Note Donotuseinterpreter, Image - 10/23/[address] [address] [address] Scan Report Signed Patient: Marjorie Henson LMR#: [id number] 54 : 1965Acct:[id number] Age/Sex: 58 / FADM Date: 10/21/23 Loc: .CT Attending Dr: Cinthia Ugarte PA-C Ordering Physician: Cinthia Ugarte PA-C Date of Service: 10/21/23 Procedure(s): CT lung screening Accession Number(s): [id number] cc: Milagros Walls; Cinthia Ugarte PA-C EXAMINATION: [...] in OV> 10/23/23 0905 DD/ 1301 TD/TT: [place] Stayer Machine Operator: MAINE [facility] External Provider IMG CT PROCEDURES Final Result documented in this encounter Visit Diagnoses Not on filedocumented in this encounter Care Teams Grocery Supervisor Relationship Specialty Start Date End Date Milagros Walls MD 230 [place] [address] PCP - General Family Medicine 02/10/21 documented as of this encounter
--- OUTSIDE RECORDS SUMMARY | 2025-05-28 11:26 | XMS_ITS | Encounter Summary ---
Author Organization [employer] Address 75 [facility] 7t [place] [address] Care Team Providers Care Stationary Fireman Name Role Phone Milagros Walls MD Primary Care Provider [phone] Reason for Visit * Reason Onset Date Comments PT1 03/24/2024 Encounter Details Date Type Department Care Team ([facility] st Contact Info) Description 03/24/2024 Telephone [facility] MEDICINE 230 [place], [place] [phone] Milagros Walls MD 230 [place], [place] [phone] PT1 Social History Tobacco Use Types Packs/Day [...] name or facility name: Podiatry Facility Address: [address] [place] [address] Escort needed: Y/N: Yes Do you have a wheelchair: Y/N: No If yes- Manual or electric: NOP Visits: All future appt;'s documented in this encounter Plan of Treatment Upcoming Encounters Date Type Department Care Team (Late st Contact Info) Description 06/18/2025 11:30 AM EST Office Visit [facility] OPTOMETRY 267 [place] [address] Kaycee Franz, OD 267 [place] [address] 08/11/2025 3:15 PM EST Office Visit [facility] MEDICINE 230 [place] [address] Milagros Walls MD 230 [place] [address] documented as of this encounter Visit Diagnoses Not on filedocumented in this encounter Additional Health Concerns Assessment Noted Time PHQ-9 Depression Total Score: 0 03/04/20 10:17 AM EDT documented as of this encounter Care Teams Stationary Fireman Relationship Specialty Start Date End Date Milagros Walls MD 230 [place] [address] PCP - General Family Medicine 02/10/21 documented as of this encounter
--- OUTSIDE RECORDS SUMMARY | 2025-05-28 11:26 | XMS_ITS | Encounter Summary ---
Author Organization [employer] Address 75 [facility] 7t [place] [address] Care Team Providers Care Returned Telephone Equipment Appraiser Name Role Phone Milagros Walls MD Primary Care Provider [phone] Encounter Details Date Type Department Care Team (Late Contact Info) Description 01/09/2023 Abstract [facility] [address] [place] [address] [phone] Nereida Duncan, ALINA [address] [place] [phone] Social History Tobacco Use Types Packs/Day Years [...] Description 06/18/2025 11:30 AM EST Office Visit [facility] [address] [place], [place] [phone] Kaycee Franz OD [address] [place] [address] 08/11/2025 3:15 PM EST Office Visit [facility] [address] [place] [phone] Milagros Walls MD 230 [place] [address] documented as of this encounter Procedures Procedure Name Priority Date/Time Associated Diagnosis Comments MAMMOGRAPHY Routine 10/25/2022 documented in this encounter Results * Mammography (10/25/2022) Mammogram BI-RADS 3: Probably Benign Anatomical Region Laterality Modality Other Historical Provider HEALTH MAINTENANCE Final Result documented in this encounter Visit Diagnoses Not on filedocumented in this encounter Care Teams Returned Telephone Equipment Appraiser Relationship Specialty Start Date End Date Milagros Walls MD [address] [place] [address] PCP - General Family Medicine 02/10/21 documented as of this encounter
--- OUTSIDE RECORDS SUMMARY | 2025-05-28 11:26 | XMS_ITS | Encounter Summary ---
Author Organization [employer] Address 75 [facility] 7t [place] [address] Care Team Providers Care Netbackup Admin Name Role Phone Milagros Walls MD Primary Care Provider [phone] Reason for Visit * Reason Comments Med Refill Encounter Details Date Type Department Care Team (Late st Contact Info) Description 11/07/2023 Refill [facility] [address] [place], [place] [phone] Milagros Walls MD 230 [place], [place] [phone] Social History Tobacco Use Types Packs/Day Years [...] Description 06/18/2025 11:30 AM EST Office Visit [facility] [address] [place] [address] Kaycee Franz, OD [address] [place] [address] 08/11/2025 3:15 PM EST Office Visit [facility] [address] [place] [address] Milagros Walls MD [address] [place] [address] documented as of this encounter Visit Diagnoses Not on filedocumented in this encounter Care Teams Netbackup Admin Relationship Specialty Start Date End Date Milagros Walls MD [address] [place] [address] PCP - General Family Medicine 02/10/21 documented as of this encounter
--- OUTSIDE RECORDS SUMMARY | 2025-05-28 11:26 | XMS_ITS | Encounter Summary ---
Author Organization [email or web address] Address [address] [facility] [address] 7[address] [place] [address] Care Team Providers Care Data Warehousing Manager Name Role Phone Milagros Walls MD Primary Care Provider [phone] Encounter Details Date Type Department Care Team (Late st Contact Info) Description 06/08/2024 Telephone [facility] [address] [place], [place] [phone] Milagros Walls MD 230 [place], [place] [phone] Social History Tobacco Use Types Packs/Day Years [...] Description 06/18/2025 11:30 AM EST Office Visit [facility] [address] [place] [address] TarkaKaycee, OD [address] [place] [address] 08/11/2025 3:15 PM EST Office Visit [facility] [address] [place] [address] Milagros Walls MD 230 [place], [place] [phone] documented as of this encounter Visit Diagnoses Not on filedocumented in this encounter Additional Health Concerns Assessment Noted Time PHQ-9 Depression Total Score: 0 03/04/20 24 10:17 AM EDT documented as of this encounter Care Teams Data Warehousing Manager Relationship Specialty Start Date End Date Milagros Walls MD [address] [place] [address] [phone] PCP - General Family Medicine 02/10/21 documented as of this encounter
--- OUTSIDE RECORDS SUMMARY | 2025-05-28 11:26 | XMS_ITS | Encounter Summary ---
Author Organization [employer] Address 75 [facility] 7t [place] [address] Care Team Providers Care Measurement And Sensing Technician Name Role Phone Milagros Walls MD Primary Care Provider [phone] Reason for Visit * Reason Comments Med Refill Encounter Details Date Type Department Care Team ([facility] st Contact Info) Description 04/18/2025 Refill [facility] [address] [place], [place] [phone] Milagros Walls MD 230 [place], [place] [phone] Fibromyalgia Social History Tobacco Use Types Packs/Day [...] EST Office Visit [facility] [address] [place] [address] TarKaycee luis, OD [address] [place] [address] 08/11/2025 3:15 PM EST Office Visit [facility] [address] [place] [address] Milagros Walls MD [address] [place] [address] documented as of this encounter Visit Diagnoses Diagnosis Fibromyalgia Unspecified myalgia and myositis documented in this encounter Additional Health Concerns Assessment Noted Time PHQ-9 Depression Total Score: 0 03/04/20 24 10:17 AM EDT documented as of this encounter Care Teams Measurement And Sensing Technician Relationship Specialty Start Date End Date Milagros Walls MD [address] [place] [address] PCP - General Family Medicine 02/10/21 documented as of this encounter
--- OUTSIDE RECORDS SUMMARY | 2025-05-28 11:26 | XMS_ITS | Encounter Summary ---
Author Organization [employer] Address 75 [facility] 7t [place] [address] Care Team Providers Care Alterations Workroom Clerk Name Role Phone Milagros Walls MD Primary Care Provider [phone] Reason for Visit * Reason Comments Med Refill Encounter Details Date Type Department Care Team ([facility] st Contact Info) Description 06/15/2024 Refill [facility] [address] [place], [place] [phone] Milagros Walls MD [address] [place], [place] [phone] Social History Tobacco Use Types Packs/Day Years [...] Description 06/18/2025 11:30 AM EST Office Visit [facility] [address] [place] [address] Kaycee Franz, OD [address] [place] [address] 08/11/2025 3:15 PM EST Office Visit [facility] [address] [place] [address] Milagros Walls MD [address] [place] [phone] documented as of this encounter Visit Diagnoses Not on filedocumented in this encounter Additional Health Concerns Assessment Noted Time PHQ-9 Depression Total Score: 0 03/04/20 24 10:17 AM EDT documented as of this encounter Care Teams Alterations Workroom Clerk Relationship Specialty Start Date End Date Milagros Walls MD [address] [place] [address] [phone] PCP - General Family Medicine 02/10/21 documented as of this encounter
--- OUTSIDE RECORDS SUMMARY | 2025-05-28 11:26 | XMS_ITS | Encounter Summary ---
Author Organization [employer] Address 75 [facility] 7t [place] [address] Care Team Providers Care Armored Vehicle Officer Name Role Phone Milagros Walls MD Primary Care Provider [phone] Reason for Visit * Reason Onset Date Comments pt1 03/15/2025 Encounter Details Date Type Department Care Team ([facility] st Contact Info) Description 03/15/2025 Telephone [facility] [address] [place], [place] [phone] Milagros Walls MD [address] [place], [place] [phone] pt1 Social History Tobacco Use Types Packs/Day [...] Y/N: Yes Provider name or facility name: [address] [place] [address] Escort needed: Y/N: No Do you have a wheelchair: Y/N: No If yes- Manual or electric: n/a Visits: 3 x monthly documented in this encounter Plan of Treatment Upcoming Encounters Date Type Department Care Team ([facility] st Contact Info) Description 06/18/2025 11:30 AM EST Office Visit [facility] [address] [place] [address] Kaycee Franz OD [address] [place] [address] 08/11/2025 3:15 PM EST Office Visit [facility] [address] [place] [address] Milagros Walls MD [address] [place] [address] documented as of this encounter Visit Diagnoses Not on filedocumented in this encounter Additional Health Concerns Assessment Noted Time PHQ-9 Depression Total Score: 0 03/04/20 10:17 AM EDT documented as of this encounter Care Teams Armored Vehicle Officer Relationship Specialty Start Date End Date Milagros Walls MD [address] [place] [phone] PCP - General Family Medicine 02/10/21 documented as of this encounter
--- OUTSIDE RECORDS SUMMARY | 2025-05-28 11:26 | XMS_ITS | Encounter Summary ---
Author Organization [employer] Address [address] [facility] 7t [place] [address] Care Team Providers Care Weld Lay Out Worker Name Role Phone Milagros Walls MD Primary Care Provider [phone] Reason for Visit * Reason Comments Med Refill Encounter Details Date Type Department Care Team (Late st Contact Info) Description 09/09/2023 Refill [facility] [address] [place], [place] [phone] Milagros Walls MD [address] [place], [place] [phone] Fibromyalgia Social History Tobacco Use Types Packs/Day [...] 06/18/2025 11:30 AM EST Office Visit [facility] [address] [place] [address] Kaycee Franz, OD [address] [place] [address] 08/11/2025 3:15 PM EST Office Visit [facility] [address] [place] [address] Milagros Walls MD [address] [place] [address] documented as of this encounter Visit Diagnoses Diagnosis Fibromyalgia Unspecified myalgia and myositis documented in this encounter Care Teams Weld Lay Out Worker Relationship Specialty Start Date End Date Milagros Walls MD [address] [place] [address] PCP - General Family Medicine 02/10/21 documented as of this encounter
--- OUTSIDE RECORDS SUMMARY | 2025-05-28 11:26 | XMS_ITS | Encounter Summary ---
Author Organization [employer] Address 75 [facility] 7t [place] [address] Care Team Providers Care Welder Fitter Helper Name Role Phone Milagros Walls MD Primary Care Provider [phone] Encounter Details Date Type Department Care Team (Late st Contact Info) Description 10/31/2022 Orders Only [facility]INE [address] [place] [address] [phone] Milagros Walls MD [address] [place] [address] [phone] Kidney stone (Primary Dx) Social History Tobacco [...] 11:30 AM EST Office Visit [facility] [address] [place] [address] Kaycee Franz OD [address] [place] [address] 08/11/2025 3:15 PM EST Office Visit [facility] [address] [place] [address] Milagros Walls MD [address] [place] [address] documented as of this encounter Visit Diagnoses Diagnosis Kidney stone- Primary Calculus of kidney documented in this encounter Care Teams Welder Fitter Helper Relationship Specialty Start Date End Date Milagros Walls MD [address] [place] [phone] PCP - General Family Medicine 02/10/21 documented as of this encounter
== END 2025-05-28 09:52 | disposition home or self-care (01) ==
LOC: HO.XRAY 09:51
PROVIDERS: PCP General Practice; Visit Provider Nurse Practitioner Family
DX: R13.10 Dysphagia, unspecified (principal)
CPT/HCPCS: 74220

== ENCOUNTER → 2025-05-28 09:52 | Outpatient (BNV) | payer MEDICARE, SELFPAY | PROVIDERS: PCP General Practice; Visit Provider Radiology Diagnostic Radiology | DX: R13.10 Dysphagia, unspecified (principal) | CPT/HCPCS: 74221 ==

== ENCOUNTER 2025-06-14 08:43 | Outpatient (REF) | payer MEDICARE, SELFPAY ==
[2025-06-14 10:50] LABS: Alanine Aminotransferase 18 U/L (0-31); Albumin Level 4.2 g/dL (3.5-5.0); Alkaline Phosphatase 164 U/L (39-117); Anion Gap 10 (12-20); Aspartate Amino Transferase 15 U/L (5-31); Blood Urea Nitrogen 16 mg/dL (9-16); Calcium 8.6 mg/dL (8.4-10.2); Carbon Dioxide 27 mmol/L (22-29); Chloride 106 mmol/L (96-108); Estimated Glomerular Filt Rate 46; Potassium 4.4 mmol/L (3.3-5.1); Sodium 139 mmol/L (135-145); Total Protein 6.3 g/dL (6.5-8.0)
[2025-06-14 11:28] LABS: Gamma Glutamyl Transpeptidase 34 U/L (7-33)
[2025-06-17 15:59] LABS: Alk.Phos Iso. Macrohepatic 0 % (<=0); Alk.Phos Isoenzymes Bone 29 % (28-66); Alk.Phos Isoenzymes Intest 0 % (1-24); Alk.Phos Isoenzymes Liver 71 % (25-69); Alk.Phos Isoenzymes Placental 0 % (<=0); Alk.Phos Isoenzymes Total 151 U/L (37-153)
== END 2025-06-14 08:44 | disposition home or self-care (01) ==
LOC: HO.LAB 08:43
PROVIDERS: PCP General Practice; Visit Provider Nurse Practitioner Family
DX: N18.32 Chronic kidney disease, stage 3b (principal); K59.00 Constipation, unspecified; R74.8 Abnormal levels of other serum enzymes
CPT/HCPCS: 36415; 80053; 82977; 84080